=== PATIENT | female | born 1950 | race Caucasian/White ===

== ENCOUNTER → 2017-12-30 08:24 | Outpatient (CLI) | payer MEDICARE, OTHER, SELFPAY ==
[2017-12-30 09:43] LABS: Hemoglobin A1C% w Est Avg Glu 6.2 % (4.0-6.0)
[2017-12-30 10:13] LABS: Alanine Aminotransferase 60 IU/L (9-52); Albumin 4.2 g/dL (3.5-5.0); Albumin Globulin Ratio 1.4 (1.0-2.8); Alkaline Phosphatase 96 U/L (38-126); Aspartate Aminotransferase 43 IU/L (14-36); BUN Creatinine Ratio 22.9 (6-22); Bilirubin Total 0.6 mg/dL (0.2-1.3); Blood Urea Nitrogen 16 mg/dL (7-17); Calcium 9.5 mg/dL (8.4-10.2); Carbon Dioxide 29 mmol/L (22-32); Chloride 102 mmol/L (98-107); Cholesterol 172 mg/dL (140-199); Estimated Glomerular Filt Rate > 60.0 mL/min (>60); Globulin 3.1 g/dL (1.7-4.1); Glucose 125 mg/dL (80-110); HDL Cholesterol 58 mg/dL (40-60); HEMOLYSIS < 15 (0-50); LDL Cholesterol Calculated 89 mg/dL (<100); Potassium 4.9 mmol/L (3.4-5.1); Sodium 143 mmol/L (137-145); Total Protein 7.3 g/dL (6.3-8.2); Triglycerides 127 mg/dL (35-150)
== END ==
PROVIDERS: PCP Family Medicine; Visit Provider Family Medicine
DX: E78.5 Hyperlipidemia, unspecified (principal); E11.9 Type 2 diabetes mellitus without complications
CPT/HCPCS: 36415; 80053; 80061; 83036

== ENCOUNTER → 2018-07-17 11:19 | Outpatient (CLI) | payer MEDICARE, OTHER, SELFPAY ==
[2018-07-17 12:01] LABS: Add Manual Diff / Slide Review NO; Basophils Percent Auto 0.7 % (0-2); Eosinophils Percent Auto 1.6 % (2-4); Hematocrit 42.8 % (36-46); Hemoglobin 14.2 g/dL (12.0-16.0); Lymphocytes Percent Auto 40.4 % (25-40); Mean Corpuscular HGB Conc 33.2 % (30-36); Mean Corpuscular Hemoglobin 29.6 PG (26-34); Mean Corpuscular Volume 89.2 fL (80-100); Monocytes Percent Auto 9.5 % (3-14); Neutrophils Absolute Auto 4200 /uL (1500-7000); Neutrophils Percent Auto 47.8 % (50-75); Platelet Count 302 X10^3/uL (150-400); Red Cell Distribution Width 13.3 % (11.6-14.8); White Blood Cell Count 8.9 X10^3/uL (4.5-11.0)
[2018-07-17 12:19] LABS: Alanine Aminotransferase 45 IU/L (9-52); Albumin 4.4 g/dL (3.5-5.0); Albumin Globulin Ratio 1.3 (1.0-2.8); Alkaline Phosphatase 86 U/L (38-126); Aspartate Aminotransferase 30 IU/L (14-36); Bilirubin Total 0.5 mg/dL (0.2-1.3); Blood Urea Nitrogen 14 mg/dL (7-17); Calcium 9.4 mg/dL (8.4-10.2); Carbon Dioxide 27 mmol/L (22-32); Chloride 105 mmol/L (98-107); Cholesterol 157 mg/dL (140-199); Estimated Glomerular Filt Rate > 60.0 mL/min (>60); Globulin 3.3 g/dL (1.7-4.1); Glucose 108 mg/dL (80-110); HDL Cholesterol 45 mg/dL (40-60); HEMOLYSIS < 15 (0-50); Hemoglobin A1C% w Est Avg Glu 6.2 % (4.0-6.0); LDL Cholesterol Calculated 83 mg/dL (<100); Potassium 4.8 mmol/L (3.4-5.1); Sodium 145 mmol/L (137-145); Total Protein 7.7 g/dL (6.3-8.2); Triglycerides 143 mg/dL (35-150)
[2018-07-17 14:17] LABS: Thyroid Stimulating Hormone 3.08 uIU/mL (0.47-4.68)
[2018-07-17 19:39] LABS: Microalbumi Creatinin Ratio Ur 13.3 ug/mg CR (<30); Microalbumin Urine Random 1.4 mg/dL (0-1.6)
== END ==
PROVIDERS: PCP Family Medicine; Visit Provider Family Medicine
DX: E11.9 Type 2 diabetes mellitus without complications (principal); E78.5 Hyperlipidemia, unspecified; Z51.81 Encounter for therapeutic drug level monitoring
CPT/HCPCS: 36415; 80053; 80061; 82043; 82570; 83036; 84443; 85025

== ENCOUNTER → 2019-01-12 10:26 | Outpatient (CLI) | payer MEDICARE, OTHER, SELFPAY ==
[2019-01-12 11:03] LABS: Hemoglobin A1C% w Est Avg Glu 5.8 % (4.0-6.0)
[2019-01-12 11:09] LABS: Alanine Aminotransferase 45 IU/L (9-52); Albumin 4.5 g/dL (3.5-5.0); Albumin Globulin Ratio 1.4 (1.0-2.8); Alkaline Phosphatase 87 U/L (38-126); Aspartate Aminotransferase 31 IU/L (14-36); BUN Creatinine Ratio 22.9 (6-22); Bilirubin Total 0.5 mg/dL (0.2-1.3); Blood Urea Nitrogen 16 mg/dL (7-17); Calcium 9.8 mg/dL (8.4-10.2); Carbon Dioxide 30 mmol/L (22-32); Chloride 103 mmol/L (98-107); Cholesterol 155 mg/dL (140-199); Estimated Glomerular Filt Rate > 60.0 mL/min (>60); Globulin 3.3 g/dL (1.7-4.1); Glucose 112 mg/dL (80-110); HDL Cholesterol 47 mg/dL (40-60); HEMOLYSIS < 15 (0-50); LDL Cholesterol Calculated 79 mg/dL (<100); Sodium 141 mmol/L (137-145); Total Protein 7.8 g/dL (6.3-8.2); Triglycerides 146 mg/dL (35-150)
== END ==
PROVIDERS: PCP Family Medicine; Visit Provider Family Medicine
DX: E11.9 Type 2 diabetes mellitus without complications (principal); E78.5 Hyperlipidemia, unspecified; I10 Essential (primary) hypertension
CPT/HCPCS: 36415; 80053; 80061; 83036

== ENCOUNTER → 2019-04-13 12:40 | Outpatient (CLI) | payer MEDICARE, OTHER, SELFPAY ==
[2019-04-13 13:29] LABS: Hemoglobin A1C% w Est Avg Glu 6.2 % (4.0-6.0)
[2019-04-13 13:40] LABS: Alanine Aminotransferase 55 IU/L (9-52); Albumin 4.6 g/dL (3.5-5.0); Albumin Globulin Ratio 1.4 (1.0-2.8); Alkaline Phosphatase 94 U/L (38-126); Aspartate Aminotransferase 44 IU/L (14-36); BUN Creatinine Ratio 25.7 (6-22); Bilirubin Total 0.8 mg/dL (0.2-1.3); Blood Urea Nitrogen 18 mg/dL (7-17); Carbon Dioxide 30 mmol/L (22-32); Chloride 100 mmol/L (98-107); Estimated Glomerular Filt Rate > 60.0 mL/min (>60); Globulin 3.4 g/dL (1.7-4.1); Glucose 105 mg/dL (80-110); HEMOLYSIS < 15 (0-50); Potassium 4.6 mmol/L (3.4-5.1); Sodium 143 mmol/L (137-145)
== END ==
PROVIDERS: PCP Family Medicine; Visit Provider Family Medicine
DX: E11.9 Type 2 diabetes mellitus without complications (principal); E78.5 Hyperlipidemia, unspecified; I10 Essential (primary) hypertension
CPT/HCPCS: 36415; 80053; 83036; 84443

== ENCOUNTER → 2019-10-02 15:53 | Outpatient (CLI) | payer MEDICARE, OTHER, SELFPAY ==
--- NOTE | 2019-10-02 | DI.MG.S_ITS ---
BILATERAL DIGITAL SCREENING MAMMOGRAM 3D/2D WITH CAD: 10/02/2019 CLINICAL: Routine screening. Family history of breast cancer. Comparison is made to exams dated: 10/07/2017 mammogram, 12/19/2014 mammogram, and 11/29/2013 mammogram - Located Within [facility]. There are scattered fibroglandular elements in both breasts. Current study was also evaluated with a Computer Aided Detection (CAD) system. No significant masses, calcifications, or other findings are seen in either breast. There has been no significant interval change. IMPRESSION: NEGATIVE There is no mammographic evidence of malignancy. A 1 year screening mammogram is recommended. This exam was interpreted at Station ID: [id number]. NOTE: For mammograms, a report in lay terms will be sent to the patient. Approximately 15% of breast malignancies will not be visualized mammographically. In the management of a palpable breast mass, a negative mammogram must not discourage biopsy of a clinically suspicious lesion. Electronically Signed By: Omayra hoyt/jean:10/02/2019 17:34:02 letter sent: Normal Exam ACR BI-RADS Category 1: Negative [id number]
== END ==
PROVIDERS: PCP Internal Medicine; Referring Provider Internal Medicine; Visit Provider Internal Medicine
DX: Z12.31 Encounter for screening mammogram for malignant neoplasm of breast (principal); Z80.3 Family history of malignant neoplasm of breast
CPT/HCPCS: 77063; 77067

== ENCOUNTER → 2019-10-11 13:42 | Outpatient (CLI) | payer MEDICARE, OTHER, SELFPAY ==
[2019-10-11 14:36] LABS: Appearance Urine UA CLEAR; Bilirubin Urine UA NEGATIVE (NEGATIVE); Color Urine UA YELLOW; Glucose Urine UA NEGATIVE (Negative); Ketones Urine UA NEGATIVE (NEGATIVE); Leukocyte Esterase Urine UA NEGATIVE (NEGATIVE); Nitrite Urine UA POSITIVE (Negative); Occult Blood Urine UA TRACE-LYSED (Negative); Protein Urine UA NEGATIVE (Negative); Specific Gravity Urine UA 1.025 (1.000-1.035); Urobilinogen Urine UA 0.2 E.U./dL (0.2)
[2019-10-11 14:54] LABS: pH Urine UA 5.5 (4.5-8.0)
[2019-10-11 15:04] LABS: Add Manual Diff / Slide Review NO; Basophils Absolute Auto 100 /uL (0-100); Basophils Percent Auto 0.8 % (0-2); Eosinophils Absolute Auto 100 /uL (0-450); Eosinophils Percent Auto 1.5 % (2-4); Hematocrit 43.6 % (36-46); Hemoglobin 14.7 g/dL (12.0-16.0); Lymphocytes Absolute Auto 3600 /uL (1100-4500); Lymphocytes Percent Auto 42.6 % (25-40); Mean Corpuscular HGB Conc 33.8 % (30-36); Mean Corpuscular Hemoglobin 30.4 PG (26-34); Mean Corpuscular Volume 89.8 fL (80-100); Monocytes Absolute Auto 600 /uL (0-900); Monocytes Percent Auto 7.6 % (3-14); Neutrophils Absolute Auto 4000 /uL (1500-7000); Neutrophils Percent Auto 47.5 % (50-75); Platelet Count 313 X10^3/uL (150-400); Red Blood Cell Count 4.86 X10^6/uL (4.0-5.2); Red Cell Distribution Width 13.8 % (11.6-14.8); White Blood Cell Count 8.4 X10^3/uL (4.5-11.0)
[2019-10-11 15:15] LABS: Bacteria Urine Many (>30); Culture Indicated Urine Specimen Cultured; RBC Urine 0-1/HPF (0-5/HPF); Squamous Epithelial Cell Urine 0-1 /HPF (0-5/HPF); WBC Urine 5-10/HPF (0-5/HPF)
[2019-10-11 15:29] LABS: Hemoglobin A1C% w Est Avg Glu 6.5 % (4.0-6.0)
[2019-10-11 16:16] LABS: Alanine Aminotransferase 56 IU/L (<35); Albumin 4.6 g/dL (3.5-5.0); Albumin Globulin Ratio 1.3 (1.0-2.8); Alkaline Phosphatase 102 U/L (38-126); Aspartate Aminotransferase 48 IU/L (14-36); BUN Creatinine Ratio 22.4 (6-22); Bilirubin Total 0.6 mg/dL (0.2-1.3); Blood Urea Nitrogen 17 mg/dL (7-17); Calcium 10.1 mg/dL (8.4-10.2); Carbon Dioxide 31 mmol/L (22-32); Chloride 102 mmol/L (98-107); Cholesterol 185 mg/dL (140-199); Estimated Glomerular Filt Rate > 60.0 mL/min (>60); Globulin 3.5 g/dL (1.7-4.1); Glucose 155 mg/dL (80-110); HDL Cholesterol 43 mg/dL (40-60); HEMOLYSIS < 15 (0-50); LDL Cholesterol Calculated 106 mg/dL (<100); Potassium 4.5 mmol/L (3.4-5.1); Sodium 140 mmol/L (137-145); Total Protein 8.1 g/dL (6.3-8.2); Triglycerides 178 mg/dL (35-150)
[2019-10-11 17:23] LABS: Thyroid Stimulating Hormone 2.42 uIU/mL (0.47-4.68)
== END ==
PROVIDERS: PCP Internal Medicine; Referring Provider Family Medicine; Visit Provider Family Medicine
DX: Z13.29 Encounter for screening for other suspected endocrine disorder (principal); E11.9 Type 2 diabetes mellitus without complications; E78.5 Hyperlipidemia, unspecified; I10 Essential (primary) hypertension
CPT/HCPCS: 36415; 80053; 80061; 81003; 81015; 83036; 84443; 85025; 87077; 87086; 87186

== ENCOUNTER → 2020-04-11 11:54 | Outpatient (CLI) | payer MEDICARE, OTHER, SELFPAY ==
[2020-04-11 12:32] LABS: Hemoglobin A1C% w Est Avg Glu 7.1 % (4.0-6.0)
[2020-04-11 12:56] LABS: Alanine Aminotransferase 84 IU/L (<35); Albumin 4.3 g/dL (3.5-5.0); Albumin Globulin Ratio 1.3 (1.0-2.8); Alkaline Phosphatase 112 U/L (38-126); Aspartate Aminotransferase 65 IU/L (14-36); BUN Creatinine Ratio 21.1 (6-22); Bilirubin Total 0.6 mg/dL (0.2-1.3); Blood Urea Nitrogen 15 mg/dL (7-17); Calcium 9.5 mg/dL (8.4-10.2); Carbon Dioxide 31 mmol/L (22-32); Chloride 103 mmol/L (98-107); Cholesterol 166 mg/dL (140-199); Estimated Glomerular Filt Rate > 60.0 mL/min (>60); Globulin 3.3 g/dL (1.7-4.1); Glucose 130 mg/dL (80-110); HDL Cholesterol 48 mg/dL (40-60); HEMOLYSIS < 15 (0-50); LDL Cholesterol Calculated 87 mg/dL (<100); Potassium 4.8 mmol/L (3.4-5.1); Sodium 140 mmol/L (137-145); Total Protein 7.6 g/dL (6.3-8.2); Triglycerides 156 mg/dL (35-150)
== END ==
PROVIDERS: PCP Internal Medicine; Referring Provider Internal Medicine; Visit Provider Internal Medicine
DX: E11.9 Type 2 diabetes mellitus without complications (principal); E78.5 Hyperlipidemia, unspecified; I10 Essential (primary) hypertension
CPT/HCPCS: 36415; 80053; 80061; 83036

== ENCOUNTER 2020-05-13 09:00 | Outpatient (RCR) | payer MEDICARE, OTHER, SELFPAY ==
--- NOTE | 2020-02-04 15:10 | PT.OIE ---
Current Diagnoses Dorsalgia, unspecified (02/04/20) Past Medical History (Last Updated 10/15/19 @ 13:59 by Vinh Stallings MD) Chronic hepatitis C (Chronic) Depression (Chronic Unknown) Diabetes (Chronic Unknown) History of CVA (cerebrovascular accident) (Resolved ~2011) Hx of TIA (transient ischemic attack) and stroke (Resolved ~2011) Hyperlipemia (Chronic Unknown) Hypertension (Chronic Unknown) Osteopenia (Chronic 07/2016) Past Surgical History (Last Reviewed 01/23/18 @ 12:50 by Vanessa Rodriguez DO) History of elective History of elective Status post tubal ligation Visit Care Team Role Provider Type Vinh Stallings MD Attending Provider Physician Primary Care Provider Referring Provider Specialty: Internal Medicine Address: [address] [place] [address], [address], [facility] Email: [email or web address] Physical Therapy Initial Evaluation PT-OP-A Visit Information Start: 02/04/20 14:33 Freq: Status: Active Protocol: Document 02/04/20 14:33 (Rec: 02/04/20 15:09 [email or web address]) Out-Patient Physical Therapy Visit Information Visit Information Visit Type Initial Evaluation Visit Start Time 13:48 Visit Stop Time 14:30 Total Visit Minutes 42 Visit Number 08/19 Number of SLOT SERVICE SPECIALIST Visits 0 Evaluation Information Evaluation Date 02/04/20 Precautions Precautions Hep C Stroke 7-10 years ago SOB PT-OP-B Current Condition Start: 02/04/20 14:33 Freq: Status: Active Protocol: Document 02/04/20 14:33 (Rec: 02/04/20 15:09 [email or web address]) Current Condition History of Current Condition Onset Date Many years ago Current Complaints Chronic LBP and B proximal leg pain, LLE weakness, poor activity tolerance History of Current Condition Pt is a 69yo female here for primary c/o poor activity tolerance BLE pain. Pt is a chronic smoker since 23 and currently smoke 1 pack a day. Pt stated her leg pain mostly located at B thighs and worse at groin and hip flexors region, along with lower back pain at lumbar region. Pt cannot peg more than 1 block of walking and often needed sitting break which reliefs her symptoms. She reports she cannot sleep on his back since extending her back increases her symptoms. 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 Treatment Goals Patient/Caregiver Goals 1. To be able to tolerate walking > 1 mile 2. to strength B LEs Personal Factors Other Personal Factors That May Effect Hepatitis C Therapy/Recovery Stroke 7-10 years ago SOB PT-OP-C Subjective Start: 02/04/20 14:33 Freq: Status: Active Protocol: Document 02/04/20 14:33 HH (Rec: 02/04/20 15:09 [email or web address]) Patient Questionnaires Oswestry Low Back Index Oswestry Score 44 Oswestry Impairment 40 to 59% Impaired (Score 40- 59) OP-PT Pain Assessment Location LBP Pain Location Details lumbar region Intensity 5 Scale Used Numeric (0 - 10) Description Aching Pain Aggravating Factors Activity,Exercise,Standing, Walking,Bending Pain Alleviating Factors Inactivity,Sitting groin Pain Location Details bilateral Intensity 5 Scale Used Numeric (0 - 10) Description Aching Frequency Constant Pain Aggravating Factors Activity,Exercise,Standing, Walking Pain Alleviating Factors Inactivity,Sitting PT-OP-D Balance Start: 02/04/20 14:33 Freq: Status: Active Protocol: Document 02/04/20 14:33 HH (Rec: 02/04/20 15:09 [email or web address]) Balance Tests Single Limb Standing Single Limb- Right 7 Single Limb- Left 5 PT-OP-G Mobility & Gait Start: 02/04/20 14:33 Freq: Status: Active Protocol: Document 02/04/20 14:33 HH (Rec: 02/04/20 15:09 [email or web address]) OP Gait Assessment Factors Limiting Gait Function Factors Limiting Gait Function Limited Range of Motion,Pain Comments Gait Comments significant anterior trunk lean with anterior pelvic tilt , along with minimal heel strike and push off. PT-OP-H Neuro Start: 02/04/20 14:33 Freq: Status: Active Protocol: Document 02/04/20 14:33 HH (Rec: 02/04/20 15:09 [email or web address]) Deep Tendon Reflex & Clonus Assessment Deep Tendon Reflex Bilateral Bicep Deep Tendon Reflex 2+ Normal Bilateral Tricep Deep Tendon Reflex 3+ Normal But Brisk Achilles Deep Tendon Reflex 2+ Normal Bilateral Patellar Deep Tendon Reflex 4+ Brisk PT-OP-J Posture/Palpation/Skin Start: 02/04/20 14:33 Freq: Status: Active Protocol: Document 02/04/20 14:33 (Rec: 02/04/20 15:09 [email or web address]) Posture Evaluation Position Standing Evaluation View Lateral Head/C-Spine Posture Forward Head Pelvis Posture Anteriorly Tilted Ankle/Foot Posture (L) Plantarflexed,(R) Plantarflexed PT-OP-K Range of Motion Start: 02/04/20 14:33 Freq: Status: Active Protocol: Document 02/04/20 14:33 HH (Rec: 02/04/20 15:09 [email or web address]) Lumbar Spine Range of Motion Lumbar Spine Active Degrees Comments toe touch test: 6.5 inches from floor , use UE support on knees to recover from bend over position sidebending: R 21, L 18 extension= neutral PT-OP-L Special Tests Start: 02/04/20 14:33 Freq: Status: Active Protocol: Document 02/04/20 14:33 (Rec: 02/04/20 15:09 [email or web address]) Special Tests Lumbar Spine Special Tests Alfonzo Test Results +VE L worse than R Comments sig.groin pain reproduced, knee off table by 30 degrees. PT-OP-M Strength Start: 02/04/20 14:33 Freq: Status: Active Protocol: Document 02/04/20 14:33 HH (Rec: 02/04/20 15:09 [email or web address]) Hip Strength Hip Manual Muscle Testing Right Flexion (L2) 4 Good Extension (S1) 4 Good Abduction 4 Good Left Flexion (L2) 4 Good Extension (S1) 3+ Fair+ Abduction 4 Good Adduction 4 Good Knee Strength Knee Manual Muscle Testing Right Flexion (S2) 4+ Good+ Extension (L3) 4+ Good+ Left Flexion (S2) 4+ Good+ Extension (L3) 4+ Good+ Ankle/Foot Strength Ankle and Foot Manual Muscle Testing Right Dorsiflexion (L4) 4+ Good+ Plantarflexion (S1) 4+ Good+ Inversion 4+ Good+ Eversion (S1) 4+ Good+ Left Dorsiflexion (L4) 4 Good Plantarflexion (S1) 4+ Good+ Inversion 4+ Good+ Eversion (S1) 4 Good PT-OP-Q Treatments Start: 02/04/20 14:33 Freq: Status: Active Protocol: Document 02/04/20 14:33 (Rec: 02/04/20 15:10 [email or web address]) Self-Care/Home Management Treatment Education Patient Education Body Mechanics,Joint Protection,Pain Management, Posture Caregiver Education Spent time educating patient on relationship between gait mechanics with anterior pelvic tilt position and LBP; the importance of adequate hip extension; weight from abdominal distention to LBP PT-OP-T Assessment and Plan Start: 02/04/20 14:33 Freq: Status: Active Protocol: Document 02/04/20 14:33 HH (Rec: 02/04/20 15:09 [email or web address]) Physical Therapy Assessment Rehab Potential Rehabilitation Potential Good Evaluation Complexity Number of Personal Factors/Comorbidities 3 or More Number of Body Systems Impaired 4 or More Clinical Presentation at Evaluation Stable Impairments Impairments Activity Tolerance,Balance, Functional Activities, Functional Mobility,Gait,Pain, Posture,ROM,Soft Tissue Mobility,Strength Other Concerns Barriers to Rehabilitation Hepatitis C Stroke 7-10 years ago SOB Goals activity tolerance Impairment unable to walk more than 1 block without resting breaks Short Term Goal (STG) pt will be able to walk more than 2 blocks twice a week without breaks STG Duration 4 weeks Licensed Pesticide Applicator Goal (LTG) Pt will be able to walk for a mile twice a week with minimal discomfort LTG Duration 8 weeks pain Impairment pain at 5 or more at all times Short Term Goal (STG) Pt will have pain no more than 5 for any activities STG Duration 4 weeks Skilled Nursing Goal (LTG) PT will have pain no more than 3/10 for any walking activities. LTG Duration 8 weeks Oswestry LBP Impairment pt scores 44 Short Term Goal (STG) Pt will score 35 or less to improve her ability for functional acitvities STG Duration 4 weeks Skilled Nursing Goal (LTG) pt will score 25 or less to improve her ability for functional activites with minimal discomfort LTG Duration 8 weeks Assessment Summary Assessment This is a moderate complexity evaluation for this 69 yo female here for chronic B LE pain and back pain. Her pain tends to get worse with activity. Upon assessment, pt has a significant abdominal distention and weight approx 170-180lbs at 5'1. She presents with significant anterior pelvic tilt in standing and supine position with very limited heel strike and push off. Pt's Alfonzo test only reaches approx 30 degrees off from parallel with groin and thigh pain reproduced. This indicates her extremely poor flexibility of anterior hip and thigh musculature. Spent time educated patient on relationship between gait mechanics with anterior pelvic tilt position and LBP. Pt will benefit from skilled therapy to address her limited hip flexibility, mal-aligned pelvic position, B LE weakness and poor endurance but she most likely will need a longer rehab d/t her other predisposed conditions such as hepatitis C and current heavy smoker. Physical Therapy Plan Frequency and Duration Frequency of Treatment 2x/Week Duration of Treatment 8 weeks Plan of Care Start Date 02/04/20 Plan of Care End Date 04/04/20 Therapeutic Interventions Therapeutic Interventions Balance Training,Gait Training ,Home Exercise Program,Joint Mobilizations,Manual Therapy, Neuromuscular Re-education, Patient/Caregiver Education, Self-Care/Home Management,Soft Tissue Mobilization,Taping, Therapeutic Activities, Therapeutic Exercises Modalities Cold Pack/Ice Massage,Electric Stimulation,Hot Packs, Infrared Therapy Next Visit Focus/Plan Next Note Type Treatment Note Next Visit Plan education on anterior pelvic tilt rolling pin for anterior thigh muscles hip flexor stretch quad stretch
--- NOTE | 2020-02-04 15:10 | PT.OPPOC ---
Physical, Occupational & Speech Therapy At [facility] Current Diagnoses Dorsalgia, unspecified (02/04/20) Visit Care Team Role Provider Type Vinh Stallings MD Attending Provider Physician Primary Care Provider Referring Provider Specialty: Internal Medicine Address: [address] [place] [address], [address], [address] Email: [email or web address] Plan Of Care PT-OP-T Assessment and Plan Start: 02/04/20 14:33 Freq: Status: Active Protocol: Document 02/04/20 14:33 (Rec: 02/04/20 15:09 [email or web address]) Physical Therapy Assessment Rehab Potential Rehabilitation Potential Good Evaluation Complexity Number of Personal Factors/Comorbidities 3 or More Number of Body Systems Impaired 4 or More Clinical Presentation at Evaluation Stable Impairments Impairments Activity Tolerance,Balance, Functional Activities, Functional Mobility,Gait,Pain, Posture,ROM,Soft Tissue Mobility,Strength Other Concerns Barriers to Rehabilitation Hepatitis C Stroke 7-10 years ago SOB Goals activity tolerance Impairment unable to walk more than 1 block without resting breaks Short Term Goal (STG) pt will be able to walk more than 2 blocks twice a week without breaks STG Duration 4 weeks Mcc Goal (LTG) Pt will be able to walk for a mile twice a week with minimal discomfort LTG Duration 8 weeks pain Impairment pain at 5 or more at all times Short Term Goal (STG) Pt will have pain no more than 5 for any activities STG Duration 4 weeks Mcc Goal (LTG) PT will have pain no more than 3/10 for any walking activities. LTG Duration 8 weeks Oswestry LBP Impairment pt scores 44 Short Term Goal (STG) Pt will score 35 or less to improve her ability for functional acitvities STG Duration 4 weeks Skiagrapher Goal (LTG) pt will score 25 or less to improve her ability for functional activites with minimal discomfort LTG Duration 8 weeks Assessment Summary Assessment This is a moderate complexity evaluation for this 69 yo female here for chronic B LE pain and back pain. Her pain tends to get worse with activity. Upon assessment, pt has a significant abdominal distention and weight approx 170-180lbs at 5'1. She presents with significant anterior pelvic tilt in standing and supine position with very limited heel strike and push off. Pt's Alfonzo test only reaches approx 30 degrees off from parallel with groin and thigh pain reproduced. This indicates her extremely poor flexibility of anterior hip and thigh musculature. Spent time educated patient on relationship between gait mechanics with anterior pelvic tilt position and LBP. Pt will benefit from skilled therapy to address her limited hip flexibility, mal-aligned pelvic position, B LE weakness and poor endurance but she most likely will need a longer rehab d/t her other predisposed conditions such as hepatitis C and current heavy smoker. Physical Therapy Plan Frequency and Duration Frequency of Treatment 2x/Week Duration of Treatment 8 weeks Plan of Care Start Date 02/04/20 Plan of Care End Date 04/04/20 Therapeutic Interventions Therapeutic Interventions Balance Training,Gait Training ,Home Exercise Program,Joint Mobilizations,Manual Therapy, Neuromuscular Re-education, Patient/Caregiver Education, Self-Care/Home Management,Soft Tissue Mobilization,Taping, Therapeutic Activities, Therapeutic Exercises Modalities Cold Pack/Ice Massage,Electric Stimulation,Hot Packs, Infrared Therapy Next Visit Focus/Plan Next Note Type Treatment Note Next Visit Plan education on anterior pelvic tilt rolling pin for anterior thigh muscles hip flexor stretch quad stretch Plan of Care Dates Plan of Care Start Date 02/04/20 Plan of Care End Date 04/04/20 Electronically Signed by: Julian Irving PT 02/04/20 0070 Please Sign and Return: I have reviewed this Plan of Care and certify that the skilled therapy services above are required to meet the patient?s needs. Physician Signature Date Printed Name and Credentials Clinical Instructor Signature Printed Name and Credentials
--- NOTE | 2020-02-04 15:19 | PT.OPPOC ---
Physical, Occupational & Speech Therapy At [facility] Current Diagnoses Dorsalgia, unspecified (02/04/20) Visit Care Team Role Provider Type Vinh Stallings MD Attending Provider Physician Primary Care Provider Referring Provider Specialty: Internal Medicine Address: [address] [place] [address], [address], [address] Email: [email or web address] Plan Of Care PT-OP-T Assessment and Plan Start: 02/04/20 14:33 Freq: Status: Active Protocol: Document 02/04/20 14:33 (Rec: 02/04/20 15:09 [email or web address]) Physical Therapy Assessment Rehab Potential Rehabilitation Potential Good Evaluation Complexity Number of Personal Factors/Comorbidities 3 or More Number of Body Systems Impaired 4 or More Clinical Presentation at Evaluation Stable Impairments Impairments Activity Tolerance,Balance, Functional Activities, Functional Mobility,Gait,Pain, Posture,ROM,Soft Tissue Mobility,Strength Other Concerns Barriers to Rehabilitation Hepatitis C Stroke 7-10 years ago SOB Goals activity tolerance Impairment unable to walk more than 1 block without resting breaks Short Term Goal (STG) pt will be able to walk more than 2 blocks twice a week without breaks STG Duration 4 weeks Alf Goal (LTG) Pt will be able to walk for a mile twice a week with minimal discomfort LTG Duration 8 weeks pain Impairment pain at 5 or more at all times Short Term Goal (STG) Pt will have pain no more than 5 for any activities STG Duration 4 weeks Alf Goal (LTG) PT will have pain no more than 3/10 for any walking activities. LTG Duration 8 weeks Oswestry LBP Impairment pt scores 44 Short Term Goal (STG) Pt will score 35 or less to improve her ability for functional acitvities STG Duration 4 weeks Clinical Administrator Goal (LTG) pt will score 25 or less to improve her ability for functional activites with minimal discomfort LTG Duration 8 weeks Assessment Summary Assessment This is a moderate complexity evaluation for this 69 yo female here for chronic B LE pain and back pain. Her pain tends to get worse with activity. Upon assessment, pt has a significant abdominal distention and weight approx 170-180lbs at 5'1. She presents with significant anterior pelvic tilt in standing and supine position with very limited heel strike and push off. Pt's Alfonzo test only reaches approx 30 degrees off from parallel with groin and thigh pain reproduced. This indicates her extremely poor flexibility of anterior hip and thigh musculature. Spent time educated patient on relationship between gait mechanics with anterior pelvic tilt position and LBP. Pt will benefit from skilled therapy to address her limited hip flexibility, mal-aligned pelvic position, B LE weakness and poor endurance but she most likely will need a longer rehab d/t her other predisposed conditions such as hepatitis C and current heavy smoker. Physical Therapy Plan Frequency and Duration Frequency of Treatment 2x/Week Duration of Treatment 8 weeks Plan of Care Start Date 02/04/20 Plan of Care End Date 04/04/20 Therapeutic Interventions Therapeutic Interventions Balance Training,Gait Training ,Home Exercise Program,Joint Mobilizations,Manual Therapy, Neuromuscular Re-education, Patient/Caregiver Education, Self-Care/Home Management,Soft Tissue Mobilization,Taping, Therapeutic Activities, Therapeutic Exercises Modalities Cold Pack/Ice Massage,Electric Stimulation,Hot Packs, Infrared Therapy Next Visit Focus/Plan Next Note Type Treatment Note Next Visit Plan education on anterior pelvic tilt rolling pin for anterior thigh muscles hip flexor stretch quad stretch Plan of Care Dates Plan of Care Start Date 02/04/20 Plan of Care End Date 04/04/20 Electronically Signed by: Julian Irving PT 02/04/20 [id number] Please Sign and Return: I have reviewed this Plan of Care and certify that the skilled therapy services above are required to meet the patient?s needs. Physician Signature Date Printed Name and Credentials Clinical Instructor Signature Printed Name and Credentials
--- NOTE | 2020-02-05 14:33 | PT.OTN ---
Current Diagnoses Dorsalgia, unspecified (02/05/20) Physical Therapy Treatment Note PT-OP-A Visit Information Start: 02/04/20 14:33 Freq: Status: Active Protocol: Document 02/05/20 13:52 (Rec: 02/05/20 14:32 [id number]) Out-Patient Physical Therapy Visit Information Visit Information Visit Type Treatment Note Visit Start Time 13:48 Visit Stop Time 14:30 Total Visit Minutes 42 Visit Number 09/19 Number of MULTIPLE LAUNCH ROCKET SYSTEM CREWMEMBER Visits 0 PT-OP-B Current Condition Start: 02/04/20 14:33 Freq: Status: Active Protocol: Document 02/04/20 14:33 HH (Rec: 02/04/20 15:09 [email or web address]) Current Condition History of Current Condition Onset Date Many years ago Current Complaints Chronic LBP and B proximal leg pain, LLE weakness, poor activity tolerance History of Current Condition Pt is a 69yo female here for primary c/o poor activity tolerance BLE pain. Pt is a chronic smoker since 23 and currently smoke 1 pack a day. Pt stated her leg pain mostly located at B thighs and worse at groin and hip flexors region, along with lower back pain at lumbar region. Pt cannot peg more than 1 block of walking and often needed sitting break which reliefs her symptoms. She reports she cannot sleep on his back since extending her back increases her symptoms. 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 Treatment Goals Patient/Caregiver Goals 1. To be able to tolerate walking > 1 mile 2. to strength B LEs Personal Factors Other Personal Factors That May Effect Hepatitis C Therapy/Recovery Stroke 7-10 years ago SOB PT-OP-C Subjective Start: 02/04/20 14:33 Freq: Status: Active Protocol: Document 02/05/20 13:52 HH (Rec: 02/05/20 14:32 [id number]) OP-PT Subjective Patient Comments Patient Comments I didnt feel too bad from the assessment. Patient Reported Progress Same PT-OP-D Balance Start: 02/04/20 14:33 Freq: Status: Active Protocol: Document 02/04/20 14:33 HH (Rec: 02/04/20 15:09 [email or web address]) Balance Tests Single Limb Standing Single Limb- Right 7 Single Limb- Left 5 PT-OP-G Mobility & Gait Start: 02/04/20 14:33 Freq: Status: Active Protocol: Document 02/04/20 14:33 HH (Rec: 02/04/20 15:09 [email or web address]) OP Gait Assessment Factors Limiting Gait Function Factors Limiting Gait Function Limited Range of Motion,Pain Comments Gait Comments significant anterior trunk lean with anterior pelvic tilt , along with minimal heel strike and push off. PT-OP-H Neuro Start: 02/04/20 14:33 Freq: Status: Active Protocol: Document 02/04/20 14:33 HH (Rec: 02/04/20 15:09 [email or web address]) Deep Tendon Reflex & Clonus Assessment Deep Tendon Reflex Bilateral Bicep Deep Tendon Reflex 2+ Normal Bilateral Tricep Deep Tendon Reflex 3+ Normal But Brisk Achilles Deep Tendon Reflex 2+ Normal Bilateral Patellar Deep Tendon Reflex 4+ Brisk PT-OP-J Posture/Palpation/Skin Start: 02/04/20 14:33 Freq: Status: Active Protocol: Document 02/04/20 14:33 HH (Rec: 02/04/20 15:09 [email or web address]) Posture Evaluation Position Standing Evaluation View Lateral Head/C-Spine Posture Forward Head Pelvis Posture Anteriorly Tilted Ankle/Foot Posture (L) Plantarflexed,(R) Plantarflexed PT-OP-K Range of Motion Start: 02/04/20 14:33 Freq: Status: Active Protocol: Document 02/04/20 14:33 HH (Rec: 02/04/20 15:09 [email or web address]) Lumbar Spine Range of Motion Lumbar Spine Active Degrees Comments toe touch test: 6.5 inches from floor , use UE support on knees to recover from bend over position sidebending: R 21, L 18 extension= neutral PT-OP-L Special Tests Start: 02/04/20 14:33 Freq: Status: Active Protocol: Document 02/04/20 14:33 HH (Rec: 02/04/20 15:09 [email or web address]) Special Tests Lumbar Spine Special Tests Alfonzo Test Results +VE L worse than R Comments sig.groin pain reproduced, knee off table by 30 degrees. PT-OP-M Strength Start: 02/04/20 14:33 Freq: Status: Active Protocol: Document 02/04/20 14:33 HH (Rec: 02/04/20 15:09 [email or web address]) Hip Strength Hip Manual Muscle Testing Right Flexion (L2) 4 Good Extension (S1) 4 Good Abduction 4 Good Left Flexion (L2) 4 Good Extension (S1) 3+ Fair+ Abduction 4 Good Adduction 4 Good Knee Strength Knee Manual Muscle Testing Right Flexion (S2) 4+ Good+ Extension (L3) 4+ Good+ Left Flexion (S2) 4+ Good+ Extension (L3) 4+ Good+ Ankle/Foot Strength Ankle and Foot Manual Muscle Testing Right Dorsiflexion (L4) 4+ Good+ Plantarflexion (S1) 4+ Good+ Inversion 4+ Good+ Eversion (S1) 4+ Good+ Left Dorsiflexion (L4) 4 Good Plantarflexion (S1) 4+ Good+ Inversion 4+ Good+ Eversion (S1) 4 Good PT-OP-Q Treatments Start: 02/04/20 14:33 Freq: Status: Active Protocol: Document 02/05/20 13:52 (Rec: 02/05/20 14:32 [id number]) Therapeutic Exercises Supine Exercises pelvic tilt Supine Exercise Name PPT focused Side bilateral Reps/Minutes 8 x2 Comments for HEP alfonzo test Supine Exercise Name hip flexors Side bilateral Reps/Minutes 10 secs hold Comments for HEP, pt's thigh 30 degrees off table. Sitting Exercises quad release Sitting Exercise Name groin > mid quad> lateral quad Side bilateral Equipment Used rolling pin Reps/Minutes 8 mins Comments for HEP Manual Therapy Treatment Soft Tissue Mobilization release Body Location hip flexors Mobilization Type Myofascial Release,Sustained Pressure,Trigger Point Release Intensity/Depth Moderate Body Position Hooklying B thighs Body Location proximal hip adductors, hip flexors and quads Mobilization Type Rolling,Sustained Pressure, Trigger Point Release Intensity/Depth Moderate Body Position Hooklying Comments with rolling pin. Significant tenderness noted L > R PT-OP-T Assessment and Plan Start: 02/04/20 14:33 Freq: Status: Active Protocol: Document 02/05/20 13:52 (Rec: 02/05/20 14:32 [id number]) Physical Therapy Assessment Goals activity tolerance Impairment unable to walk more than 1 block without resting breaks Short Term Goal (STG) pt will be able to walk more than 2 blocks twice a week without breaks STG Duration 4 weeks Senior Information Security Consultant Goal (LTG) Pt will be able to walk for a mile twice a week with minimal discomfort LTG Duration 8 weeks pain Impairment pain at 5 or more at all times Short Term Goal (STG) Pt will have pain no more than 5 for any activities STG Duration 4 weeks Senior Information Security Consultant Goal (LTG) PT will have pain no more than 3/10 for any walking activities. LTG Duration 8 weeks Oswestry LBP Impairment pt scores 44 Short Term Goal (STG) Pt will score 35 or less to improve her ability for functional acitvities STG Duration 4 weeks Senior Information Security Consultant Goal (LTG) pt will score 25 or less to improve her ability for functional activites with minimal discomfort LTG Duration 8 weeks Assessment Summary Assessment Pt shows very poor hip mobility especially hip extension and abduction. Added HEP with alfonzo stretch, rolling pin and supine pelvic tilt. Physical Therapy Plan Next Visit Focus/Plan Next Note Type Treatment Note Next Visit Plan education on anterior pelvic tilt rolling pin for anterior thigh muscles hip flexor stretch quad stretch
--- NOTE | 2020-02-14 10:33 | PT.OTN ---
Current Diagnoses Dorsalgia, unspecified (02/14/20) Physical Therapy Treatment Note PT-OP-A Visit Information Start: 02/04/20 14:33 Freq: Status: Active Protocol: Document 02/14/20 09:52 HH (Rec: 02/14/20 10:33 [id number]) Out-Patient Physical Therapy Visit Information Visit Information Visit Type Treatment Note Visit Start Time 09:50 Visit Stop Time 10:40 Total Visit Minutes 50 Visit Number 10/17 Number of SLIPCOVER CUTTER Visits 0 PT-OP-B Current Condition Start: 02/04/20 14:33 Freq: Status: Active Protocol: Document 02/04/20 14:33 HH (Rec: 02/04/20 15:09 [email or web address]) Current Condition History of Current Condition Onset Date Many years ago Current Complaints Chronic LBP and B proximal leg pain, LLE weakness, poor activity tolerance History of Current Condition Pt is a 69yo female here for primary c/o poor activity tolerance BLE pain. Pt is a chronic smoker since 23 and currently smoke 1 pack a day. Pt stated her leg pain mostly located at B thighs and worse at groin and hip flexors region, along with lower back pain at lumbar region. Pt cannot peg more than 1 block of walking and often needed sitting break which reliefs her symptoms. She reports she cannot sleep on his back since extending her back increases her symptoms. 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 Treatment Goals Patient/Caregiver Goals 1. To be able to tolerate walking > 1 mile 2. to strength B LEs Personal Factors Other Personal Factors That May Effect Hepatitis C Therapy/Recovery Stroke 7-10 years ago SOB PT-OP-C Subjective Start: 02/04/20 14:33 Freq: Status: Active Protocol: Document 02/14/20 09:52 HH (Rec: 02/14/20 10:33 [id number]) OP-PT Subjective Patient Comments Patient Comments I feel the difference since last time and getting up from seated position started getting easier now. But i havent done exercises as much as i should Patient Reported Progress Improving PT-OP-D Balance Start: 02/04/20 14:33 Freq: Status: Active Protocol: Document 02/04/20 14:33 HH (Rec: 02/04/20 15:09 [email or web address]) Balance Tests Single Limb Standing Single Limb- Right 7 Single Limb- Left 5 PT-OP-G Mobility & Gait Start: 02/04/20 14:33 Freq: Status: Active Protocol: Document 02/04/20 14:33 HH (Rec: 02/04/20 15:09 [email or web address]) OP Gait Assessment Factors Limiting Gait Function Factors Limiting Gait Function Limited Range of Motion,Pain Comments Gait Comments significant anterior trunk lean with anterior pelvic tilt , along with minimal heel strike and push off. PT-OP-H Neuro Start: 02/04/20 14:33 Freq: Status: Active Protocol: Document 02/04/20 14:33 HH (Rec: 02/04/20 15:09 [email or web address]) Deep Tendon Reflex & Clonus Assessment Deep Tendon Reflex Bilateral Bicep Deep Tendon Reflex 2+ Normal Bilateral Tricep Deep Tendon Reflex 3+ Normal But Brisk Achilles Deep Tendon Reflex 2+ Normal Bilateral Patellar Deep Tendon Reflex 4+ Brisk PT-OP-J Posture/Palpation/Skin Start: 02/04/20 14:33 Freq: Status: Active Protocol: Document 02/04/20 14:33 HH (Rec: 02/04/20 15:09 [email or web address]) Posture Evaluation Position Standing Evaluation View Lateral Head/C-Spine Posture Forward Head Pelvis Posture Anteriorly Tilted Ankle/Foot Posture (L) Plantarflexed,(R) Plantarflexed PT-OP-K Range of Motion Start: 02/04/20 14:33 Freq: Status: Active Protocol: Document 02/04/20 14:33 HH (Rec: 02/04/20 15:09 [email or web address]) Lumbar Spine Range of Motion Lumbar Spine Active Degrees Comments toe touch test: 6.5 inches from floor , use UE support on knees to recover from bend over position sidebending: R 21, L 18 extension= neutral PT-OP-L Special Tests Start: 02/04/20 14:33 Freq: Status: Active Protocol: Document 02/04/20 14:33 HH (Rec: 02/04/20 15:09 [email or web address]) Special Tests Lumbar Spine Special Tests Alfonzo Test Results +VE L worse than R Comments sig.groin pain reproduced, knee off table by 30 degrees. PT-OP-M Strength Start: 02/04/20 14:33 Freq: Status: Active Protocol: Document 02/04/20 14:33 HH (Rec: 02/04/20 15:09 [email or web address]) Hip Strength Hip Manual Muscle Testing Right Flexion (L2) 4 Good Extension (S1) 4 Good Abduction 4 Good Left Flexion (L2) 4 Good Extension (S1) 3+ Fair+ Abduction 4 Good Adduction 4 Good Knee Strength Knee Manual Muscle Testing Right Flexion (S2) 4+ Good+ Extension (L3) 4+ Good+ Left Flexion (S2) 4+ Good+ Extension (L3) 4+ Good+ Ankle/Foot Strength Ankle and Foot Manual Muscle Testing Right Dorsiflexion (L4) 4+ Good+ Plantarflexion (S1) 4+ Good+ Inversion 4+ Good+ Eversion (S1) 4+ Good+ Left Dorsiflexion (L4) 4 Good Plantarflexion (S1) 4+ Good+ Inversion 4+ Good+ Eversion (S1) 4 Good PT-OP-Q Treatments Start: 02/04/20 14:33 Freq: Status: Active Protocol: Document 02/14/20 09:52 HH (Rec: 02/14/20 10:33 [id number]) Therapeutic Exercises Supine Exercises pelvic tilt Supine Exercise Name PPT focused Side bilateral Reps/Minutes 8 x2 Comments put small towel at lumbar to facilitate PPT alfonzo test Supine Exercise Name hip flexors Side bilateral Equipment Used PT assisted Reps/Minutes 10 secs hold Comments pt's R thigh 30 degrees off table. with deep breathing Manual Therapy Treatment Soft Tissue Mobilization release Body Location hip flexors Mobilization Type Myofascial Release,Sustained Pressure,Trigger Point Release Intensity/Depth Moderate Body Position Hooklying B thighs Body Location proximal hip adductors, hip flexors and quads Mobilization Type Rolling,Sustained Pressure, Trigger Point Release Intensity/Depth Moderate Body Position Hooklying Comments with rolling pin. Significant tenderness noted L > R PT-OP-R Modalities Start: 02/04/20 14:33 Freq: Status: Active Protocol: Document 02/14/20 09:50 HH (Rec: 02/14/20 10:33 [id number]) Hot Pack/Cold Pack Treatment Hot Pack Location lumbar Patient Position Hooklying Treatment Duration (minutes) 10 Patient Tolerance Good PT-OP-T Assessment and Plan Start: 02/04/20 14:33 Freq: Status: Active Protocol: Document 02/14/20 09:52 HH (Rec: 02/14/20 10:33 [id number]) Physical Therapy Assessment Goals activity tolerance Impairment unable to walk more than 1 block without resting breaks Short Term Goal (STG) pt will be able to walk more than 2 blocks twice a week without breaks STG Duration 4 weeks Group Home Goal (LTG) Pt will be able to walk for a mile twice a week with minimal discomfort LTG Duration 8 weeks pain Impairment pain at 5 or more at all times Short Term Goal (STG) Pt will have pain no more than 5 for any activities STG Duration 4 weeks Experiential Therapist Goal (LTG) PT will have pain no more than 3/10 for any walking activities. LTG Duration 8 weeks Oswestry LBP Impairment pt scores 44 Short Term Goal (STG) Pt will score 35 or less to improve her ability for functional acitvities STG Duration 4 weeks Experiential Therapist Goal (LTG) pt will score 25 or less to improve her ability for functional activites with minimal discomfort LTG Duration 8 weeks Assessment Summary Assessment Tx focused on hip flexor flexiblity and pelvic tilt. Pt showed improved pelvic tilt control after using towel under her lumbar region as the movement feedback. Physical Therapy Plan Next Visit Focus/Plan Next Note Type Treatment Note Next Visit Plan education on anterior pelvic tilt rolling pin for anterior thigh muscles hip flexor stretch quad stretch
--- NOTE | 2020-02-19 10:29 | PT.OTN ---
Current Diagnoses Dorsalgia, unspecified (02/19/20) Physical Therapy Treatment Note PT-OP-A Visit Information Start: 02/04/20 14:33 Freq: Status: Active Protocol: Document 02/19/20 09:42 (Rec: 02/19/20 10:29 [id number]) Out-Patient Physical Therapy Visit Information Visit Information Visit Type Treatment Note Visit Start Time 09:45 Visit Stop Time 10:36 Total Visit Minutes 51 Visit Number 11/17 Number of ALTERNATIVE MEDICINE PRACTITIONER Visits 0 PT-OP-B Current Condition Start: 02/04/20 14:33 Freq: Status: Active Protocol: Document 02/04/20 14:33 HH (Rec: 02/04/20 15:09 [email or web address]) Current Condition History of Current Condition Onset Date Many years ago Current Complaints Chronic LBP and B proximal leg pain, LLE weakness, poor activity tolerance History of Current Condition Pt is a 69yo female here for primary c/o poor activity tolerance BLE pain. Pt is a chronic smoker since 23 and currently smoke 1 pack a day. Pt stated her leg pain mostly located at B thighs and worse at groin and hip flexors region, along with lower back pain at lumbar region. Pt cannot peg more than 1 block of walking and often needed sitting break which reliefs her symptoms. She reports she cannot sleep on his back since extending her back increases her symptoms. 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 Treatment Goals Patient/Caregiver Goals 1. To be able to tolerate walking > 1 mile 2. to strength B LEs Personal Factors Other Personal Factors That May Effect Hepatitis C Therapy/Recovery Stroke 7-10 years ago SOB PT-OP-C Subjective Start: 02/04/20 14:33 Freq: Status: Active Protocol: Document 02/19/20 09:42 HH (Rec: 02/19/20 10:29 [id number]) OP-PT Subjective Patient Comments Patient Comments I feel sore from last time and chandler been doing my exercises. I think my bladder control is better too but not consistent Patient Reported Progress Improving PT-OP-D Balance Start: 02/04/20 14:33 Freq: Status: Active Protocol: Document 02/04/20 14:33 HH (Rec: 02/04/20 15:09 [email or web address]) Balance Tests Single Limb Standing Single Limb- Right 7 Single Limb- Left 5 PT-OP-G Mobility & Gait Start: 02/04/20 14:33 Freq: Status: Active Protocol: Document 02/04/20 14:33 HH (Rec: 02/04/20 15:09 [email or web address]) OP Gait Assessment Factors Limiting Gait Function Factors Limiting Gait Function Limited Range of Motion,Pain Comments Gait Comments significant anterior trunk lean with anterior pelvic tilt , along with minimal heel strike and push off. PT-OP-H Neuro Start: 02/04/20 14:33 Freq: Status: Active Protocol: Document 02/04/20 14:33 HH (Rec: 02/04/20 15:09 [email or web address]) Deep Tendon Reflex & Clonus Assessment Deep Tendon Reflex Bilateral Bicep Deep Tendon Reflex 2+ Normal Bilateral Tricep Deep Tendon Reflex 3+ Normal But Brisk Achilles Deep Tendon Reflex 2+ Normal Bilateral Patellar Deep Tendon Reflex 4+ Brisk PT-OP-J Posture/Palpation/Skin Start: 02/04/20 14:33 Freq: Status: Active Protocol: Document 02/04/20 14:33 HH (Rec: 02/04/20 15:09 [email or web address]) Posture Evaluation Position Standing Evaluation View Lateral Head/C-Spine Posture Forward Head Pelvis Posture Anteriorly Tilted Ankle/Foot Posture (L) Plantarflexed,(R) Plantarflexed PT-OP-K Range of Motion Start: 02/04/20 14:33 Freq: Status: Active Protocol: Document 02/04/20 14:33 (Rec: 02/04/20 15:09 [email or web address]) Lumbar Spine Range of Motion Lumbar Spine Active Degrees Comments toe touch test: 6.5 inches from floor , use UE support on knees to recover from bend over position sidebending: R 21, L 18 extension= neutral PT-OP-L Special Tests Start: 02/04/20 14:33 Freq: Status: Active Protocol: Document 02/04/20 14:33 HH (Rec: 02/04/20 15:09 [email or web address]) Special Tests Lumbar Spine Special Tests Alfonzo Test Results +VE L worse than R Comments sig.groin pain reproduced, knee off table by 30 degrees. PT-OP-M Strength Start: 02/04/20 14:33 Freq: Status: Active Protocol: Document 02/04/20 14:33 (Rec: 02/04/20 15:09 [email or web address]) Hip Strength Hip Manual Muscle Testing Right Flexion (L2) 4 Good Extension (S1) 4 Good Abduction 4 Good Left Flexion (L2) 4 Good Extension (S1) 3+ Fair+ Abduction 4 Good Adduction 4 Good Knee Strength Knee Manual Muscle Testing Right Flexion (S2) 4+ Good+ Extension (L3) 4+ Good+ Left Flexion (S2) 4+ Good+ Extension (L3) 4+ Good+ Ankle/Foot Strength Ankle and Foot Manual Muscle Testing Right Dorsiflexion (L4) 4+ Good+ Plantarflexion (S1) 4+ Good+ Inversion 4+ Good+ Eversion (S1) 4+ Good+ Left Dorsiflexion (L4) 4 Good Plantarflexion (S1) 4+ Good+ Inversion 4+ Good+ Eversion (S1) 4 Good PT-OP-Q Treatments Start: 02/04/20 14:33 Freq: Status: Active Protocol: Document 02/19/20 09:42 (Rec: 02/19/20 10:29 [id number]) Cardio Equipment Recumbent Bicycle Duration (Minutes) 6 Resistance 3 Seat Position 1 Therapeutic Exercises Supine Exercises hip adductors stretch Side bilateral Reps/Minutes 10 secs hold x 10 Comments with deep breathing to facilitate relaxation pelvic tilt Supine Exercise Name PPT focused Side bilateral Reps/Minutes 8 x2 Comments put small towel at lumbar to facilitate PPT alfonzo test Supine Exercise Name hip flexors Side bilateral Equipment Used PT assisted Reps/Minutes 10 secs hold Comments pt's R thigh 30 degrees off table. with deep breathing Manual Therapy Treatment Soft Tissue Mobilization release Body Location hip flexors Mobilization Type Myofascial Release,Sustained Pressure,Trigger Point Release Intensity/Depth Moderate Body Position Hooklying B thighs Body Location proximal hip adductors, hip flexors and quads Mobilization Type Rolling,Sustained Pressure, Trigger Point Release Intensity/Depth Moderate Body Position Hooklying Comments with rolling pin. Significant tenderness noted L > R. Improved pain threshold noted. PT-OP-R Modalities Start: 02/04/20 14:33 Freq: Status: Active Protocol: Document 02/19/20 09:42 (Rec: 02/19/20 10:29 [id number]) Hot Pack/Cold Pack Treatment Hot Pack Location lumbar Patient Position Hooklying Treatment Duration (minutes) 10 Patient Tolerance Good PT-OP-T Assessment and Plan Start: 02/04/20 14:33 Freq: Status: Active Protocol: Document 02/19/20 09:42 (Rec: 02/19/20 10:29 [id number]) Physical Therapy Assessment Goals activity tolerance Impairment unable to walk more than 1 block without resting breaks Short Term Goal (STG) pt will be able to walk more than 2 blocks twice a week without breaks STG Duration 4 weeks Wrap Checker Goal (LTG) Pt will be able to walk for a mile twice a week with minimal discomfort LTG Duration 8 weeks pain Impairment pain at 5 or more at all times Short Term Goal (STG) Pt will have pain no more than 5 for any activities STG Duration 4 weeks Group Home Goal (LTG) PT will have pain no more than 3/10 for any walking activities. LTG Duration 8 weeks Oswestry LBP Impairment pt scores 44 Short Term Goal (STG) Pt will score 35 or less to improve her ability for functional acitvities STG Duration 4 weeks Wrap Checker Goal (LTG) pt will score 25 or less to improve her ability for functional activites with minimal discomfort LTG Duration 8 weeks Assessment Summary Assessment Pt shows improved muscle pain sensitivity at B thighs today and she also reports improved bladder control. Tx focused on hip flexors and adductors stretch today. Cont POC Physical Therapy Plan Next Visit Focus/Plan Next Note Type Treatment Note Next Visit Plan education on anterior pelvic tilt rolling pin for anterior thigh muscles hip flexor stretch quad stretch hip adductor bike
--- NOTE | 2020-02-25 16:14 | PT.OTN ---
Current Diagnoses Dorsalgia, unspecified (02/25/20) Physical Therapy Treatment Note PT-OP-A Visit Information Start: 02/04/20 14:33 Freq: Status: Active Protocol: Document 02/25/20 15:20 (Rec: 02/25/20 16:14 [id number]) Out-Patient Physical Therapy Visit Information Visit Information Visit Type Treatment Note Visit Start Time 15:20 Visit Stop Time 16:10 Total Visit Minutes 50 Visit Number 12/17 Number of DIGGING MACHINE OPERATOR Visits 0 PT-OP-B Current Condition Start: 02/04/20 14:33 Freq: Status: Active Protocol: Document 02/04/20 14:33 HH (Rec: 02/04/20 15:09 [email or web address]) Current Condition History of Current Condition Onset Date Many years ago Current Complaints Chronic LBP and B proximal leg pain, LLE weakness, poor activity tolerance History of Current Condition Pt is a 69yo female here for primary c/o poor activity tolerance BLE pain. Pt is a chronic smoker since 23 and currently smoke 1 pack a day. Pt stated her leg pain mostly located at B thighs and worse at groin and hip flexors region, along with lower back pain at lumbar region. Pt cannot peg more than 1 block of walking and often needed sitting break which reliefs her symptoms. She reports she cannot sleep on his back since extending her back increases her symptoms. 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 Treatment Goals Patient/Caregiver Goals 1. To be able to tolerate walking > 1 mile 2. to strength B LEs Personal Factors Other Personal Factors That May Effect Hepatitis C Therapy/Recovery Stroke 7-10 years ago SOB PT-OP-C Subjective Start: 02/04/20 14:33 Freq: Status: Active Protocol: Document 02/25/20 15:20 HH (Rec: 02/25/20 16:14 [id number]) OP-PT Subjective Patient Comments Patient Comments Its been feeling pretty good and my L inside hip still hurts. I feel looser in general. Patient Reported Progress Improving PT-OP-D Balance Start: 02/04/20 14:33 Freq: Status: Active Protocol: Document 02/04/20 14:33 HH (Rec: 02/04/20 15:09 [email or web address]) Balance Tests Single Limb Standing Single Limb- Right 7 Single Limb- Left 5 PT-OP-G Mobility & Gait Start: 02/04/20 14:33 Freq: Status: Active Protocol: Document 02/04/20 14:33 HH (Rec: 02/04/20 15:09 [email or web address]) OP Gait Assessment Factors Limiting Gait Function Factors Limiting Gait Function Limited Range of Motion,Pain Comments Gait Comments significant anterior trunk lean with anterior pelvic tilt , along with minimal heel strike and push off. PT-OP-H Neuro Start: 02/04/20 14:33 Freq: Status: Active Protocol: Document 02/04/20 14:33 HH (Rec: 02/04/20 15:09 [email or web address]) Deep Tendon Reflex & Clonus Assessment Deep Tendon Reflex Bilateral Bicep Deep Tendon Reflex 2+ Normal Bilateral Tricep Deep Tendon Reflex 3+ Normal But Brisk Achilles Deep Tendon Reflex 2+ Normal Bilateral Patellar Deep Tendon Reflex 4+ Brisk PT-OP-J Posture/Palpation/Skin Start: 02/04/20 14:33 Freq: Status: Active Protocol: Document 02/04/20 14:33 HH (Rec: 02/04/20 15:09 [email or web address]) Posture Evaluation Position Standing Evaluation View Lateral Head/C-Spine Posture Forward Head Pelvis Posture Anteriorly Tilted Ankle/Foot Posture (L) Plantarflexed,(R) Plantarflexed PT-OP-K Range of Motion Start: 02/04/20 14:33 Freq: Status: Active Protocol: Document 02/04/20 14:33 HH (Rec: 02/04/20 15:09 [email or web address]) Lumbar Spine Range of Motion Lumbar Spine Active Degrees Comments toe touch test: 6.5 inches from floor , use UE support on knees to recover from bend over position sidebending: R 21, L 18 extension= neutral PT-OP-L Special Tests Start: 02/04/20 14:33 Freq: Status: Active Protocol: Document 02/04/20 14:33 HH (Rec: 02/04/20 15:09 [email or web address]) Special Tests Lumbar Spine Special Tests Alfonzo Test Results +VE L worse than R Comments sig.groin pain reproduced, knee off table by 30 degrees. PT-OP-M Strength Start: 02/04/20 14:33 Freq: Status: Active Protocol: Document 02/04/20 14:33 (Rec: 02/04/20 15:09 [email or web address]) Hip Strength Hip Manual Muscle Testing Right Flexion (L2) 4 Good Extension (S1) 4 Good Abduction 4 Good Left Flexion (L2) 4 Good Extension (S1) 3+ Fair+ Abduction 4 Good Adduction 4 Good Knee Strength Knee Manual Muscle Testing Right Flexion (S2) 4+ Good+ Extension (L3) 4+ Good+ Left Flexion (S2) 4+ Good+ Extension (L3) 4+ Good+ Ankle/Foot Strength Ankle and Foot Manual Muscle Testing Right Dorsiflexion (L4) 4+ Good+ Plantarflexion (S1) 4+ Good+ Inversion 4+ Good+ Eversion (S1) 4+ Good+ Left Dorsiflexion (L4) 4 Good Plantarflexion (S1) 4+ Good+ Inversion 4+ Good+ Eversion (S1) 4 Good PT-OP-Q Treatments Start: 02/04/20 14:33 Freq: Status: Active Protocol: Document 02/25/20 15:20 (Rec: 02/25/20 16:14 [id number]) Therapeutic Exercises Supine Exercises hip adductors stretch Side bilateral Reps/Minutes 10 secs hold x 10 Comments with deep breathing to facilitate relaxation pelvic tilt Supine Exercise Name PPT focused Side bilateral Reps/Minutes 8 x2 Comments put small towel at lumbar to facilitate PPT alfonzo test Supine Exercise Name hip flexors Side bilateral Equipment Used PT assisted Reps/Minutes 10 secs hold Comments pt's R thigh 30 degrees off table. with deep breathing Manual Therapy Treatment Soft Tissue Mobilization release Body Location hip flexors Mobilization Type Myofascial Release,Sustained Pressure,Trigger Point Release Intensity/Depth Moderate Body Position Hooklying B thighs Body Location proximal hip adductors, hip flexors and quads Mobilization Type Rolling,Sustained Pressure, Trigger Point Release Intensity/Depth Moderate Body Position Hooklying Comments with rolling pin. Significant tenderness noted L > R. Improved pain threshold noted. Manual Traction distraction Details hip distraction Body Position Supine Comments bilateral 10 sec hold x5 PT-OP-R Modalities Start: 02/04/20 14:33 Freq: Status: Active Protocol: Document 02/25/20 15:20 (Rec: 02/25/20 16:14 [id number]) Hot Pack/Cold Pack Treatment Hot Pack Location lumbar Patient Position Hooklying Treatment Duration (minutes) 10 Patient Tolerance Good PT-OP-T Assessment and Plan Start: 02/04/20 14:33 Freq: Status: Active Protocol: Document 02/25/20 15:20 (Rec: 02/25/20 16:14 [id number]) Physical Therapy Assessment Goals activity tolerance Impairment unable to walk more than 1 block without resting breaks Short Term Goal (STG) pt will be able to walk more than 2 blocks twice a week without breaks STG Duration 4 weeks Custodial Goal (LTG) Pt will be able to walk for a mile twice a week with minimal discomfort LTG Duration 8 weeks pain Impairment pain at 5 or more at all times Short Term Goal (STG) Pt will have pain no more than 5 for any activities STG Duration 4 weeks [employer] Supervisor Goal (LTG) PT will have pain no more than 3/10 for any walking activities. LTG Duration 8 weeks Oswestry LBP Impairment pt scores 44 Short Term Goal (STG) Pt will score 35 or less to improve her ability for functional acitvities STG Duration 4 weeks [employer] Super[employer] Goal (LTG) pt will score 25 or less to improve her ability for functional activites with minimal discomfort LTG Duration 8 weeks Assessment Summary Assessment Pt's B hips musculature show improved pain sensitivity with manual pressure but her mobility of B hips are cont to be very poor. Education on consistent stretching and weight loss to improve her significant anterior pelvic tilted position Physical Therapy Plan Next Visit Focus/Plan Next Note Type Treatment Note Next Visit Plan education on anterior pelvic tilt rolling pin for anterior thigh muscles hip flexor stretch quad stretch hip adductor bike
--- NOTE | 2020-03-04 13:44 | PT.OTN ---
Current Diagnoses Dorsalgia, unspecified (03/04/20) Physical Therapy Treatment Note PT-OP-A Visit Information Start: 02/04/20 14:33 Freq: Status: Active Protocol: Document 03/04/20 13:02 (Rec: 03/04/20 13:43 [id number]) Out-Patient Physical Therapy Visit Information Visit Information Visit Type Treatment Note Visit Start Time 13:01 Visit Stop Time 13:46 Total Visit Minutes 45 Visit Number 01/17 Number of SCREEN OPERATOR Visits 0 PT-OP-B Current Condition Start: 02/04/20 14:33 Freq: Status: Active Protocol: Document 02/04/20 14:33 HH (Rec: 02/04/20 15:09 [email or web address]) Current Condition History of Current Condition Onset Date Many years ago Current Complaints Chronic LBP and B proximal leg pain, LLE weakness, poor activity tolerance History of Current Condition Pt is a 69yo female here for primary c/o poor activity tolerance BLE pain. Pt is a chronic smoker since 23 and currently smoke 1 pack a day. Pt stated her leg pain mostly located at B thighs and worse at groin and hip flexors region, along with lower back pain at lumbar region. Pt cannot peg more than 1 block of walking and often needed sitting break which reliefs her symptoms. She reports she cannot sleep on his back since extending her back increases her symptoms. 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 Treatment Goals Patient/Caregiver Goals 1. To be able to tolerate walking > 1 mile 2. to strength B LEs Personal Factors Other Personal Factors That May Effect Hepatitis C Therapy/Recovery Stroke 7-10 years ago SOB PT-OP-C Subjective Start: 02/04/20 14:33 Freq: Status: Active Protocol: Document 03/04/20 13:02 HH (Rec: 03/04/20 13:43 [id number]) OP-PT Subjective Patient Comments Patient Comments I have no complaints. Guerda been doing more walking and stretching. I dont have much of sharp back pain lately. I just overall started moving more with more energy. Patient Reported Progress Improving PT-OP-D Balance Start: 02/04/20 14:33 Freq: Status: Active Protocol: Document 02/04/20 14:33 HH (Rec: 02/04/20 15:09 [email or web address]) Balance Tests Single Limb Standing Single Limb- Right 7 Single Limb- Left 5 PT-OP-G Mobility & Gait Start: 02/04/20 14:33 Freq: Status: Active Protocol: Document 02/04/20 14:33 HH (Rec: 02/04/20 15:09 [email or web address]) OP Gait Assessment Factors Limiting Gait Function Factors Limiting Gait Function Limited Range of Motion,Pain Comments Gait Comments significant anterior trunk lean with anterior pelvic tilt , along with minimal heel strike and push off. PT-OP-H Neuro Start: 02/04/20 14:33 Freq: Status: Active Protocol: Document 02/04/20 14:33 HH (Rec: 02/04/20 15:09 [email or web address]) Deep Tendon Reflex & Clonus Assessment Deep Tendon Reflex Bilateral Bicep Deep Tendon Reflex 2+ Normal Bilateral Tricep Deep Tendon Reflex 3+ Normal But Brisk Achilles Deep Tendon Reflex 2+ Normal Bilateral Patellar Deep Tendon Reflex 4+ Brisk PT-OP-J Posture/Palpation/Skin Start: 02/04/20 14:33 Freq: Status: Active Protocol: Document 02/04/20 14:33 HH (Rec: 02/04/20 15:09 [email or web address]) Posture Evaluation Position Standing Evaluation View Lateral Head/C-Spine Posture Forward Head Pelvis Posture Anteriorly Tilted Ankle/Foot Posture (L) Plantarflexed,(R) Plantarflexed PT-OP-K Range of Motion Start: 02/04/20 14:33 Freq: Status: Active Protocol: Document 02/04/20 14:33 HH (Rec: 02/04/20 15:09 [email or web address]) Lumbar Spine Range of Motion Lumbar Spine Active Degrees Comments toe touch test: 6.5 inches from floor , use UE support on knees to recover from bend over position sidebending: R 21, L 18 extension= neutral PT-OP-L Special Tests Start: 02/04/20 14:33 Freq: Status: Active Protocol: Document 02/04/20 14:33 HH (Rec: 02/04/20 15:09 [email or web address]) Special Tests Lumbar Spine Special Tests Alfonzo Test Results +VE L worse than R Comments sig.groin pain reproduced, knee off table by 30 degrees. PT-OP-M Strength Start: 02/04/20 14:33 Freq: Status: Active Protocol: Document 02/04/20 14:33 (Rec: 02/04/20 15:09 [email or web address]) Hip Strength Hip Manual Muscle Testing Right Flexion (L2) 4 Good Extension (S1) 4 Good Abduction 4 Good Left Flexion (L2) 4 Good Extension (S1) 3+ Fair+ Abduction 4 Good Adduction 4 Good Knee Strength Knee Manual Muscle Testing Right Flexion (S2) 4+ Good+ Extension (L3) 4+ Good+ Left Flexion (S2) 4+ Good+ Extension (L3) 4+ Good+ Ankle/Foot Strength Ankle and Foot Manual Muscle Testing Right Dorsiflexion (L4) 4+ Good+ Plantarflexion (S1) 4+ Good+ Inversion 4+ Good+ Eversion (S1) 4+ Good+ Left Dorsiflexion (L4) 4 Good Plantarflexion (S1) 4+ Good+ Inversion 4+ Good+ Eversion (S1) 4 Good PT-OP-Q Treatments Start: 02/04/20 14:33 Freq: Status: Active Protocol: Document 03/04/20 13:02 (Rec: 03/04/20 13:43 [id number]) Cardio Equipment Recumbent Bicycle Duration (Minutes) 6 Resistance 3 Seat Position 1 Other pt was able to place his LLE on pedal without assist 1st time Therapeutic Exercises Supine Exercises hip adductors stretch Supine Exercise Name with deep breathing to facilitate relaxation Side bilateral Reps/Minutes 10 secs hold x 10 Comments less muscle guarding noted pelvic tilt Supine Exercise Name PPT focused Side bilateral Reps/Minutes 12 x2 Comments no cues needed alfonzo test Supine Exercise Name hip flexors Side bilateral Equipment Used PT assisted Reps/Minutes 10 secs hold Comments L side is less resistive today at end range. Manual Therapy Treatment Soft Tissue Mobilization release Body Location hip flexors Mobilization Type Myofascial Release,Sustained Pressure,Trigger Point Release Intensity/Depth Moderate Body Position Hooklying B thighs Body Location proximal hip adductors, hip flexors and quads Mobilization Type Rolling,Sustained Pressure, Trigger Point Release Intensity/Depth Moderate Body Position Hooklying Comments Improved pain threshold noted this visit (L slightly worse than R) PT-OP-R Modalities Start: 02/04/20 14:33 Freq: Status: Active Protocol: Document 03/04/20 13:43 (Rec: 03/04/20 13:44 [id number]) Hot Pack/Cold Pack Treatment Hot Pack Location lumbar Patient Position Hooklying Treatment Duration (minutes) 10 Patient Tolerance Good PT-OP-T Assessment and Plan Start: 02/04/20 14:33 Freq: Status: Active Protocol: Document 03/04/20 13:02 (Rec: 03/04/20 13:43 [id number]) Physical Therapy Assessment Goals activity tolerance Impairment unable to walk more than 1 block without resting breaks Short Term Goal (STG) pt will be able to walk more than 2 blocks twice a week without breaks STG Duration 4 weeks Fpc Goal (LTG) Pt will be able to walk for a mile twice a week with minimal discomfort LTG Duration 8 weeks pain Impairment pain at 5 or more at all times Short Term Goal (STG) Pt will have pain no more than 5 for any activities STG Duration 4 weeks Fpc Goal (LTG) PT will have pain no more than 3/10 for any walking activities. LTG Duration 8 weeks Oswestry LBP Impairment pt scores 44 Short Term Goal (STG) Pt will score 35 or less to improve her ability for functional acitvities STG Duration 4 weeks Fpc Goal (LTG) pt will score 25 or less to improve her ability for functional activites with minimal discomfort LTG Duration 8 weeks Assessment Summary Assessment Pt shows improved pelvic control and reduced hip flexors tightness L>R. Spent time today to facilitate muscle relaxation with contract relax and deep breathing strategies. Pt was able to place her LLE on bike pedal without assistance for the first time. Physical Therapy Plan Next Visit Focus/Plan Next Note Type Treatment Note Next Visit Plan education on anterior pelvic tilt rolling pin for anterior thigh muscles hip flexor stretch quad stretch hip adductor bike
--- NOTE | 2020-03-06 13:48 | PT.OTN ---
Current Diagnoses Dorsalgia, unspecified (03/06/20) Physical Therapy Treatment Note PT-OP-A Visit Information Start: 02/04/20 14:33 Freq: Status: Active Protocol: Document 03/06/20 13:01 (Rec: 03/06/20 13:48 [id number]) Out-Patient Physical Therapy Visit Information Visit Information Visit Type Treatment Note Visit Start Time 13:03 Visit Stop Time 13:49 Total Visit Minutes 46 Visit Number 02/16 Number of COOK'S ASSISTANT Visits 0 PT-OP-B Current Condition Start: 02/04/20 14:33 Freq: Status: Active Protocol: Document 02/04/20 14:33 (Rec: 02/04/20 15:09 [email or web address]) Current Condition History of Current Condition Onset Date Many years ago Current Complaints Chronic LBP and B proximal leg pain, LLE weakness, poor activity tolerance History of Current Condition Pt is a 69yo female here for primary c/o poor activity tolerance BLE pain. Pt is a chronic smoker since 23 and currently smoke 1 pack a day. Pt stated her leg pain mostly located at B thighs and worse at groin and hip flexors region, along with lower back pain at lumbar region. Pt cannot peg more than 1 block of walking and often needed sitting break which reliefs her symptoms. She reports she cannot sleep on his back since extending her back increases her symptoms. 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 Treatment Goals Patient/Caregiver Goals 1. To be able to tolerate walking > 1 mile 2. to strength B LEs Personal Factors Other Personal Factors That May Effect Hepatitis C Therapy/Recovery Stroke 7-10 years ago SOB PT-OP-C Subjective Start: 02/04/20 14:33 Freq: Status: Active Protocol: Document 03/06/20 13:01 (Rec: 03/06/20 13:48 [id number]) OP-PT Subjective Patient Comments Patient Comments Im feeling good from last time. I was able to fruit or nut picker my left leg without using my arms to help for the first time since many years ago. Walking only gives me around 3 /10 pain on my legs Patient Reported Progress Improving PT-OP-D Balance Start: 02/04/20 14:33 Freq: Status: Active Protocol: Document 02/04/20 14:33 HH (Rec: 02/04/20 15:09 [email or web address]) Balance Tests Single Limb Standing Single Limb- Right 7 Single Limb- Left 5 PT-OP-G Mobility & Gait Start: 02/04/20 14:33 Freq: Status: Active Protocol: Document 02/04/20 14:33 HH (Rec: 02/04/20 15:09 [email or web address]) OP Gait Assessment Factors Limiting Gait Function Factors Limiting Gait Function Limited Range of Motion,Pain Comments Gait Comments significant anterior trunk lean with anterior pelvic tilt , along with minimal heel strike and push off. PT-OP-H Neuro Start: 02/04/20 14:33 Freq: Status: Active Protocol: Document 02/04/20 14:33 HH (Rec: 02/04/20 15:09 [email or web address]) Deep Tendon Reflex & Clonus Assessment Deep Tendon Reflex Bilateral Bicep Deep Tendon Reflex 2+ Normal Bilateral Tricep Deep Tendon Reflex 3+ Normal But Brisk Achilles Deep Tendon Reflex 2+ Normal Bilateral Patellar Deep Tendon Reflex 4+ Brisk PT-OP-J Posture/Palpation/Skin Start: 02/04/20 14:33 Freq: Status: Active Protocol: Document 02/04/20 14:33 HH (Rec: 02/04/20 15:09 [email or web address]) Posture Evaluation Position Standing Evaluation View Lateral Head/C-Spine Posture Forward Head Pelvis Posture Anteriorly Tilted Ankle/Foot Posture (L) Plantarflexed,(R) Plantarflexed PT-OP-K Range of Motion Start: 02/04/20 14:33 Freq: Status: Active Protocol: Document 02/04/20 14:33 (Rec: 02/04/20 15:09 [email or web address]) Lumbar Spine Range of Motion Lumbar Spine Active Degrees Comments toe touch test: 6.5 inches from floor , use UE support on knees to recover from bend over position sidebending: R 21, L 18 extension= neutral PT-OP-L Special Tests Start: 02/04/20 14:33 Freq: Status: Active Protocol: Document 02/04/20 14:33 HH (Rec: 02/04/20 15:09 [email or web address]) Special Tests Lumbar Spine Special Tests Alfonzo Test Results +VE L worse than R Comments sig.groin pain reproduced, knee off table by 30 degrees. PT-OP-M Strength Start: 02/04/20 14:33 Freq: Status: Active Protocol: Document 02/04/20 14:33 (Rec: 02/04/20 15:09 [email or web address]) Hip Strength Hip Manual Muscle Testing Right Flexion (L2) 4 Good Extension (S1) 4 Good Abduction 4 Good Left Flexion (L2) 4 Good Extension (S1) 3+ Fair+ Abduction 4 Good Adduction 4 Good Knee Strength Knee Manual Muscle Testing Right Flexion (S2) 4+ Good+ Extension (L3) 4+ Good+ Left Flexion (S2) 4+ Good+ Extension (L3) 4+ Good+ Ankle/Foot Strength Ankle and Foot Manual Muscle Testing Right Dorsiflexion (L4) 4+ Good+ Plantarflexion (S1) 4+ Good+ Inversion 4+ Good+ Eversion (S1) 4+ Good+ Left Dorsiflexion (L4) 4 Good Plantarflexion (S1) 4+ Good+ Inversion 4+ Good+ Eversion (S1) 4 Good PT-OP-Q Treatments Start: 02/04/20 14:33 Freq: Status: Active Protocol: Document 03/06/20 13:01 (Rec: 03/06/20 13:48 [id number]) Cardio Equipment Recumbent Stepper (Sci-Fit) Duration (Minutes) 4 Therapeutic Exercises Supine Exercises hamstring stretch Side bilateral Reps/Minutes 10 sec x 2 Comments with belt in supine bridging Side bilateral Reps/Minutes 3 x2 Comments pt felt cramps on both hamstrings pelvic tilt Supine Exercise Name PPT focused Side bilateral Reps/Minutes 12 x2 Comments no cues needed alfonzo test Supine Exercise Name hip flexors Side bilateral Equipment Used PT assisted Reps/Minutes 10 secs hold Comments L side is less resistive today at end range. Manual Therapy Treatment Soft Tissue Mobilization release Body Location hip flexors Mobilization Type Myofascial Release,Rolling, Sustained Pressure,Trigger Point Release Intensity/Depth Deep Body Position Hooklying Comments less discomfort noted B thighs Body Location proximal hip adductors, hip flexors and quads Mobilization Type Rolling,Sustained Pressure, Trigger Point Release Intensity/Depth Deep Body Position Hooklying Comments minimal discomfort noted. PT-OP-R Modalities Start: 02/04/20 14:33 Freq: Status: Active Protocol: Document 03/06/20 13:01 (Rec: 03/06/20 13:48 [id number]) Hot Pack/Cold Pack Treatment Hot Pack Location lumbar Patient Position Hooklying Treatment Duration (minutes) 10 Patient Tolerance Good PT-OP-T Assessment and Plan Start: 02/04/20 14:33 Freq: Status: Active Protocol: Document 03/06/20 13:01 (Rec: 03/06/20 13:48 [id number]) Physical Therapy Assessment Goals activity tolerance Impairment unable to walk more than 1 block without resting breaks Short Term Goal (STG) pt will be able to walk more than 2 blocks twice a week without breaks STG Duration 4 weeks [facility] Goal (LTG) Pt will be able to walk for a mile twice a week with minimal discomfort LTG Duration 8 weeks pain Impairment pain at 5 or more at all times Short Term Goal (STG) Pt will have pain no more than 5 for any activities STG Duration 4 weeks [facility] Goal (LTG) PT will have pain no more than 3/10 for any walking activities. LTG Duration 8 weeks Oswestry LBP Impairment pt scores 44 Short Term Goal (STG) Pt will score 35 or less to improve her ability for functional acitvities STG Duration 4 weeks [facility] Goal (LTG) pt will score 25 or less to improve her ability for functional activites with minimal discomfort LTG Duration 8 weeks Assessment Summary Assessment Pt cont to improve with improved pain tolerance for hip stretches and STM. Pt reports she is very anxious for exerting ex d/t previous stroke. Educating pt with RPE scale and recommended mod intensity ex such as stepper is healthy for her. Will add bridging and HS stretch to her HEP next visit. Physical Therapy Plan Next Visit Focus/Plan Next Note Type Treatment Note Next Visit Plan education on anterior pelvic tilt rolling pin for anterior thigh muscles hip flexor stretch quad stretch hip adductor bike
--- NOTE | 2020-03-11 13:44 | PT.OTN ---
Current Diagnoses Dorsalgia, unspecified (03/11/20) Physical Therapy Treatment Note PT-OP-A Visit Information Start: 02/04/20 14:33 Freq: Status: Active Protocol: Document 03/11/20 13:03 (Rec: 03/11/20 13:44 [id number]) Out-Patient Physical Therapy Visit Information Visit Information Visit Type Treatment Note Visit Start Time 13:03 Visit Stop Time 13:46 Total Visit Minutes 43 Visit Number 03/19 Number of PT ESCORT Visits 0 PT-OP-B Current Condition Start: 02/04/20 14:33 Freq: Status: Active Protocol: Document 02/04/20 14:33 HH (Rec: 02/04/20 15:09 [email or web address]) Current Condition History of Current Condition Onset Date Many years ago Current Complaints Chronic LBP and B proximal leg pain, LLE weakness, poor activity tolerance History of Current Condition Pt is a 69yo female here for primary c/o poor activity tolerance BLE pain. Pt is a chronic smoker since 23 and currently smoke 1 pack a day. Pt stated her leg pain mostly located at B thighs and worse at groin and hip flexors region, along with lower back pain at lumbar region. Pt cannot peg more than 1 block of walking and often needed sitting break which reliefs her symptoms. She reports she cannot sleep on his back since extending her back increases her symptoms. 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 Treatment Goals Patient/Caregiver Goals 1. To be able to tolerate walking > 1 mile 2. to strength B LEs Personal Factors Other Personal Factors That May Effect Hepatitis C Therapy/Recovery Stroke 7-10 years ago SOB PT-OP-C Subjective Start: 02/04/20 14:33 Freq: Status: Active Protocol: Document 03/11/20 13:03 HH (Rec: 03/11/20 13:44 [id number]) OP-PT Subjective Patient Comments Patient Comments I slept at lot during the weekend and felt pretty good. Getting in and out of the car is doing very well. Patient Reported Progress Improving PT-OP-D Balance Start: 02/04/20 14:33 Freq: Status: Active Protocol: Document 02/04/20 14:33 HH (Rec: 02/04/20 15:09 [email or web address]) Balance Tests Single Limb Standing Single Limb- Right 7 Single Limb- Left 5 PT-OP-G Mobility & Gait Start: 02/04/20 14:33 Freq: Status: Active Protocol: Document 02/04/20 14:33 HH (Rec: 02/04/20 15:09 [email or web address]) OP Gait Assessment Factors Limiting Gait Function Factors Limiting Gait Function Limited Range of Motion,Pain Comments Gait Comments significant anterior trunk lean with anterior pelvic tilt , along with minimal heel strike and push off. PT-OP-H Neuro Start: 02/04/20 14:33 Freq: Status: Active Protocol: Document 02/04/20 14:33 HH (Rec: 02/04/20 15:09 [email or web address]) Deep Tendon Reflex & Clonus Assessment Deep Tendon Reflex Bilateral Bicep Deep Tendon Reflex 2+ Normal Bilateral Tricep Deep Tendon Reflex 3+ Normal But Brisk Achilles Deep Tendon Reflex 2+ Normal Bilateral Patellar Deep Tendon Reflex 4+ Brisk PT-OP-J Posture/Palpation/Skin Start: 02/04/20 14:33 Freq: Status: Active Protocol: Document 02/04/20 14:33 HH (Rec: 02/04/20 15:09 [email or web address]) Posture Evaluation Position Standing Evaluation View Lateral Head/C-Spine Posture Forward Head Pelvis Posture Anteriorly Tilted Ankle/Foot Posture (L) Plantarflexed,(R) Plantarflexed PT-OP-K Range of Motion Start: 02/04/20 14:33 Freq: Status: Active Protocol: Document 02/04/20 14:33 (Rec: 02/04/20 15:09 [email or web address]) Lumbar Spine Range of Motion Lumbar Spine Active Degrees Comments toe touch test: 6.5 inches from floor , use UE support on knees to recover from bend over position sidebending: R 21, L 18 extension= neutral PT-OP-L Special Tests Start: 02/04/20 14:33 Freq: Status: Active Protocol: Document 02/04/20 14:33 HH (Rec: 02/04/20 15:09 [email or web address]) Special Tests Lumbar Spine Special Tests Alfonzo Test Results +VE L worse than R Comments sig.groin pain reproduced, knee off table by 30 degrees. PT-OP-M Strength Start: 02/04/20 14:33 Freq: Status: Active Protocol: Document 02/04/20 14:33 HH (Rec: 02/04/20 15:09 [email or web address]) Hip Strength Hip Manual Muscle Testing Right Flexion (L2) 4 Good Extension (S1) 4 Good Abduction 4 Good Left Flexion (L2) 4 Good Extension (S1) 3+ Fair+ Abduction 4 Good Adduction 4 Good Knee Strength Knee Manual Muscle Testing Right Flexion (S2) 4+ Good+ Extension (L3) 4+ Good+ Left Flexion (S2) 4+ Good+ Extension (L3) 4+ Good+ Ankle/Foot Strength Ankle and Foot Manual Muscle Testing Right Dorsiflexion (L4) 4+ Good+ Plantarflexion (S1) 4+ Good+ Inversion 4+ Good+ Eversion (S1) 4+ Good+ Left Dorsiflexion (L4) 4 Good Plantarflexion (S1) 4+ Good+ Inversion 4+ Good+ Eversion (S1) 4 Good PT-OP-Q Treatments Start: 02/04/20 14:33 Freq: Status: Active Protocol: Document 03/11/20 13:03 (Rec: 03/11/20 13:44 [id number]) Cardio Equipment Recumbent Stepper (Sci-Fit) Duration (Minutes) 3 Resistance 2 Recumbent Bicycle Duration (Minutes) 3 Resistance 5 Seat Position 1 Therapeutic Exercises Supine Exercises LTR Equipment Used red therapy ball Reps/Minutes 8 x2 abd curl Supine Exercise Name with red therapy ball Reps/Minutes 8 x2 Comments cues on lower abs pelvic clock Supine Exercise Name lumbar rotation Side bilateral Reps/Minutes 10 x2 Comments min cues needed bridging Side bilateral Reps/Minutes 3 x2 Comments no more cramping hip adductors stretch Supine Exercise Name with deep breathing to facilitate relaxation Side bilateral Reps/Minutes 10 secs hold x 10 Comments less muscle guarding noted pelvic tilt Supine Exercise Name PPT focused Side bilateral Reps/Minutes 12 x2 Comments no cues needed Manual Therapy Treatment Soft Tissue Mobilization release Body Location hip flexors Mobilization Type Myofascial Release,Rolling, Sustained Pressure,Trigger Point Release Intensity/Depth Deep Body Position Hooklying Comments less discomfort noted B thighs Body Location proximal hip adductors, hip flexors and quads Mobilization Type Rolling,Sustained Pressure, Trigger Point Release Intensity/Depth Deep Body Position Hooklying Comments minimal discomfort noted. PT-OP-R Modalities Start: 02/04/20 14:33 Freq: Status: Active Protocol: Document 03/11/20 13:03 (Rec: 03/11/20 13:44 [id number]) Hot Pack/Cold Pack Treatment Hot Pack Location lumbar Patient Position Hooklying Treatment Duration (minutes) 9 Patient Tolerance Good PT-OP-T Assessment and Plan Start: 02/04/20 14:33 Freq: Status: Active Protocol: Document 03/11/20 13:03 HH (Rec: 03/11/20 13:44 [id number]) Physical Therapy Assessment Goals activity tolerance Impairment unable to walk more than 1 block without resting breaks Short Term Goal (STG) pt will be able to walk more than 2 blocks twice a week without breaks STG Duration 4 weeks Fpc Goal (LTG) Pt will be able to walk for a mile twice a week with minimal discomfort LTG Duration 8 weeks pain Impairment pain at 5 or more at all times Short Term Goal (STG) Pt will have pain no more than 5 for any activities STG Duration 4 weeks Fpc Goal (LTG) PT will have pain no more than 3/10 for any walking activities. LTG Duration 8 weeks Oswestry LBP Impairment pt scores 44 Short Term Goal (STG) Pt will score 35 or less to improve her ability for functional acitvities STG Duration 4 weeks Fpc Goal (LTG) pt will score 25 or less to improve her ability for functional activites with minimal discomfort LTG Duration 8 weeks Assessment Summary Assessment Pt has improved lumbopelvic conrol and mobility now. pain sensitivity at adductors also decreased since IE. Cont to progress therex as peg. Physical Therapy Plan Next Visit Focus/Plan Next Note Type Treatment Note Next Visit Plan education on anterior pelvic tilt rolling pin for anterior thigh muscles hip flexor stretch quad stretch hip adductor bike pelvic clock, hip strengthening
--- NOTE | 2020-03-13 13:48 | PT.OTN ---
Current Diagnoses Dorsalgia, unspecified (03/13/20) Physical Therapy Treatment Note PT-OP-A Visit Information Start: 02/04/20 14:33 Freq: Status: Active Protocol: Document 03/13/20 13:01 (Rec: 03/13/20 13:48 [id number]) Out-Patient Physical Therapy Visit Information Visit Information Visit Type Treatment Note Visit Start Time 13:00 Visit Stop Time 13:50 Total Visit Minutes 50 Visit Number 04/19 Number of CRYPTOLOGIC TECHNICIAN OPERATOR/ANALYST Visits 0 PT-OP-B Current Condition Start: 02/04/20 14:33 Freq: Status: Active Protocol: Document 02/04/20 14:33 HH (Rec: 02/04/20 15:09 [email or web address]) Current Condition History of Current Condition Onset Date Many years ago Current Complaints Chronic LBP and B proximal leg pain, LLE weakness, poor activity tolerance History of Current Condition Pt is a 69yo female here for primary c/o poor activity tolerance BLE pain. Pt is a chronic smoker since 23 and currently smoke 1 pack a day. Pt stated her leg pain mostly located at B thighs and worse at groin and hip flexors region, along with lower back pain at lumbar region. Pt cannot peg more than 1 block of walking and often needed sitting break which reliefs her symptoms. She reports she cannot sleep on his back since extending her back increases her symptoms. 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 Treatment Goals Patient/Caregiver Goals 1. To be able to tolerate walking > 1 mile 2. to strength B LEs Personal Factors Other Personal Factors That May Effect Hepatitis C Therapy/Recovery Stroke 7-10 years ago SOB PT-OP-C Subjective Start: 02/04/20 14:33 Freq: Status: Active Protocol: Document 03/13/20 13:01 HH (Rec: 03/13/20 13:48 [id number]) OP-PT Subjective Patient Comments Patient Comments I walked around in town yesterday and my legs didnt get sore or painful but just SOB. My back still gets uncomfortable but not as much as before. Patient Reported Progress Improving PT-OP-D Balance Start: 02/04/20 14:33 Freq: Status: Active Protocol: Document 02/04/20 14:33 HH (Rec: 02/04/20 15:09 [email or web address]) Balance Tests Single Limb Standing Single Limb- Right 7 Single Limb- Left 5 PT-OP-G Mobility & Gait Start: 02/04/20 14:33 Freq: Status: Active Protocol: Document 02/04/20 14:33 HH (Rec: 02/04/20 15:09 [email or web address]) OP Gait Assessment Factors Limiting Gait Function Factors Limiting Gait Function Limited Range of Motion,Pain Comments Gait Comments significant anterior trunk lean with anterior pelvic tilt , along with minimal heel strike and push off. PT-OP-H Neuro Start: 02/04/20 14:33 Freq: Status: Active Protocol: Document 02/04/20 14:33 HH (Rec: 02/04/20 15:09 [email or web address]) Deep Tendon Reflex & Clonus Assessment Deep Tendon Reflex Bilateral Bicep Deep Tendon Reflex 2+ Normal Bilateral Tricep Deep Tendon Reflex 3+ Normal But Brisk Achilles Deep Tendon Reflex 2+ Normal Bilateral Patellar Deep Tendon Reflex 4+ Brisk PT-OP-J Posture/Palpation/Skin Start: 02/04/20 14:33 Freq: Status: Active Protocol: Document 02/04/20 14:33 HH (Rec: 02/04/20 15:09 [email or web address]) Posture Evaluation Position Standing Evaluation View Lateral Head/C-Spine Posture Forward Head Pelvis Posture Anteriorly Tilted Ankle/Foot Posture (L) Plantarflexed,(R) Plantarflexed PT-OP-K Range of Motion Start: 02/04/20 14:33 Freq: Status: Active Protocol: Document 02/04/20 14:33 HH (Rec: 02/04/20 15:09 [email or web address]) Lumbar Spine Range of Motion Lumbar Spine Active Degrees Comments toe touch test: 6.5 inches from floor , use UE support on knees to recover from bend over position sidebending: R 21, L 18 extension= neutral PT-OP-L Special Tests Start: 02/04/20 14:33 Freq: Status: Active Protocol: Document 02/04/20 14:33 HH (Rec: 02/04/20 15:09 [email or web address]) Special Tests Lumbar Spine Special Tests Alfonzo Test Results +VE L worse than R Comments sig.groin pain reproduced, knee off table by 30 degrees. PT-OP-M Strength Start: 02/04/20 14:33 Freq: Status: Active Protocol: Document 02/04/20 14:33 (Rec: 02/04/20 15:09 [email or web address]) Hip Strength Hip Manual Muscle Testing Right Flexion (L2) 4 Good Extension (S1) 4 Good Abduction 4 Good Left Flexion (L2) 4 Good Extension (S1) 3+ Fair+ Abduction 4 Good Adduction 4 Good Knee Strength Knee Manual Muscle Testing Right Flexion (S2) 4+ Good+ Extension (L3) 4+ Good+ Left Flexion (S2) 4+ Good+ Extension (L3) 4+ Good+ Ankle/Foot Strength Ankle and Foot Manual Muscle Testing Right Dorsiflexion (L4) 4+ Good+ Plantarflexion (S1) 4+ Good+ Inversion 4+ Good+ Eversion (S1) 4+ Good+ Left Dorsiflexion (L4) 4 Good Plantarflexion (S1) 4+ Good+ Inversion 4+ Good+ Eversion (S1) 4 Good PT-OP-Q Treatments Start: 02/04/20 14:33 Freq: Status: Active Protocol: Document 03/13/20 13:01 (Rec: 03/13/20 13:48 [id number]) Cardio Equipment Recumbent Bicycle Duration (Minutes) 5 Resistance 5 Seat Position 1 Therapeutic Exercises Supine Exercises LTR Equipment Used red therapy ball Reps/Minutes 8 x2 pelvic clock Supine Exercise Name lumbar rotation Side bilateral Reps/Minutes 10 x2 Comments min cues needed bridging Side bilateral Reps/Minutes 3 x2 Comments no more cramping pelvic tilt Supine Exercise Name PPT focused Side bilateral Reps/Minutes 12 x2 Comments no cues needed alfonzo test Supine Exercise Name hip flexors Side bilateral Equipment Used PT assisted Reps/Minutes 10 secs hold Comments L side is less resistive today at end range. Sitting Exercises seated forward reach Sitting Exercise Name with hip abducted and trunk flexion Side bilateral Equipment Used red therapy ball Reps/Minutes 8 x2 Manual Therapy Treatment Soft Tissue Mobilization lumbar parapinals Body Location lean over on table Mobilization Type Sustained Pressure,Trigger Point Release Intensity/Depth Moderate Body Position Sitting release Body Location hip flexors Mobilization Type Myofascial Release,Rolling, Sustained Pressure,Trigger Point Release Intensity/Depth Deep Body Position Hooklying Comments No discomfort on R side. less discomfort on L noted B thighs Body Location proximal hip adductors, hip flexors and quads Mobilization Type Rolling,Sustained Pressure, Trigger Point Release Intensity/Depth Deep Body Position Hooklying Comments minimal discomfort noted. PT-OP-R Modalities Start: 02/04/20 14:33 Freq: Status: Active Protocol: Document 03/13/20 13:01 (Rec: 03/13/20 13:48 [id number]) Hot Pack/Cold Pack Treatment Hot Pack Location lumbar Patient Position Hooklying Treatment Duration (minutes) 10 Patient Tolerance Good PT-OP-T Assessment and Plan Start: 02/04/20 14:33 Freq: Status: Active Protocol: Document 03/13/20 13:01 (Rec: 03/13/20 13:48 [id number]) Physical Therapy Assessment Goals activity tolerance Impairment unable to walk more than 1 block without resting breaks Short Term Goal (STG) pt will be able to walk more than 2 blocks twice a week without breaks STG Duration 4 weeks Longterm Goal (LTG) Pt will be able to walk for a mile twice a week with minimal discomfort LTG Duration 8 weeks pain Impairment pain at 5 or more at all times Short Term Goal (STG) Pt will have pain no more than 5 for any activities STG Duration 4 weeks Longterm Goal (LTG) PT will have pain no more than 3/10 for any walking activities. LTG Duration 8 weeks Oswestry LBP Impairment pt scores 44 Short Term Goal (STG) Pt will score 35 or less to improve her ability for functional acitvities STG Duration 4 weeks Longterm Goal (LTG) pt will score 25 or less to improve her ability for functional activites with minimal discomfort LTG Duration 8 weeks Assessment Summary Assessment Pt stated she walked without much discomfort on B LEs yesterday. added seated forward reach today. Physical Therapy Plan Next Visit Focus/Plan Next Note Type Treatment Note Next Visit Plan rolling pin for anterior thigh muscles hip flexor stretch quad stretch hip adductor bike pelvic clock, hip strengthening lumbar flexion and extension
--- NOTE | 2020-03-18 14:29 | PT.OTN ---
Current Diagnoses Dorsalgia, unspecified (03/18/20) Physical Therapy Treatment Note PT-OP-A Visit Information Start: 02/04/20 14:33 Freq: Status: Active Protocol: Document 03/18/20 13:52 (Rec: 03/18/20 14:29 [id number]) Out-Patient Physical Therapy Visit Information Visit Information Visit Type Treatment Note Visit Start Time 13:46 Visit Stop Time 14:35 Total Visit Minutes 49 Visit Number 05/19 Number of JOB TRAINING SUPERVISOR Visits 0 PT-OP-B Current Condition Start: 02/04/20 14:33 Freq: Status: Active Protocol: Document 02/04/20 14:33 HH (Rec: 02/04/20 15:09 [email or web address]) Current Condition History of Current Condition Onset Date Many years ago Current Complaints Chronic LBP and B proximal leg pain, LLE weakness, poor activity tolerance History of Current Condition Pt is a 69yo female here for primary c/o poor activity tolerance BLE pain. Pt is a chronic smoker since 23 and currently smoke 1 pack a day. Pt stated her leg pain mostly located at B thighs and worse at groin and hip flexors region, along with lower back pain at lumbar region. Pt cannot peg more than 1 block of walking and often needed sitting break which reliefs her symptoms. She reports she cannot sleep on his back since extending her back increases her symptoms. 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 Treatment Goals Patient/Caregiver Goals 1. To be able to tolerate walking > 1 mile 2. to strength B LEs Personal Factors Other Personal Factors That May Effect Hepatitis C Therapy/Recovery Stroke 7-10 years ago SOB PT-OP-C Subjective Start: 02/04/20 14:33 Freq: Status: Active Protocol: Document 03/18/20 13:52 (Rec: 03/18/20 14:29 [id number]) OP-PT Subjective Patient Comments Patient Comments Guerda been doing more housework without much discomfort but i have to pace myself since i got tired easily. I was able to shift my weight to R side for pericare while sitting on the toilet. Patient Reported Progress Improving PT-OP-D Balance Start: 02/04/20 14:33 Freq: Status: Active Protocol: Document 02/04/20 14:33 HH (Rec: 02/04/20 15:09 [email or web address]) Balance Tests Single Limb Standing Single Limb- Right 7 Single Limb- Left 5 PT-OP-G Mobility & Gait Start: 02/04/20 14:33 Freq: Status: Active Protocol: Document 02/04/20 14:33 HH (Rec: 02/04/20 15:09 [email or web address]) OP Gait Assessment Factors Limiting Gait Function Factors Limiting Gait Function Limited Range of Motion,Pain Comments Gait Comments significant anterior trunk lean with anterior pelvic tilt , along with minimal heel strike and push off. PT-OP-H Neuro Start: 02/04/20 14:33 Freq: Status: Active Protocol: Document 02/04/20 14:33 HH (Rec: 02/04/20 15:09 [email or web address]) Deep Tendon Reflex & Clonus Assessment Deep Tendon Reflex Bilateral Bicep Deep Tendon Reflex 2+ Normal Bilateral Tricep Deep Tendon Reflex 3+ Normal But Brisk Achilles Deep Tendon Reflex 2+ Normal Bilateral Patellar Deep Tendon Reflex 4+ Brisk PT-OP-J Posture/Palpation/Skin Start: 02/04/20 14:33 Freq: Status: Active Protocol: Document 02/04/20 14:33 HH (Rec: 02/04/20 15:09 [email or web address]) Posture Evaluation Position Standing Evaluation View Lateral Head/C-Spine Posture Forward Head Pelvis Posture Anteriorly Tilted Ankle/Foot Posture (L) Plantarflexed,(R) Plantarflexed PT-OP-K Range of Motion Start: 02/04/20 14:33 Freq: Status: Active Protocol: Document 02/04/20 14:33 HH (Rec: 02/04/20 15:09 [email or web address]) Lumbar Spine Range of Motion Lumbar Spine Active Degrees Comments toe touch test: 6.5 inches from floor , use UE support on knees to recover from bend over position sidebending: R 21, L 18 extension= neutral PT-OP-L Special Tests Start: 02/04/20 14:33 Freq: Status: Active Protocol: Document 02/04/20 14:33 HH (Rec: 02/04/20 15:09 [email or web address]) Special Tests Lumbar Spine Special Tests Alfonzo Test Results +VE L worse than R Comments sig.groin pain reproduced, knee off table by 30 degrees. PT-OP-M Strength Start: 02/04/20 14:33 Freq: Status: Active Protocol: Document 02/04/20 14:33 HH (Rec: 02/04/20 15:09 [email or web address]) Hip Strength Hip Manual Muscle Testing Right Flexion (L2) 4 Good Extension (S1) 4 Good Abduction 4 Good Left Flexion (L2) 4 Good Extension (S1) 3+ Fair+ Abduction 4 Good Adduction 4 Good Knee Strength Knee Manual Muscle Testing Right Flexion (S2) 4+ Good+ Extension (L3) 4+ Good+ Left Flexion (S2) 4+ Good+ Extension (L3) 4+ Good+ Ankle/Foot Strength Ankle and Foot Manual Muscle Testing Right Dorsiflexion (L4) 4+ Good+ Plantarflexion (S1) 4+ Good+ Inversion 4+ Good+ Eversion (S1) 4+ Good+ Left Dorsiflexion (L4) 4 Good Plantarflexion (S1) 4+ Good+ Inversion 4+ Good+ Eversion (S1) 4 Good PT-OP-Q Treatments Start: 02/04/20 14:33 Freq: Status: Active Protocol: Document 03/18/20 13:52 HH (Rec: 03/18/20 14:29 [id number]) Cardio Equipment Recumbent Stepper (Sci-Fit) Duration (Minutes) 8 Resistance 2.0 Other MET 2.2 Therapeutic Exercises Supine Exercises pelvic clock Supine Exercise Name lumbar rotation Side bilateral Reps/Minutes 10 x2 Comments min cues needed bridging Side bilateral Reps/Minutes 5 x2 Comments no cramping noted. pelvic tilt Supine Exercise Name PPT focused Side bilateral Reps/Minutes 12 x2 Comments no cues needed alfonzo test Supine Exercise Name hip flexors Side bilateral Equipment Used PT assisted Reps/Minutes 10 secs hold Comments L side is less resistive today at end range. Sitting Exercises seated forward reach Sitting Exercise Name with hip abducted and trunk flexion Side bilateral Equipment Used red therapy ball Reps/Minutes 8 x2 PT-OP-R Modalities Start: 02/04/20 14:33 Freq: Status: Active Protocol: Document 03/18/20 13:52 HH (Rec: 03/18/20 14:29 [id number]) Hot Pack/Cold Pack Treatment Hot Pack Location lumbar Patient Position Hooklying Treatment Duration (minutes) 10 Patient Tolerance Good PT-OP-T Assessment and Plan Start: 02/04/20 14:33 Freq: Status: Active Protocol: Document 03/18/20 13:52 (Rec: 03/18/20 14:29 [id number]) Physical Therapy Assessment Goals hip mobility Impairment pt is unable to martha/doff socks in seated position [employer] Combination Teacher Goal (LTG) Pt will increase her hip mobility in order for her to martha/doff in seated position easily. LTG Duration 6 weeks activity tolerance Impairment unable to walk more than 1 block without resting breaks Short Term Goal (STG) 03/18 goal met Pt was able to walk >2 blocks without breaks 3 times /week STG Duration 4 weeks [facility] Goal (LTG) Pt will be able to walk for a mile twice a week with minimal discomfort LTG Duration 8 weeks pain Impairment pain at 5 or more at all times Short Term Goal (STG) Pt will have pain no more than 5 for any activities STG Duration 4 weeks [facility] Goal (LTG) goal met 03/18 Pt is has pain no more than 3/ 10 for daily activities now. LTG Duration 8 weeks Oswestry LBP Impairment pt scores 44 Short Term Goal (STG) Pt will score 35 or less to improve her ability for functional acitvities STG Duration 4 weeks [employer] Combination Teacher Goal (LTG) pt will score 25 or less to improve her ability for functional activites with minimal discomfort LTG Duration 8 weeks Progress Towards Goals Progress Towards Goals Progressing Toward Goals,Slow Progress due to Activity Tolerance,Slow Progress due to Medical Issues Assessment Summary Assessment Pt shows improved activity tolerance, hip mobility and LE strength since IE. Pt will cont benefit from skilled therapy to improve her overall funcitonal mobility and strength. Physical Therapy Plan Next Visit Focus/Plan Next Note Type Treatment Note Next Visit Plan rolling pin for anterior thigh muscles hip flexor stretch quad stretch hip adductor bike pelvic clock, hip strengthening lumbar flexion and extension
--- NOTE | 2020-03-20 14:32 | PT.OTN ---
Current Diagnoses Dorsalgia, unspecified (03/20/20) Physical Therapy Treatment Note PT-OP-A Visit Information Start: 02/04/20 14:33 Freq: Status: Active Protocol: Document 03/20/20 13:47 HH (Rec: 03/20/20 14:27 [id number]) Out-Patient Physical Therapy Visit Information Visit Information Visit Type Treatment Note Visit Start Time 13:46 Visit Stop Time 14:37 Total Visit Minutes 51 Visit Number 06/19 Number of RESIDENTIAL LEASING MANAGER Visits 0 PT-OP-B Current Condition Start: 02/04/20 14:33 Freq: Status: Active Protocol: Document 02/04/20 14:33 HH (Rec: 02/04/20 15:09 [email or web address]) Current Condition History of Current Condition Onset Date Many years ago Current Complaints Chronic LBP and B proximal leg pain, LLE weakness, poor activity tolerance History of Current Condition Pt is a 69yo female here for primary c/o poor activity tolerance BLE pain. Pt is a chronic smoker since 23 and currently smoke 1 pack a day. Pt stated her leg pain mostly located at B thighs and worse at groin and hip flexors region, along with lower back pain at lumbar region. Pt cannot peg more than 1 block of walking and often needed sitting break which reliefs her symptoms. She reports she cannot sleep on his back since extending her back increases her symptoms. 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 Treatment Goals Patient/Caregiver Goals 1. To be able to tolerate walking > 1 mile 2. to strength B LEs Personal Factors Other Personal Factors That May Effect Hepatitis C Therapy/Recovery Stroke 7-10 years ago SOB PT-OP-C Subjective Start: 02/04/20 14:33 Freq: Status: Active Protocol: Document 03/20/20 13:47 HH (Rec: 03/20/20 14:27 [id number]) OP-PT Subjective Patient Comments Patient Comments I was able to martha my socks slowly today which is good. I walked 2 blocks for the past 2 days so its getting more and more. I also noticed my incontinence has getting better and more control now. Patient Reported Progress Improving PT-OP-D Balance Start: 02/04/20 14:33 Freq: Status: Active Protocol: Document 02/04/20 14:33 HH (Rec: 02/04/20 15:09 [email or web address]) Balance Tests Single Limb Standing Single Limb- Right 7 Single Limb- Left 5 PT-OP-G Mobility & Gait Start: 02/04/20 14:33 Freq: Status: Active Protocol: Document 02/04/20 14:33 HH (Rec: 02/04/20 15:09 [email or web address]) OP Gait Assessment Factors Limiting Gait Function Factors Limiting Gait Function Limited Range of Motion,Pain Comments Gait Comments significant anterior trunk lean with anterior pelvic tilt , along with minimal heel strike and push off. PT-OP-H Neuro Start: 02/04/20 14:33 Freq: Status: Active Protocol: Document 02/04/20 14:33 HH (Rec: 02/04/20 15:09 [email or web address]) Deep Tendon Reflex & Clonus Assessment Deep Tendon Reflex Bilateral Bicep Deep Tendon Reflex 2+ Normal Bilateral Tricep Deep Tendon Reflex 3+ Normal But Brisk Achilles Deep Tendon Reflex 2+ Normal Bilateral Patellar Deep Tendon Reflex 4+ Brisk PT-OP-J Posture/Palpation/Skin Start: 02/04/20 14:33 Freq: Status: Active Protocol: Document 02/04/20 14:33 HH (Rec: 02/04/20 15:09 [email or web address]) Posture Evaluation Position Standing Evaluation View Lateral Head/C-Spine Posture Forward Head Pelvis Posture Anteriorly Tilted Ankle/Foot Posture (L) Plantarflexed,(R) Plantarflexed PT-OP-K Range of Motion Start: 02/04/20 14:33 Freq: Status: Active Protocol: Document 02/04/20 14:33 HH (Rec: 02/04/20 15:09 [email or web address]) Lumbar Spine Range of Motion Lumbar Spine Active Degrees Comments toe touch test: 6.5 inches from floor , use UE support on knees to recover from bend over position sidebending: R 21, L 18 extension= neutral PT-OP-L Special Tests Start: 02/04/20 14:33 Freq: Status: Active Protocol: Document 02/04/20 14:33 HH (Rec: 02/04/20 15:09 [email or web address]) Special Tests Lumbar Spine Special Tests Alfonzo Test Results +VE L worse than R Comments sig.groin pain reproduced, knee off table by 30 degrees. PT-OP-M Strength Start: 02/04/20 14:33 Freq: Status: Active Protocol: Document 02/04/20 14:33 HH (Rec: 02/04/20 15:09 [email or web address]) Hip Strength Hip Manual Muscle Testing Right Flexion (L2) 4 Good Extension (S1) 4 Good Abduction 4 Good Left Flexion (L2) 4 Good Extension (S1) 3+ Fair+ Abduction 4 Good Adduction 4 Good Knee Strength Knee Manual Muscle Testing Right Flexion (S2) 4+ Good+ Extension (L3) 4+ Good+ Left Flexion (S2) 4+ Good+ Extension (L3) 4+ Good+ Ankle/Foot Strength Ankle and Foot Manual Muscle Testing Right Dorsiflexion (L4) 4+ Good+ Plantarflexion (S1) 4+ Good+ Inversion 4+ Good+ Eversion (S1) 4+ Good+ Left Dorsiflexion (L4) 4 Good Plantarflexion (S1) 4+ Good+ Inversion 4+ Good+ Eversion (S1) 4 Good PT-OP-Q Treatments Start: 02/04/20 14:33 Freq: Status: Active Protocol: Document 03/20/20 13:47 HH (Rec: 03/20/20 14:27 [id number]) Cardio Equipment Recumbent Bicycle Duration (Minutes) 8 Resistance 5 Seat Position 1 Therapeutic Exercises Supine Exercises pelvic tilt Supine Exercise Name PPT focused Side bilateral Reps/Minutes 15 Comments no cues needed alfonzo test Supine Exercise Name hip flexors Side bilateral Equipment Used PT assisted Reps/Minutes 10 secs hold Comments L side is less resistive today at end range. Sitting Exercises seated pelvic tilt Sitting Exercise Name APt and PPT Reps/Minutes 20 Comments tactile cues for first 5 reps Manual Therapy Treatment Soft Tissue Mobilization release Body Location hip flexors Mobilization Type Myofascial Release,Rolling, Sustained Pressure,Trigger Point Release Intensity/Depth Deep Body Position Hooklying Comments No discomfort on R side. Minimal discomfort on L noted B thighs Body Location proximal hip adductors, hip flexors and quads Mobilization Type Rolling,Sustained Pressure, Trigger Point Release Intensity/Depth Deep Body Position Hooklying Comments minimal discomfort noted. PT-OP-R Modalities Start: 02/04/20 14:33 Freq: Status: Active Protocol: Document 03/20/20 13:47 HH (Rec: 03/20/20 14:27 [id number]) Hot Pack/Cold Pack Treatment Hot Pack Location lumbar Patient Position Hooklying Treatment Duration (minutes) 11 Patient Tolerance Good PT-OP-T Assessment and Plan Start: 02/04/20 14:33 Freq: Status: Active Protocol: Document 03/20/20 13:47 HH (Rec: 03/20/20 14:27 HH [id number]) Physical Therapy Assessment Goals hip mobility Impairment pt is unable to martha/doff socks in seated position Adult Neurologist Goal (LTG) Pt will increase her hip mobility in order for her to martha/doff in seated position easily. LTG Duration 6 weeks activity tolerance Impairment unable to walk more than 1 block without resting breaks Short Term Goal (STG) 03/18 goal met Pt was able to walk >2 blocks without breaks 3 times /week STG Duration 4 weeks Assisted Goal (LTG) Pt will be able to walk for a mile twice a week with minimal discomfort LTG Duration 8 weeks pain Impairment pain at 5 or more at all times Short Term Goal (STG) Pt will have pain no more than 5 for any activities STG Duration 4 weeks Adult Neurologist Goal (LTG) goal met 03/18 Pt is has pain no more than 3/ 10 for daily activities now. LTG Duration 8 weeks Oswestry LBP Impairment pt scores 44 Short Term Goal (STG) Pt will score 35 or less to improve her ability for functional acitvities STG Duration 4 weeks Assisted Goal (LTG) pt will score 25 or less to improve her ability for functional activites with minimal discomfort LTG Duration 8 weeks Assessment Summary Assessment Pt stated improved incontinence, lumbopelvic control, activity tolerance with less pain for both hip since IE. Cont POC Physical Therapy Plan Next Visit Focus/Plan Next Note Type Treatment Note Next Visit Plan rolling pin for anterior thigh muscles hip flexor stretch quad stretch hip adductor bike pelvic clock, hip strengthening lumbar flexion and extension
--- NOTE | 2020-03-25 13:46 | PT.OPPOC ---
Physical, Occupational & Speech Therapy At [facility] Current Diagnoses Dorsalgia, unspecified (03/25/20) Visit Care Team Role Provider Type Vinh Stallings MD Attending Provider Physician Primary Care Provider Referring Provider Specialty: Internal Medicine Address: [address] [place] [address], [address], [place], [address] Email: [email or web address] Plan Of Care PT-OP-T Assessment and Plan Start: 02/04/20 14:33 Freq: Status: Active Protocol: Document 03/25/20 13:02 (Rec: 03/25/20 13:45 [id number]) Physical Therapy Assessment Goals hip mobility Impairment pt is unable to martha/doff socks in seated position Retail Associate Manager Bilingual Goal (LTG) Pt will increase her hip mobility in order for her to martha/doff in seated position easily. LTG Duration 6 weeks activity tolerance Impairment unable to walk more than 1 block without resting breaks Short Term Goal (STG) 03/18 goal met Pt was able to walk >2 blocks without breaks 3 times /week STG Duration 4 weeks Detention Goal (LTG) Pt will be able to walk for a mile twice a week with minimal discomfort LTG Duration 8 weeks pain Impairment pain at 5 or more at all times Short Term Goal (STG) Pt will have pain no more than 5 for any activities STG Duration 4 weeks Retail Associate Manager Bilingual Goal (LTG) goal met 03/18 Pt is has pain no more than 3/ 10 for daily activities now. LTG Duration 8 weeks Oswestry LBP Impairment pt scores 44 Short Term Goal (STG) Pt will score 35 or less to improve her ability for functional acitvities STG Duration 4 weeks Retail Associate Manager Bilingual Goal (LTG) pt will score 25 or less to improve her ability for functional activites with minimal discomfort LTG Duration 8 weeks Assessment Summary Assessment Pt is doing good but lack of motivatoin for daily walking. Pt overall has been progressing well with hip mobility, acitivity tolerance and pain control. Change POC to once a week for maintainence, LEstrenght and to improve hip mobility so she can martha/ doff socks Physical Therapy Plan Frequency and Duration Frequency of Treatment 1x/Week Duration of Treatment 4 weeks Plan of Care Start Date 03/25/20 Plan of Care End Date 04/25/20 Next Visit Focus/Plan Next Note Type Treatment Note Next Visit Plan cont hip ER for martha/doff socks hip extension stretch, hip brdige, seated reach, step up leg press Plan of Care Dates Plan of Care Start Date 03/25/20 Plan of Care End Date 04/25/20 Electronically Signed by: Julian Irving, PT 03/25/20 [id number] Please Sign and Return: I have reviewed this Plan of Care and certify that the skilled therapy services above are required to meet the patient?s needs. Physician Signature Date Printed Name and Credentials Clinical Instructor Signature Printed Name and Credentials
--- NOTE | 2020-03-25 13:46 | PT.OTN ---
Current Diagnoses Dorsalgia, unspecified (03/25/20) Physical Therapy Treatment Note PT-OP-A Visit Information Start: 02/04/20 14:33 Freq: Status: Active Protocol: Document 03/25/20 13:02 (Rec: 03/25/20 13:45 [id number]) Out-Patient Physical Therapy Visit Information Visit Information Visit Type Treatment Note Visit Start Time 13:00 Visit Stop Time 13:48 Total Visit Minutes 48 Visit Number 07/19 Number of MASTER SHEET CLERK Visits 0 PT-OP-B Current Condition Start: 02/04/20 14:33 Freq: Status: Active Protocol: Document 02/04/20 14:33 HH (Rec: 02/04/20 15:09 [email or web address]) Current Condition History of Current Condition Onset Date Many years ago Current Complaints Chronic LBP and B proximal leg pain, LLE weakness, poor activity tolerance History of Current Condition Pt is a 69yo female here for primary c/o poor activity tolerance BLE pain. Pt is a chronic smoker since 23 and currently smoke 1 pack a day. Pt stated her leg pain mostly located at B thighs and worse at groin and hip flexors region, along with lower back pain at lumbar region. Pt cannot peg more than 1 block of walking and often needed sitting break which reliefs her symptoms. She reports she cannot sleep on his back since extending her back increases her symptoms. 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 Treatment Goals Patient/Caregiver Goals 1. To be able to tolerate walking > 1 mile 2. to strength B LEs Personal Factors Other Personal Factors That May Effect Hepatitis C Therapy/Recovery Stroke 7-10 years ago SOB PT-OP-C Subjective Start: 02/04/20 14:33 Freq: Status: Active Protocol: Document 03/25/20 13:02 HH (Rec: 03/25/20 13:45 [id number]) OP-PT Subjective Patient Comments Patient Comments I did a bit better on walking but if its too late of the day then my legs got sore. Patient Reported Progress Improving PT-OP-D Balance Start: 02/04/20 14:33 Freq: Status: Active Protocol: Document 02/04/20 14:33 HH (Rec: 02/04/20 15:09 [email or web address]) Balance Tests Single Limb Standing Single Limb- Right 7 Single Limb- Left 5 PT-OP-G Mobility & Gait Start: 02/04/20 14:33 Freq: Status: Active Protocol: Document 02/04/20 14:33 HH (Rec: 02/04/20 15:09 [email or web address]) OP Gait Assessment Factors Limiting Gait Function Factors Limiting Gait Function Limited Range of Motion,Pain Comments Gait Comments significant anterior trunk lean with anterior pelvic tilt , along with minimal heel strike and push off. PT-OP-H Neuro Start: 02/04/20 14:33 Freq: Status: Active Protocol: Document 02/04/20 14:33 HH (Rec: 02/04/20 15:09 [email or web address]) Deep Tendon Reflex & Clonus Assessment Deep Tendon Reflex Bilateral Bicep Deep Tendon Reflex 2+ Normal Bilateral Tricep Deep Tendon Reflex 3+ Normal But Brisk Achilles Deep Tendon Reflex 2+ Normal Bilateral Patellar Deep Tendon Reflex 4+ Brisk PT-OP-J Posture/Palpation/Skin Start: 02/04/20 14:33 Freq: Status: Active Protocol: Document 02/04/20 14:33 HH (Rec: 02/04/20 15:09 [email or web address]) Posture Evaluation Position Standing Evaluation View Lateral Head/C-Spine Posture Forward Head Pelvis Posture Anteriorly Tilted Ankle/Foot Posture (L) Plantarflexed,(R) Plantarflexed PT-OP-K Range of Motion Start: 02/04/20 14:33 Freq: Status: Active Protocol: Document 02/04/20 14:33 HH (Rec: 02/04/20 15:09 [email or web address]) Lumbar Spine Range of Motion Lumbar Spine Active Degrees Comments toe touch test: 6.5 inches from floor , use UE support on knees to recover from bend over position sidebending: R 21, L 18 extension= neutral PT-OP-L Special Tests Start: 02/04/20 14:33 Freq: Status: Active Protocol: Document 02/04/20 14:33 HH (Rec: 02/04/20 15:09 [email or web address]) Special Tests Lumbar Spine Special Tests Alfonzo Test Results +VE L worse than R Comments sig.groin pain reproduced, knee off table by 30 degrees. PT-OP-M Strength Start: 02/04/20 14:33 Freq: Status: Active Protocol: Document 02/04/20 14:33 (Rec: 02/04/20 15:09 [email or web address]) Hip Strength Hip Manual Muscle Testing Right Flexion (L2) 4 Good Extension (S1) 4 Good Abduction 4 Good Left Flexion (L2) 4 Good Extension (S1) 3+ Fair+ Abduction 4 Good Adduction 4 Good Knee Strength Knee Manual Muscle Testing Right Flexion (S2) 4+ Good+ Extension (L3) 4+ Good+ Left Flexion (S2) 4+ Good+ Extension (L3) 4+ Good+ Ankle/Foot Strength Ankle and Foot Manual Muscle Testing Right Dorsiflexion (L4) 4+ Good+ Plantarflexion (S1) 4+ Good+ Inversion 4+ Good+ Eversion (S1) 4+ Good+ Left Dorsiflexion (L4) 4 Good Plantarflexion (S1) 4+ Good+ Inversion 4+ Good+ Eversion (S1) 4 Good PT-OP-Q Treatments Start: 02/04/20 14:33 Freq: Status: Active Protocol: Document 03/25/20 13:02 (Rec: 03/25/20 13:45 [id number]) Cardio Equipment Recumbent Bicycle Duration (Minutes) 6 Resistance 7 Seat Position 1 Therapeutic Exercises Supine Exercises pelvic tilt Supine Exercise Name PPT focused Side bilateral Reps/Minutes 15 Comments no cues needed alfonzo test Supine Exercise Name hip flexors Side bilateral Equipment Used PT assisted Reps/Minutes 10 secs hold Comments L side is less resistive today at end range. Sitting Exercises seated pelvic tilt Sitting Exercise Name APt and PPT Reps/Minutes 20 Comments tactile cues for first 5 reps seated forward reach Sitting Exercise Name with hip abducted and trunk flexion Side bilateral Equipment Used red therapy ball Reps/Minutes 10 x1 Standing Exercises PPT Standing Exercise Name flexed posture into extension with PPT Reps/Minutes 10 Comments need tactile cues for PPT step up Standing Exercise Name 6 step Side bilateral Equipment Used B handrail Reps/Minutes 10 x2 Comments slight pain for L hip flexion Manual Therapy Treatment Soft Tissue Mobilization B thighs Body Location proximal hip adductors, hip flexors and quads Mobilization Type Rolling,Sustained Pressure, Trigger Point Release Intensity/Depth Deep Body Position Hooklying Comments minimal discomfort noted. PT-OP-R Modalities Start: 02/04/20 14:33 Freq: Status: Active Protocol: Document 03/25/20 13:02 (Rec: 03/25/20 13:45 [id number]) Hot Pack/Cold Pack Treatment Hot Pack Location lumbar Patient Position Hooklying Treatment Duration (minutes) 10 Patient Tolerance Good PT-OP-T Assessment and Plan Start: 02/04/20 14:33 Freq: Status: Active Protocol: Document 03/25/20 13:02 (Rec: 03/25/20 13:45 [id number]) Physical Therapy Assessment Goals hip mobility Impairment pt is unable to martha/doff socks in seated position Fdc Goal (LTG) Pt will increase her hip mobility in order for her to martha/doff in seated position easily. LTG Duration 6 weeks activity tolerance Impairment unable to walk more than 1 block without resting breaks Short Term Goal (STG) 03/18 goal met Pt was able to walk >2 blocks without breaks 3 times /week STG Duration 4 weeks Fdc Goal (LTG) Pt will be able to walk for a mile twice a week with minimal discomfort LTG Duration 8 weeks pain Impairment pain at 5 or more at all times Short Term Goal (STG) Pt will have pain no more than 5 for any activities STG Duration 4 weeks File System Installer Goal (LTG) goal met 03/18 Pt is has pain no more than 3/ 10 for daily activities now. LTG Duration 8 weeks Oswestry LBP Impairment pt scores 44 Short Term Goal (STG) Pt will score 35 or less to improve her ability for functional acitvities STG Duration 4 weeks File System Installer Goal (LTG) pt will score 25 or less to improve her ability for functional activites with minimal discomfort LTG Duration 8 weeks Assessment Summary Assessment Pt is doing good but lack of motivatoin for daily walking. Pt overall has been progressing well with hip mobility, acitivity tolerance and pain control. Change POC to once a week for maintainence, LEstrenght and to improve hip mobility so she can martha/ doff socks Physical Therapy Plan Frequency and Duration Frequency of Treatment 1x/Week Duration of Treatment 4 weeks Plan of Care Start Date 03/25/20 Plan of Care End Date 04/25/20 Next Visit Focus/Plan Next Note Type Treatment Note Next Visit Plan cont hip ER for martha/doff socks hip extension stretch, hip brdige, seated reach, step up leg press
--- NOTE | 2020-03-27 13:42 | PT.OTN ---
Current Diagnoses Dorsalgia, unspecified (03/27/20) Physical Therapy Treatment Note PT-OP-A Visit Information Start: 02/04/20 14:33 Freq: Status: Active Protocol: Document 03/27/20 12:56 (Rec: 03/27/20 13:42 [id number]) Out-Patient Physical Therapy Visit Information Visit Information Visit Type Treatment Note Visit Start Time 13:03 Visit Stop Time 13:49 Total Visit Minutes 46 Visit Number Number of CRUSHER FOREMAN Visits 0 PT-OP-B Current Condition Start: 02/04/20 14:33 Freq: Status: Active Protocol: Document 02/04/20 14:33 HH (Rec: 02/04/20 15:09 [email or web address]) Current Condition History of Current Condition Onset Date Many years ago Current Complaints Chronic LBP and B proximal leg pain, LLE weakness, poor activity tolerance History of Current Condition Pt is a 69yo female here for primary c/o poor activity tolerance BLE pain. Pt is a chronic smoker since 23 and currently smoke 1 pack a day. Pt stated her leg pain mostly located at B thighs and worse at groin and hip flexors region, along with lower back pain at lumbar region. Pt cannot peg more than 1 block of walking and often needed sitting break which reliefs her symptoms. She reports she cannot sleep on his back since extending her back increases her symptoms. 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 Treatment Goals Patient/Caregiver Goals 1. To be able to tolerate walking > 1 mile 2. to strength B LEs Personal Factors Other Personal Factors That May Effect Hepatitis C Therapy/Recovery Stroke 7-10 years ago SOB PT-OP-C Subjective Start: 02/04/20 14:33 Freq: Status: Active Protocol: Document 03/27/20 12:56 HH (Rec: 03/27/20 13:42 [id number]) OP-PT Subjective Patient Comments Patient Comments I have no complaints so far and Im pretty close to be able to martha/doff my socsk PT-OP-D Balance Start: 02/04/20 14:33 Freq: Status: Active Protocol: Document 02/04/20 14:33 HH (Rec: 02/04/20 15:09 [email or web address]) Balance Tests Single Limb Standing Single Limb- Right 7 Single Limb- Left 5 PT-OP-G Mobility & Gait Start: 02/04/20 14:33 Freq: Status: Active Protocol: Document 02/04/20 14:33 HH (Rec: 02/04/20 15:09 [email or web address]) OP Gait Assessment Factors Limiting Gait Function Factors Limiting Gait Function Limited Range of Motion,Pain Comments Gait Comments significant anterior trunk lean with anterior pelvic tilt , along with minimal heel strike and push off. PT-OP-H Neuro Start: 02/04/20 14:33 Freq: Status: Active Protocol: Document 02/04/20 14:33 HH (Rec: 02/04/20 15:09 [email or web address]) Deep Tendon Reflex & Clonus Assessment Deep Tendon Reflex Bilateral Bicep Deep Tendon Reflex 2+ Normal Bilateral Tricep Deep Tendon Reflex 3+ Normal But Brisk Achilles Deep Tendon Reflex 2+ Normal Bilateral Patellar Deep Tendon Reflex 4+ Brisk PT-OP-J Posture/Palpation/Skin Start: 02/04/20 14:33 Freq: Status: Active Protocol: Document 02/04/20 14:33 HH (Rec: 02/04/20 15:09 [email or web address]) Posture Evaluation Position Standing Evaluation View Lateral Head/C-Spine Posture Forward Head Pelvis Posture Anteriorly Tilted Ankle/Foot Posture (L) Plantarflexed,(R) Plantarflexed PT-OP-K Range of Motion Start: 02/04/20 14:33 Freq: Status: Active Protocol: Document 02/04/20 14:33 HH (Rec: 02/04/20 15:09 [email or web address]) Lumbar Spine Range of Motion Lumbar Spine Active Degrees Comments toe touch test: 6.5 inches from floor , use UE support on knees to recover from bend over position sidebending: R 21, L 18 extension= neutral PT-OP-L Special Tests Start: 02/04/20 14:33 Freq: Status: Active Protocol: Document 02/04/20 14:33 HH (Rec: 02/04/20 15:09 [email or web address]) Special Tests Lumbar Spine Special Tests Alfonzo Test Results +VE L worse than R Comments sig.groin pain reproduced, knee off table by 30 degrees. PT-OP-M Strength Start: 02/04/20 14:33 Freq: Status: Active Protocol: Document 02/04/20 14:33 HH (Rec: 02/04/20 15:09 [email or web address]) Hip Strength Hip Manual Muscle Testing Right Flexion (L2) 4 Good Extension (S1) 4 Good Abduction 4 Good Left Flexion (L2) 4 Good Extension (S1) 3+ Fair+ Abduction 4 Good Adduction 4 Good Knee Strength Knee Manual Muscle Testing Right Flexion (S2) 4+ Good+ Extension (L3) 4+ Good+ Left Flexion (S2) 4+ Good+ Extension (L3) 4+ Good+ Ankle/Foot Strength Ankle and Foot Manual Muscle Testing Right Dorsiflexion (L4) 4+ Good+ Plantarflexion (S1) 4+ Good+ Inversion 4+ Good+ Eversion (S1) 4+ Good+ Left Dorsiflexion (L4) 4 Good Plantarflexion (S1) 4+ Good+ Inversion 4+ Good+ Eversion (S1) 4 Good PT-OP-Q Treatments Start: 02/04/20 14:33 Freq: Status: Active Protocol: Document 03/27/20 12:56 (Rec: 03/27/20 13:42 [id number]) Cardio Equipment Recumbent Stepper (Sci-Fit) Duration (Minutes) 5 Resistance 2.0 Seat Position 7 Other 0.5 miles Therapeutic Exercises Supine Exercises figure 4 Supine Exercise Name PT assisted for first 4 mins followed by pt on her own Side bilateral Reps/Minutes 6 mins Comments pt needed to pull her shorts to place LE to opp knee alfonzo test Supine Exercise Name hip flexors Side bilateral Equipment Used PT assisted Reps/Minutes 10 secs hold Comments L side is less resistive today at end range. Sitting Exercises seated forward reach Sitting Exercise Name with hip abducted and trunk flexion Side bilateral Equipment Used de leon therapy ball Reps/Minutes 10 x1 Standing Exercises hip flexor stertch Standing Exercise Name semi lunge position Side bilateral Reps/Minutes 6 mins Comments needed tactile and verbal cues for foot placement and AP weight shift Manual Therapy Treatment Soft Tissue Mobilization release Body Location glutes and piriformis Mobilization Type Myofascial Release,Rolling, Sustained Pressure,Trigger Point Release Intensity/Depth Deep Body Position Hooklying Comments No discomfort on R side. Minimal discomfort on L noted B thighs Body Location proximal hip adductors, hip flexors and quads Mobilization Type Rolling,Sustained Pressure, Trigger Point Release Intensity/Depth Deep Body Position Hooklying Comments minimal discomfort noted. PT-OP-R Modalities Start: 02/04/20 14:33 Freq: Status: Active Protocol: Document 03/27/20 12:56 HH (Rec: 03/27/20 13:42 [id number]) Hot Pack/Cold Pack Treatment Hot Pack Location lumbar Patient Position Hooklying Treatment Duration (minutes) 10 Patient Tolerance Good PT-OP-T Assessment and Plan Start: 02/04/20 14:33 Freq: Status: Active Protocol: Document 03/27/20 12:56 HH (Rec: 03/27/20 13:42 [id number]) Physical Therapy Assessment Goals hip mobility Impairment pt is unable to martha/doff socks in seated position Chop Saw Operator Goal (LTG) Pt will increase her hip mobility in order for her to martha/doff in seated position easily. LTG Duration 6 weeks activity tolerance Impairment unable to walk more than 1 block without resting breaks Short Term Goal (STG) 03/18 goal met Pt was able to walk >2 blocks without breaks 3 times /week STG Duration 4 weeks Chop Saw Operator Goal (LTG) Pt will be able to walk for a mile twice a week with minimal discomfort LTG Duration 8 weeks pain Impairment pain at 5 or more at all times Short Term Goal (STG) Pt will have pain no more than 5 for any activities STG Duration 4 weeks [facility] Goal (LTG) goal met 03/18 Pt is has pain no more than 3/ 10 for daily activities now. LTG Duration 8 weeks Oswestry LBP Impairment pt scores 44 Short Term Goal (STG) Pt will score 35 or less to improve her ability for functional acitvities STG Duration 4 weeks Chop Saw Operator Goal (LTG) pt will score 25 or less to improve her ability for functional activites with minimal discomfort LTG Duration 8 weeks Assessment Summary Assessment Performed glute and piriformis release with rolling pin today and pt was able to have better ROM in figure 4 position. Will cont focus on hip extension and ER to improve her hip mobility. Physical Therapy Plan Next Visit Focus/Plan Next Note Type Treatment Note Next Visit Plan cont hip ER for martha/doff socks hip extension stretch, hip brdige, seated reach, step up leg press
--- NOTE | 2020-04-01 13:46 | PT.OTN ---
Current Diagnoses Dorsalgia, unspecified (04/01/20) Physical Therapy Treatment Note PT-OP-A Visit Information Start: 02/04/20 14:33 Freq: Status: Active Protocol: Document 04/01/20 13:02 (Rec: 04/01/20 13:46 [id number]) Out-Patient Physical Therapy Visit Information Visit Information Visit Type Treatment Note Visit Start Time 13:01 Visit Stop Time 13:49 Total Visit Minutes 48 Visit Number Number of METALLURGICAL TESTER Visits 0 PT-OP-B Current Condition Start: 02/04/20 14:33 Freq: Status: Active Protocol: Document 02/04/20 14:33 HH (Rec: 02/04/20 15:09 [email or web address]) Current Condition History of Current Condition Onset Date Many years ago Current Complaints Chronic LBP and B proximal leg pain, LLE weakness, poor activity tolerance History of Current Condition Pt is a 69yo female here for primary c/o poor activity tolerance BLE pain. Pt is a chronic smoker since 23 and currently smoke 1 pack a day. Pt stated her leg pain mostly located at B thighs and worse at groin and hip flexors region, along with lower back pain at lumbar region. Pt cannot peg more than 1 block of walking and often needed sitting break which reliefs her symptoms. She reports she cannot sleep on his back since extending her back increases her symptoms. 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 Treatment Goals Patient/Caregiver Goals 1. To be able to tolerate walking > 1 mile 2. to strength B LEs Personal Factors Other Personal Factors That May Effect Hepatitis C Therapy/Recovery Stroke 7-10 years ago SOB PT-OP-C Subjective Start: 02/04/20 14:33 Freq: Status: Active Protocol: Document 04/01/20 13:02 (Rec: 04/01/20 13:46 [id number]) OP-PT Subjective Patient Comments Patient Comments I did a lot this weekend and i have no complaints. I walked with my family for a quite a bit and it feels good. I walked a total of 8 blocks. Patient Reported Progress Improving PT-OP-D Balance Start: 02/04/20 14:33 Freq: Status: Active Protocol: Document 07/06/20 14:33 HH (Rec: 02/04/20 15:09 [email or web address]) Balance Tests Single Limb Standing Single Limb- Right 7 Single Limb- Left 5 PT-OP-G Mobility & Gait Start: 02/04/20 14:33 Freq: Status: Active Protocol: Document 02/04/20 14:33 HH (Rec: 02/04/20 15:09 [email or web address]) OP Gait Assessment Factors Limiting Gait Function Factors Limiting Gait Function Limited Range of Motion,Pain Comments Gait Comments significant anterior trunk lean with anterior pelvic tilt , along with minimal heel strike and push off. PT-OP-H Neuro Start: 02/04/20 14:33 Freq: Status: Active Protocol: Document 02/04/20 14:33 HH (Rec: 02/04/20 15:09 [email or web address]) Deep Tendon Reflex & Clonus Assessment Deep Tendon Reflex Bilateral Bicep Deep Tendon Reflex 2+ Normal Bilateral Tricep Deep Tendon Reflex 3+ Normal But Brisk Achilles Deep Tendon Reflex 2+ Normal Bilateral Patellar Deep Tendon Reflex 4+ Brisk PT-OP-J Posture/Palpation/Skin Start: 02/04/20 14:33 Freq: Status: Active Protocol: Document 02/04/20 14:33 HH (Rec: 02/04/20 15:09 [email or web address]) Posture Evaluation Position Standing Evaluation View Lateral Head/C-Spine Posture Forward Head Pelvis Posture Anteriorly Tilted Ankle/Foot Posture (L) Plantarflexed,(R) Plantarflexed PT-OP-K Range of Motion Start: 02/04/20 14:33 Freq: Status: Active Protocol: Document 02/04/20 14:33 HH (Rec: 02/04/20 15:09 [email or web address]) Lumbar Spine Range of Motion Lumbar Spine Active Degrees Comments toe touch test: 6.5 inches from floor , use UE support on knees to recover from bend over position sidebending: R 21, L 18 extension= neutral PT-OP-L Special Tests Start: 02/04/20 14:33 Freq: Status: Active Protocol: Document 02/04/20 14:33 HH (Rec: 02/04/20 15:09 [email or web address]) Special Tests Lumbar Spine Special Tests Alfonzo Test Results +VE L worse than R Comments sig.groin pain reproduced, knee off table by 30 degrees. PT-OP-M Strength Start: 02/04/20 14:33 Freq: Status: Active Protocol: Document 02/04/20 14:33 (Rec: 02/04/20 15:09 [email or web address]) Hip Strength Hip Manual Muscle Testing Right Flexion (L2) 4 Good Extension (S1) 4 Good Abduction 4 Good Left Flexion (L2) 4 Good Extension (S1) 3+ Fair+ Abduction 4 Good Adduction 4 Good Knee Strength Knee Manual Muscle Testing Right Flexion (S2) 4+ Good+ Extension (L3) 4+ Good+ Left Flexion (S2) 4+ Good+ Extension (L3) 4+ Good+ Ankle/Foot Strength Ankle and Foot Manual Muscle Testing Right Dorsiflexion (L4) 4+ Good+ Plantarflexion (S1) 4+ Good+ Inversion 4+ Good+ Eversion (S1) 4+ Good+ Left Dorsiflexion (L4) 4 Good Plantarflexion (S1) 4+ Good+ Inversion 4+ Good+ Eversion (S1) 4 Good PT-OP-Q Treatments Start: 02/04/20 14:33 Freq: Status: Active Protocol: Document 04/01/20 13:02 (Rec: 04/01/20 13:46 [id number]) Cardio Equipment Recumbent Stepper (Sci-Fit) Duration (Minutes) 5 Resistance 3.0 Seat Position 7 Other 0.55 miles Recumbent Bicycle Duration (Minutes) 6 Resistance 7 Seat Position 1 Gym Equipment Shuttle Recovery B squat Resistance #50 then #75 Shuttle Recovery Platform Stable Reps/Time 12 x 3 Therapeutic Exercises Supine Exercises figure 4 Supine Exercise Name PT assisted for first 4 mins followed by pt on her own Side bilateral Reps/Minutes 6 mins Comments pt needed to pull her shorts to place LE to opp knee Sitting Exercises seated forward reach Sitting Exercise Name with hip abducted and trunk flexion Side bilateral Equipment Used de leon therapy ball Reps/Minutes 10 x1 Standing Exercises step up Standing Exercise Name 6 step Side bilateral Equipment Used B handrail Reps/Minutes 10 x2 Comments slight pain for L hip flexion Manual Therapy Treatment Soft Tissue Mobilization buttocks Body Location piriformis and gluteal muscle group Mobilization Type Rolling,Sustained Pressure, Trigger Point Release Intensity/Depth Moderate Body Position Sidelying PT-OP-R Modalities Start: 02/04/20 14:33 Freq: Status: Active Protocol: Document 04/01/20 13:02 (Rec: 04/01/20 13:46 [id number]) Hot Pack/Cold Pack Treatment Hot Pack Location lumbar Patient Position Hooklying Treatment Duration (minutes) 10 Patient Tolerance Good PT-OP-T Assessment and Plan Start: 02/04/20 14:33 Freq: Status: Active Protocol: Document 04/01/20 13:02 (Rec: 04/01/20 13:46 [id number]) Physical Therapy Assessment Goals hip mobility Impairment pt is unable to martha/doff socks in seated position Group Home Goal (LTG) Pt will increase her hip mobility in order for her to martha/doff in seated position easily. LTG Duration 6 weeks activity tolerance Impairment unable to walk more than 1 block without resting breaks Short Term Goal (STG) 03/18 goal met Pt was able to walk >2 blocks without breaks 3 times /week STG Duration 4 weeks Oyster Buyer Goal (LTG) Pt will be able to walk for a mile twice a week with minimal discomfort LTG Duration 8 weeks pain Impairment pain at 5 or more at all times Short Term Goal (STG) Pt will have pain no more than 5 for any activities STG Duration 4 weeks Oyster Buyer Goal (LTG) goal met 03/18 Pt is has pain no more than 3/ 10 for daily activities now. LTG Duration 8 weeks Oswestry LBP Impairment pt scores 44 Short Term Goal (STG) Pt will score 35 or less to improve her ability for functional acitvities STG Duration 4 weeks Group Home Goal (LTG) pt will score 25 or less to improve her ability for functional activites with minimal discomfort LTG Duration 8 weeks Assessment Summary Assessment Pt peg session very well today . She was able to martha doff shoes independently today. Added leg press today and she peg well. Physical Therapy Plan Next Visit Focus/Plan Next Note Type Treatment Note Next Visit Plan cont hip ER for martha/doff socks hip extension stretch, hip brdige, seated reach, step up leg press
--- NOTE | 2020-04-03 13:46 | PT.OTN ---
Current Diagnoses Dorsalgia, unspecified (04/03/20) Physical Therapy Treatment Note PT-OP-A Visit Information Start: 02/04/20 14:33 Freq: Status: Active Protocol: Document 04/03/20 13:00 (Rec: 04/03/20 13:46 [id number]) Out-Patient Physical Therapy Visit Information Visit Information Visit Type Treatment Note Visit Start Time 13:02 Visit Stop Time 13:49 Total Visit Minutes 47 Visit Number Number of PRIZER HAND Visits 0 PT-OP-B Current Condition Start: 02/04/20 14:33 Freq: Status: Active Protocol: Document 02/04/20 14:33 HH (Rec: 02/04/20 15:09 [email or web address]) Current Condition History of Current Condition Onset Date Many years ago Current Complaints Chronic LBP and B proximal leg pain, LLE weakness, poor activity tolerance History of Current Condition Pt is a 69yo female here for primary c/o poor activity tolerance BLE pain. Pt is a chronic smoker since 23 and currently smoke 1 pack a day. Pt stated her leg pain mostly located at B thighs and worse at groin and hip flexors region, along with lower back pain at lumbar region. Pt cannot peg more than 1 block of walking and often needed sitting break which reliefs her symptoms. She reports she cannot sleep on his back since extending her back increases her symptoms. 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 Treatment Goals Patient/Caregiver Goals 1. To be able to tolerate walking > 1 mile 2. to strength B LEs Personal Factors Other Personal Factors That May Effect Hepatitis C Therapy/Recovery Stroke 7-10 years ago SOB PT-OP-C Subjective Start: 02/04/20 14:33 Freq: Status: Active Protocol: Document 04/03/20 13:00 HH (Rec: 04/03/20 13:46 [id number]) OP-PT Subjective Patient Comments Patient Comments I was finally able to put my socks on by bring my leg to my opposite knee. Patient Reported Progress Improving PT-OP-D Balance Start: 02/04/20 14:33 Freq: Status: Active Protocol: Document 02/04/20 14:33 HH (Rec: 02/04/20 15:09 [email or web address]) Balance Tests Single Limb Standing Single Limb- Right 7 Single Limb- Left 5 PT-OP-G Mobility & Gait Start: 02/04/20 14:33 Freq: Status: Active Protocol: Document 02/04/20 14:33 HH (Rec: 02/04/20 15:09 [email or web address]) OP Gait Assessment Factors Limiting Gait Function Factors Limiting Gait Function Limited Range of Motion,Pain Comments Gait Comments significant anterior trunk lean with anterior pelvic tilt , along with minimal heel strike and push off. PT-OP-H Neuro Start: 02/04/20 14:33 Freq: Status: Active Protocol: Document 02/04/20 14:33 HH (Rec: 02/04/20 15:09 [email or web address]) Deep Tendon Reflex & Clonus Assessment Deep Tendon Reflex Bilateral Bicep Deep Tendon Reflex 2+ Normal Bilateral Tricep Deep Tendon Reflex 3+ Normal But Brisk Achilles Deep Tendon Reflex 2+ Normal Bilateral Patellar Deep Tendon Reflex 4+ Brisk PT-OP-J Posture/Palpation/Skin Start: 02/04/20 14:33 Freq: Status: Active Protocol: Document 02/04/20 14:33 HH (Rec: 02/04/20 15:09 [email or web address]) Posture Evaluation Position Standing Evaluation View Lateral Head/C-Spine Posture Forward Head Pelvis Posture Anteriorly Tilted Ankle/Foot Posture (L) Plantarflexed,(R) Plantarflexed PT-OP-K Range of Motion Start: 02/04/20 14:33 Freq: Status: Active Protocol: Document 02/04/20 14:33 HH (Rec: 02/04/20 15:09 [email or web address]) Lumbar Spine Range of Motion Lumbar Spine Active Degrees Comments toe touch test: 6.5 inches from floor , use UE support on knees to recover from bend over position sidebending: R 21, L 18 extension= neutral PT-OP-L Special Tests Start: 02/04/20 14:33 Freq: Status: Active Protocol: Document 02/04/20 14:33 HH (Rec: 02/04/20 15:09 [email or web address]) Special Tests Lumbar Spine Special Tests Alfonzo Test Results +VE L worse than R Comments sig.groin pain reproduced, knee off table by 30 degrees. PT-OP-M Strength Start: 02/04/20 14:33 Freq: Status: Active Protocol: Document 02/04/20 14:33 HH (Rec: 02/04/20 15:09 [email or web address]) Hip Strength Hip Manual Muscle Testing Right Flexion (L2) 4 Good Extension (S1) 4 Good Abduction 4 Good Left Flexion (L2) 4 Good Extension (S1) 3+ Fair+ Abduction 4 Good Adduction 4 Good Knee Strength Knee Manual Muscle Testing Right Flexion (S2) 4+ Good+ Extension (L3) 4+ Good+ Left Flexion (S2) 4+ Good+ Extension (L3) 4+ Good+ Ankle/Foot Strength Ankle and Foot Manual Muscle Testing Right Dorsiflexion (L4) 4+ Good+ Plantarflexion (S1) 4+ Good+ Inversion 4+ Good+ Eversion (S1) 4+ Good+ Left Dorsiflexion (L4) 4 Good Plantarflexion (S1) 4+ Good+ Inversion 4+ Good+ Eversion (S1) 4 Good PT-OP-Q Treatments Start: 02/04/20 14:33 Freq: Status: Active Protocol: Document 04/03/20 13:00 (Rec: 04/03/20 13:46 [id number]) Cardio Equipment Recumbent Stepper (Sci-Fit) Duration (Minutes) 5 Resistance 3.0 Seat Position 7 Other 0.55 miles Recumbent Bicycle Duration (Minutes) 6 Resistance 8 Seat Position 1 Gym Equipment Shuttle Recovery B squat Resistance #50 then #75 Shuttle Recovery Platform Stable Reps/Time 12 x 4 Therapeutic Exercises Supine Exercises piriformis stretch Supine Exercise Name knee to opposite shoulder Side bilateral Reps/Minutes 10 sec x 5 figure 4 Supine Exercise Name PT assisted for first 4 mins followed by pt on her own Side bilateral Reps/Minutes 6 mins Comments pt needed to pull her shorts to place LE to opp knee Sitting Exercises seated figure 4 Sitting Exercise Name self stretch Side bilateral Reps/Minutes 10 sec hold x 3 Comments L better than R Standing Exercises step up Standing Exercise Name 6 step Side bilateral Equipment Used B handrail Reps/Minutes 10 x2 Comments slight pain for L hip flexion Manual Therapy Treatment Soft Tissue Mobilization buttocks Body Location piriformis and gluteal muscle group Mobilization Type Rolling,Sustained Pressure, Trigger Point Release Intensity/Depth Moderate Body Position Sidelying Self-Care/Home Management Treatment Education Other Education pt stated she used to drink up to 10 cups of coffee but currently at 2 per day. Educated pt on increase water intake. PT-OP-R Modalities Start: 02/04/20 14:33 Freq: Status: Active Protocol: Document 04/03/20 13:00 HH (Rec: 04/03/20 13:46 [id number]) Hot Pack/Cold Pack Treatment Hot Pack Location lumbar Patient Position Hooklying Treatment Duration (minutes) 8 Patient Tolerance Good PT-OP-T Assessment and Plan Start: 02/04/20 14:33 Freq: Status: Active Protocol: Document 04/03/20 13:00 HH (Rec: 04/03/20 13:46 [id number]) Physical Therapy Assessment Goals hip mobility Impairment pt is unable to martha/doff socks in seated position Proposal Coordinator Goal (LTG) Pt will increase her hip mobility in order for her to martha/doff in seated position easily. LTG Duration 6 weeks activity tolerance Impairment unable to walk more than 1 block without resting breaks Short Term Goal (STG) 03/18 goal met Pt was able to walk >2 blocks without breaks 3 times /week STG Duration 4 weeks Intermediate Goal (LTG) Pt will be able to walk for a mile twice a week with minimal discomfort LTG Duration 8 weeks pain Impairment pain at 5 or more at all times Short Term Goal (STG) Pt will have pain no more than 5 for any activities STG Duration 4 weeks Proposal Coordinator Goal (LTG) goal met 03/18 Pt is has pain no more than 3/ 10 for daily activities now. LTG Duration 8 weeks Assessment Summary Assessment Pt was able to martha doff socks in seated figure 4 position independently at home today. She peg session well and will cont focus overall strengthening and hip mobility training. Spent time educating pt to increase water intake. Physical Therapy Plan Next Visit Focus/Plan Next Note Type Treatment Note Next Visit Plan cont hip ER for martha/doff socks hip extension stretch, hip brdige, seated reach, step up leg press
--- NOTE | 2020-04-22 09:47 | PT.OPPOC ---
Physical, Occupational & Speech Therapy At [facility] Current Diagnoses Dorsalgia, unspecified (04/22/20) Visit Care Team Role Provider Type Vinh Stallings MD Attending Provider Physician Primary Care Provider Referring Provider Specialty: Internal Medicine Address: [address] [place] [address], [facility] [address], [place], [address] Email: [email or web address] Plan Of Care PT-OP-T Assessment and Plan Start: 02/04/20 14:33 Freq: Status: Active Protocol: Document 04/22/20 09:03 (Rec: 04/22/20 09:47 [id number]) Physical Therapy Assessment Goals stair climbing Impairment pt uses step to pattern w/o railings now Marketing Admin Goal (LTG) pt will be able to climb her steps at home with step over pattern without railings safely LTG Duration 6 weeks hip mobility Impairment pt is unable to martha/doff socks in seated position Marketing Admin Goal (LTG) goal met 04/22 Pt is able to martha/doff shoes/ socks independently. LTG Duration 6 weeks activity tolerance Impairment unable to walk more than 1 block without resting breaks Short Term Goal (STG) 03/18 goal met Pt was able to walk >2 blocks without breaks 3 times /week STG Duration 4 weeks Marketing Admin Goal (LTG) Pt will be able to walk for a mile twice a week with minimal discomfort LTG Duration 8 weeks pain Impairment pain at 5 or more at all times Short Term Goal (STG) Pt will have pain no more than 5 for any activities STG Duration 4 weeks [facility] Goal (LTG) goal met 04/22 Pt is has pain no more than 2/ 10 for daily activities now. LTG Duration 8 weeks Oswestry LBP Impairment pt scores 44 Short Term Goal (STG) Pt will score 35 or less to improve her ability for functional acitvities STG Duration 4 weeks Marketing Admin Goal (LTG) 04/22 goal met Pt scores 18 on Oswestry LBP questionnaire today. LTG Duration 8 weeks Progress Towards Goals Progress Towards Goals Progressing Toward Goals,Slow Progress due to Activity Tolerance,Slow Progress - Other Assessment Summary Assessment pt has been progressiving well but slowly d/t her fear/ anxiety of increasing activity level. Pt overall has improved hip mobility and activity tolerance. She can martha/doff her socks and shoes independently and less effort for OOB activity and car transfers. Will cont POC for another 6 weeks (once /week) to strengthen her B LEs and mobility with new walking program to promote her activitiy tolerance. Physical Therapy Plan Frequency and Duration Frequency of Treatment 1x/Week Duration of Treatment 6 weeks Plan of Care Start Date 04/22/20 Plan of Care End Date 06/06/20 Next Visit Focus/Plan Next Note Type Treatment Note Next Visit Plan cont hip ER for martha/doff socks hip extension stretch, hip brdige, seated reach, step up leg press Plan of Care Dates Plan of Care Start Date 04/22/20 Plan of Care End Date 06/06/20 Electronically Signed by: Julian Irving PT 04/22/20 0935 Please Sign and Return: I have reviewed this Plan of Care and certify that the skilled therapy services above are required to meet the patient?s needs. Physician Signature Date Printed Name and Credentials Clinical Instructor Signature Printed Name and Credentials
--- NOTE | 2020-04-22 09:47 | PT.OTN ---
Current Diagnoses Dorsalgia, unspecified (04/22/20) Physical Therapy Treatment Note PT-OP-A Visit Information Start: 02/04/20 14:33 Freq: Status: Active Protocol: Document 04/22/20 09:03 (Rec: 04/22/20 09:47 [id number]) Out-Patient Physical Therapy Visit Information Visit Information Visit Type Progress Note Visit Start Time 09:04 Visit Stop Time 09:50 Total Visit Minutes 46 Visit Number Number of TRAFFIC CONTROL FLAGGER Visits 0 PT-OP-B Current Condition Start: 02/04/20 14:33 Freq: Status: Active Protocol: Document 02/04/20 14:33 HH (Rec: 02/04/20 15:09 [email or web address]) Current Condition History of Current Condition Onset Date Many years ago Current Complaints Chronic LBP and B proximal leg pain, LLE weakness, poor activity tolerance History of Current Condition Pt is a 69yo female here for primary c/o poor activity tolerance BLE pain. Pt is a chronic smoker since 23 and currently smoke 1 pack a day. Pt stated her leg pain mostly located at B thighs and worse at groin and hip flexors region, along with lower back pain at lumbar region. Pt cannot peg more than 1 block of walking and often needed sitting break which reliefs her symptoms. She reports she cannot sleep on his back since extending her back increases her symptoms. 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 Treatment Goals Patient/Caregiver Goals 1. To be able to tolerate walking > 1 mile 2. to strength B LEs Personal Factors Other Personal Factors That May Effect Hepatitis C Therapy/Recovery Stroke 7-10 years ago SOB PT-OP-C Subjective Start: 02/04/20 14:33 Freq: Status: Active Protocol: Document 04/22/20 09:03 HH (Rec: 04/22/20 09:47 [id number]) OP-PT Subjective Patient Comments Patient Comments I have been walking everyday. I still have some stretching discomfort after a walk. Guerda been able to put on my shocks and shoes easier. Patient Reported Progress Improving PT-OP-D Balance Start: 02/04/20 14:33 Freq: Status: Active Protocol: Document 02/04/20 14:33 HH (Rec: 02/04/20 15:09 [email or web address]) Balance Tests Single Limb Standing Single Limb- Right 7 Single Limb- Left 5 PT-OP-G Mobility & Gait Start: 02/04/20 14:33 Freq: Status: Active Protocol: Document 02/04/20 14:33 HH (Rec: 02/04/20 15:09 [email or web address]) OP Gait Assessment Factors Limiting Gait Function Factors Limiting Gait Function Limited Range of Motion,Pain Comments Gait Comments significant anterior trunk lean with anterior pelvic tilt , along with minimal heel strike and push off. PT-OP-H Neuro Start: 02/04/20 14:33 Freq: Status: Active Protocol: Document 02/04/20 14:33 HH (Rec: 02/04/20 15:09 [email or web address]) Deep Tendon Reflex & Clonus Assessment Deep Tendon Reflex Bilateral Bicep Deep Tendon Reflex 2+ Normal Bilateral Tricep Deep Tendon Reflex 3+ Normal But Brisk Achilles Deep Tendon Reflex 2+ Normal Bilateral Patellar Deep Tendon Reflex 4+ Brisk PT-OP-J Posture/Palpation/Skin Start: 02/04/20 14:33 Freq: Status: Active Protocol: Document 02/04/20 14:33 HH (Rec: 02/04/20 15:09 [email or web address]) Posture Evaluation Position Standing Evaluation View Lateral Head/C-Spine Posture Forward Head Pelvis Posture Anteriorly Tilted Ankle/Foot Posture (L) Plantarflexed,(R) Plantarflexed PT-OP-K Range of Motion Start: 02/04/20 14:33 Freq: Status: Active Protocol: Document 02/04/20 14:33 HH (Rec: 02/04/20 15:09 [email or web address]) Lumbar Spine Range of Motion Lumbar Spine Active Degrees Comments toe touch test: 6.5 inches from floor , use UE support on knees to recover from bend over position sidebending: R 21, L 18 extension= neutral PT-OP-L Special Tests Start: 02/04/20 14:33 Freq: Status: Active Protocol: Document 02/04/20 14:33 HH (Rec: 02/04/20 15:09 [email or web address]) Special Tests Lumbar Spine Special Tests Alfonzo Test Results +VE L worse than R Comments sig.groin pain reproduced, knee off table by 30 degrees. PT-OP-M Strength Start: 02/04/20 14:33 Freq: Status: Active Protocol: Document 02/04/20 14:33 (Rec: 02/04/20 15:09 [email or web address]) Hip Strength Hip Manual Muscle Testing Right Flexion (L2) 4 Good Extension (S1) 4 Good Abduction 4 Good Left Flexion (L2) 4 Good Extension (S1) 3+ Fair+ Abduction 4 Good Adduction 4 Good Knee Strength Knee Manual Muscle Testing Right Flexion (S2) 4+ Good+ Extension (L3) 4+ Good+ Left Flexion (S2) 4+ Good+ Extension (L3) 4+ Good+ Ankle/Foot Strength Ankle and Foot Manual Muscle Testing Right Dorsiflexion (L4) 4+ Good+ Plantarflexion (S1) 4+ Good+ Inversion 4+ Good+ Eversion (S1) 4+ Good+ Left Dorsiflexion (L4) 4 Good Plantarflexion (S1) 4+ Good+ Inversion 4+ Good+ Eversion (S1) 4 Good PT-OP-Q Treatments Start: 02/04/20 14:33 Freq: Status: Active Protocol: Document 04/22/20 09:03 (Rec: 04/22/20 09:47 [id number]) Cardio Equipment Recumbent Stepper (Sci-Fit) Duration (Minutes) 7 Resistance 3.0 Seat Position 7 Other 0.62miles Recumbent Bicycle Duration (Minutes) 6 Resistance 8 Seat Position 1 Gym Equipment Shuttle Recovery B squat Resistance #50 , #75, #100 Shuttle Recovery Platform Stable Reps/Time 12 x 3 Therapeutic Exercises Supine Exercises piriformis stretch Supine Exercise Name knee to opposite shoulder Side bilateral Reps/Minutes 10 sec x 5 figure 4 Supine Exercise Name PT assisted for first 4 mins followed by pt on her own Side bilateral Reps/Minutes 6 mins Comments pt needed to pull her shorts to place LE to opp knee Sitting Exercises seated figure 4 Sitting Exercise Name self stretch Side bilateral Reps/Minutes 10 sec hold x 3 Comments L better than R Standing Exercises step up Standing Exercise Name 6 step Side bilateral Equipment Used w/o rail Reps/Minutes 10 x2 Comments no pain noted. PT-OP-R Modalities Start: 02/04/20 14:33 Freq: Status: Active Protocol: Document 04/22/20 09:03 (Rec: 04/22/20 09:47 [id number]) Hot Pack/Cold Pack Treatment Hot Pack Location lumbar Patient Position Hooklying Treatment Duration (minutes) 8 Patient Tolerance Good PT-OP-T Assessment and Plan Start: 02/04/20 14:33 Freq: Status: Active Protocol: Document 04/22/20 09:03 (Rec: 04/22/20 09:47 [id number]) Physical Therapy Assessment Goals stair climbing Impairment pt uses step to pattern w/o railings now Detention Goal (LTG) pt will be able to climb her steps at home with step over pattern without railings safely LTG Duration 6 weeks hip mobility Impairment pt is unable to martha/doff socks in seated position Detention Goal (LTG) goal met 04/22 Pt is able to martha/doff shoes/ socks independently. LTG Duration 6 weeks activity tolerance Impairment unable to walk more than 1 block without resting breaks Short Term Goal (STG) 03/18 goal met Pt was able to walk >2 blocks without breaks 3 times /week STG Duration 4 weeks Sand Hauler Goal (LTG) Pt will be able to walk for a mile twice a week with minimal discomfort LTG Duration 8 weeks pain Impairment pain at 5 or more at all times Short Term Goal (STG) Pt will have pain no more than 5 for any activities STG Duration 4 weeks Detention Goal (LTG) goal met 04/22 Pt is has pain no more than 2/ 10 for daily activities now. LTG Duration 8 weeks Oswestry LBP Impairment pt scores 44 Short Term Goal (STG) Pt will score 35 or less to improve her ability for functional acitvities STG Duration 4 weeks Sand Hauler Goal (LTG) 04/22 goal met Pt scores 18 on Oswestry LBP questionnaire today. LTG Duration 8 weeks Progress Towards Goals Progress Towards Goals Progressing Toward Goals,Slow Progress due to Activity Tolerance,Slow Progress - Other Assessment Summary Assessment pt has been progressiving well but slowly d/t her fear/ anxiety of increasing activity level. Pt overall has improved hip mobility and activity tolerance. She can martha/doff her socks and shoes independently and less effort for OOB activity and car transfers. Will cont POC for another 6 weeks (once /week) to strengthen her B LEs and mobility with new walking program to promote her activitiy tolerance. Physical Therapy Plan Frequency and Duration Frequency of Treatment 1x/Week Duration of Treatment 6 weeks Plan of Care Start Date 04/22/20 Plan of Care End Date 06/06/20 Next Visit Focus/Plan Next Note Type Treatment Note Next Visit Plan cont hip ER for martha/doff socks hip extension stretch, hip brdige, seated reach, step up leg press
--- NOTE | 2020-04-29 09:50 | PT.OTN ---
Current Diagnoses Dorsalgia, unspecified (04/29/20) Physical Therapy Treatment Note PT-OP-A Visit Information Start: 02/04/20 14:33 Freq: Status: Active Protocol: Document 04/29/20 08:58 HH (Rec: 04/29/20 09:50 [id number]) Out-Patient Physical Therapy Visit Information Visit Information Visit Type Treatment Note Visit Start Time 09:03 Visit Stop Time 09:49 Total Visit Minutes 46 Visit Number Number of SKI PATROL Visits 0 PT-OP-B Current Condition Start: 02/04/20 14:33 Freq: Status: Active Protocol: Document 02/04/20 14:33 HH (Rec: 02/04/20 15:09 [email or web address]) Current Condition History of Current Condition Onset Date Many years ago Current Complaints Chronic LBP and B proximal leg pain, LLE weakness, poor activity tolerance History of Current Condition Pt is a 69yo female here for primary c/o poor activity tolerance BLE pain. Pt is a chronic smoker since 23 and currently smoke 1 pack a day. Pt stated her leg pain mostly located at B thighs and worse at groin and hip flexors region, along with lower back pain at lumbar region. Pt cannot peg more than 1 block of walking and often needed sitting break which reliefs her symptoms. She reports she cannot sleep on his back since extending her back increases her symptoms. 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 Treatment Goals Patient/Caregiver Goals 1. To be able to tolerate walking > 1 mile 2. to strength B LEs Personal Factors Other Personal Factors That May Effect Hepatitis C Therapy/Recovery Stroke 7-10 years ago SOB PT-OP-C Subjective Start: 02/04/20 14:33 Freq: Status: Active Protocol: Document 04/29/20 08:58 HH (Rec: 04/29/20 09:50 [id number]) OP-PT Subjective Patient Comments Patient Comments Im doing okay. I do have trouble walking cause i get SOB easily and legs ache. Patient Reported Progress Improving PT-OP-D Balance Start: 02/04/20 14:33 Freq: Status: Active Protocol: Document 02/04/20 14:33 HH (Rec: 02/04/20 15:09 [email or web address]) Balance Tests Single Limb Standing Single Limb- Right 7 Single Limb- Left 5 PT-OP-G Mobility & Gait Start: 02/04/20 14:33 Freq: Status: Active Protocol: Document 02/04/20 14:33 HH (Rec: 02/04/20 15:09 [email or web address]) OP Gait Assessment Factors Limiting Gait Function Factors Limiting Gait Function Limited Range of Motion,Pain Comments Gait Comments significant anterior trunk lean with anterior pelvic tilt , along with minimal heel strike and push off. PT-OP-H Neuro Start: 02/04/20 14:33 Freq: Status: Active Protocol: Document 02/04/20 14:33 HH (Rec: 02/04/20 15:09 [email or web address]) Deep Tendon Reflex & Clonus Assessment Deep Tendon Reflex Bilateral Bicep Deep Tendon Reflex 2+ Normal Bilateral Tricep Deep Tendon Reflex 3+ Normal But Brisk Achilles Deep Tendon Reflex 2+ Normal Bilateral Patellar Deep Tendon Reflex 4+ Brisk PT-OP-J Posture/Palpation/Skin Start: 02/04/20 14:33 Freq: Status: Active Protocol: Document 02/04/20 14:33 HH (Rec: 02/04/20 15:09 [email or web address]) Posture Evaluation Position Standing Evaluation View Lateral Head/C-Spine Posture Forward Head Pelvis Posture Anteriorly Tilted Ankle/Foot Posture (L) Plantarflexed,(R) Plantarflexed PT-OP-K Range of Motion Start: 02/04/20 14:33 Freq: Status: Active Protocol: Document 02/04/20 14:33 HH (Rec: 02/04/20 15:09 [email or web address]) Lumbar Spine Range of Motion Lumbar Spine Active Degrees Comments toe touch test: 6.5 inches from floor , use UE support on knees to recover from bend over position sidebending: R 21, L 18 extension= neutral PT-OP-L Special Tests Start: 02/04/20 14:33 Freq: Status: Active Protocol: Document 02/04/20 14:33 HH (Rec: 02/04/20 15:09 [email or web address]) Special Tests Lumbar Spine Special Tests Alfonzo Test Results +VE L worse than R Comments sig.groin pain reproduced, knee off table by 30 degrees. PT-OP-M Strength Start: 02/04/20 14:33 Freq: Status: Active Protocol: Document 02/04/20 14:33 (Rec: 02/04/20 15:09 [email or web address]) Hip Strength Hip Manual Muscle Testing Right Flexion (L2) 4 Good Extension (S1) 4 Good Abduction 4 Good Left Flexion (L2) 4 Good Extension (S1) 3+ Fair+ Abduction 4 Good Adduction 4 Good Knee Strength Knee Manual Muscle Testing Right Flexion (S2) 4+ Good+ Extension (L3) 4+ Good+ Left Flexion (S2) 4+ Good+ Extension (L3) 4+ Good+ Ankle/Foot Strength Ankle and Foot Manual Muscle Testing Right Dorsiflexion (L4) 4+ Good+ Plantarflexion (S1) 4+ Good+ Inversion 4+ Good+ Eversion (S1) 4+ Good+ Left Dorsiflexion (L4) 4 Good Plantarflexion (S1) 4+ Good+ Inversion 4+ Good+ Eversion (S1) 4 Good PT-OP-Q Treatments Start: 02/04/20 14:33 Freq: Status: Active Protocol: Document 04/29/20 08:58 (Rec: 04/29/20 09:50 [id number]) Cardio Equipment Recumbent Bicycle Duration (Minutes) 6 Resistance 8 Seat Position 1 Treadmill Duration (Minutes) 4 Speed 1.0 Incline 0 Other pt was somewhat SOB at the end Therapeutic Exercises Supine Exercises figure 4 Side bilateral Reps/Minutes 6 mins bridging Side bilateral Reps/Minutes 8 x 2 Comments for HEP alfonzo test Supine Exercise Name PT assited Side bilateral Reps/Minutes 15 sec hold x5 Standing Exercises calf raises Side bilateral Equipment Used with grab bar Reps/Minutes 8 x 2 Comments for HEP squat Standing Exercise Name with grab bar Side bilateral Equipment Used UE on grab bar Comments for HEP, no pain noted step up Standing Exercise Name 6 step Side bilateral Equipment Used w/o rail Reps/Minutes 10 x2 Comments no pain noted. PT-OP-R Modalities Start: 02/04/20 14:33 Freq: Status: Active Protocol: Document 04/29/20 08:58 (Rec: 04/29/20 09:50 [id number]) Hot Pack/Cold Pack Treatment Hot Pack Location lumbar Patient Position Hooklying Treatment Duration (minutes) 8 Patient Tolerance Good PT-OP-T Assessment and Plan Start: 02/04/20 14:33 Freq: Status: Active Protocol: Document 04/29/20 08:58 (Rec: 04/29/20 09:50 [id number]) Physical Therapy Assessment Goals stair climbing Impairment pt uses step to pattern w/o railings now Care Home Goal (LTG) pt will be able to climb her steps at home with step over pattern without railings safely LTG Duration 6 weeks hip mobility Impairment pt is unable to martha/doff socks in seated position Green Building Design Specialist Goal (LTG) goal met 04/22 Pt is able to matrha/doff shoes/ socks independently. LTG Duration 6 weeks activity tolerance Impairment unable to walk more than 1 block without resting breaks Short Term Goal (STG) 03/18 goal met Pt was able to walk >2 blocks without breaks 3 times /week STG Duration 4 weeks Green Building Design Specialist Goal (LTG) Pt will be able to walk for a mile twice a week with minimal discomfort LTG Duration 8 weeks pain Impairment pain at 5 or more at all times Short Term Goal (STG) Pt will have pain no more than 5 for any activities STG Duration 4 weeks Green Building Design Specialist Goal (LTG) goal met 04/22 Pt is has pain no more than 2/ 10 for daily activities now. LTG Duration 8 weeks Oswestry LBP Impairment pt scores 44 Short Term Goal (STG) Pt will score 35 or less to improve her ability for functional acitvities STG Duration 4 weeks Green Building Design Specialist Goal (LTG) 04/22 goal met Pt scores 18 on Oswestry LBP questionnaire today. LTG Duration 8 weeks Assessment Summary Assessment Pt peg session well with focus on stretching and strengthening ex. Added squatting, step and calf raises to her daily HEP. Physical Therapy Plan Frequency and Duration Frequency of Treatment 1x/Week Duration of Treatment 6 weeks Plan of Care Start Date 04/22/20 Plan of Care End Date 06/06/20 Next Visit Focus/Plan Next Note Type Treatment Note Next Visit Plan cont hip ER for martha/doff socks hip extension stretch, hip brdige, seated reach, step up leg press
--- NOTE | 2020-05-06 09:50 | PT.OTN ---
Current Diagnoses Dorsalgia, unspecified (05/06/20) Physical Therapy Treatment Note PT-OP-A Visit Information Start: 02/04/20 14:33 Freq: Status: Active Protocol: Document 05/06/20 09:02 (Rec: 05/06/20 09:50 [id number]) Out-Patient Physical Therapy Visit Information Visit Information Visit Type Treatment Note Visit Start Time 09:01 Visit Stop Time 09:49 Total Visit Minutes 48 Visit Number 18/19 Number of METEOROLOGICAL OBSERVER Visits 0 PT-OP-B Current Condition Start: 02/04/20 14:33 Freq: Status: Active Protocol: Document 02/04/20 14:33 HH (Rec: 02/04/20 15:09 [email or web address]) Current Condition History of Current Condition Onset Date Many years ago Current Complaints Chronic LBP and B proximal leg pain, LLE weakness, poor activity tolerance History of Current Condition Pt is a 69yo female here for primary c/o poor activity tolerance BLE pain. Pt is a chronic smoker since 23 and currently smoke 1 pack a day. Pt stated her leg pain mostly located at B thighs and worse at groin and hip flexors region, along with lower back pain at lumbar region. Pt cannot peg more than 1 block of walking and often needed sitting break which reliefs her symptoms. She reports she cannot sleep on his back since extending her back increases her symptoms. 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 Treatment Goals Patient/Caregiver Goals 1. To be able to tolerate walking > 1 mile 2. to strength B LEs Personal Factors Other Personal Factors That May Effect Hepatitis C Therapy/Recovery Stroke 7-10 years ago SOB PT-OP-C Subjective Start: 02/04/20 14:33 Freq: Status: Active Protocol: Document 05/06/20 09:02 (Rec: 05/06/20 09:50 [id number]) OP-PT Subjective Patient Comments Patient Comments I had a few bad days because of my low energy level. Patient Reported Progress Same PT-OP-D Balance Start: 02/04/20 14:33 Freq: Status: Active Protocol: Document 02/04/20 14:33 HH (Rec: 02/04/20 15:09 [email or web address]) Balance Tests Single Limb Standing Single Limb- Right 7 Single Limb- Left 5 PT-OP-G Mobility & Gait Start: 02/04/20 14:33 Freq: Status: Active Protocol: Document 02/04/20 14:33 HH (Rec: 02/04/20 15:09 [email or web address]) OP Gait Assessment Factors Limiting Gait Function Factors Limiting Gait Function Limited Range of Motion,Pain Comments Gait Comments significant anterior trunk lean with anterior pelvic tilt , along with minimal heel strike and push off. PT-OP-H Neuro Start: 02/04/20 14:33 Freq: Status: Active Protocol: Document 02/04/20 14:33 HH (Rec: 02/04/20 15:09 [email or web address]) Deep Tendon Reflex & Clonus Assessment Deep Tendon Reflex Bilateral Bicep Deep Tendon Reflex 2+ Normal Bilateral Tricep Deep Tendon Reflex 3+ Normal But Brisk Achilles Deep Tendon Reflex 2+ Normal Bilateral Patellar Deep Tendon Reflex 4+ Brisk PT-OP-J Posture/Palpation/Skin Start: 02/04/20 14:33 Freq: Status: Active Protocol: Document 02/04/20 14:33 HH (Rec: 02/04/20 15:09 [email or web address]) Posture Evaluation Position Standing Evaluation View Lateral Head/C-Spine Posture Forward Head Pelvis Posture Anteriorly Tilted Ankle/Foot Posture (L) Plantarflexed,(R) Plantarflexed PT-OP-K Range of Motion Start: 02/04/20 14:33 Freq: Status: Active Protocol: Document 02/04/20 14:33 HH (Rec: 02/04/20 15:09 [email or web address]) Lumbar Spine Range of Motion Lumbar Spine Active Degrees Comments toe touch test: 6.5 inches from floor , use UE support on knees to recover from bend over position sidebending: R 21, L 18 extension= neutral PT-OP-L Special Tests Start: 02/04/20 14:33 Freq: Status: Active Protocol: Document 02/04/20 14:33 HH (Rec: 02/04/20 15:09 [email or web address]) Special Tests Lumbar Spine Special Tests Alfonzo Test Results +VE L worse than R Comments sig.groin pain reproduced, knee off table by 30 degrees. PT-OP-M Strength Start: 02/04/20 14:33 Freq: Status: Active Protocol: Document 02/04/20 14:33 HH (Rec: 02/04/20 15:09 [email or web address]) Hip Strength Hip Manual Muscle Testing Right Flexion (L2) 4 Good Extension (S1) 4 Good Abduction 4 Good Left Flexion (L2) 4 Good Extension (S1) 3+ Fair+ Abduction 4 Good Adduction 4 Good Knee Strength Knee Manual Muscle Testing Right Flexion (S2) 4+ Good+ Extension (L3) 4+ Good+ Left Flexion (S2) 4+ Good+ Extension (L3) 4+ Good+ Ankle/Foot Strength Ankle and Foot Manual Muscle Testing Right Dorsiflexion (L4) 4+ Good+ Plantarflexion (S1) 4+ Good+ Inversion 4+ Good+ Eversion (S1) 4+ Good+ Left Dorsiflexion (L4) 4 Good Plantarflexion (S1) 4+ Good+ Inversion 4+ Good+ Eversion (S1) 4 Good PT-OP-Q Treatments Start: 02/04/20 14:33 Freq: Status: Active Protocol: Document 05/06/20 09:02 (Rec: 05/06/20 09:50 [id number]) Cardio Equipment Recumbent Stepper (Sci-Fit) Duration (Minutes) 7 Resistance 3.0 Seat Position 7 Other 0.62miles Treadmill Duration (Minutes) 4 Speed 1.0 Incline 0 Other less SOB noted Therapeutic Exercises Supine Exercises figure 4 Side bilateral Reps/Minutes 6 mins alfonzo test Supine Exercise Name PT assited Side bilateral Reps/Minutes 15 sec hold x5 Sitting Exercises seated figure 4 Sitting Exercise Name self stretch Side bilateral Reps/Minutes 10 sec hold x 3 Comments L better than R Standing Exercises calf raises Side bilateral Equipment Used with grab bar Reps/Minutes 8 x 2 Comments for HEP squat Standing Exercise Name with grab bar Side bilateral Equipment Used UE on grab bar Comments for HEP, no pain noted step up Standing Exercise Name 8 step Side bilateral Equipment Used w/o rail Reps/Minutes 10 x2 Comments no pain noted. PT-OP-R Modalities Start: 02/04/20 14:33 Freq: Status: Active Protocol: Document 05/06/20 09:02 (Rec: 05/06/20 09:50 [email or web address]) Hot Pack/Cold Pack Treatment Hot Pack Location lumbar Patient Position Hooklying Treatment Duration (minutes) 8 Patient Tolerance Good PT-OP-T Assessment and Plan Start: 02/04/20 14:33 Freq: Status: Active Protocol: Document 05/06/20 09:02 (Rec: 05/06/20 09:50 [id number]) Physical Therapy Assessment Goals stair climbing Impairment pt uses step to pattern w/o railings now Mcfp Goal (LTG) pt will be able to climb her steps at home with step over pattern without railings safely LTG Duration 6 weeks hip mobility Impairment pt is unable to martha/doff socks in seated position Artificial Marble Worker Goal (LTG) goal met 04/22 Pt is able to martha/doff shoes/ socks independently. LTG Duration 6 weeks activity tolerance Impairment unable to walk more than 1 block without resting breaks Short Term Goal (STG) 03/18 goal met Pt was able to walk >2 blocks without breaks 3 times /week STG Duration 4 weeks Artificial Marble Worker Goal (LTG) Pt will be able to walk for a mile twice a week with minimal discomfort LTG Duration 8 weeks pain Impairment pain at 5 or more at all times Short Term Goal (STG) Pt will have pain no more than 5 for any activities STG Duration 4 weeks Mcfp Goal (LTG) goal met 04/22 Pt is has pain no more than 2/ 10 for daily activities now. LTG Duration 8 weeks Oswestry LBP Impairment pt scores 44 Short Term Goal (STG) Pt will score 35 or less to improve her ability for functional acitvities STG Duration 4 weeks Mcfp Goal (LTG) 04/22 goal met Pt scores 18 on Oswestry LBP questionnaire today. LTG Duration 8 weeks Assessment Summary Assessment Pt said she was not compliant for HEP this weekend d/t low energy level and fatigue after last session. Educated pt to use rolling pin to help in muscle soreness after her HEP. Pt will most likely d.c from therapy next visit. Physical Therapy Plan Next Visit Focus/Plan Next Note Type Treatment Note Next Visit Plan cont hip ER for martha/doff socks hip extension stretch, hip brdige, seated reach, step up leg press
--- NOTE | 2020-05-13 09:41 | PT.OTN ---
Current Diagnoses Dorsalgia, unspecified (05/13/20) Physical Therapy Treatment Note PT-OP-A Visit Information Start: 02/04/20 14:33 Freq: Status: Active Protocol: Document 05/13/20 09:00 (Rec: 05/13/20 09:41 [id number]) Out-Patient Physical Therapy Visit Information Visit Information Visit Type Discharge Summary Visit Start Time 09:04 Visit Stop Time 09:50 Total Visit Minutes 46 Visit Number Number of PRODUCE MANAGER Visits 0 PT-OP-B Current Condition Start: 02/04/20 14:33 Freq: Status: Active Protocol: Document 02/04/20 14:33 HH (Rec: 02/04/20 15:09 [email or web address]) Current Condition History of Current Condition Onset Date Many years ago Current Complaints Chronic LBP and B proximal leg pain, LLE weakness, poor activity tolerance History of Current Condition Pt is a 69yo female here for primary c/o poor activity tolerance BLE pain. Pt is a chronic smoker since 23 and currently smoke 1 pack a day. Pt stated her leg pain mostly located at B thighs and worse at groin and hip flexors region, along with lower back pain at lumbar region. Pt cannot peg more than 1 block of walking and often needed sitting break which reliefs her symptoms. She reports she cannot sleep on his back since extending her back increases her symptoms. 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 Treatment Goals Patient/Caregiver Goals 1. To be able to tolerate walking > 1 mile 2. to strength B LEs Personal Factors Other Personal Factors That May Effect Hepatitis C Therapy/Recovery Stroke 7-10 years ago SOB PT-OP-C Subjective Start: 02/04/20 14:33 Freq: Status: Active Protocol: Document 05/13/20 09:00 (Rec: 05/13/20 09:41 [id number]) OP-PT Subjective Patient Comments Patient Comments I did pretty good after last time. Didnt get too sore Patient Reported Progress Improving PT-OP-D Balance Start: 02/04/20 14:33 Freq: Status: Active Protocol: Document 02/04/20 14:33 HH (Rec: 02/04/20 15:09 [email or web address]) Balance Tests Single Limb Standing Single Limb- Right 7 Single Limb- Left 5 PT-OP-G Mobility & Gait Start: 02/04/20 14:33 Freq: Status: Active Protocol: Document 02/04/20 14:33 HH (Rec: 02/04/20 15:09 [email or web address]) OP Gait Assessment Factors Limiting Gait Function Factors Limiting Gait Function Limited Range of Motion,Pain Comments Gait Comments significant anterior trunk lean with anterior pelvic tilt , along with minimal heel strike and push off. PT-OP-H Neuro Start: 02/04/20 14:33 Freq: Status: Active Protocol: Document 02/04/20 14:33 HH (Rec: 02/04/20 15:09 [email or web address]) Deep Tendon Reflex & Clonus Assessment Deep Tendon Reflex Bilateral Bicep Deep Tendon Reflex 2+ Normal Bilateral Tricep Deep Tendon Reflex 3+ Normal But Brisk Achilles Deep Tendon Reflex 2+ Normal Bilateral Patellar Deep Tendon Reflex 4+ Brisk PT-OP-J Posture/Palpation/Skin Start: 02/04/20 14:33 Freq: Status: Active Protocol: Document 02/04/20 14:33 HH (Rec: 02/04/20 15:09 [email or web address]) Posture Evaluation Position Standing Evaluation View Lateral Head/C-Spine Posture Forward Head Pelvis Posture Anteriorly Tilted Ankle/Foot Posture (L) Plantarflexed,(R) Plantarflexed PT-OP-K Range of Motion Start: 02/04/20 14:33 Freq: Status: Active Protocol: Document 02/04/20 14:33 HH (Rec: 02/04/20 15:09 [email or web address]) Lumbar Spine Range of Motion Lumbar Spine Active Degrees Comments toe touch test: 6.5 inches from floor , use UE support on knees to recover from bend over position sidebending: R 21, L 18 extension= neutral PT-OP-L Special Tests Start: 02/04/20 14:33 Freq: Status: Active Protocol: Document 02/04/20 14:33 HH (Rec: 02/04/20 15:09 [email or web address]) Special Tests Lumbar Spine Special Tests Alfonzo Test Results +VE L worse than R Comments sig.groin pain reproduced, knee off table by 30 degrees. PT-OP-M Strength Start: 02/04/20 14:33 Freq: Status: Active Protocol: Document 02/04/20 14:33 HH (Rec: 07/06/20 15:09 [email or web address]) Hip Strength Hip Manual Muscle Testing Right Flexion (L2) 4 Good Extension (S1) 4 Good Abduction 4 Good Left Flexion (L2) 4 Good Extension (S1) 3+ Fair+ Abduction 4 Good Adduction 4 Good Knee Strength Knee Manual Muscle Testing Right Flexion (S2) 4+ Good+ Extension (L3) 4+ Good+ Left Flexion (S2) 4+ Good+ Extension (L3) 4+ Good+ Ankle/Foot Strength Ankle and Foot Manual Muscle Testing Right Dorsiflexion (L4) 4+ Good+ Plantarflexion (S1) 4+ Good+ Inversion 4+ Good+ Eversion (S1) 4+ Good+ Left Dorsiflexion (L4) 4 Good Plantarflexion (S1) 4+ Good+ Inversion 4+ Good+ Eversion (S1) 4 Good PT-OP-Q Treatments Start: 02/04/20 14:33 Freq: Status: Active Protocol: Document 05/13/20 09:00 (Rec: 05/13/20 09:41 [id number]) Cardio Equipment Treadmill Duration (Minutes) 5 Speed 1.0 Incline 0 Other min SOB noted Therapeutic Exercises Supine Exercises figure 4 Side bilateral Reps/Minutes 4 mins Sitting Exercises seated figure 4 Sitting Exercise Name self stretch Side bilateral Reps/Minutes 10 sec hold x 3 Comments L better than R Standing Exercises calf raises Side bilateral Equipment Used with grab bar Reps/Minutes 8 x 2 Comments for HEP squat Standing Exercise Name with grab bar Side bilateral Equipment Used UE on grab bar Comments for HEP, no pain noted step up Standing Exercise Name 8 step Side bilateral Equipment Used w/o rail Reps/Minutes 10 x2 Comments no pain noted. PT-OP-R Modalities Start: 02/04/20 14:33 Freq: Status: Active Protocol: Document 05/13/20 09:00 (Rec: 05/13/20 09:41 [id number]) Hot Pack/Cold Pack Treatment Hot Pack Location lumbar Patient Position Hooklying Treatment Duration (minutes) 8 Patient Tolerance Good PT-OP-T Assessment and Plan Start: 02/04/20 14:33 Freq: Status: Active Protocol: Document 05/13/20 09:00 (Rec: 05/13/20 09:41 [id number]) Physical Therapy Assessment Goals stair climbing Impairment pt uses step to pattern w/o railings now Radiology Interventional Physician Goal (LTG) 05/13/20 goal met Pt has been completing stairs with step over pattern with/ without railings at home. pt will be able to climb her steps at home with step over pattern without railings safely LTG Duration 6 weeks hip mobility Impairment pt is unable to martha/doff socks in seated position Radiology Interventional Physician Goal (LTG) goal met 04/22 Pt is able to martha/doff shoes/ socks independently. LTG Duration 6 weeks activity tolerance Impairment unable to walk more than 1 block without resting breaks Short Term Goal (STG) 03/18 goal met Pt was able to walk >2 blocks without breaks 3 times /week STG Duration 4 weeks Radiology Interventional Physician Goal (LTG) 05/13 did not meet pt has not been walking consistently d/t lack of motivation. Pt will be able to walk for a mile twice a week with minimal discomfort LTG Duration 8 weeks pain Impairment pain at 5 or more at all times Short Term Goal (STG) Pt will have pain no more than 5 for any activities STG Duration 4 weeks Senior Care Goal (LTG) goal met 04/22 Pt is has pain no more than 2/ 10 for daily activities now. LTG Duration 8 weeks Oswestry LBP Impairment pt scores 44 Short Term Goal (STG) Pt will score 35 or less to improve her ability for functional acitvities STG Duration 4 weeks Radiology Interventional Physician Goal (LTG) 04/22 goal met Pt scores 18 on Oswestry LBP questionnaire today. LTG Duration 8 weeks Progress Towards Goals Progress Towards Goals Goals Met Assessment Summary Assessment Pt has been progressing well since IE even though its a slow progress primarily d/t lack of motivation. Pt have met 4/5 goals except increasing her overall activity level. Physical Therapy Plan Discharge Physical Therapy Discharge Reasons Goals Met
== END 2020-05-13 11:57 ==
LOC: PHYS 09:00
PROVIDERS: PCP Internal Medicine; Referring Provider Internal Medicine; Visit Provider Internal Medicine
DX: M54.9 Dorsalgia, unspecified (principal)
CPT/HCPCS: 97110; 97140; 97162; 97535

== ENCOUNTER → 2020-06-04 15:20 | Outpatient (CLI) | payer MEDICARE, OTHER, SELFPAY ==
[2020-06-05 05:21] LABS: Hepatitis B Surf AB Quant <3.1 mIU/mL (Immunity>9.9); Hepatitis B Surf Ab Qualitativ Non Reactive (.)
[2020-06-05 17:17] LABS: Hepatitis B Surface Antigen NEGATIVE s/c (NEGATIVE)
== END ==
PROVIDERS: PCP Internal Medicine; Referring Provider Nurse Practitioner Family; Visit Provider Nurse Practitioner Family
DX: B19.20 Unspecified viral hepatitis C without hepatic coma (principal)
CPT/HCPCS: 36415; 86706; 87340; 87522

== ENCOUNTER → 2020-06-18 14:06 | Outpatient (CLI) | payer MEDICARE, OTHER, SELFPAY ==
[2020-06-18 16:20] LABS: Add Manual Diff / Slide Review NO; Basophils Absolute Auto 100 /uL (0-100); Basophils Percent Auto 0.8 % (0-2); Eosinophils Absolute Auto 100 /uL (0-450); Eosinophils Percent Auto 1.2 % (2-4); Hemoglobin 13.9 g/dL (12.0-16.0); Lymphocytes Absolute Auto 3700 /uL (1100-4500); Lymphocytes Percent Auto 42.1 % (25-40); Mean Corpuscular HGB Conc 33.1 % (30-36); Mean Corpuscular Hemoglobin 29.1 PG (26-34); Mean Corpuscular Volume 87.8 fL (80-100); Monocytes Absolute Auto 800 /uL (0-900); Monocytes Percent Auto 8.7 % (3-14); Neutrophils Absolute Auto 4100 /uL (1500-7000); Neutrophils Percent Auto 47.2 % (50-75); Platelet Count 329 X10^3/uL (150-400); Red Blood Cell Count 4.78 X10^6/uL (4.0-5.2); Red Cell Distribution Width 13.5 % (11.6-14.8); White Blood Cell Count 8.8 X10^3/uL (4.5-11.0)
[2020-06-18 16:48] LABS: Prothrombin Time 11.6 SECONDS (10.1-12.7)
[2020-06-18 16:58] LABS: Alanine Aminotransferase 107 IU/L (<35); Albumin 4.5 g/dL (3.5-5.0); Albumin Globulin Ratio 1.3 (1.0-2.8); Alkaline Phosphatase 120 U/L (38-126); Aspartate Aminotransferase 83 IU/L (14-36); BUN Creatinine Ratio 23.2 (6-22); Bilirubin Total 0.4 mg/dL (0.2-1.3); Blood Urea Nitrogen 16 mg/dL (7-17); Calcium 10.3 mg/dL (8.4-10.2); Carbon Dioxide 32 mmol/L (22-32); Chloride 101 mmol/L (98-107); Estimated Glomerular Filt Rate > 60.0 mL/min (>60); Globulin 3.6 g/dL (1.7-4.1); Glucose 133 mg/dL (80-110); HEMOLYSIS < 15 (0-50); Potassium 4.5 mmol/L (3.4-5.1); Sodium 140 mmol/L (137-145); Total Protein 8.1 g/dL (6.3-8.2)
== END ==
PROVIDERS: PCP Internal Medicine; Referring Provider Nurse Practitioner Family; Visit Provider Nurse Practitioner Family
DX: B19.20 Unspecified viral hepatitis C without hepatic coma (principal)
CPT/HCPCS: 36415; 80053; 85025; 85610

== ENCOUNTER → 2020-08-14 14:02 | Outpatient (CLI) | payer MEDICARE, OTHER, SELFPAY ==
[2020-08-14 16:20] LABS: Alanine Aminotransferase 74 IU/L (<35); Albumin 4.3 g/dL (3.5-5.0); Albumin Globulin Ratio 1.2 (1.0-2.8); Alkaline Phosphatase 132 U/L (38-126); Aspartate Aminotransferase 47 IU/L (14-36); BUN Creatinine Ratio 28.6 (6-22); Bilirubin Direct 0.1 mg/dL (0.0-0.4); Bilirubin Total 0.3 mg/dL (0.2-1.3); Blood Urea Nitrogen 16 mg/dL (7-17); Calcium 9.8 mg/dL (8.4-10.2); Carbon Dioxide 31 mmol/L (22-32); Chloride 104 mmol/L (98-107); Estimated Glomerular Filt Rate > 60.0 mL/min (>60); Globulin 3.5 g/dL (1.7-4.1); Glucose 138 mg/dL (80-110); HEMOLYSIS < 15 (0-50); Sodium 139 mmol/L (137-145); Total Protein 7.8 g/dL (6.3-8.2)
[2020-08-14 16:51] LABS: Ferritin 53 ng/mL (11-264)
[2020-08-15 05:13] LABS: Ceruloplasmin 24.3 mg/dL (19.0-39.0)
[2020-08-17 17:08] LABS: ANA Screen, IFA Positive (.)
[2020-08-18 13:05] LABS: Anti Mitochondrial ABY IGG <20.0 Units (0.0-20.0); Smooth Muscle Antibody 5 Units (0-19)
== END ==
PROVIDERS: PCP Internal Medicine; Referring Provider Nurse Practitioner Family; Visit Provider Nurse Practitioner Family
DX: R94.5 Abnormal results of liver function studies (principal)
CPT/HCPCS: 36415; 80053; 82248; 82390; 82728; 83516; 86038; 86376

== ENCOUNTER → 2020-09-08 18:35 | Outpatient (CLI) | payer MEDICARE, OTHER, SELFPAY | PROVIDERS: PCP Internal Medicine; Visit Provider Physician Assistant | DX: N34.3 Urethral syndrome, unspecified (principal) | CPT/HCPCS: 87086 ==

== ENCOUNTER → 2020-10-06 15:34 | Outpatient (CLI) | payer MEDICARE, OTHER, SELFPAY ==
--- NOTE | 2020-10-06 15:36 | DI.MG.S_ITS ---
BILATERAL DIGITAL SCREENING MAMMOGRAM 3D/2D WITH CAD: 10/06/2020 CLINICAL: Routine screening. Family history of breast cancer. Comparison is made to exams dated: 10/02/2019 mammogram, 10/07/2017 mammogram, and 12/19/2014 mammogram - [facility]. There are scattered fibroglandular elements in both breasts. Current study was also evaluated with a Computer Aided Detection (CAD) system. No significant masses, calcifications, or other findings are seen in either breast. There has been no significant interval change. IMPRESSION: NEGATIVE There is no mammographic evidence of malignancy. A 1 year screening mammogram is recommended. This exam was interpreted at Station ID: [id number]. NOTE: For mammograms, a report in lay terms will be sent to the patient. Approximately 15% of breast malignancies will not be visualized mammographically. In the management of a palpable breast mass, a negative mammogram must not discourage biopsy of a clinically suspicious lesion. Electronically Signed By: Josue vásquez/jean:10/06/2020 15:57:52 letter sent: Normal Exam ACR BI-RADS Category 1: Negative [id number]
== END ==
PROVIDERS: PCP Internal Medicine; Referring Provider Internal Medicine; Visit Provider Internal Medicine
DX: Z12.31 Encounter for screening mammogram for malignant neoplasm of breast (principal); Z80.3 Family history of malignant neoplasm of breast
CPT/HCPCS: 77063; 77067

== ENCOUNTER → 2020-10-13 09:18 | Outpatient (CLI) | payer MEDICARE, OTHER, SELFPAY ==
[2020-10-13] MEDS: COVID-19 VACC, Ad26(JANSSEN)/PF 0.5 ML IM (09:27)
== END ==
PROVIDERS: PCP Internal Medicine; Visit Provider Internal Medicine
DX: Z23 Encounter for immunization (principal); N30.01 Acute cystitis with hematuria; E11.9 Type 2 diabetes mellitus without complications; E78.2 Mixed hyperlipidemia; I10 Essential (primary) hypertension
CPT/HCPCS: 0031A; 36415; 80053; 80061; 81001; 83036; 91303

== ENCOUNTER → 2020-10-13 14:09 | Outpatient (CLI) | payer MEDICARE, OTHER, SELFPAY ==
[2020-10-13 14:17] LABS: Bacteria Urine None Seen
[2020-10-13 14:57] LABS: Hemoglobin A1C% w Est Avg Glu 8.1 % (4.0-6.0)
[2020-10-13 15:05] LABS: Appearance Urine UA CLEAR; Bilirubin Urine UA NEGATIVE (NEGATIVE); Color Urine UA YELLOW; Glucose Urine UA TRACE g/dL (Negative); Ketones Urine UA NEGATIVE (NEGATIVE); Leukocyte Esterase Urine UA NEGATIVE (NEGATIVE); Nitrite Urine UA NEGATIVE (Negative); Occult Blood Urine UA TRACE-INTACT (Negative); Protein Urine UA NEGATIVE (Negative); Specific Gravity Urine UA 1.025 (1.000-1.035); Urobilinogen Urine UA 0.2 E.U./dL (0.2)
[2020-10-13 15:16] LABS: Alanine Aminotransferase 90 IU/L (<35); Albumin 4.2 g/dL (3.5-5.0); Albumin Globulin Ratio 1.4 (1.0-2.8); Alkaline Phosphatase 123 U/L (38-126); Aspartate Aminotransferase 55 IU/L (14-36); BUN Creatinine Ratio 24.6 (6-22); Bilirubin Total 0.4 mg/dL (0.2-1.3); Blood Urea Nitrogen 17 mg/dL (7-17); Calcium 10.2 mg/dL (8.4-10.2); Carbon Dioxide 32 mmol/L (22-32); Chloride 102 mmol/L (98-107); Cholesterol 164 mg/dL (140-199); Estimated Glomerular Filt Rate > 60.0 mL/min (>60); Glucose 182 mg/dL (80-110); HDL Cholesterol 48 mg/dL (40-60); HEMOLYSIS < 15 (0-50); LDL Cholesterol Calculated 74 mg/dL (<100); Potassium 4.5 mmol/L (3.4-5.1); Sodium 138 mmol/L (137-145); Total Protein 7.2 g/dL (6.3-8.2); Triglycerides 209 mg/dL (35-150)
[2020-10-13 15:39] LABS: Amorphous Sediment Urine 1+; RBC Urine 0-1/HPF (0-5/HPF); Squamous Epithelial Cell Urine 5-10 /HPF (0-5/HPF); WBC Urine 0-1/HPF (0-5/HPF)
[2020-10-13 15:40] LABS: Culture Indicated Urine Cult Not Indicated; Mucus Urine 1+ (Negative)
== END ==
PROVIDERS: PCP Internal Medicine; Referring Provider Internal Medicine; Visit Provider Internal Medicine
DX: N30.01 Acute cystitis with hematuria (principal); E11.9 Type 2 diabetes mellitus without complications; E78.2 Mixed hyperlipidemia; I10 Essential (primary) hypertension
CPT/HCPCS: 36415; 80053; 80061; 81001; 83036

== ENCOUNTER → 2020-12-08 07:26 | Outpatient (CLI) | payer MEDICARE, OTHER, SELFPAY ==
[2020-12-08 08:25] LABS: Hemoglobin A1C% w Est Avg Glu 7.2 % (4.0-6.0)
== END ==
PROVIDERS: PCP Internal Medicine; Referring Provider Internal Medicine; Visit Provider Internal Medicine
DX: E11.9 Type 2 diabetes mellitus without complications (principal)
CPT/HCPCS: 36415; 83036

== ENCOUNTER 2020-12-23 14:30 | Outpatient (RCR) | payer MEDICARE, OTHER, SELFPAY ==
--- NOTE | 2020-10-21 16:49 | PT.OIE ---
Current Diagnoses Myalgia, unspecified site (10/21/20) Past Medical History (Last Updated 09/08/20 @ 18:46 by Liseth Thornton PA-C) Chronic hepatitis C Depression (Unknown) Diabetes (Unknown) Diabetes mellitus type 2, uncomplicated History of CVA (cerebrovascular accident) (~2011) Hx of TIA (transient ischemic attack) and stroke (~2011) Hyperlipemia (Unknown) Hypertension (Unknown) Osteopenia (07/2016) UTI (urinary tract infection) Past Surgical History (Last Reviewed 01/23/18 @ 12:50 by Vanessa Rodriguez DO) History of elective History of elective Status post tubal ligation Visit Care Team Role Provider Type Vinh Stallings MD Attending Provider Physician Primary Care Provider Referring Provider Specialty: Internal Medicine Address: [address] [place] [address], [address], [facility] Email: [email or web address] Physical Therapy Initial Evaluation PT-OP-A Visit Information Start: 10/21/20 14:36 Freq: Status: Active Protocol: Document 10/21/20 14:39 HH (Rec: 10/21/20 15:12 [email or web address]) Out-Patient Physical Therapy Visit Information Visit Information Visit Type Initial Evaluation Visit Start Time 13:46 Visit Stop Time 14:30 Total Visit Minutes 44 Visit Number 08/19 Number of CUSTOMER ACCOUNT COORDINATOR Visits 0 Evaluation Information Evaluation Date 10/21/20 Precautions Precautions Hep C depression SOB PT-OP-B Current Condition Start: 10/21/20 14:36 Freq: Status: Active Protocol: Document 10/21/20 14:39 HH (Rec: 10/21/20 15:12 [email or web address]) Current Condition History of Current Condition Onset Date Many years ago Current Complaints Chronic LBP and L anterior hip pain, LLE weakness, poor activity tolerance History of Current Condition Pt is a 69yo female here for chronic LBP, B leg pain , L anterior hip pain and poor activity tolerance. Pt stated her leg pain get worse with increase in activity level ( primarily walking) and her stiffness is the worst in the AM. She can only walk approx. one block without a sitting break. She also has difficulty lying flat since that causes hyperextension of her lowback and she cannot extend her L hip and knee in supine d/t significant L hip tightness. She also stated changing position, Hip stretching and low back stretching tend to relieve her symptoms. Pt was here for PT last year with same issues but her B hip pain has improved but not her activity tolerance. Pt stated she has been lazy keeping up with activity level. Prior Treatments and Tests A1C level at 8.1 recently and her PCP recommended her to take metformin 2x/day Treatment Goals Patient/Caregiver Goals 1. to be able to walk 1 mile few times a week 2. to be able to walk witohut leg pain Current Functional Impairments (Reported) Functional Limitations- Other urinary incontinence Personal Factors Other Personal Factors That May Effect Type 2 Diabetes Therapy/Recovery current smoke who smokes 1pack per day pt recently gained 5 lbs Chronic Hepatitis C PT-OP-C Subjective Start: 10/21/20 14:36 Freq: Status: Active Protocol: Document 10/21/20 14:39 HH (Rec: 10/21/20 15:12 [email or web address]) Patient Questionnaires Oswestry Low Back Index Oswestry Score 28 Oswestry Impairment 20 to 39% Impaired (Score 20- 39) PT-OP-E Functional Tests Start: 10/21/20 14:36 Freq: Status: Active Protocol: Document 10/21/20 14:39 HH (Rec: 10/21/20 16:49 [email or web address]) Functional Tests 6 Minute Walk Test Distance 850 Device Used none Comments break at 2min. HR at 120 /min after and took 2mins to recover to baseline PT-OP-F Manual Assessment Start: 10/21/20 14:36 Freq: Status: Active Protocol: Document 10/21/20 14:39 HH (Rec: 10/21/20 15:12 [email or web address]) Manual Assessments Soft Tissue Assessment Soft Tissue Mobility Assessment significant hypertonicity at L hip flexors and B proximal hip adductors Joint Mobility Assessment Joint Mobility Assessment hard end feel at B hip extension, external/ interal rotation (L worse than R) PT-OP-G Mobility & Gait Start: 10/21/20 14:36 Freq: Status: Active Protocol: Document 10/21/20 14:39 HH (Rec: 10/21/20 15:12 [email or web address]) OP Mobility Evaluation Bed Mobility Supine to and from Sit log roll and push up from SL OP Gait Assessment Gait Deviations General Gait Pattern Decreased Stride Length, Decreased Feet Clearance,Wide Based Gait Factors Limiting Gait Function Factors Limiting Gait Function Decreased Activity Tolerance, Decreased Strength,Limited Range of Motion,Pain,Poor Balance Comments Gait Comments lack of L hip extension noted. Pt uses L trunk rotation and L hip hike during swing phase of LLE; WBOS L is more externally rotated. PT-OP-J Posture/Palpation/Skin Start: 10/21/20 14:36 Freq: Status: Active Protocol: Document 10/21/20 14:39 HH (Rec: 10/21/20 15:12 [email or web address]) Posture Evaluation Position Standing Pelvis Posture Anteriorly Tilted Hip Posture (L) Flexed,(R) Flexed,(L) Externally Rotated,(R) Externally Rotated Knee Posture (L) Excess Flexion,(R) Excess Flexion Comments Posture Comments significant anterior pelvic tilt in standing position noted L worse than R PT-OP-K Range of Motion Start: 10/21/20 14:36 Freq: Status: Active Protocol: Document 10/21/20 14:39 HH (Rec: 10/21/20 15:12 [email or web address]) Lumbar Spine Range of Motion Lumbar Spine Active Degrees Comments pt lies in supine but lumbar unable to touch the table and LLE unable to straighten d/t L hip pain toe touch test = 7 inches from floor extension = neutral lateral flexion r= 20 L= 19 Hip Goniometric Range of Motion Hip Left Passive Hip ROM WFL No Testing Position Supine Internal Rotation 0 External Rotation 35 Comments IR and ER at hip 90 degrees flexion figure 4 position (ER) 10 inches from the table Right Passive Hip ROM WFL No Testing Position Supine Internal Rotation 0 External Rotation 45 Comments IR and ER at hip 90 degrees flexion figure 4 position (ER) 8 inches from the table Hip ROM Limitations Hip ROM Limitations Pain PT-OP-L Special Tests Start: 10/21/20 14:36 Freq: Status: Active Protocol: Document 10/21/20 14:39 HH (Rec: 10/21/20 15:12 [email or web address]) Special Tests Lumbar Spine Special Tests Alfonzo Test Results +VE L>R Comments sig groin pain reproduced on L , knee off table by 3x degrees Hip Special Tests FADDIR Test Results +ve L Scour Test Test Results +VE L Comments pain with axial pressure JIMENA Test Results +vE L Comments pain hip jointline PT-OP-M Strength Start: 10/21/20 14:36 Freq: Status: Active Protocol: Document 10/21/20 14:39 (Rec: 10/21/20 15:12 [email or web address]) Hip Strength Hip Manual Muscle Testing Right Flexion (L2) 4 Good Extension (S1) 4 Good Abduction 4 Good Adduction 4 Good Left Flexion (L2) 4- Good- Extension (S1) 3+ Fair+ Abduction 4- Good- Adduction 4- Good- PT-OP-T Assessment and Plan Start: 10/21/20 14:36 Freq: Status: Active Protocol: Document 10/21/20 14:39 (Rec: 10/21/20 15:12 [email or web address]) Physical Therapy Assessment Rehab Potential Rehabilitation Potential Good Evaluation Complexity Number of Personal Factors/Comorbidities 3 or More Number of Body Systems Impaired 4 or More Clinical Presentation at Evaluation Stable Impairments Impairments Activity Tolerance,Balance, Functional Activities, Functional Mobility,Gait,Pain, Posture,ROM,Soft Tissue Mobility,Strength,Transfers Other Concerns Barriers to Rehabilitation DM II, HTN, hep c Goals HEP Impairment pt does not have a HEP Short Term Goal (STG) pt will be compliant to HEP at least 4 times /week STG Duration 6 weeks 6MWT Impairment pt walked 850ft Short Term Goal (STG) pt will be able to complete 6MWT >900 ft without rest and HR <120. STG Duration 6 weeks Tube Man Goal (LTG) pt will be able to complete 6MWT >1000 ft without rest, HR <120. LTG Duration 12 weeks activity tolerance Impairment unable to walk more than 1 block without breaks Short Term Goal (STG) pt will be able to walk more > 2 blacks twice a week without breaks STG Duration 6 weeks Alf Goal (LTG) pt will be able to walk for a mile (2500 steps) twice a week with minimal discomfort LTG Duration 12 weeks pain Impairment pain during walking Short Term Goal (STG) pt will improve her LE strength and endurance who will not have pain >4 during 6 MWT STG Duration 6 weeks Tube Man Goal (LTG) pt will improve her LE strength and endurance who will not have pain >2 during a mile walk 2x/week LTG Duration 12 weeks Assessment Summary Assessment Pt is a 69yo overweight female here for chronic B LE pain and back pain which get worse with activity. Pt is obviously overweight and has a significant abdominal distention who presents a significant anterior pelvic tilt. This postural pattern places both pt hips into hip flexion and lumbar extension which affect her gait mechanics and overall mobility . Besides, pt also shows signs of severe OA at both hips and lumbar region d/t her symptoms. Pt will benefit from skilled therapy to improve her overall hip and lumbar spine mobility and overall activity tolerance. However, this is going to be a long rehab d/t her other predisposed conditions such as DM II, current smoker and hepatitis C. Physical Therapy Plan Frequency and Duration Frequency of Treatment 2x/Week Duration of Treatment 12 weeks Plan of Care Start Date 10/21/20 Plan of Care End Date 01/19/21 Therapeutic Interventions Therapeutic Interventions Aquatic Therapy,Balance Training,Gait Training,Home Exercise Program,Joint Mobilizations,Manual Therapy, Neuromuscular Re-education, Patient/Caregiver Education, Self-Care/Home Management,Soft Tissue Mobilization,Taping, Therapeutic Activities, Therapeutic Exercises Modalities Cold Pack/Ice Massage,Electric Stimulation,Hot Packs, Infrared Therapy,Traction- Mechanical,Ultrasound Next Visit Focus/Plan Next Note Type Treatment Note Next Visit Plan Buerger's test CRISSY pressure test for arterial insufficiency? hip stretch alfonzo test position lumbar flexion bike
--- NOTE | 2020-10-21 16:50 | PT.OPPOC ---
Physical, Occupational & Speech Therapy At [facility] Current Diagnoses Myalgia, unspecified site (10/21/20) Visit Care Team Role Provider Type Vinh Stallings MD Attending Provider Physician Primary Care Provider Referring Provider Specialty: Internal Medicine Address: [address] [place] [address], [address], [address] Email: [email or web address] Plan Of Care PT-OP-T Assessment and Plan Start: 10/21/20 14:36 Freq: Status: Active Protocol: Document 10/21/20 14:39 HH (Rec: 10/21/20 15:12 HH [email or web address]) Physical Therapy Assessment Rehab Potential Rehabilitation Potential Good Evaluation Complexity Number of Personal Factors/Comorbidities 3 or More Number of Body Systems Impaired 4 or More Clinical Presentation at Evaluation Stable Impairments Impairments Activity Tolerance,Balance, Functional Activities, Functional Mobility,Gait,Pain, Posture,ROM,Soft Tissue Mobility,Strength,Transfers Other Concerns Barriers to Rehabilitation DM II, HTN, hep c Goals HEP Impairment pt does not have a HEP Short Term Goal (STG) pt will be compliant to HEP at least 4 times /week STG Duration 6 weeks 6MWT Impairment pt walked 850ft Short Term Goal (STG) pt will be able to complete 6MWT >900 ft without rest and HR <120. STG Duration 6 weeks Grain Merchandising Manager Goal (LTG) pt will be able to complete 6MWT >1000 ft without rest, HR <120. LTG Duration 12 weeks activity tolerance Impairment unable to walk more than 1 block without breaks Short Term Goal (STG) pt will be able to walk more > 2 blacks twice a week without breaks STG Duration 6 weeks Grain Merchandising Manager Goal (LTG) pt will be able to walk for a mile (2500 steps) twice a week with minimal discomfort LTG Duration 12 weeks pain Impairment pain during walking Short Term Goal (STG) pt will improve her LE strength and endurance who will not have pain >4 during 6 MWT STG Duration 6 weeks Grain Merchandising Manager Goal (LTG) pt will improve her LE strength and endurance who will not have pain >2 during a mile walk 2x/week LTG Duration 12 weeks Assessment Summary Assessment Pt is a 69yo overweight female here for chronic B LE pain and back pain which get worse with activity. Pt is obviously overweight and has a significant abdominal distention who presents a significant anterior pelvic tilt. This postural pattern places both pt hips into hip flexion and lumbar extension which affect her gait mechanics and overall mobility . Besides, pt also shows signs of severe OA at both hips and lumbar region d/t her symptoms. Pt will benefit from skilled therapy to improve her overall hip and lumbar spine mobility and overall activity tolerance. However, this is going to be a long rehab d/t her other predisposed conditions such as DM II, current smoker and hepatitis C. Physical Therapy Plan Frequency and Duration Frequency of Treatment 2x/Week Duration of Treatment 12 weeks Plan of Care Start Date 10/21/20 Plan of Care End Date 01/19/21 Therapeutic Interventions Therapeutic Interventions Aquatic Therapy,Balance Training,Gait Training,Home Exercise Program,Joint Mobilizations,Manual Therapy, Neuromuscular Re-education, Patient/Caregiver Education, Self-Care/Home Management,Soft Tissue Mobilization,Taping, Therapeutic Activities, Therapeutic Exercises Modalities Cold Pack/Ice Massage,Electric Stimulation,Hot Packs, Infrared Therapy,Traction- Mechanical,Ultrasound Next Visit Focus/Plan Next Note Type Treatment Note Next Visit Plan Buerger's test CRISSY pressure test for arterial insufficiency? hip stretch venus test position lumbar flexion bike Plan of Care Dates Plan of Care Start Date 10/21/20 Plan of Care End Date 01/19/21 Electronically Signed by: Julian Irving, PT 10/21/20 [id number] Please Sign and Return: I have reviewed this Plan of Care and certify that the skilled therapy services above are required to meet the patient?s needs. Physician Signature Date Printed Name and Credentials Clinical Instructor Signature Printed Name and Credentials
--- NOTE | 2020-10-23 14:34 | PT.OTN ---
Current Diagnoses Myalgia, unspecified site (10/23/20) Physical Therapy Treatment Note PT-OP-A Visit Information Start: 10/21/20 14:36 Freq: Status: Active Protocol: Document 10/23/20 13:29 HH (Rec: 10/23/20 14:33 [id number]) Out-Patient Physical Therapy Visit Information Visit Information Visit Type Treatment Note Visit Start Time 13:45 Visit Stop Time 14:35 Total Visit Minutes 50 Visit Number 09/19 Number of NEWS LIBRARIAN Visits 0 PT-OP-B Current Condition Start: 10/21/20 14:36 Freq: Status: Active Protocol: Document 10/21/20 14:39 HH (Rec: 10/21/20 15:12 HH [email or web address]) Current Condition History of Current Condition Onset Date Many years ago Current Complaints Chronic LBP and L anterior hip pain, LLE weakness, poor activity tolerance History of Current Condition Pt is a 69yo female here for chronic LBP, B leg pain , L anterior hip pain and poor activity tolerance. Pt stated her leg pain get worse with increase in activity level ( primarily walking) and her stiffness is the worst in the AM. She can only walk approx. one block without a sitting break. She also has difficulty lying flat since that causes hyperextension of her lowback and she cannot extend her L hip and knee in supine d/t significant L hip tightness. She also stated changing position, Hip stretching and low back stretching tend to relieve her symptoms. Pt was here for PT last year with same issues but her B hip pain has improved but not her activity tolerance. Pt stated she has been lazy keeping up with activity level. Prior Treatments and Tests A1C level at 8.1 recently and her PCP recommended her to take metformin 2x/day Treatment Goals Patient/Caregiver Goals 1. to be able to walk 1 mile few times a week 2. to be able to walk witohut leg pain Current Functional Impairments (Reported) Functional Limitations- Other urinary incontinence Personal Factors Other Personal Factors That May Effect Type 2 Diabetes Therapy/Recovery current smoke who smokes 1pack per day pt recently gained 5 lbs Chronic Hepatitis C PT-OP-C Subjective Start: 10/21/20 14:36 Freq: Status: Active Protocol: Document 10/23/20 13:29 HH (Rec: 10/23/20 14:33 [id number]) OP-PT Subjective Patient Comments Patient Comments Im doing okay so far. PT-OP-E Functional Tests Start: 10/21/20 14:36 Freq: Status: Active Protocol: Document 10/21/20 14:39 (Rec: 10/21/20 16:49 [email or web address]) Functional Tests 6 Minute Walk Test Distance 850 Device Used none Comments break at 2min. HR at 120 /min after and took 2mins to recover to baseline PT-OP-F Manual Assessment Start: 10/21/20 14:36 Freq: Status: Active Protocol: Document 10/21/20 14:39 (Rec: 10/21/20 15:12 [email or web address]) Manual Assessments Soft Tissue Assessment Soft Tissue Mobility Assessment significant hypertonicity at L hip flexors and B proximal hip adductors Joint Mobility Assessment Joint Mobility Assessment hard end feel at B hip extension, external/ interal rotation (L worse than R) PT-OP-G Mobility & Gait Start: 10/21/20 14:36 Freq: Status: Active Protocol: Document 10/21/20 14:39 (Rec: 10/21/20 15:12 [email or web address]) OP Mobility Evaluation Bed Mobility Supine to and from Sit log roll and push up from SL OP Gait Assessment Gait Deviations General Gait Pattern Decreased Stride Length, Decreased Feet Clearance,Wide Based Gait Factors Limiting Gait Function Factors Limiting Gait Function Decreased Activity Tolerance, Decreased Strength,Limited Range of Motion,Pain,Poor Balance Comments Gait Comments lack of L hip extension noted. Pt uses L trunk rotation and L hip hike during swing phase of LLE; WBOS L is more externally rotated. PT-OP-J Posture/Palpation/Skin Start: 10/21/20 14:36 Freq: Status: Active Protocol: Document 10/21/20 14:39 (Rec: 10/21/20 15:12 [email or web address]) Posture Evaluation Position Standing Pelvis Posture Anteriorly Tilted Hip Posture (L) Flexed,(R) Flexed,(L) Externally Rotated,(R) Externally Rotated Knee Posture (L) Excess Flexion,(R) Excess Flexion Comments Posture Comments significant anterior pelvic tilt in standing position noted L worse than R PT-OP-K Range of Motion Start: 10/21/20 14:36 Freq: Status: Active Protocol: Document 10/21/20 14:39 (Rec: 10/21/20 15:12 [email or web address]) Lumbar Spine Range of Motion Lumbar Spine Active Degrees Comments pt lies in supine but lumbar unable to touch the table and LLE unable to straighten d/t L hip pain toe touch test = 7 inches from floor extension = neutral lateral flexion r= 20 L= 19 Hip Goniometric Range of Motion Hip Left Passive Hip ROM WFL No Testing Position Supine Internal Rotation 0 External Rotation 35 Comments IR and ER at hip 90 degrees flexion figure 4 position (ER) 10 inches from the table Right Passive Hip ROM WFL No Testing Position Supine Internal Rotation 0 External Rotation 45 Comments IR and ER at hip 90 degrees flexion figure 4 position (ER) 8 inches from the table Hip ROM Limitations Hip ROM Limitations Pain PT-OP-L Special Tests Start: 10/21/20 14:36 Freq: Status: Active Protocol: Document 10/21/20 14:39 (Rec: 10/21/20 15:12 [email or web address]) Special Tests Lumbar Spine Special Tests Alfonzo Test Results +VE L>R Comments sig groin pain reproduced on L , knee off table by 3x degrees Hip Special Tests FADDIR Test Results +ve L Scour Test Test Results +VE L Comments pain with axial pressure JIMENA Test Results +vE L Comments pain hip jointline PT-OP-M Strength Start: 10/21/20 14:36 Freq: Status: Active Protocol: Document 10/21/20 14:39 (Rec: 10/21/20 15:12 [email or web address]) Hip Strength Hip Manual Muscle Testing Right Flexion (L2) 4 Good Extension (S1) 4 Good Abduction 4 Good Adduction 4 Good Left Flexion (L2) 4- Good- Extension (S1) 3+ Fair+ Abduction 4- Good- Adduction 4- Good- PT-OP-Q Treatments Start: 10/21/20 14:36 Freq: Status: Active Protocol: Document 10/23/20 13:29 (Rec: 10/23/20 14:33 [id number]) Cardio Equipment Recumbent Stepper (Sci-Fit) Duration (Minutes) 5 Resistance 4 Therapeutic Exercises Supine Exercises supine clamshell Reps/Minutes 10x2 alfonzo test Reps/Minutes 15 sec x 5 Comments for HEP Sitting Exercises seated flexion Side bilateral Reps/Minutes 10 x2 seated forward reach Side bilateral Reps/Minutes 10 x2 Standing Exercises calf raises Side bilateral Reps/Minutes 8x2 Comments for hep squat Standing Exercise Name with bar Side bilateral Reps/Minutes 8x2 Comments for HEP Gait Training Gait Activity gait Device Used no AD Level of Assistance SBA Surface ground level Distance/Duration 200 x 2 Comments HR from 100 up to 130. Took 2mins 30 seconds to complete Manual Therapy Treatment Soft Tissue Mobilization B thighs Mobilization Type Sustained Pressure,Trigger Point Release Intensity/Depth Moderate Body Position Hooklying PT-OP-R Modalities Start: 10/21/20 14:36 Freq: Status: Active Protocol: Document 10/23/20 13:29 HH (Rec: 10/23/20 14:33 [id number]) Hot Pack/Cold Pack Treatment Hot Pack Location lumbar Patient Position Hooklying Treatment Duration (minutes) 10 Patient Tolerance Good PT-OP-T Assessment and Plan Start: 10/21/20 14:36 Freq: Status: Active Protocol: Document 10/23/20 13:29 HH (Rec: 10/23/20 14:33 [id number]) Physical Therapy Assessment Goals HEP Impairment pt does not have a HEP Short Term Goal (STG) pt will be compliant to HEP at least 4 times /week STG Duration 6 weeks 6MWT Impairment pt walked 850ft Short Term Goal (STG) pt will be able to complete 6MWT >900 ft without rest and HR <120. STG Duration 6 weeks Content Curator Goal (LTG) pt will be able to complete 6MWT >1000 ft without rest, HR <120. LTG Duration 12 weeks activity tolerance Impairment unable to walk more than 1 block without breaks Short Term Goal (STG) pt will be able to walk more > 2 blacks twice a week without breaks STG Duration 6 weeks Content Curator Goal (LTG) pt will be able to walk for a mile (2500 steps) twice a week with minimal discomfort LTG Duration 12 weeks pain Impairment pain during walking Short Term Goal (STG) pt will improve her LE strength and endurance who will not have pain >4 during 6 MWT STG Duration 6 weeks Content Curator Goal (LTG) pt will improve her LE strength and endurance who will not have pain >2 during a mile walk 2x/week LTG Duration 12 weeks Assessment Summary Assessment Tx focused on hip stretches, LE strengthening and walking to improve her endurance. Pt tends to get SOB easily and HR went up to 130s after 200 ft x 2 Physical Therapy Plan Frequency and Duration Frequency of Treatment 2x/Week Duration of Treatment 12 weeks Plan of Care Start Date 10/21/20 Plan of Care End Date 01/19/21 Next Visit Focus/Plan Next Note Type Treatment Note Next Visit Plan Buerger's test CRISSY pressure test for arterial insufficiency? hip stretch alfonzo test position lumbar flexion bike
--- NOTE | 2020-10-27 14:33 | PT.OTN ---
Current Diagnoses Myalgia, unspecified site (10/27/20) Physical Therapy Treatment Note PT-OP-A Visit Information Start: 10/21/20 14:36 Freq: Status: Active Protocol: Document 10/27/20 13:46 HH (Rec: 10/27/20 14:33 [id number]) Out-Patient Physical Therapy Visit Information Visit Information Visit Type Treatment Note Visit Start Time 13:46 Visit Stop Time 14:36 Total Visit Minutes 50 Visit Number 10/17 Number of BUSINESS ANALYSIS CONSULTANT Visits 0 PT-OP-B Current Condition Start: 10/21/20 14:36 Freq: Status: Active Protocol: Document 10/21/20 14:39 HH (Rec: 10/21/20 15:12 HH [email or web address]) Current Condition History of Current Condition Onset Date Many years ago Current Complaints Chronic LBP and L anterior hip pain, LLE weakness, poor activity tolerance History of Current Condition Pt is a 69yo female here for chronic LBP, B leg pain , L anterior hip pain and poor activity tolerance. Pt stated her leg pain get worse with increase in activity level ( primarily walking) and her stiffness is the worst in the AM. She can only walk approx. one block without a sitting break. She also has difficulty lying flat since that causes hyperextension of her lowback and she cannot extend her L hip and knee in supine d/t significant L hip tightness. She also stated changing position, Hip stretching and low back stretching tend to relieve her symptoms. Pt was here for PT last year with same issues but her B hip pain has improved but not her activity tolerance. Pt stated she has been lazy keeping up with activity level. Prior Treatments and Tests A1C level at 8.1 recently and her PCP recommended her to take metformin 2x/day Treatment Goals Patient/Caregiver Goals 1. to be able to walk 1 mile few times a week 2. to be able to walk witohut leg pain Current Functional Impairments (Reported) Functional Limitations- Other urinary incontinence Personal Factors Other Personal Factors That May Effect Type 2 Diabetes Therapy/Recovery current smoke who smokes 1pack per day pt recently gained 5 lbs Chronic Hepatitis C PT-OP-C Subjective Start: 10/21/20 14:36 Freq: Status: Active Protocol: Document 10/27/20 13:46 HH (Rec: 10/27/20 14:33 [id number]) OP-PT Subjective Patient Comments Patient Comments I walked a little bit since last session. I went to [facility] and I did okay. PT-OP-E Functional Tests Start: 10/21/20 14:36 Freq: Status: Active Protocol: Document 10/21/20 14:39 HH (Rec: 10/21/20 16:49 [email or web address]) Functional Tests 6 Minute Walk Test Distance 850 Device Used none Comments break at 2min. HR at 120 /min after and took 2mins to recover to baseline PT-OP-F Manual Assessment Start: 10/21/20 14:36 Freq: Status: Active Protocol: Document 10/21/20 14:39 HH (Rec: 10/21/20 15:12 [email or web address]) Manual Assessments Soft Tissue Assessment Soft Tissue Mobility Assessment significant hypertonicity at L hip flexors and B proximal hip adductors Joint Mobility Assessment Joint Mobility Assessment hard end feel at B hip extension, external/ interal rotation (L worse than R) PT-OP-G Mobility & Gait Start: 10/21/20 14:36 Freq: Status: Active Protocol: Document 10/21/20 14:39 HH (Rec: 10/21/20 15:12 [email or web address]) OP Mobility Evaluation Bed Mobility Supine to and from Sit log roll and push up from SL OP Gait Assessment Gait Deviations General Gait Pattern Decreased Stride Length, Decreased Feet Clearance,Wide Based Gait Factors Limiting Gait Function Factors Limiting Gait Function Decreased Activity Tolerance, Decreased Strength,Limited Range of Motion,Pain,Poor Balance Comments Gait Comments lack of L hip extension noted. Pt uses L trunk rotation and L hip hike during swing phase of LLE; WBOS L is more externally rotated. PT-OP-J Posture/Palpation/Skin Start: 10/21/20 14:36 Freq: Status: Active Protocol: Document 10/21/20 14:39 HH (Rec: 10/21/20 15:12 [email or web address]) Posture Evaluation Position Standing Pelvis Posture Anteriorly Tilted Hip Posture (L) Flexed,(R) Flexed,(L) Externally Rotated,(R) Externally Rotated Knee Posture (L) Excess Flexion,(R) Excess Flexion Comments Posture Comments significant anterior pelvic tilt in standing position noted L worse than R PT-OP-K Range of Motion Start: 10/21/20 14:36 Freq: Status: Active Protocol: Document 10/21/20 14:39 HH (Rec: 03/23/21 15:12 [email or web address]) Lumbar Spine Range of Motion Lumbar Spine Active Degrees Comments pt lies in supine but lumbar unable to touch the table and LLE unable to straighten d/t L hip pain toe touch test = 7 inches from floor extension = neutral lateral flexion r= 20 L= 19 Hip Goniometric Range of Motion Hip Left Passive Hip ROM WFL No Testing Position Supine Internal Rotation 0 External Rotation 35 Comments IR and ER at hip 90 degrees flexion figure 4 position (ER) 10 inches from the table Right Passive Hip ROM WFL No Testing Position Supine Internal Rotation 0 External Rotation 45 Comments IR and ER at hip 90 degrees flexion figure 4 position (ER) 8 inches from the table Hip ROM Limitations Hip ROM Limitations Pain PT-OP-L Special Tests Start: 10/21/20 14:36 Freq: Status: Active Protocol: Document 10/21/20 14:39 HH (Rec: 10/21/20 15:12 [email or web address]) Special Tests Lumbar Spine Special Tests Alfonzo Test Results +VE L>R Comments sig groin pain reproduced on L , knee off table by 3x degrees Hip Special Tests FADDIR Test Results +ve L Scour Test Test Results +VE L Comments pain with axial pressure JIMENA Test Results +vE L Comments pain hip jointline PT-OP-M Strength Start: 10/21/20 14:36 Freq: Status: Active Protocol: Document 10/21/20 14:39 HH (Rec: 10/21/20 15:12 [email or web address]) Hip Strength Hip Manual Muscle Testing Right Flexion (L2) 4 Good Extension (S1) 4 Good Abduction 4 Good Adduction 4 Good Left Flexion (L2) 4- Good- Extension (S1) 3+ Fair+ Abduction 4- Good- Adduction 4- Good- PT-OP-Q Treatments Start: 10/21/20 14:36 Freq: Status: Active Protocol: Document 10/27/20 13:46 HH (Rec: 10/27/20 14:33 [id number]) Cardio Equipment Recumbent Stepper (Sci-Fit) Duration (Minutes) 7 Resistance 2.5 Therapeutic Exercises Supine Exercises supine clamshell Reps/Minutes 10x2 piriformis stretch Reps/Minutes 10 sec x 4 bridging Side bilateral Reps/Minutes 8 x 2 alfonzo test Side bilateral Reps/Minutes 15 sec x 5 Sitting Exercises seated flexion Side bilateral Reps/Minutes 10 x2 Standing Exercises calf raises Side bilateral Reps/Minutes 8x2 squat Standing Exercise Name with bar Side bilateral Reps/Minutes 8x2 Comments chair touch Gait Training Gait Activity gait Device Used no AD Level of Assistance SBA Surface ground level Distance/Duration 200 x 2 Comments HR from 90 up to 116. Took 2mins 30 seconds to complete and 2 mins for recover to baseline. PT-OP-R Modalities Start: 10/21/20 14:36 Freq: Status: Active Protocol: Document 10/27/20 13:46 HH (Rec: 10/27/20 14:33 HH [id number]) Hot Pack/Cold Pack Treatment Hot Pack Location lumbar Patient Position Hooklying Treatment Duration (minutes) 10 Patient Tolerance Good PT-OP-T Assessment and Plan Start: 10/21/20 14:36 Freq: Status: Active Protocol: Document 10/27/20 13:46 HH (Rec: 10/27/20 14:33 HH [id number]) Physical Therapy Assessment Goals HEP Impairment pt does not have a HEP Short Term Goal (STG) pt will be compliant to HEP at least 4 times /week STG Duration 6 weeks 6MWT Impairment pt walked 850ft Short Term Goal (STG) pt will be able to complete 6MWT >900 ft without rest and HR <120. STG Duration 6 weeks Dial Printer Goal (LTG) pt will be able to complete 6MWT >1000 ft without rest, HR <120. LTG Duration 12 weeks activity tolerance Impairment unable to walk more than 1 block without breaks Short Term Goal (STG) pt will be able to walk more > 2 blacks twice a week without breaks STG Duration 6 weeks Dial Printer Goal (LTG) pt will be able to walk for a mile (2500 steps) twice a week with minimal discomfort LTG Duration 12 weeks pain Impairment pain during walking Short Term Goal (STG) pt will improve her LE strength and endurance who will not have pain >4 during 6 MWT STG Duration 6 weeks Dial Printer Goal (LTG) pt will improve her LE strength and endurance who will not have pain >2 during a mile walk 2x/week LTG Duration 12 weeks Assessment Summary Assessment Pt peg session well today. Her HR after 2 laps of walking has decreased today up to 116. Physical Therapy Plan Frequency and Duration Frequency of Treatment 2x/Week Duration of Treatment 12 weeks Plan of Care Start Date 10/21/20 Plan of Care End Date 01/19/21 Next Visit Focus/Plan Next Note Type Treatment Note Next Visit Plan Buerger's test CRISSY pressure test for arterial insufficiency? hip stretch alfonzo test position lumbar flexion bike
--- NOTE | 2020-10-31 16:10 | PT.OTN ---
Current Diagnoses Myalgia, unspecified site (10/31/20) Physical Therapy Treatment Note PT-OP-A Visit Information Start: 10/21/20 14:36 Freq: Status: Active Protocol: Document 10/31/20 15:25 HH (Rec: 10/31/20 16:09 [id number]) Out-Patient Physical Therapy Visit Information Visit Information Visit Type Treatment Note Visit Start Time 15:20 Visit Stop Time 16:11 Total Visit Minutes 51 Visit Number 11/17 Number of V GROOVE CUTTER Visits 0 PT-OP-B Current Condition Start: 10/21/20 14:36 Freq: Status: Active Protocol: Document 10/21/20 14:39 HH (Rec: 10/21/20 15:12 HH [email or web address]) Current Condition History of Current Condition Onset Date Many years ago Current Complaints Chronic LBP and L anterior hip pain, LLE weakness, poor activity tolerance History of Current Condition Pt is a 69yo female here for chronic LBP, B leg pain , L anterior hip pain and poor activity tolerance. Pt stated her leg pain get worse with increase in activity level ( primarily walking) and her stiffness is the worst in the AM. She can only walk approx. one block without a sitting break. She also has difficulty lying flat since that causes hyperextension of her lowback and she cannot extend her L hip and knee in supine d/t significant L hip tightness. She also stated changing position, Hip stretching and low back stretching tend to relieve her symptoms. Pt was here for PT last year with same issues but her B hip pain has improved but not her activity tolerance. Pt stated she has been lazy keeping up with activity level. Prior Treatments and Tests A1C level at 8.1 recently and her PCP recommended her to take metformin 2x/day Treatment Goals Patient/Caregiver Goals 1. to be able to walk 1 mile few times a week 2. to be able to walk witohut leg pain Current Functional Impairments (Reported) Functional Limitations- Other urinary incontinence Personal Factors Other Personal Factors That May Effect Type 2 Diabetes Therapy/Recovery current smoke who smokes 1pack per day pt recently gained 5 lbs Chronic Hepatitis C PT-OP-C Subjective Start: 10/21/20 14:36 Freq: Status: Active Protocol: Document 10/31/20 15:25 HH (Rec: 10/31/20 16:09 [id number]) OP-PT Subjective Patient Comments Patient Comments Im doing pretty good so far but im a little stiff today. Patient Reported Progress Improving PT-OP-E Functional Tests Start: 10/21/20 14:36 Freq: Status: Active Protocol: Document 10/21/20 14:39 HH (Rec: 10/21/20 16:49 [email or web address]) Functional Tests 6 Minute Walk Test Distance 850 Device Used none Comments break at 2min. HR at 120 /min after and took 2mins to recover to baseline PT-OP-F Manual Assessment Start: 10/21/20 14:36 Freq: Status: Active Protocol: Document 10/21/20 14:39 HH (Rec: 10/21/20 15:12 [email or web address]) Manual Assessments Soft Tissue Assessment Soft Tissue Mobility Assessment significant hypertonicity at L hip flexors and B proximal hip adductors Joint Mobility Assessment Joint Mobility Assessment hard end feel at B hip extension, external/ interal rotation (L worse than R) PT-OP-G Mobility & Gait Start: 10/21/20 14:36 Freq: Status: Active Protocol: Document 10/21/20 14:39 HH (Rec: 10/21/20 15:12 [email or web address]) OP Mobility Evaluation Bed Mobility Supine to and from Sit log roll and push up from SL OP Gait Assessment Gait Deviations General Gait Pattern Decreased Stride Length, Decreased Feet Clearance,Wide Based Gait Factors Limiting Gait Function Factors Limiting Gait Function Decreased Activity Tolerance, Decreased Strength,Limited Range of Motion,Pain,Poor Balance Comments Gait Comments lack of L hip extension noted. Pt uses L trunk rotation and L hip hike during swing phase of LLE; WBOS L is more externally rotated. PT-OP-J Posture/Palpation/Skin Start: 10/21/20 14:36 Freq: Status: Active Protocol: Document 10/21/20 14:39 HH (Rec: 10/21/20 15:12 [email or web address]) Posture Evaluation Position Standing Pelvis Posture Anteriorly Tilted Hip Posture (L) Flexed,(R) Flexed,(L) Externally Rotated,(R) Externally Rotated Knee Posture (L) Excess Flexion,(R) Excess Flexion Comments Posture Comments significant anterior pelvic tilt in standing position noted L worse than R PT-OP-K Range of Motion Start: 10/21/20 14:36 Freq: Status: Active Protocol: Document 10/21/20 14:39 HH (Rec: 10/21/20 15:12 [email or web address]) Lumbar Spine Range of Motion Lumbar Spine Active Degrees Comments pt lies in supine but lumbar unable to touch the table and LLE unable to straighten d/t L hip pain toe touch test = 7 inches from floor extension = neutral lateral flexion r= 20 L= 19 Hip Goniometric Range of Motion Hip Left Passive Hip ROM WFL No Testing Position Supine Internal Rotation 0 External Rotation 35 Comments IR and ER at hip 90 degrees flexion figure 4 position (ER) 10 inches from the table Right Passive Hip ROM WFL No Testing Position Supine Internal Rotation 0 External Rotation 45 Comments IR and ER at hip 90 degrees flexion figure 4 position (ER) 8 inches from the table Hip ROM Limitations Hip ROM Limitations Pain PT-OP-L Special Tests Start: 10/21/20 14:36 Freq: Status: Active Protocol: Document 10/21/20 14:39 HH (Rec: 10/21/20 15:12 [email or web address]) Special Tests Lumbar Spine Special Tests Alfonzo Test Results +VE L>R Comments sig groin pain reproduced on L , knee off table by 3x degrees Hip Special Tests FADDIR Test Results +ve L Scour Test Test Results +VE L Comments pain with axial pressure JIMENA Test Results +vE L Comments pain hip jointline PT-OP-M Strength Start: 10/21/20 14:36 Freq: Status: Active Protocol: Document 10/21/20 14:39 HH (Rec: 10/21/20 15:12 [email or web address]) Hip Strength Hip Manual Muscle Testing Right Flexion (L2) 4 Good Extension (S1) 4 Good Abduction 4 Good Adduction 4 Good Left Flexion (L2) 4- Good- Extension (S1) 3+ Fair+ Abduction 4- Good- Adduction 4- Good- PT-OP-Q Treatments Start: 10/21/20 14:36 Freq: Status: Active Protocol: Document 10/31/20 15:25 HH (Rec: 10/31/20 16:09 [id number]) Cardio Equipment Recumbent Stepper (Sci-Fit) Duration (Minutes) 7 Resistance 2.5 Gym Equipment Shuttle Recovery B squat Resistance 50# Shuttle Recovery Platform Stable Reps/Time 12x2 Therapeutic Exercises Supine Exercises supine clamshell Reps/Minutes 10x2 piriformis stretch Reps/Minutes 10 sec x 4 bridging Side bilateral Reps/Minutes 8 x 2 alfonzo test Side bilateral Reps/Minutes 15 sec x 5 Sitting Exercises seated flexion Side bilateral Reps/Minutes 10 x2 Gait Training Gait Activity gait Device Used no AD Level of Assistance SBA Surface ground level Distance/Duration 200 x 3 Comments HR from 90 up to 121. Took 3mins to complete and 1 mins 40 seconds for HR to recover to baseline. PT-OP-R Modalities Start: 10/21/20 14:36 Freq: Status: Active Protocol: Document 10/31/20 15:25 HH (Rec: 10/31/20 16:09 HH [id number]) Hot Pack/Cold Pack Treatment Hot Pack Location lumbar Patient Position Hooklying Treatment Duration (minutes) 10 Patient Tolerance Good PT-OP-T Assessment and Plan Start: 10/21/20 14:36 Freq: Status: Active Protocol: Document 10/31/20 15:25 HH (Rec: 10/31/20 16:09 [id number]) Physical Therapy Assessment Goals HEP Impairment pt does not have a HEP Short Term Goal (STG) pt will be compliant to HEP at least 4 times /week STG Duration 6 weeks 6MWT Impairment pt walked 850ft Short Term Goal (STG) pt will be able to complete 6MWT >900 ft without rest and HR <120. STG Duration 6 weeks Milk Powder Grinder Goal (LTG) pt will be able to complete 6MWT >1000 ft without rest, HR <120. LTG Duration 12 weeks activity tolerance Impairment unable to walk more than 1 block without breaks Short Term Goal (STG) pt will be able to walk more > 2 blacks twice a week without breaks STG Duration 6 weeks Milk Powder Grinder Goal (LTG) pt will be able to walk for a mile (2500 steps) twice a week with minimal discomfort LTG Duration 12 weeks pain Impairment pain during walking Short Term Goal (STG) pt will improve her LE strength and endurance who will not have pain >4 during 6 MWT STG Duration 6 weeks Jail Goal (LTG) pt will improve her LE strength and endurance who will not have pain >2 during a mile walk 2x/week LTG Duration 12 weeks Assessment Summary Assessment Pt shows improved walking endurance and recovery today and she is satisfied with her progress. Physical Therapy Plan Frequency and Duration Frequency of Treatment 2x/Week Duration of Treatment 12 weeks Plan of Care Start Date 10/21/20 Plan of Care End Date 01/19/21 Next Visit Focus/Plan Next Note Type Treatment Note Next Visit Plan hip stretch alfonzo test position lumbar flexion bike
--- NOTE | 2020-11-03 14:36 | PT.OTN ---
Current Diagnoses Myalgia, unspecified site (11/03/20) Physical Therapy Treatment Note PT-OP-A Visit Information Start: 10/21/20 14:36 Freq: Status: Active Protocol: Document 11/03/20 13:48 HH (Rec: 11/03/20 14:36 [id number]) Out-Patient Physical Therapy Visit Information Visit Information Visit Type Treatment Note Visit Start Time 13:45 Visit Stop Time 14:35 Total Visit Minutes 50 Visit Number 12/17 Number of GARBAGE PERSON Visits 0 PT-OP-B Current Condition Start: 10/21/20 14:36 Freq: Status: Active Protocol: Document 10/21/20 14:39 HH (Rec: 10/21/20 15:12 HH [email or web address]) Current Condition History of Current Condition Onset Date Many years ago Current Complaints Chronic LBP and L anterior hip pain, LLE weakness, poor activity tolerance History of Current Condition Pt is a 69yo female here for chronic LBP, B leg pain , L anterior hip pain and poor activity tolerance. Pt stated her leg pain get worse with increase in activity level ( primarily walking) and her stiffness is the worst in the AM. She can only walk approx. one block without a sitting break. She also has difficulty lying flat since that causes hyperextension of her lowback and she cannot extend her L hip and knee in supine d/t significant L hip tightness. She also stated changing position, Hip stretching and low back stretching tend to relieve her symptoms. Pt was here for PT last year with same issues but her B hip pain has improved but not her activity tolerance. Pt stated she has been lazy keeping up with activity level. Prior Treatments and Tests A1C level at 8.1 recently and her PCP recommended her to take metformin 2x/day Treatment Goals Patient/Caregiver Goals 1. to be able to walk 1 mile few times a week 2. to be able to walk witohut leg pain Current Functional Impairments (Reported) Functional Limitations- Other urinary incontinence Personal Factors Other Personal Factors That May Effect Type 2 Diabetes Therapy/Recovery current smoke who smokes 1pack per day pt recently gained 5 lbs Chronic Hepatitis C PT-OP-C Subjective Start: 10/21/20 14:36 Freq: Status: Active Protocol: Document 11/03/20 13:48 HH (Rec: 11/03/20 14:36 [id number]) OP-PT Subjective Patient Comments Patient Comments I have less leg pain from walking now. Patient Reported Progress Improving PT-OP-E Functional Tests Start: 10/21/20 14:36 Freq: Status: Active Protocol: Document 10/21/20 14:39 (Rec: 10/21/20 16:49 [email or web address]) Functional Tests 6 Minute Walk Test Distance 850 Device Used none Comments break at 2min. HR at 120 /min after and took 2mins to recover to baseline PT-OP-F Manual Assessment Start: 10/21/20 14:36 Freq: Status: Active Protocol: Document 10/21/20 14:39 HH (Rec: 10/21/20 15:12 [email or web address]) Manual Assessments Soft Tissue Assessment Soft Tissue Mobility Assessment significant hypertonicity at L hip flexors and B proximal hip adductors Joint Mobility Assessment Joint Mobility Assessment hard end feel at B hip extension, external/ interal rotation (L worse than R) PT-OP-G Mobility & Gait Start: 10/21/20 14:36 Freq: Status: Active Protocol: Document 10/21/20 14:39 (Rec: 10/21/20 15:12 [email or web address]) OP Mobility Evaluation Bed Mobility Supine to and from Sit log roll and push up from SL OP Gait Assessment Gait Deviations General Gait Pattern Decreased Stride Length, Decreased Feet Clearance,Wide Based Gait Factors Limiting Gait Function Factors Limiting Gait Function Decreased Activity Tolerance, Decreased Strength,Limited Range of Motion,Pain,Poor Balance Comments Gait Comments lack of L hip extension noted. Pt uses L trunk rotation and L hip hike during swing phase of LLE; WBOS L is more externally rotated. PT-OP-J Posture/Palpation/Skin Start: 10/21/20 14:36 Freq: Status: Active Protocol: Document 10/21/20 14:39 (Rec: 10/21/20 15:12 [email or web address]) Posture Evaluation Position Standing Pelvis Posture Anteriorly Tilted Hip Posture (L) Flexed,(R) Flexed,(L) Externally Rotated,(R) Externally Rotated Knee Posture (L) Excess Flexion,(R) Excess Flexion Comments Posture Comments significant anterior pelvic tilt in standing position noted L worse than R PT-OP-K Range of Motion Start: 10/21/20 14:36 Freq: Status: Active Protocol: Document 10/21/20 14:39 (Rec: 10/21/20 15:12 [email or web address]) Lumbar Spine Range of Motion Lumbar Spine Active Degrees Comments pt lies in supine but lumbar unable to touch the table and LLE unable to straighten d/t L hip pain toe touch test = 7 inches from floor extension = neutral lateral flexion r= 20 L= 19 Hip Goniometric Range of Motion Hip Left Passive Hip ROM WFL No Testing Position Supine Internal Rotation 0 External Rotation 35 Comments IR and ER at hip 90 degrees flexion figure 4 position (ER) 10 inches from the table Right Passive Hip ROM WFL No Testing Position Supine Internal Rotation 0 External Rotation 45 Comments IR and ER at hip 90 degrees flexion figure 4 position (ER) 8 inches from the table Hip ROM Limitations Hip ROM Limitations Pain PT-OP-L Special Tests Start: 10/21/20 14:36 Freq: Status: Active Protocol: Document 10/21/20 14:39 HH (Rec: 10/21/20 15:12 [email or web address]) Special Tests Lumbar Spine Special Tests Alfonzo Test Results +VE L>R Comments sig groin pain reproduced on L , knee off table by 3x degrees Hip Special Tests FADDIR Test Results +ve L Scour Test Test Results +VE L Comments pain with axial pressure JIMENA Test Results +vE L Comments pain hip jointline PT-OP-M Strength Start: 10/21/20 14:36 Freq: Status: Active Protocol: Document 10/21/20 14:39 HH (Rec: 10/21/20 15:12 [email or web address]) Hip Strength Hip Manual Muscle Testing Right Flexion (L2) 4 Good Extension (S1) 4 Good Abduction 4 Good Adduction 4 Good Left Flexion (L2) 4- Good- Extension (S1) 3+ Fair+ Abduction 4- Good- Adduction 4- Good- PT-OP-Q Treatments Start: 10/21/20 14:36 Freq: Status: Active Protocol: Document 11/03/20 13:48 HH (Rec: 11/03/20 14:36 [id number]) Cardio Equipment Recumbent Stepper (Sci-Fit) Duration (Minutes) 7 Resistance 2.5 Gym Equipment Shuttle Recovery SL squat Resistance 37# Shuttle Recovery Platform Stable Reps/Time 12x2 B squat Resistance 50# Shuttle Recovery Platform Stable Reps/Time 12x2 Therapeutic Exercises Supine Exercises supine clamshell Reps/Minutes 10x2 piriformis stretch Reps/Minutes 10 sec x 4 bridging Side bilateral Reps/Minutes 8 x 2 alfonzo test Side bilateral Reps/Minutes 15 sec x 5 Gait Training Gait Activity gait Device Used no AD Level of Assistance SBA Surface ground level Distance/Duration 200 x 2, 2 set Comments 1 set= 1min 54 sec to complete , HR from 90 up to 125. 2 mins 35 seconds for HR to recover to baseline. 2nd set, 95 to 126, 1min 50sec to complete, and 2 mins 35 sec to recover to baseline. PT-OP-R Modalities Start: 10/21/20 14:36 Freq: Status: Active Protocol: Document 11/03/20 13:48 HH (Rec: 11/03/20 14:36 HH [id number]) Hot Pack/Cold Pack Treatment Hot Pack Location lumbar Patient Position Hooklying Treatment Duration (minutes) 10 Patient Tolerance Good PT-OP-T Assessment and Plan Start: 10/21/20 14:36 Freq: Status: Active Protocol: Document 11/03/20 13:48 HH (Rec: 11/03/20 14:36 HH [id number]) Physical Therapy Assessment Goals HEP Impairment pt does not have a HEP Short Term Goal (STG) pt will be compliant to HEP at least 4 times /week STG Duration 6 weeks 6MWT Impairment pt walked 850ft Short Term Goal (STG) pt will be able to complete 6MWT >900 ft without rest and HR <120. STG Duration 6 weeks [facility] Goal (LTG) pt will be able to complete 6MWT >1000 ft without rest, HR <120. LTG Duration 12 weeks activity tolerance Impairment unable to walk more than 1 block without breaks Short Term Goal (STG) pt will be able to walk more > 2 blacks twice a week without breaks STG Duration 6 weeks Mail Rider Goal (LTG) pt will be able to walk for a mile (2500 steps) twice a week with minimal discomfort LTG Duration 12 weeks pain Impairment pain during walking Short Term Goal (STG) pt will improve her LE strength and endurance who will not have pain >4 during 6 MWT STG Duration 6 weeks Mail Rider Goal (LTG) pt will improve her LE strength and endurance who will not have pain >2 during a mile walk 2x/week LTG Duration 12 weeks Assessment Summary Assessment Pt reports less leg pain while walking since IE. pt cont to peg session well. She was able to complete 2 laps of walking within 2 mins today. Physical Therapy Plan Frequency and Duration Frequency of Treatment 2x/Week Duration of Treatment 12 weeks Plan of Care Start Date 10/21/20 Plan of Care End Date 01/19/21 Next Visit Focus/Plan Next Note Type Treatment Note Next Visit Plan hip stretch alfonzo test position lumbar flexion bike
--- NOTE | 2020-11-06 12:26 | PT.OTN ---
Current Diagnoses Myalgia, unspecified site (11/06/20) Physical Therapy Treatment Note PT-OP-A Visit Information Start: 10/21/20 14:36 Freq: Status: Active Protocol: Document 11/06/20 11:23 HH (Rec: 11/06/20 12:26 [id number]) Out-Patient Physical Therapy Visit Information Visit Information Visit Type Treatment Note Visit Start Time 11:19 Visit Stop Time 12:09 Total Visit Minutes 50 Visit Number 01/17 Number of ALLOPATHIC DOCTOR Visits 0 PT-OP-B Current Condition Start: 10/21/20 14:36 Freq: Status: Active Protocol: Document 10/21/20 14:39 HH (Rec: 10/21/20 15:12 [email or web address]) Current Condition History of Current Condition Onset Date Many years ago Current Complaints Chronic LBP and L anterior hip pain, LLE weakness, poor activity tolerance History of Current Condition Pt is a 69yo female here for chronic LBP, B leg pain , L anterior hip pain and poor activity tolerance. Pt stated her leg pain get worse with increase in activity level ( primarily walking) and her stiffness is the worst in the AM. She can only walk approx. one block without a sitting break. She also has difficulty lying flat since that causes hyperextension of her lowback and she cannot extend her L hip and knee in supine d/t significant L hip tightness. She also stated changing position, Hip stretching and low back stretching tend to relieve her symptoms. Pt was here for PT last year with same issues but her B hip pain has improved but not her activity tolerance. Pt stated she has been lazy keeping up with activity level. Prior Treatments and Tests A1C level at 8.1 recently and her PCP recommended her to take metformin 2x/day Treatment Goals Patient/Caregiver Goals 1. to be able to walk 1 mile few times a week 2. to be able to walk witohut leg pain Current Functional Impairments (Reported) Functional Limitations- Other urinary incontinence Personal Factors Other Personal Factors That May Effect Type 2 Diabetes Therapy/Recovery current smoke who smokes 1pack per day pt recently gained 5 lbs Chronic Hepatitis C PT-OP-C Subjective Start: 10/21/20 14:36 Freq: Status: Active Protocol: Document 11/06/20 11:23 HH (Rec: 11/06/20 12:26 [id number]) OP-PT Subjective Patient Comments Patient Comments I feel pretty good and i went [place] but not much leg pain Patient Reported Progress Improving PT-OP-E Functional Tests Start: 10/21/20 14:36 Freq: Status: Active Protocol: Document 10/21/20 14:39 HH (Rec: 10/21/20 16:49 HH [email or web address]) Functional Tests 6 Minute Walk Test Distance 850 Device Used none Comments break at 2min. HR at 120 /min after and took 2mins to recover to baseline PT-OP-F Manual Assessment Start: 10/21/20 14:36 Freq: Status: Active Protocol: Document 10/21/20 14:39 HH (Rec: 10/21/20 15:12 [email or web address]) Manual Assessments Soft Tissue Assessment Soft Tissue Mobility Assessment significant hypertonicity at L hip flexors and B proximal hip adductors Joint Mobility Assessment Joint Mobility Assessment hard end feel at B hip extension, external/ interal rotation (L worse than R) PT-OP-G Mobility & Gait Start: 10/21/20 14:36 Freq: Status: Active Protocol: Document 10/21/20 14:39 HH (Rec: 10/21/20 15:12 [email or web address]) OP Mobility Evaluation Bed Mobility Supine to and from Sit log roll and push up from SL OP Gait Assessment Gait Deviations General Gait Pattern Decreased Stride Length, Decreased Feet Clearance,Wide Based Gait Factors Limiting Gait Function Factors Limiting Gait Function Decreased Activity Tolerance, Decreased Strength,Limited Range of Motion,Pain,Poor Balance Comments Gait Comments lack of L hip extension noted. Pt uses L trunk rotation and L hip hike during swing phase of LLE; WBOS L is more externally rotated. PT-OP-J Posture/Palpation/Skin Start: 10/21/20 14:36 Freq: Status: Active Protocol: Document 10/21/20 14:39 (Rec: 10/21/20 15:12 [email or web address]) Posture Evaluation Position Standing Pelvis Posture Anteriorly Tilted Hip Posture (L) Flexed,(R) Flexed,(L) Externally Rotated,(R) Externally Rotated Knee Posture (L) Excess Flexion,(R) Excess Flexion Comments Posture Comments significant anterior pelvic tilt in standing position noted L worse than R PT-OP-K Range of Motion Start: 10/21/20 14:36 Freq: Status: Active Protocol: Document 10/21/20 14:39 HH (Rec: 10/21/20 15:12 [email or web address]) Lumbar Spine Range of Motion Lumbar Spine Active Degrees Comments pt lies in supine but lumbar unable to touch the table and LLE unable to straighten d/t L hip pain toe touch test = 7 inches from floor extension = neutral lateral flexion r= 20 L= 19 Hip Goniometric Range of Motion Hip Left Passive Hip ROM WFL No Testing Position Supine Internal Rotation 0 External Rotation 35 Comments IR and ER at hip 90 degrees flexion figure 4 position (ER) 10 inches from the table Right Passive Hip ROM WFL No Testing Position Supine Internal Rotation 0 External Rotation 45 Comments IR and ER at hip 90 degrees flexion figure 4 position (ER) 8 inches from the table Hip ROM Limitations Hip ROM Limitations Pain PT-OP-L Special Tests Start: 10/21/20 14:36 Freq: Status: Active Protocol: Document 10/21/20 14:39 HH (Rec: 10/21/20 15:12 [email or web address]) Special Tests Lumbar Spine Special Tests Alfonzo Test Results +VE L>R Comments sig groin pain reproduced on L , knee off table by 3x degrees Hip Special Tests FADDIR Test Results +ve L Scour Test Test Results +VE L Comments pain with axial pressure JIMENA Test Results +vE L Comments pain hip jointline PT-OP-M Strength Start: 10/21/20 14:36 Freq: Status: Active Protocol: Document 10/21/20 14:39 HH (Rec: 10/21/20 15:12 [email or web address]) Hip Strength Hip Manual Muscle Testing Right Flexion (L2) 4 Good Extension (S1) 4 Good Abduction 4 Good Adduction 4 Good Left Flexion (L2) 4- Good- Extension (S1) 3+ Fair+ Abduction 4- Good- Adduction 4- Good- PT-OP-Q Treatments Start: 10/21/20 14:36 Freq: Status: Active Protocol: Document 11/06/20 11:23 HH (Rec: 11/06/20 12:26 [id number]) Cardio Equipment Recumbent Stepper (Sci-Fit) Duration (Minutes) 7 Resistance 2.5 Seat Position 8 Gym Equipment Shuttle Recovery SL squat Resistance 37# Shuttle Recovery Platform Stable Reps/Time 12x2 B squat Resistance 50# & 62 Shuttle Recovery Platform Stable Reps/Time 12x2 Therapeutic Exercises Supine Exercises supine clamshell Reps/Minutes 10x2 piriformis stretch Reps/Minutes 10 sec x 4 bridging Side bilateral Reps/Minutes 8 x 2 alfonzo test Side bilateral Reps/Minutes 15 sec x 5 Sitting Exercises seated forward reach Sitting Exercise Name floor touch Reps/Minutes 9x2 Standing Exercises calf raises Side bilateral Reps/Minutes 8 x2 Gait Training Gait Activity gait Device Used no AD Level of Assistance SBA Surface ground level Distance/Duration 200 x 2, 2 set Comments 1 set= 1min 49 sec to complete , HR from 94 up to 119. 1 mins 10 seconds for HR to recover to baseline. 2nd set, 95 to 124, 1min 52sec to complete, and 2 mins 35 sec to recover to baseline. PT-OP-R Modalities Start: 10/21/20 14:36 Freq: Status: Active Protocol: Document 11/06/20 11:23 HH (Rec: 11/06/20 12:26 HH [id number]) Hot Pack/Cold Pack Treatment Hot Pack Location lumbar Patient Position Hooklying Treatment Duration (minutes) 10 Patient Tolerance Good PT-OP-T Assessment and Plan Start: 10/21/20 14:36 Freq: Status: Active Protocol: Document 11/06/20 11:23 HH (Rec: 11/06/20 12:26 [id number]) Physical Therapy Assessment Goals HEP Impairment pt does not have a HEP Short Term Goal (STG) pt will be compliant to HEP at least 4 times /week STG Duration 6 weeks 6MWT Impairment pt walked 850ft Short Term Goal (STG) pt will be able to complete 6MWT >900 ft without rest and HR <120. STG Duration 6 weeks Shelter Goal (LTG) pt will be able to complete 6MWT >1000 ft without rest, HR <120. LTG Duration 12 weeks activity tolerance Impairment unable to walk more than 1 block without breaks Short Term Goal (STG) pt will be able to walk more > 2 blacks twice a week without breaks STG Duration 6 weeks Shelter Goal (LTG) pt will be able to walk for a mile (2500 steps) twice a week with minimal discomfort LTG Duration 12 weeks pain Impairment pain during walking Short Term Goal (STG) pt will improve her LE strength and endurance who will not have pain >4 during 6 MWT STG Duration 6 weeks Shelter Goal (LTG) pt will improve her LE strength and endurance who will not have pain >2 during a mile walk 2x/week LTG Duration 12 weeks Assessment Summary Assessment Pt stated she has been having more endurance and less leg pain after walking. Her HR recovery time also decreased as well. Physical Therapy Plan Frequency and Duration Frequency of Treatment 2x/Week Duration of Treatment 12 weeks Plan of Care Start Date 10/21/20 Plan of Care End Date 01/19/21 Next Visit Focus/Plan Next Note Type Treatment Note Next Visit Plan hip stretch alfonzo test position lumbar flexion bike
--- NOTE | 2020-11-10 16:12 | PT.OTN ---
Current Diagnoses Myalgia, unspecified site (11/10/20) Physical Therapy Treatment Note PT-OP-A Visit Information Start: 10/21/20 14:36 Freq: Status: Active Protocol: Document 11/10/20 15:21 HH (Rec: 11/10/20 16:10 [id number]) Out-Patient Physical Therapy Visit Information Visit Information Visit Type Treatment Note Visit Start Time 15:17 Visit Stop Time 16:05 Total Visit Minutes 48 Visit Number 02/16 Number of MEDICAL INSURANCE CODER Visits 0 PT-OP-B Current Condition Start: 10/21/20 14:36 Freq: Status: Active Protocol: Document 10/21/20 14:39 HH (Rec: 10/21/20 15:12 [email or web address]) Current Condition History of Current Condition Onset Date Many years ago Current Complaints Chronic LBP and L anterior hip pain, LLE weakness, poor activity tolerance History of Current Condition Pt is a 69yo female here for chronic LBP, B leg pain , L anterior hip pain and poor activity tolerance. Pt stated her leg pain get worse with increase in activity level ( primarily walking) and her stiffness is the worst in the AM. She can only walk approx. one block without a sitting break. She also has difficulty lying flat since that causes hyperextension of her lowback and she cannot extend her L hip and knee in supine d/t significant L hip tightness. She also stated changing position, Hip stretching and low back stretching tend to relieve her symptoms. Pt was here for PT last year with same issues but her B hip pain has improved but not her activity tolerance. Pt stated she has been lazy keeping up with activity level. Prior Treatments and Tests A1C level at 8.1 recently and her PCP recommended her to take metformin 2x/day Treatment Goals Patient/Caregiver Goals 1. to be able to walk 1 mile few times a week 2. to be able to walk witohut leg pain Current Functional Impairments (Reported) Functional Limitations- Other urinary incontinence Personal Factors Other Personal Factors That May Effect Type 2 Diabetes Therapy/Recovery current smoke who smokes 1pack per day pt recently gained 5 lbs Chronic Hepatitis C PT-OP-C Subjective Start: 10/21/20 14:36 Freq: Status: Active Protocol: Document 11/10/20 15:21 HH (Rec: 11/10/20 16:10 [id number]) OP-PT Subjective Patient Comments Patient Comments i got tired for 2 days after last visit. But overall my leg pain and back pain have been getting better even thought i went for a walk. Patient Reported Progress Improving PT-OP-E Functional Tests Start: 10/21/20 14:36 Freq: Status: Active Protocol: Document 10/21/20 14:39 HH (Rec: 10/21/20 16:49 HH [email or web address]) Functional Tests 6 Minute Walk Test Distance 850 Device Used none Comments break at 2min. HR at 120 /min after and took 2mins to recover to baseline PT-OP-F Manual Assessment Start: 10/21/20 14:36 Freq: Status: Active Protocol: Document 10/21/20 14:39 HH (Rec: 10/21/20 15:12 [email or web address]) Manual Assessments Soft Tissue Assessment Soft Tissue Mobility Assessment significant hypertonicity at L hip flexors and B proximal hip adductors Joint Mobility Assessment Joint Mobility Assessment hard end feel at B hip extension, external/ interal rotation (L worse than R) PT-OP-G Mobility & Gait Start: 10/21/20 14:36 Freq: Status: Active Protocol: Document 10/21/20 14:39 HH (Rec: 10/21/20 15:12 [email or web address]) OP Mobility Evaluation Bed Mobility Supine to and from Sit log roll and push up from SL OP Gait Assessment Gait Deviations General Gait Pattern Decreased Stride Length, Decreased Feet Clearance,Wide Based Gait Factors Limiting Gait Function Factors Limiting Gait Function Decreased Activity Tolerance, Decreased Strength,Limited Range of Motion,Pain,Poor Balance Comments Gait Comments lack of L hip extension noted. Pt uses L trunk rotation and L hip hike during swing phase of LLE; WBOS L is more externally rotated. PT-OP-J Posture/Palpation/Skin Start: 10/21/20 14:36 Freq: Status: Active Protocol: Document 10/21/20 14:39 HH (Rec: 10/21/20 15:12 [email or web address]) Posture Evaluation Position Standing Pelvis Posture Anteriorly Tilted Hip Posture (L) Flexed,(R) Flexed,(L) Externally Rotated,(R) Externally Rotated Knee Posture (L) Excess Flexion,(R) Excess Flexion Comments Posture Comments significant anterior pelvic tilt in standing position noted L worse than R PT-OP-K Range of Motion Start: 10/21/20 14:36 Freq: Status: Active Protocol: Document 10/21/20 14:39 HH (Rec: 10/21/20 15:12 [email or web address]) Lumbar Spine Range of Motion Lumbar Spine Active Degrees Comments pt lies in supine but lumbar unable to touch the table and LLE unable to straighten d/t L hip pain toe touch test = 7 inches from floor extension = neutral lateral flexion r= 20 L= 19 Hip Goniometric Range of Motion Hip Left Passive Hip ROM WFL No Testing Position Supine Internal Rotation 0 External Rotation 35 Comments IR and ER at hip 90 degrees flexion figure 4 position (ER) 10 inches from the table Right Passive Hip ROM WFL No Testing Position Supine Internal Rotation 0 External Rotation 45 Comments IR and ER at hip 90 degrees flexion figure 4 position (ER) 8 inches from the table Hip ROM Limitations Hip ROM Limitations Pain PT-OP-L Special Tests Start: 10/21/20 14:36 Freq: Status: Active Protocol: Document 10/21/20 14:39 HH (Rec: 10/21/20 15:12 [email or web address]) Special Tests Lumbar Spine Special Tests Alfonzo Test Results +VE L>R Comments sig groin pain reproduced on L , knee off table by 3x degrees Hip Special Tests FADDIR Test Results +ve L Scour Test Test Results +VE L Comments pain with axial pressure JIMENA Test Results +vE L Comments pain hip jointline PT-OP-M Strength Start: 10/21/20 14:36 Freq: Status: Active Protocol: Document 10/21/20 14:39 HH (Rec: 10/21/20 15:12 [email or web address]) Hip Strength Hip Manual Muscle Testing Right Flexion (L2) 4 Good Extension (S1) 4 Good Abduction 4 Good Adduction 4 Good Left Flexion (L2) 4- Good- Extension (S1) 3+ Fair+ Abduction 4- Good- Adduction 4- Good- PT-OP-Q Treatments Start: 10/21/20 14:36 Freq: Status: Active Protocol: Document 11/10/20 15:21 HH (Rec: 11/10/20 16:10 [id number]) Cardio Equipment Recumbent Stepper (Sci-Fit) Duration (Minutes) 7 Resistance 2.5 Seat Position 8 Gym Equipment Shuttle Recovery SL squat Resistance 37# Shuttle Recovery Platform Stable Reps/Time 12x2 Therapeutic Exercises Supine Exercises piriformis stretch Reps/Minutes 10 sec x 4 bridging Side bilateral Reps/Minutes 8 x 2 Standing Exercises calf raises Side bilateral Reps/Minutes 8 x2 Gait Training Gait Activity gait Device Used no AD Level of Assistance SBA Surface ground level Distance/Duration 200 x 2, 2 set Comments 1 set= 1min 43 sec to complete , HR from 94 up to 125.2 mins 48 seconds for HR to recover to baseline. 2nd set, 95 to 119, 1min 47sec to complete, and 2 mins 50 sec to recover to baseline. PT-OP-R Modalities Start: 10/21/20 14:36 Freq: Status: Active Protocol: Document 11/10/20 15:21 HH (Rec: 11/10/20 16:10 [id number]) Hot Pack/Cold Pack Treatment Hot Pack Location lumbar Patient Position Hooklying Treatment Duration (minutes) 10 Patient Tolerance Good PT-OP-T Assessment and Plan Start: 10/21/20 14:36 Freq: Status: Active Protocol: Document 11/10/20 15:21 HH (Rec: 11/10/20 16:10 [id number]) Physical Therapy Assessment Goals HEP Impairment pt does not have a HEP Short Term Goal (STG) pt will be compliant to HEP at least 4 times /week STG Duration 6 weeks 6MWT Impairment pt walked 850ft Short Term Goal (STG) pt will be able to complete 6MWT >900 ft without rest and HR <120. STG Duration 6 weeks Electrotherapist Goal (LTG) pt will be able to complete 6MWT >1000 ft without rest, HR <120. LTG Duration 12 weeks activity tolerance Impairment unable to walk more than 1 block without breaks Short Term Goal (STG) pt will be able to walk more > 2 blacks twice a week without breaks STG Duration 6 weeks Electrotherapist Goal (LTG) pt will be able to walk for a mile (2500 steps) twice a week with minimal discomfort LTG Duration 12 weeks pain Impairment pain during walking Short Term Goal (STG) pt will improve her LE strength and endurance who will not have pain >4 during 6 MWT STG Duration 6 weeks Usp Goal (LTG) pt will improve her LE strength and endurance who will not have pain >2 during a mile walk 2x/week LTG Duration 12 weeks Assessment Summary Assessment Pt shows good progress with improved endurance. Pt was able to walk 2 laps of 200 ft faster as well. Physical Therapy Plan Frequency and Duration Frequency of Treatment 2x/Week Duration of Treatment 12 weeks Plan of Care Start Date 10/21/20 Plan of Care End Date 01/19/21 Next Visit Focus/Plan Next Note Type Treatment Note Next Visit Plan hip stretch alfonzo test position lumbar flexion bike
--- NOTE | 2020-11-14 15:18 | PT.OTN ---
Current Diagnoses Myalgia, unspecified site (11/14/20) Physical Therapy Treatment Note PT-OP-A Visit Information Start: 10/21/20 14:36 Freq: Status: Active Protocol: Document 11/14/20 14:37 SP (Rec: 11/14/20 16:19 SP [id number]) Out-Patient Physical Therapy Visit Information Visit Information Visit Type Treatment Note Visit Start Time 14:37 Visit Stop Time 15:18 Total Visit Minutes 45 Visit Number 03/19 Number of RESEARCH/PROGRAM DIRECTOR Visits 1 Evaluation Information Evaluation Date 10/21/20 Precautions Precautions Hep C depression SOB PT-OP-B Current Condition Start: 10/21/20 14:36 Freq: Status: Active Protocol: Document 10/21/20 14:39 HH (Rec: 10/21/20 15:12 HH [email or web address]) Current Condition History of Current Condition Onset Date Many years ago Current Complaints Chronic LBP and L anterior hip pain, LLE weakness, poor activity tolerance History of Current Condition Pt is a 69yo female here for chronic LBP, B leg pain , L anterior hip pain and poor activity tolerance. Pt stated her leg pain get worse with increase in activity level ( primarily walking) and her stiffness is the worst in the AM. She can only walk approx. one block without a sitting break. She also has difficulty lying flat since that causes hyperextension of her lowback and she cannot extend her L hip and knee in supine d/t significant L hip tightness. She also stated changing position, Hip stretching and low back stretching tend to relieve her symptoms. Pt was here for PT last year with same issues but her B hip pain has improved but not her activity tolerance. Pt stated she has been lazy keeping up with activity level. Prior Treatments and Tests A1C level at 8.1 recently and her PCP recommended her to take metformin 2x/day Treatment Goals Patient/Caregiver Goals 1. to be able to walk 1 mile few times a week 2. to be able to walk witohut leg pain Current Functional Impairments (Reported) Functional Limitations- Other urinary incontinence Personal Factors Other Personal Factors That May Effect Type 2 Diabetes Therapy/Recovery current smoke who smokes 1pack per day pt recently gained 5 lbs Chronic Hepatitis C PT-OP-C Subjective Start: 10/21/20 14:36 Freq: Status: Active Protocol: Document 11/14/20 14:37 SP (Rec: 11/14/20 16:19 SP [id number]) OP-PT Subjective Patient Comments Patient Comments Pt stated compliant with HEP during house chores. Able was able to walk forward 2 blocks before returns. Pt stated noticing improvements, it's getting better. Able to put socks and shoes on by herself not crossing legs over each other. Patient Reported Progress Improving PT-OP-E Functional Tests Start: 10/21/20 14:36 Freq: Status: Active Protocol: Document 10/21/20 14:39 (Rec: 10/21/20 16:49 [email or web address]) Functional Tests 6 Minute Walk Test Distance 850 Device Used none Comments break at 2min. HR at 120 /min after and took 2mins to recover to baseline PT-OP-F Manual Assessment Start: 10/21/20 14:36 Freq: Status: Active Protocol: Document 10/21/20 14:39 (Rec: 10/21/20 15:12 [email or web address]) Manual Assessments Soft Tissue Assessment Soft Tissue Mobility Assessment significant hypertonicity at L hip flexors and B proximal hip adductors Joint Mobility Assessment Joint Mobility Assessment hard end feel at B hip extension, external/ interal rotation (L worse than R) PT-OP-G Mobility & Gait Start: 10/21/20 14:36 Freq: Status: Active Protocol: Document 10/21/20 14:39 (Rec: 10/21/20 15:12 [email or web address]) OP Mobility Evaluation Bed Mobility Supine to and from Sit log roll and push up from SL OP Gait Assessment Gait Deviations General Gait Pattern Decreased Stride Length, Decreased Feet Clearance,Wide Based Gait Factors Limiting Gait Function Factors Limiting Gait Function Decreased Activity Tolerance, Decreased Strength,Limited Range of Motion,Pain,Poor Balance Comments Gait Comments lack of L hip extension noted. Pt uses L trunk rotation and L hip hike during swing phase of LLE; WBOS L is more externally rotated. PT-OP-J Posture/Palpation/Skin Start: 10/21/20 14:36 Freq: Status: Active Protocol: Document 10/21/20 14:39 (Rec: 10/21/20 15:12 [email or web address]) Posture Evaluation Position Standing Pelvis Posture Anteriorly Tilted Hip Posture (L) Flexed,(R) Flexed,(L) Externally Rotated,(R) Externally Rotated Knee Posture (L) Excess Flexion,(R) Excess Flexion Comments Posture Comments significant anterior pelvic tilt in standing position noted L worse than R PT-OP-K Range of Motion Start: 10/21/20 14:36 Freq: Status: Active Protocol: Document 10/21/20 14:39 HH (Rec: 10/21/20 15:12 HH [email or web address]) Lumbar Spine Range of Motion Lumbar Spine Active Degrees Comments pt lies in supine but lumbar unable to touch the table and LLE unable to straighten d/t L hip pain toe touch test = 7 inches from floor extension = neutral lateral flexion r= 20 L= 19 Hip Goniometric Range of Motion Hip Left Passive Hip ROM WFL No Testing Position Supine Internal Rotation 0 External Rotation 35 Comments IR and ER at hip 90 degrees flexion figure 4 position (ER) 10 inches from the table Right Passive Hip ROM WFL No Testing Position Supine Internal Rotation 0 External Rotation 45 Comments IR and ER at hip 90 degrees flexion figure 4 position (ER) 8 inches from the table Hip ROM Limitations Hip ROM Limitations Pain PT-OP-L Special Tests Start: 10/21/20 14:36 Freq: Status: Active Protocol: Document 10/21/20 14:39 HH (Rec: 10/21/20 15:12 [email or web address]) Special Tests Lumbar Spine Special Tests Alfonzo Test Results +VE L>R Comments sig groin pain reproduced on L , knee off table by 3x degrees Hip Special Tests FADDIR Test Results +ve L Scour Test Test Results +VE L Comments pain with axial pressure JIMENA Test Results +vE L Comments pain hip jointline PT-OP-M Strength Start: 10/21/20 14:36 Freq: Status: Active Protocol: Document 10/21/20 14:39 (Rec: 10/21/20 15:12 [email or web address]) Hip Strength Hip Manual Muscle Testing Right Flexion (L2) 4 Good Extension (S1) 4 Good Abduction 4 Good Adduction 4 Good Left Flexion (L2) 4- Good- Extension (S1) 3+ Fair+ Abduction 4- Good- Adduction 4- Good- PT-OP-Q Treatments Start: 10/21/20 14:36 Freq: Status: Active Protocol: Document 11/14/20 14:37 SP (Rec: 11/14/20 16:19 SP [id number]) Cardio Equipment Recumbent Stepper (Sci-Fit) Duration (Minutes) 7 Resistance 2.5 Seat Position 8 Other 96% SaO2, 99 HR Gym Equipment Shuttle Recovery SL squat Resistance 37#> 50# Shuttle Recovery Platform Stable Reps/Time 2x12 each wt B squat Resistance 62# Shuttle Recovery Platform Stable Reps/Time 12x2 Therapeutic Exercises Sitting Exercises seated figure 4 Sitting Exercise Name self stretch Side bilateral Reps/Minutes 10 sec hold x 3 Comments L better than R Standing Exercises calf raises Side bilateral Reps/Minutes 8 x2 squat Standing Exercise Name sit <> stands (arms across chest) Reps/Minutes 9 reps in 30 sec Comments 96% SaO2, 98bpm Gait Training Gait Activity gait Device Used no AD Level of Assistance SBA Surface ground level Distance/Duration 200 x 2, 2 set Comments 1 set= 1min 56 sec to complete , HR from 94 up to 124bpm/ mins 1 min 22 sec seconds for HR to recover to baseline. 200ft /116sec=1.72 ft/sec. 2nd set, 91 to 120, 1min 55 sec to complete, and 1 mins 52 sec to recover to baseline. 1 .75 ft/sec PT-OP-R Modalities Start: 10/21/20 14:36 Freq: Status: Active Protocol: Document 11/10/20 15:21 HH (Rec: 11/10/20 16:10 HH [id number]) Hot Pack/Cold Pack Treatment Hot Pack Location lumbar Patient Position Hooklying Treatment Duration (minutes) 10 Patient Tolerance Good PT-OP-T Assessment and Plan Start: 10/21/20 14:36 Freq: Status: Active Protocol: Document 11/14/20 14:37 SP (Rec: 11/14/20 16:19 SP [id number]) Physical Therapy Assessment Goals HEP Impairment pt does not have a HEP Short Term Goal (STG) pt will be compliant to HEP at least 4 times /week STG Duration 6 weeks 6MWT Impairment pt walked 850ft Short Term Goal (STG) pt will be able to complete 6MWT >900 ft without rest and HR <120. STG Duration 6 weeks Group Fitness Manager Goal (LTG) pt will be able to complete 6MWT >1000 ft without rest, HR <120. LTG Duration 12 weeks activity tolerance Impairment unable to walk more than 1 block without breaks Short Term Goal (STG) pt will be able to walk more > 2 blacks twice a week without breaks STG Duration 6 weeks Halfway Goal (LTG) pt will be able to walk for a mile (2500 steps) twice a week with minimal discomfort LTG Duration 12 weeks pain Impairment pain during walking Short Term Goal (STG) pt will improve her LE strength and endurance who will not have pain >4 during 6 MWT STG Duration 6 weeks Halfway Goal (LTG) pt will improve her LE strength and endurance who will not have pain >2 during a mile walk 2x/week LTG Duration 12 weeks Assessment Summary Assessment Pt shows good progress with improved endurance, 0.02 ft/ sec during gait today 2 sets of 200 ft laps in gym. HR and breath recovery improved. Physical Therapy Plan Frequency and Duration Frequency of Treatment 2x/Week Duration of Treatment 12 weeks Plan of Care Start Date 10/21/20 Plan of Care End Date 01/19/21 Therapeutic Interventions Therapeutic Interventions Aquatic Therapy,Balance Training,Gait Training,Home Exercise Program,Joint Mobilizations,Manual Therapy, Neuromuscular Re-education, Patient/Caregiver Education, Self-Care/Home Management,Soft Tissue Mobilization,Taping, Therapeutic Activities, Therapeutic Exercises Modalities Cold Pack/Ice Massage,Electric Stimulation,Hot Packs, Infrared Therapy,Traction- Mechanical,Ultrasound Next Visit Focus/Plan Next Note Type Treatment Note Next Visit Plan Assess response to aerobic bike, sit<>stands, calf mobility and endurance gait last tx. Continue per PT POC:hip stretch alfonzo test position lumbar flexion bike, endurance gait and HR recovery
--- NOTE | 2020-11-17 13:03 | PT.OTN ---
Current Diagnoses Myalgia, unspecified site (11/17/20) Physical Therapy Treatment Note PT-OP-A Visit Information Start: 10/21/20 14:36 Freq: Status: Active Protocol: Document 11/17/20 12:16 SP (Rec: 11/17/20 14:24 SP [id number]) Out-Patient Physical Therapy Visit Information Visit Information Visit Type Treatment Note Visit Start Time 12:16 Visit Stop Time 13:03 Total Visit Minutes 47 Visit Number 04/19 Number of DEVELOPMENT ENG Visits 2 Evaluation Information Evaluation Date 10/21/20 Precautions Precautions Hep C depression SOB PT-OP-B Current Condition Start: 10/21/20 14:36 Freq: Status: Active Protocol: Document 10/21/20 14:39 HH (Rec: 10/21/20 15:12 HH [email or web address]) Current Condition History of Current Condition Onset Date Many years ago Current Complaints Chronic LBP and L anterior hip pain, LLE weakness, poor activity tolerance History of Current Condition Pt is a 69yo female here for chronic LBP, B leg pain , L anterior hip pain and poor activity tolerance. Pt stated her leg pain get worse with increase in activity level ( primarily walking) and her stiffness is the worst in the AM. She can only walk approx. one block without a sitting break. She also has difficulty lying flat since that causes hyperextension of her lowback and she cannot extend her L hip and knee in supine d/t significant L hip tightness. She also stated changing position, Hip stretching and low back stretching tend to relieve her symptoms. Pt was here for PT last year with same issues but her B hip pain has improved but not her activity tolerance. Pt stated she has been lazy keeping up with activity level. Prior Treatments and Tests A1C level at 8.1 recently and her PCP recommended her to take metformin 2x/day Treatment Goals Patient/Caregiver Goals 1. to be able to walk 1 mile few times a week 2. to be able to walk witohut leg pain Current Functional Impairments (Reported) Functional Limitations- Other urinary incontinence Personal Factors Other Personal Factors That May Effect Type 2 Diabetes Therapy/Recovery current smoke who smokes 1pack per day pt recently gained 5 lbs Chronic Hepatitis C PT-OP-C Subjective Start: 10/21/20 14:36 Freq: Status: Active Protocol: Document 11/17/20 12:16 SP (Rec: 11/17/20 14:24 SP [id number]) OP-PT Subjective Patient Comments Patient Comments Pt stated the heat takes alot out of her, lethargic and hard to get started on these hot day, over the weekend and today. PT-OP-E Functional Tests Start: 10/21/20 14:36 Freq: Status: Active Protocol: Document 10/21/20 14:39 HH (Rec: 10/21/20 16:49 HH [email or web address]) Functional Tests 6 Minute Walk Test Distance 850 Device Used none Comments break at 2min. HR at 120 /min after and took 2mins to recover to baseline PT-OP-F Manual Assessment Start: 10/21/20 14:36 Freq: Status: Active Protocol: Document 10/21/20 14:39 HH (Rec: 10/21/20 15:12 HH [email or web address]) Manual Assessments Soft Tissue Assessment Soft Tissue Mobility Assessment significant hypertonicity at L hip flexors and B proximal hip adductors Joint Mobility Assessment Joint Mobility Assessment hard end feel at B hip extension, external/ interal rotation (L worse than R) PT-OP-G Mobility & Gait Start: 10/21/20 14:36 Freq: Status: Active Protocol: Document 10/21/20 14:39 HH (Rec: 10/21/20 15:12 HH [email or web address]) OP Mobility Evaluation Bed Mobility Supine to and from Sit log roll and push up from SL OP Gait Assessment Gait Deviations General Gait Pattern Decreased Stride Length, Decreased Feet Clearance,Wide Based Gait Factors Limiting Gait Function Factors Limiting Gait Function Decreased Activity Tolerance, Decreased Strength,Limited Range of Motion,Pain,Poor Balance Comments Gait Comments lack of L hip extension noted. Pt uses L trunk rotation and L hip hike during swing phase of LLE; WBOS L is more externally rotated. PT-OP-J Posture/Palpation/Skin Start: 10/21/20 14:36 Freq: Status: Active Protocol: Document 10/21/20 14:39 HH (Rec: 10/21/20 15:12 [email or web address]) Posture Evaluation Position Standing Pelvis Posture Anteriorly Tilted Hip Posture (L) Flexed,(R) Flexed,(L) Externally Rotated,(R) Externally Rotated Knee Posture (L) Excess Flexion,(R) Excess Flexion Comments Posture Comments significant anterior pelvic tilt in standing position noted L worse than R PT-OP-K Range of Motion Start: 10/21/20 14:36 Freq: Status: Active Protocol: Document 10/21/20 14:39 HH (Rec: 10/21/20 15:12 HH [email or web address]) Lumbar Spine Range of Motion Lumbar Spine Active Degrees Comments pt lies in supine but lumbar unable to touch the table and LLE unable to straighten d/t L hip pain toe touch test = 7 inches from floor extension = neutral lateral flexion r= 20 L= 19 Hip Goniometric Range of Motion Hip Left Passive Hip ROM WFL No Testing Position Supine Internal Rotation 0 External Rotation 35 Comments IR and ER at hip 90 degrees flexion figure 4 position (ER) 10 inches from the table Right Passive Hip ROM WFL No Testing Position Supine Internal Rotation 0 External Rotation 45 Comments IR and ER at hip 90 degrees flexion figure 4 position (ER) 8 inches from the table Hip ROM Limitations Hip ROM Limitations Pain PT-OP-L Special Tests Start: 10/21/20 14:36 Freq: Status: Active Protocol: Document 10/21/20 14:39 HH (Rec: 10/21/20 15:12 HH [email or web address]) Special Tests Lumbar Spine Special Tests Alfonzo Test Results +VE L>R Comments sig groin pain reproduced on L , knee off table by 3x degrees Hip Special Tests FADDIR Test Results +ve L Scour Test Test Results +VE L Comments pain with axial pressure JIMENA Test Results +vE L Comments pain hip jointline PT-OP-M Strength Start: 10/21/20 14:36 Freq: Status: Active Protocol: Document 10/21/20 14:39 HH (Rec: 10/21/20 15:12 [email or web address]) Hip Strength Hip Manual Muscle Testing Right Flexion (L2) 4 Good Extension (S1) 4 Good Abduction 4 Good Adduction 4 Good Left Flexion (L2) 4- Good- Extension (S1) 3+ Fair+ Abduction 4- Good- Adduction 4- Good- PT-OP-Q Treatments Start: 10/21/20 14:36 Freq: Status: Active Protocol: Document 11/17/20 12:16 SP (Rec: 11/17/20 14:24 SP [id number]) Cardio Equipment Recumbent Stepper (Sci-Fit) Duration (Minutes) 7 Resistance 2.5 Seat Position 8 Other 95% SaO2, 89 HR, 46 RPM, MET 2 .8, .70 miles Gym Equipment Shuttle Recovery SL squat Resistance 50# Shuttle Recovery Platform Stable Reps/Time 2x12 each wt B squat Resistance 62# Shuttle Recovery Platform Stable Reps/Time 12x2 Therapeutic Exercises Supine Exercises alfonzo test Supine Exercise Name stretch Side bilateral Reps/Minutes 30 x2 Sitting Exercises seated flexion Side bilateral Reps/Minutes 10 x2 seated figure 4 Sitting Exercise Name self stretch Side bilateral Reps/Minutes 10 sec hold x 3 Comments L better than R Standing Exercises calf raises Standing Exercise Name hep review Side bilateral Equipment Used rail support (back step at home) Reps/Minutes 12x2 squat Standing Exercise Name sit <> stands (arms across chest) Equipment Used 17 bench (18 chair last tx) Reps/Minutes 9 reps in 30 sec Comments 97% SaO2, 94bpm Gait Training Gait Activity gait Device Used no AD Level of Assistance SBA Surface ground level Distance/Duration 200 x 2, 1 set today Comments 1 set= 1min 58 sec to complete , HR from 93 up to 112bpm/ mins 1 min 26 sec seconds for HR to recover to baseline. 200ft /116sec=1.65 ft/sec. 2nd set, did not complete 2nd set today Manual Therapy Treatment Soft Tissue Mobilization B quad, TFL Body Location supine Mobilization Type Cross-Friction,Instrument Assisted Intensity/Depth Moderate Body Position Supine Comments stick rolling, Discussed performance at home (next tx add racquetball roll at home). PT-OP-R Modalities Start: 10/21/20 14:36 Freq: Status: Active Protocol: Document 11/10/20 15:21 HH (Rec: 11/10/20 16:10 HH [id number]) Hot Pack/Cold Pack Treatment Hot Pack Location lumbar Patient Position Hooklying Treatment Duration (minutes) 10 Patient Tolerance Good PT-OP-T Assessment and Plan Start: 10/21/20 14:36 Freq: Status: Active Protocol: Document 11/17/20 12:16 SP (Rec: 11/17/20 14:24 SP [id number]) Physical Therapy Assessment Goals HEP Impairment pt does not have a HEP Short Term Goal (STG) pt will be compliant to HEP at least 4 times /week STG Duration 6 weeks 6MWT Impairment pt walked 850ft Short Term Goal (STG) pt will be able to complete 6MWT >900 ft without rest and HR <120. STG Duration 6 weeks Ccna Goal (LTG) pt will be able to complete 6MWT >1000 ft without rest, HR <120. LTG Duration 12 weeks activity tolerance Impairment unable to walk more than 1 block without breaks Short Term Goal (STG) pt will be able to walk more > 2 blacks twice a week without breaks STG Duration 6 weeks Ccna Goal (LTG) pt will be able to walk for a mile (2500 steps) twice a week with minimal discomfort LTG Duration 12 weeks pain Impairment pain during walking Short Term Goal (STG) pt will improve her LE strength and endurance who will not have pain >4 during 6 MWT STG Duration 6 weeks Ccna Goal (LTG) pt will improve her LE strength and endurance who will not have pain >2 during a mile walk 2x/week LTG Duration 12 weeks Assessment Summary Assessment Pt increased lethargic today with increase in heat affects her activty and endurance. Pt HR not as elevated, cued for effort during gait, ther ex with not as much SOB noted. Incorporated manual and instructed self STMs today, show racquetball over TFL next tx. Physical Therapy Plan Frequency and Duration Frequency of Treatment 2x/Week Duration of Treatment 12 weeks Plan of Care Start Date 10/21/20 Plan of Care End Date 01/19/21 Therapeutic Interventions Therapeutic Interventions Aquatic Therapy,Balance Training,Gait Training,Home Exercise Program,Joint Mobilizations,Manual Therapy, Neuromuscular Re-education, Patient/Caregiver Education, Self-Care/Home Management,Soft Tissue Mobilization,Taping, Therapeutic Activities, Therapeutic Exercises Modalities Cold Pack/Ice Massage,Electric Stimulation,Hot Packs, Infrared Therapy,Traction- Mechanical,Ultrasound Next Visit Focus/Plan Next Note Type Treatment Note Next Visit Plan Assess response to aerobic bike, sit<>stands, calf mobility and endurance gait, manual last tx. Continue per PT POC:hip stretch alfonzo test position lumbar flexion bike, endurance gait and HR recovery
--- NOTE | 2020-11-20 15:20 | PT.OTN ---
Current Diagnoses Myalgia, unspecified site (11/20/20) Physical Therapy Treatment Note PT-OP-A Visit Information Start: 10/21/20 14:36 Freq: Status: Active Protocol: Document 11/20/20 14:33 SP (Rec: 11/20/20 15:31 SP [id number]) Out-Patient Physical Therapy Visit Information Visit Information Visit Type Treatment Note Visit Start Time 14:33 Visit Stop Time 15:20 Total Visit Minutes 47 Visit Number 05/19 Number of HORSE GROOMER Visits 3 Evaluation Information Evaluation Date 10/21/20 Precautions Precautions Hep C depression SOB PT-OP-B Current Condition Start: 10/21/20 14:36 Freq: Status: Active Protocol: Document 10/21/20 14:39 HH (Rec: 10/21/20 15:12 HH [email or web address]) Current Condition History of Current Condition Onset Date Many years ago Current Complaints Chronic LBP and L anterior hip pain, LLE weakness, poor activity tolerance History of Current Condition Pt is a 69yo female here for chronic LBP, B leg pain , L anterior hip pain and poor activity tolerance. Pt stated her leg pain get worse with increase in activity level ( primarily walking) and her stiffness is the worst in the AM. She can only walk approx. one block without a sitting break. She also has difficulty lying flat since that causes hyperextension of her lowback and she cannot extend her L hip and knee in supine d/t significant L hip tightness. She also stated changing position, Hip stretching and low back stretching tend to relieve her symptoms. Pt was here for PT last year with same issues but her B hip pain has improved but not her activity tolerance. Pt stated she has been lazy keeping up with activity level. Prior Treatments and Tests A1C level at 8.1 recently and her PCP recommended her to take metformin 2x/day Treatment Goals Patient/Caregiver Goals 1. to be able to walk 1 mile few times a week 2. to be able to walk witohut leg pain Current Functional Impairments (Reported) Functional Limitations- Other urinary incontinence Personal Factors Other Personal Factors That May Effect Type 2 Diabetes Therapy/Recovery current smoke who smokes 1pack per day pt recently gained 5 lbs Chronic Hepatitis C PT-OP-C Subjective Start: 10/21/20 14:36 Freq: Status: Active Protocol: Document 11/20/20 14:33 SP (Rec: 11/20/20 15:31 SP [id number]) OP-PT Subjective Patient Comments Patient Comments Pt stated little soreness after last tx in different places in a good way. PT-OP-E Functional Tests Start: 10/21/20 14:36 Freq: Status: Active Protocol: Document 10/21/20 14:39 HH (Rec: 10/21/20 16:49 HH [email or web address]) Functional Tests 6 Minute Walk Test Distance 850 Device Used none Comments break at 2min. HR at 120 /min after and took 2mins to recover to baseline PT-OP-F Manual Assessment Start: 10/21/20 14:36 Freq: Status: Active Protocol: Document 10/21/20 14:39 HH (Rec: 10/21/20 15:12 [email or web address]) Manual Assessments Soft Tissue Assessment Soft Tissue Mobility Assessment significant hypertonicity at L hip flexors and B proximal hip adductors Joint Mobility Assessment Joint Mobility Assessment hard end feel at B hip extension, external/ interal rotation (L worse than R) PT-OP-G Mobility & Gait Start: 10/21/20 14:36 Freq: Status: Active Protocol: Document 10/21/20 14:39 HH (Rec: 10/21/20 15:12 [email or web address]) OP Mobility Evaluation Bed Mobility Supine to and from Sit log roll and push up from SL OP Gait Assessment Gait Deviations General Gait Pattern Decreased Stride Length, Decreased Feet Clearance,Wide Based Gait Factors Limiting Gait Function Factors Limiting Gait Function Decreased Activity Tolerance, Decreased Strength,Limited Range of Motion,Pain,Poor Balance Comments Gait Comments lack of L hip extension noted. Pt uses L trunk rotation and L hip hike during swing phase of LLE; WBOS L is more externally rotated. PT-OP-J Posture/Palpation/Skin Start: 10/21/20 14:36 Freq: Status: Active Protocol: Document 10/21/20 14:39 (Rec: 10/21/20 15:12 [email or web address]) Posture Evaluation Position Standing Pelvis Posture Anteriorly Tilted Hip Posture (L) Flexed,(R) Flexed,(L) Externally Rotated,(R) Externally Rotated Knee Posture (L) Excess Flexion,(R) Excess Flexion Comments Posture Comments significant anterior pelvic tilt in standing position noted L worse than R PT-OP-K Range of Motion Start: 10/21/20 14:36 Freq: Status: Active Protocol: Document 10/21/20 14:39 HH (Rec: 10/21/20 15:12 HH [email or web address]) Lumbar Spine Range of Motion Lumbar Spine Active Degrees Comments pt lies in supine but lumbar unable to touch the table and LLE unable to straighten d/t L hip pain toe touch test = 7 inches from floor extension = neutral lateral flexion r= 20 L= 19 Hip Goniometric Range of Motion Hip Left Passive Hip ROM WFL No Testing Position Supine Internal Rotation 0 External Rotation 35 Comments IR and ER at hip 90 degrees flexion figure 4 position (ER) 10 inches from the table Right Passive Hip ROM WFL No Testing Position Supine Internal Rotation 0 External Rotation 45 Comments IR and ER at hip 90 degrees flexion figure 4 position (ER) 8 inches from the table Hip ROM Limitations Hip ROM Limitations Pain PT-OP-L Special Tests Start: 10/21/20 14:36 Freq: Status: Active Protocol: Document 10/21/20 14:39 HH (Rec: 10/21/20 15:12 HH [email or web address]) Special Tests Lumbar Spine Special Tests Alfonzo Test Results +VE L>R Comments sig groin pain reproduced on L , knee off table by 3x degrees Hip Special Tests FADDIR Test Results +ve L Scour Test Test Results +VE L Comments pain with axial pressure JIMENA Test Results +vE L Comments pain hip jointline PT-OP-M Strength Start: 10/21/20 14:36 Freq: Status: Active Protocol: Document 10/21/20 14:39 HH (Rec: 10/21/20 15:12 HH [email or web address]) Hip Strength Hip Manual Muscle Testing Right Flexion (L2) 4 Good Extension (S1) 4 Good Abduction 4 Good Adduction 4 Good Left Flexion (L2) 4- Good- Extension (S1) 3+ Fair+ Abduction 4- Good- Adduction 4- Good- PT-OP-Q Treatments Start: 10/21/20 14:36 Freq: Status: Active Protocol: Document 11/20/20 14:33 SP (Rec: 11/20/20 15:31 SP [id number]) Cardio Equipment Recumbent Stepper (Sci-Fit) Duration (Minutes) 8 Resistance 2.5 Seat Position 8 Other 96% SaO2, 94 HR, 40 RPM, MET 2 .6, .90miles Gym Equipment Shuttle Recovery SL squat Resistance 50# Shuttle Recovery Platform Stable Reps/Time 2x12 each wt Therapeutic Exercises Supine Exercises alfonzo test Supine Exercise Name stretch Side bilateral Reps/Minutes 30 x2 Prone Exercises knee flexion Prone Exercise Name assist hip flexor mobility Resistance B Reps/Minutes x6 reps Comments cued still pelvis- improved quad lengthening Sitting Exercises HS stretch Side bilateral Reps/Minutes 30 sec seated flexion Sitting Exercise Name reach toward ankles Side bilateral Reps/Minutes x10 seated figure 4 Sitting Exercise Name w/ER Side bilateral Reps/Minutes 30 each Comments L better than R Standing Exercises calf raises Standing Exercise Name stretch off step Side bilateral Equipment Used rail support (back step at home) Reps/Minutes 12x2 Comments improved DF w/ reps squat Standing Exercise Name sit <> stands (arms across chest) Equipment Used 18 chair Reps/Minutes 9 reps in 30 sec Comments 98% SaO2, 104bpm Gait Training Gait Activity gait Device Used no AD Level of Assistance SBA Surface ground level Distance/Duration 200 x 2, x2 sets Comments 1 set= 1min 56 sec to complete , HR from 93 up to 124bpm/ mins 2 min 27sec for HR to recover to baseline. 200ft / 116 sec= 1.72 ft/sec. 2nd set: HR 123bpm, recovery 1 min 55 sec to recover baseline. 1.98 ft/sec Manual Therapy Treatment Soft Tissue Mobilization B quad, TFL Body Location supine Mobilization Type Cross-Friction,Instrument Assisted Intensity/Depth Moderate Body Position Supine Comments manual PT-OP-R Modalities Start: 10/21/20 14:36 Freq: Status: Active Protocol: Document 11/10/20 15:21 HH (Rec: 11/10/20 16:10 HH [id number]) Hot Pack/Cold Pack Treatment Hot Pack Location lumbar Patient Position Hooklying Treatment Duration (minutes) 10 Patient Tolerance Good PT-OP-T Assessment and Plan Start: 10/21/20 14:36 Freq: Status: Active Protocol: Document 11/20/20 14:33 SP (Rec: 11/20/20 15:31 SP [id number]) Physical Therapy Assessment Goals HEP Impairment pt does not have a HEP Short Term Goal (STG) pt will be compliant to HEP at least 4 times /week 11/20/20: progressing, compliant w/ 2xwk. STG Duration 6 weeks 6MWT Impairment pt walked 850ft Short Term Goal (STG) pt will be able to complete 6MWT >900 ft without rest and HR <120. 11/20/20: Pt progressing gait 200ft in 1 min 51 sec. STG Duration 6 weeks Wood Die Maker Goal (LTG) pt will be able to complete 6MWT >1000 ft without rest, HR <120. LTG Duration 12 weeks activity tolerance Impairment unable to walk more than 1 block without breaks Short Term Goal (STG) pt will be able to walk more > 2 blacks twice a week without breaks 11/20/20: progressing, able to do 2 blocks 2x/wk but 1 break during the 2 blocks. STG Duration 6 weeks Senior Care Goal (LTG) pt will be able to walk for a mile (2500 steps) twice a week with minimal discomfort LTG Duration 12 weeks pain Impairment pain during walking Short Term Goal (STG) pt will improve her LE strength and endurance who will not have pain >4 during 6 MWT 11/20/20: progressing still feel pain better 01/08 but not like it was making me cry. STG Duration 6 weeks Wood Die Maker Goal (LTG) pt will improve her LE strength and endurance who will not have pain >2 during a mile walk 2x/week LTG Duration 12 weeks Progress Towards Goals Progress Towards Goals Progressing Toward Goals Progress Comments Pt is progressing toward goals , able to walk 2 blocks with only 1 stop rest. Assessment Summary Assessment Pt states feels like 2nd walk recovered faster in PT than first, recovered almost by 1 min faster. Pt has very tight hip flexors, get some lengthening post manual and Alfonzo stretch off side table. Initiated prone knee flexion with improved hip extension/ stable pelvis as reps progressed w/ cuing for stationary pelvis. Physical Therapy Plan Frequency and Duration Frequency of Treatment 2x/Week Duration of Treatment 12 weeks Plan of Care Start Date 10/21/20 Plan of Care End Date 01/19/21 Therapeutic Interventions Therapeutic Interventions Aquatic Therapy,Balance Training,Gait Training,Home Exercise Program,Joint Mobilizations,Manual Therapy, Neuromuscular Re-education, Patient/Caregiver Education, Self-Care/Home Management,Soft Tissue Mobilization,Taping, Therapeutic Activities, Therapeutic Exercises Modalities Cold Pack/Ice Massage,Electric Stimulation,Hot Packs, Infrared Therapy,Traction- Mechanical,Ultrasound Next Visit Focus/Plan Next Note Type Treatment Note Next Visit Plan Assess response to aerobic bike doing well 40 RPM , sit<>stands 9 in 30 sec HR 104 bpm, calf mobility and endurance gait, manual last tx . Continue per PT POC:hip stretch alfonzo test position lumbar flexion bike, endurance gait and HR recovery
--- NOTE | 2020-11-25 13:44 | PT.OTN ---
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 Pt stated her leg pain get worse with increase in activity level ( primarily walking) and her stiffness is the worst in the AM. She can only walk approx. one block without a sitting break. She also has difficulty lying flat since that causes hyperextension of her lowback and she cannot extend her L hip and knee in supine d/t significant L hip tightness. She also stated changing position, Hip stretching and low back stretching tend to relieve her symptoms. Pt was here for PT last year with same issues but her B hip pain has improved but not her activity tolerance. Pt stated she has been lazy keeping up with activity level. Prior Treatments and Tests A1C level at 8.1 recently and her PCP recommended her to take metformin 2x/day Treatment Goals Patient/Caregiver Goals 1. to be able to walk 1 mile few times a week 2. to be able to walk witohut leg pain Current Functional Impairments (Reported) Functional Limitations- Other urinary incontinence Personal Factors Other Personal Factors That May Effect Type 2 Diabetes Therapy/Recovery current smoke who smokes 1pack per day pt recently gained 5 lbs Chronic Hepatitis C PT-OP-C Subjective Start: 10/21/20 14:36 Freq: Status: Active Protocol: Document 11/25/20 12:59 HH (Rec: 11/25/20 13:44 [id number]) OP-PT Subjective Patient Comments Patient Comments Guerda been walking a little bit more. My leg pain has gotten less overall. Patient Reported Progress Improving PT-OP-E Functional Tests Start: 10/21/20 14:36 Freq: Status: Active Protocol: Document 11/25/20 12:59 HH (Rec: 11/25/20 13:44 HH [id number]) Functional Tests 6 Minute Walk Test Distance 935 Device Used no AD Comments 20 sec break at 2mins. HR at 128 at the end. took 4 mins to recover to base PT-OP-F Manual Assessment Start: 10/21/20 14:36 Freq: Status: Active Protocol: Document 10/21/20 14:39 HH (Rec: 10/21/20 15:12 HH [email or web address]) Manual Assessments Soft Tissue Assessment Soft Tissue Mobility Assessment significant hypertonicity at L hip flexors and B proximal hip adductors Joint Mobility Assessment Joint Mobility Assessment hard end feel at B hip extension, external/ interal rotation (L worse than R) PT-OP-G Mobility & Gait Start: 10/21/20 14:36 Freq: Status: Active Protocol: Document 10/21/20 14:39 HH (Rec: 10/21/20 15:12 HH [email or web address]) OP Mobility Evaluation Bed Mobility Supine to and from Sit log roll and push up from SL OP Gait Assessment Gait Deviations General Gait Pattern Decreased Stride Length, Decreased Feet Clearance,Wide Based Gait Factors Limiting Gait Function Factors Limiting Gait Function Decreased Activity Tolerance, Decreased Strength,Limited Range of Motion,Pain,Poor Balance Comments Gait Comments lack of L hip extension noted. Pt uses L trunk rotation and L hip hike during swing phase of LLE; WBOS L is more externally rotated. PT-OP-J Posture/Palpation/Skin Start: 10/21/20 14:36 Freq: Status: Active Protocol: Document 10/21/20 14:39 HH (Rec: 10/21/20 15:12 HH [email or web address]) Posture Evaluation Position Standing Pelvis Posture Anteriorly Tilted Hip Posture (L) Flexed,(R) Flexed,(L) Externally Rotated,(R) Externally Rotated Knee Posture (L) Excess Flexion,(R) Excess Flexion Comments Posture Comments significant anterior pelvic tilt in standing position noted L worse than R PT-OP-K Range of Motion Start: 10/21/20 14:36 Freq: Status: Active Protocol: Document 10/21/20 14:39 HH (Rec: 10/21/20 15:12 [email or web address]) Lumbar Spine Range of Motion Lumbar Spine Active Degrees Comments pt lies in supine but lumbar unable to touch the table and LLE unable to straighten d/t L hip pain toe touch test = 7 inches from floor extension = neutral lateral flexion r= 20 L= 19 Hip Goniometric Range of Motion Hip Left Passive Hip ROM WFL No Testing Position Supine Internal Rotation 0 External Rotation 35 Comments IR and ER at hip 90 degrees flexion figure 4 position (ER) 10 inches from the table Right Passive Hip ROM WFL No Testing Position Supine Internal Rotation 0 External Rotation 45 Comments IR and ER at hip 90 degrees flexion figure 4 position (ER) 8 inches from the table Hip ROM Limitations Hip ROM Limitations Pain PT-OP-L Special Tests Start: 10/21/20 14:36 Freq: Status: Active Protocol: Document 10/21/20 14:39 HH (Rec: 10/21/20 15:12 [email or web address]) Special Tests Lumbar Spine Special Tests Alfonzo Test Results +VE L>R Comments sig groin pain reproduced on L , knee off table by 3x degrees Hip Special Tests FADDIR Test Results +ve L Scour Test Test Results +VE L Comments pain with axial pressure JIMENA Test Results +vE L Comments pain hip jointline PT-OP-M Strength Start: 10/21/20 14:36 Freq: Status: Active Protocol: Document 10/21/20 14:39 HH (Rec: 10/21/20 15:12 [email or web address]) Hip Strength Hip Manual Muscle Testing Right Flexion (L2) 4 Good Extension (S1) 4 Good Abduction 4 Good Adduction 4 Good Left Flexion (L2) 4- Good- Extension (S1) 3+ Fair+ Abduction 4- Good- Adduction 4- Good- PT-OP-Q Treatments Start: 10/21/20 14:36 Freq: Status: Active Protocol: Document 11/25/20 12:59 HH (Rec: 11/25/20 13:44 HH [id number]) Cardio Equipment Recumbent Stepper (Sci-Fit) Duration (Minutes) 8 Resistance 3.0 Seat Position 8 Gym Equipment Shuttle Recovery SL squat Resistance 50# Shuttle Recovery Platform Stable Reps/Time 2x12 each wt B squat Resistance 62# Shuttle Recovery Platform Stable Reps/Time 12x2 Therapeutic Exercises Supine Exercises alfozno test Supine Exercise Name stretch Side bilateral Reps/Minutes 30 x2 Sitting Exercises seated flexion Sitting Exercise Name reach toward ankles Side bilateral Reps/Minutes x10 Gait Training Gait Activity gait Device Used no AD Level of Assistance SBA Surface ground level Distance/Duration 6 MWT Comments break at 2 min for 20 seconds. completed 935 ft. HR at 128 at the end of 6 MWT. PT-OP-R Modalities Start: 10/21/20 14:36 Freq: Status: Active Protocol: Document 11/25/20 12:59 HH (Rec: 11/25/20 13:44 HH [id number]) Hot Pack/Cold Pack Treatment Hot Pack Location lumbar Patient Position Hooklying Treatment Duration (minutes) 10 Patient Tolerance Good PT-OP-T Assessment and Plan Start: 10/21/20 14:36 Freq: Status: Active Protocol: Document 11/25/20 12:59 HH (Rec: 11/25/20 13:44 HH [id number]) Physical Therapy Assessment Goals HEP Impairment pt does not have a HEP Short Term Goal (STG) pt will be compliant to HEP at least 4 times /week 11/20/20: progressing, compliant w/ 2xwk. STG Duration 6 weeks 6MWT Impairment pt walked 850ft Short Term Goal (STG) 11/25.goal met. pt is able to complete 6MWT 935 ft with 1 20 seconds break and HR <120. 11/20/20: Pt progressing gait 200ft in 1 min 51 sec. STG Duration 6 weeks Alf Goal (LTG) pt will be able to complete 6MWT >1000 ft without rest, HR <120. LTG Duration 12 weeks activity tolerance Impairment unable to walk more than 1 block without breaks Short Term Goal (STG) pt will be able to walk more > 2 blacks twice a week without breaks 11/20/20: progressing, able to do 2 blocks 2x/wk but 1 break during the 2 blocks. STG Duration 6 weeks Alf Goal (LTG) pt will be able to walk for a mile (2500 steps) twice a week with minimal discomfort LTG Duration 12 weeks pain Impairment pain during walking Short Term Goal (STG) 11/25 goal met . pt has 3/10 pain at both LEs during 6 MWT. 11/20/20: progressing still feel pain better 6/10 but not like it was making me cry. STG Duration 6 weeks Alf Goal (LTG) pt will improve her LE strength and endurance who will not have pain >2 during a mile walk 2x/week LTG Duration 12 weeks Progress Towards Goals Progress Towards Goals Progressing Toward Goals Assessment Summary Assessment Pt shows improved walking endurance (6MWT= 935 ft today with pain 3/10). Pt will cont benefit from skilled therapy to improve her overall activity tolerance and leg strength. Physical Therapy Plan Frequency and Duration Frequency of Treatment 2x/Week Duration of Treatment 12 weeks Plan of Care Start Date 10/21/20 Plan of Care End Date 01/19/21 Therapeutic Interventions Therapeutic Interventions Aquatic Therapy,Balance Training,Gait Training,Home Exercise Program,Joint Mobilizations,Manual Therapy, Neuromuscular Re-education, Patient/Caregiver Education, Self-Care/Home Management,Soft Tissue Mobilization,Taping, Therapeutic Activities, Therapeutic Exercises Modalities Cold Pack/Ice Massage,Electric Stimulation,Hot Packs, Infrared Therapy,Traction- Mechanical,Ultrasound Next Visit Focus/Plan Next Note Type Treatment Note Next Visit Plan Assess response to aerobic bike doing well 40 RPM , sit<>stands 9 in 30 sec HR 104 bpm, calf mobility and endurance gait, manual last tx . Continue per PT POC:hip stretch alfonzo test position lumbar flexion bike, endurance gait and HR recovery
--- NOTE | 2020-11-28 12:03 | PT.OTN ---
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 Pt stated her leg pain get worse with increase in activity level ( primarily walking) and her stiffness is the worst in the AM. She can only walk approx. one block without a sitting break. She also has difficulty lying flat since that causes hyperextension of her lowback and she cannot extend her L hip and knee in supine d/t significant L hip tightness. She also stated changing position, Hip stretching and low back stretching tend to relieve her symptoms. Pt was here for PT last year with same issues but her B hip pain has improved but not her activity tolerance. Pt stated she has been lazy keeping up with activity level. Prior Treatments and Tests A1C level at 8.1 recently and her PCP recommended her to take metformin 2x/day Treatment Goals Patient/Caregiver Goals 1. to be able to walk 1 mile few times a week 2. to be able to walk witohut leg pain Current Functional Impairments (Reported) Functional Limitations- Other urinary incontinence Personal Factors Other Personal Factors That May Effect Type 2 Diabetes Therapy/Recovery current smoke who smokes 1pack per day pt recently gained 5 lbs Chronic Hepatitis C PT-OP-C Subjective Start: 10/21/20 14:36 Freq: Status: Active Protocol: Document 11/28/20 11:22 HH (Rec: 11/28/20 12:03 [id number]) OP-PT Subjective Patient Comments Patient Comments i did get tired after the 6MWT but not much pain on my legs which is good. Patient Reported Progress Improving PT-OP-E Functional Tests Start: 10/21/20 14:36 Freq: Status: Active Protocol: Document 11/25/20 12:59 HH (Rec: 11/25/20 13:44 HH [id number]) Functional Tests 6 Minute Walk Test Distance 935 Device Used no AD Comments 20 sec break at 2mins. HR at 128 at the end. took 4 mins to recover to base PT-OP-F Manual Assessment Start: 10/21/20 14:36 Freq: Status: Active Protocol: Document 10/21/20 14:39 HH (Rec: 10/21/20 15:12 HH [email or web address]) Manual Assessments Soft Tissue Assessment Soft Tissue Mobility Assessment significant hypertonicity at L hip flexors and B proximal hip adductors Joint Mobility Assessment Joint Mobility Assessment hard end feel at B hip extension, external/ interal rotation (L worse than R) PT-OP-G Mobility & Gait Start: 10/21/20 14:36 Freq: Status: Active Protocol: Document 10/21/20 14:39 HH (Rec: 10/21/20 15:12 HH [email or web address]) OP Mobility Evaluation Bed Mobility Supine to and from Sit log roll and push up from SL OP Gait Assessment Gait Deviations General Gait Pattern Decreased Stride Length, Decreased Feet Clearance,Wide Based Gait Factors Limiting Gait Function Factors Limiting Gait Function Decreased Activity Tolerance, Decreased Strength,Limited Range of Motion,Pain,Poor Balance Comments Gait Comments lack of L hip extension noted. Pt uses L trunk rotation and L hip hike during swing phase of LLE; WBOS L is more externally rotated. PT-OP-J Posture/Palpation/Skin Start: 10/21/20 14:36 Freq: Status: Active Protocol: Document 10/21/20 14:39 HH (Rec: 10/21/20 15:12 HH [email or web address]) Posture Evaluation Position Standing Pelvis Posture Anteriorly Tilted Hip Posture (L) Flexed,(R) Flexed,(L) Externally Rotated,(R) Externally Rotated Knee Posture (L) Excess Flexion,(R) Excess Flexion Comments Posture Comments significant anterior pelvic tilt in standing position noted L worse than R PT-OP-K Range of Motion Start: 10/21/20 14:36 Freq: Status: Active Protocol: Document 10/21/20 14:39 HH (Rec: 10/21/20 15:12 [email or web address]) Lumbar Spine Range of Motion Lumbar Spine Active Degrees Comments pt lies in supine but lumbar unable to touch the table and LLE unable to straighten d/t L hip pain toe touch test = 7 inches from floor extension = neutral lateral flexion r= 20 L= 19 Hip Goniometric Range of Motion Hip Left Passive Hip ROM WFL No Testing Position Supine Internal Rotation 0 External Rotation 35 Comments IR and ER at hip 90 degrees flexion figure 4 position (ER) 10 inches from the table Right Passive Hip ROM WFL No Testing Position Supine Internal Rotation 0 External Rotation 45 Comments IR and ER at hip 90 degrees flexion figure 4 position (ER) 8 inches from the table Hip ROM Limitations Hip ROM Limitations Pain PT-OP-L Special Tests Start: 10/21/20 14:36 Freq: Status: Active Protocol: Document 10/21/20 14:39 HH (Rec: 10/21/20 15:12 [email or web address]) Special Tests Lumbar Spine Special Tests Alfonzo Test Results +VE L>R Comments sig groin pain reproduced on L , knee off table by 3x degrees Hip Special Tests FADDIR Test Results +ve L Scour Test Test Results +VE L Comments pain with axial pressure JIMENA Test Results +vE L Comments pain hip jointline PT-OP-M Strength Start: 10/21/20 14:36 Freq: Status: Active Protocol: Document 10/21/20 14:39 HH (Rec: 10/21/20 15:12 [email or web address]) Hip Strength Hip Manual Muscle Testing Right Flexion (L2) 4 Good Extension (S1) 4 Good Abduction 4 Good Adduction 4 Good Left Flexion (L2) 4- Good- Extension (S1) 3+ Fair+ Abduction 4- Good- Adduction 4- Good- PT-OP-Q Treatments Start: 10/21/20 14:36 Freq: Status: Active Protocol: Document 11/28/20 11:22 HH (Rec: 11/28/20 12:03 [id number]) Cardio Equipment Recumbent Stepper (Sci-Fit) Duration (Minutes) 8 Resistance 3.0 Seat Position 8 Gym Equipment Shuttle Recovery SL squat Resistance 50# Shuttle Recovery Platform Stable Reps/Time 2x12 each wt B squat Resistance 62# Shuttle Recovery Platform Stable Reps/Time 12x2 Therapeutic Exercises Sitting Exercises seated flexion Sitting Exercise Name reach toward ankles Side bilateral Reps/Minutes x10 Gait Training Gait Activity gait Device Used no AD Level of Assistance SBA Surface ground level Distance/Duration 200 x 2, x2 sets Comments 1 set= 1min 53sec to complete, HR from 84 up to 119bpm/ mins 1 min 30sec for HR to recover to baseline. 200ft / 116 sec= 1.72 ft/sec. 2nd set: 1min 45 sec for 2 laps. HR 90 to HR 117bpm, recovery 1 min 30 sec to recover baseline. PT-OP-R Modalities Start: 10/21/20 14:36 Freq: Status: Active Protocol: Document 11/28/20 11:22 (Rec: 11/28/20 12:03 [id number]) Hot Pack/Cold Pack Treatment Hot Pack Location lumbar Patient Position Hooklying Treatment Duration (minutes) 10 Patient Tolerance Good PT-OP-T Assessment and Plan Start: 10/21/20 14:36 Freq: Status: Active Protocol: Document 11/28/20 11:22 (Rec: 11/28/20 12:03 [id number]) Physical Therapy Assessment Goals HEP Impairment pt does not have a HEP Short Term Goal (STG) pt will be compliant to HEP at least 4 times /week 11/20/20: progressing, compliant w/ 2xwk. STG Duration 6 weeks 6MWT Impairment pt walked 850ft Short Term Goal (STG) 11/25.goal met. pt is able to complete 6MWT 935 ft with 1 20 seconds break and HR <120. 11/20/20: Pt progressing gait 200ft in 1 min 51 sec. STG Duration 6 weeks Cherry Dipper Goal (LTG) pt will be able to complete 6MWT >1000 ft without rest, HR <120. LTG Duration 12 weeks activity tolerance Impairment unable to walk more than 1 block without breaks Short Term Goal (STG) pt will be able to walk more > 2 blacks twice a week without breaks 11/20/20: progressing, able to do 2 blocks 2x/wk but 1 break during the 2 blocks. STG Duration 6 weeks Cherry Dipper Goal (LTG) pt will be able to walk for a mile (2500 steps) twice a week with minimal discomfort LTG Duration 12 weeks pain Impairment pain during walking Short Term Goal (STG) 11/25 goal met . pt has 3/10 pain at both LEs during 6 MWT. 11/20/20: progressing still feel pain better 6/10 but not like it was making me cry. STG Duration 6 weeks Cherry Dipper Goal (LTG) pt will improve her LE strength and endurance who will not have pain >2 during a mile walk 2x/week LTG Duration 12 weeks Assessment Summary Assessment pt continues to show improvements for cardio endurance with faster recovery time and walking distance. Physical Therapy Plan Frequency and Duration Frequency of Treatment 2x/Week Duration of Treatment 12 weeks Plan of Care Start Date 10/21/20 Plan of Care End Date 01/19/21 Therapeutic Interventions Therapeutic Interventions Aquatic Therapy,Balance Training,Gait Training,Home Exercise Program,Joint Mobilizations,Manual Therapy, Neuromuscular Re-education, Patient/Caregiver Education, Self-Care/Home Management,Soft Tissue Mobilization,Taping, Therapeutic Activities, Therapeutic Exercises Modalities Cold Pack/Ice Massage,Electric Stimulation,Hot Packs, Infrared Therapy,Traction- Mechanical,Ultrasound Next Visit Focus/Plan Next Note Type Treatment Note Next Visit Plan Assess response to aerobic bike doing well 40 RPM , sit<>stands 9 in 30 sec HR 104 bpm, calf mobility and endurance gait, manual last tx . Continue per PT POC:hip stretch alfonzo test position lumbar flexion bike, endurance gait and HR recovery
--- NOTE | 2020-12-02 15:13 | PT.OTN ---
Current Diagnoses Myalgia, unspecified site (12/02/20) Physical Therapy Treatment Note PT-OP-A Visit Information Start: 10/21/20 14:36 Freq: Status: Active Protocol: Document 12/02/20 14:24 HH (Rec: 12/02/20 15:12 [id number]) Out-Patient Physical Therapy Visit Information Visit Information Visit Type Treatment Note Visit Start Time 14:30 Visit Stop Time 15:19 Total Visit Minutes 49 Visit Number Number of DIRECTOR OF QUALITY Visits 0 PT-OP-B Current Condition Start: 10/21/20 14:36 Freq: Status: Active Protocol: Document 10/21/20 14:39 HH (Rec: 10/21/20 15:12 [email or web address]) Current Condition History of Current Condition Onset Date Many years ago Current Complaints Chronic LBP and L anterior hip pain, LLE weakness, poor activity tolerance History of Current Condition Pt is a 69yo female here for chronic LBP, B leg pain , L anterior hip pain and poor activity tolerance. Pt stated her leg pain get worse with increase in activity level ( primarily walking) and her stiffness is the worst in the AM. She can only walk approx. one block without a sitting break. She also has difficulty lying flat since that causes hyperextension of her lowback and she cannot extend her L hip and knee in supine d/t significant L hip tightness. She also stated changing position, Hip stretching and low back stretching tend to relieve her symptoms. Pt was here for PT last year with same issues but her B hip pain has improved but not her activity tolerance. Pt stated she has been lazy keeping up with activity level. Prior Treatments and Tests A1C level at 8.1 recently and her PCP recommended her to take metformin 2x/day Treatment Goals Patient/Caregiver Goals 1. to be able to walk 1 mile few times a week 2. to be able to walk witohut leg pain Current Functional Impairments (Reported) Functional Limitations- Other urinary incontinence Personal Factors Other Personal Factors That May Effect Type 2 Diabetes Therapy/Recovery current smoke who smokes 1pack per day pt recently gained 5 lbs Chronic Hepatitis C PT-OP-C Subjective Start: 10/21/20 14:36 Freq: Status: Active Protocol: Document 12/02/20 14:24 HH (Rec: 12/02/20 15:12 [id number]) OP-PT Subjective Patient Comments Patient Comments my back was stiff after last time but my legs are doing fine. Patient Reported Progress Same PT-OP-E Functional Tests Start: 10/21/20 14:36 Freq: Status: Active Protocol: Document 11/25/20 12:59 HH (Rec: 11/25/20 13:44 HH [id number]) Functional Tests 6 Minute Walk Test Distance 935 Device Used no AD Comments 20 sec break at 2mins. HR at 128 at the end. took 4 mins to recover to base PT-OP-F Manual Assessment Start: 10/21/20 14:36 Freq: Status: Active Protocol: Document 10/21/20 14:39 HH (Rec: 10/21/20 15:12 HH [email or web address]) Manual Assessments Soft Tissue Assessment Soft Tissue Mobility Assessment significant hypertonicity at L hip flexors and B proximal hip adductors Joint Mobility Assessment Joint Mobility Assessment hard end feel at B hip extension, external/ interal rotation (L worse than R) PT-OP-G Mobility & Gait Start: 10/21/20 14:36 Freq: Status: Active Protocol: Document 10/21/20 14:39 HH (Rec: 10/21/20 15:12 HH [email or web address]) OP Mobility Evaluation Bed Mobility Supine to and from Sit log roll and push up from SL OP Gait Assessment Gait Deviations General Gait Pattern Decreased Stride Length, Decreased Feet Clearance,Wide Based Gait Factors Limiting Gait Function Factors Limiting Gait Function Decreased Activity Tolerance, Decreased Strength,Limited Range of Motion,Pain,Poor Balance Comments Gait Comments lack of L hip extension noted. Pt uses L trunk rotation and L hip hike during swing phase of LLE; WBOS L is more externally rotated. PT-OP-J Posture/Palpation/Skin Start: 10/21/20 14:36 Freq: Status: Active Protocol: Document 10/21/20 14:39 HH (Rec: 10/21/20 15:12 HH [email or web address]) Posture Evaluation Position Standing Pelvis Posture Anteriorly Tilted Hip Posture (L) Flexed,(R) Flexed,(L) Externally Rotated,(R) Externally Rotated Knee Posture (L) Excess Flexion,(R) Excess Flexion Comments Posture Comments significant anterior pelvic tilt in standing position noted L worse than R PT-OP-K Range of Motion Start: 10/21/20 14:36 Freq: Status: Active Protocol: Document 10/21/20 14:39 HH (Rec: 10/21/20 15:12 [email or web address]) Lumbar Spine Range of Motion Lumbar Spine Active Degrees Comments pt lies in supine but lumbar unable to touch the table and LLE unable to straighten d/t L hip pain toe touch test = 7 inches from floor extension = neutral lateral flexion r= 20 L= 19 Hip Goniometric Range of Motion Hip Left Passive Hip ROM WFL No Testing Position Supine Internal Rotation 0 External Rotation 35 Comments IR and ER at hip 90 degrees flexion figure 4 position (ER) 10 inches from the table Right Passive Hip ROM WFL No Testing Position Supine Internal Rotation 0 External Rotation 45 Comments IR and ER at hip 90 degrees flexion figure 4 position (ER) 8 inches from the table Hip ROM Limitations Hip ROM Limitations Pain PT-OP-L Special Tests Start: 10/21/20 14:36 Freq: Status: Active Protocol: Document 10/21/20 14:39 HH (Rec: 10/21/20 15:12 [email or web address]) Special Tests Lumbar Spine Special Tests Alfonzo Test Results +VE L>R Comments sig groin pain reproduced on L , knee off table by 3x degrees Hip Special Tests FADDIR Test Results +ve L Scour Test Test Results +VE L Comments pain with axial pressure JIMENA Test Results +vE L Comments pain hip jointline PT-OP-M Strength Start: 10/21/20 14:36 Freq: Status: Active Protocol: Document 10/21/20 14:39 HH (Rec: 10/21/20 15:12 [email or web address]) Hip Strength Hip Manual Muscle Testing Right Flexion (L2) 4 Good Extension (S1) 4 Good Abduction 4 Good Adduction 4 Good Left Flexion (L2) 4- Good- Extension (S1) 3+ Fair+ Abduction 4- Good- Adduction 4- Good- PT-OP-Q Treatments Start: 10/21/20 14:36 Freq: Status: Active Protocol: Document 12/02/20 14:24 HH (Rec: 12/02/20 15:12 [id number]) Cardio Equipment Recumbent Stepper (Sci-Fit) Duration (Minutes) 8 Resistance 3.0 Seat Position 8 Gym Equipment Shuttle Recovery SL squat Resistance 50# Shuttle Recovery Platform Stable Reps/Time 2x12 each wt B squat Resistance #75 Shuttle Recovery Platform Stable Reps/Time 12x2 Therapeutic Exercises Sitting Exercises seated forward reach Sitting Exercise Name floor touch Reps/Minutes 9x2 Standing Exercises trunk AROM Standing Exercise Name ankle touch then back to neutral position Reps/Minutes 5 x2 Comments pain with extension. calf raises Standing Exercise Name stretch off step Side bilateral Equipment Used rail support (back step at home) Reps/Minutes 12x2 Comments improved DF w/ reps Gait Training Gait Activity gait Device Used no AD Level of Assistance SBA Surface ground level Distance/Duration 200 x2, 3 sets Comments 1 set= 1min 59sec to complete, HR from 91 up to 127bpm/ mins 2 mins for HR to recover to baseline. 2nd set: 1min 53 sec for 2 laps. HR 96 to HR 126bpm, recovery 1 min 30 sec to recover baseline. 3rd set: 1min 53 sec for 2 laps. HR 96 to HR 127bpm, recovery 1 min 30 sec to recover baseline. PT-OP-R Modalities Start: 10/21/20 14:36 Freq: Status: Active Protocol: Document 12/02/20 14:24 HH (Rec: 12/02/20 15:12 [id number]) Hot Pack/Cold Pack Treatment Hot Pack Location lumbar Patient Position Hooklying Treatment Duration (minutes) 10 Patient Tolerance Good PT-OP-T Assessment and Plan Start: 10/21/20 14:36 Freq: Status: Active Protocol: Document 12/02/20 14:24 HH (Rec: 12/02/20 15:12 [id number]) Physical Therapy Assessment Goals HEP Impairment pt does not have a HEP Short Term Goal (STG) pt will be compliant to HEP at least 4 times /week 11/20/20: progressing, compliant w/ 2xwk. STG Duration 6 weeks 6MWT Impairment pt walked 850ft Short Term Goal (STG) 11/25.goal met. pt is able to complete 6MWT 935 ft with 1 20 seconds break and HR <120. 11/20/20: Pt progressing gait 200ft in 1 min 51 sec. STG Duration 6 weeks Fpc Goal (LTG) pt will be able to complete 6MWT >1000 ft without rest, HR <120. LTG Duration 12 weeks activity tolerance Impairment unable to walk more than 1 block without breaks Short Term Goal (STG) pt will be able to walk more > 2 blacks twice a week without breaks 11/20/20: progressing, able to do 2 blocks 2x/wk but 1 break during the 2 blocks. STG Duration 6 weeks Fpc Goal (LTG) pt will be able to walk for a mile (2500 steps) twice a week with minimal discomfort LTG Duration 12 weeks pain Impairment pain during walking Short Term Goal (STG) 11/25 goal met . pt has 3/10 pain at both LEs during 6 MWT. 11/20/20: progressing still feel pain better 6/10 but not like it was making me cry. STG Duration 6 weeks Bowling Alley Refinisher Goal (LTG) pt will improve her LE strength and endurance who will not have pain >2 during a mile walk 2x/week LTG Duration 12 weeks Assessment Summary Assessment pt reports she has less leg pain in general especially during walking. Added 1more set of 2 laps of gait training today and pt peg well. Physical Therapy Plan Frequency and Duration Frequency of Treatment 2x/Week Duration of Treatment 12 weeks Plan of Care Start Date 10/21/20 Plan of Care End Date 01/19/21 Therapeutic Interventions Therapeutic Interventions Aquatic Therapy,Balance Training,Gait Training,Home Exercise Program,Joint Mobilizations,Manual Therapy, Neuromuscular Re-education, Patient/Caregiver Education, Self-Care/Home Management,Soft Tissue Mobilization,Taping, Therapeutic Activities, Therapeutic Exercises Modalities Cold Pack/Ice Massage,Electric Stimulation,Hot Packs, Infrared Therapy,Traction- Mechanical,Ultrasound Next Visit Focus/Plan Next Note Type Treatment Note Next Visit Plan Assess response to aerobic bike doing well 40 RPM , sit<>stands 9 in 30 sec HR 104 bpm, calf mobility and endurance gait, manual last tx . Continue per PT POC:hip stretch alfonzo test position lumbar flexion bike, endurance gait and HR recovery
--- NOTE | 2020-12-09 15:14 | PT.OTN ---
Current Diagnoses Myalgia, unspecified site (12/09/20) Physical Therapy Treatment Note PT-OP-A Visit Information Start: 10/21/20 14:36 Freq: Status: Active Protocol: Document 12/09/20 14:25 HH (Rec: 12/09/20 15:14 [id number]) Out-Patient Physical Therapy Visit Information Visit Information Visit Type Treatment Note Visit Start Time 14:29 Visit Stop Time 15:19 Total Visit Minutes 50 Visit Number Number of AUTO SERVICE MECHANIC Visits 0 PT-OP-B Current Condition Start: 10/21/20 14:36 Freq: Status: Active Protocol: Document 10/21/20 14:39 HH (Rec: 10/21/20 15:12 [email or web address]) Current Condition History of Current Condition Onset Date Many years ago Current Complaints Chronic LBP and L anterior hip pain, LLE weakness, poor activity tolerance History of Current Condition Pt is a 69yo female here for chronic LBP, B leg pain , L anterior hip pain and poor activity tolerance. Pt stated her leg pain get worse with increase in activity level ( primarily walking) and her stiffness is the worst in the AM. She can only walk approx. one block without a sitting break. She also has difficulty lying flat since that causes hyperextension of her lowback and she cannot extend her L hip and knee in supine d/t significant L hip tightness. She also stated changing position, Hip stretching and low back stretching tend to relieve her symptoms. Pt was here for PT last year with same issues but her B hip pain has improved but not her activity tolerance. Pt stated she has been lazy keeping up with activity level. Prior Treatments and Tests A1C level at 8.1 recently and her PCP recommended her to take metformin 2x/day Treatment Goals Patient/Caregiver Goals 1. to be able to walk 1 mile few times a week 2. to be able to walk witohut leg pain Current Functional Impairments (Reported) Functional Limitations- Other urinary incontinence Personal Factors Other Personal Factors That May Effect Type 2 Diabetes Therapy/Recovery current smoke who smokes 1pack per day pt recently gained 5 lbs Chronic Hepatitis C PT-OP-C Subjective Start: 10/21/20 14:36 Freq: Status: Active Protocol: Document 12/09/20 14:25 HH (Rec: 12/09/20 15:14 [id number]) OP-PT Subjective Patient Comments Patient Comments I walk more than i used to. Patient Reported Progress Improving PT-OP-E Functional Tests Start: 10/21/20 14:36 Freq: Status: Active Protocol: Document 11/25/20 12:59 HH (Rec: 11/25/20 13:44 HH [id number]) Functional Tests 6 Minute Walk Test Distance 935 Device Used no AD Comments 20 sec break at 2mins. HR at 128 at the end. took 4 mins to recover to base PT-OP-F Manual Assessment Start: 10/21/20 14:36 Freq: Status: Active Protocol: Document 10/21/20 14:39 HH (Rec: 10/21/20 15:12 [email or web address]) Manual Assessments Soft Tissue Assessment Soft Tissue Mobility Assessment significant hypertonicity at L hip flexors and B proximal hip adductors Joint Mobility Assessment Joint Mobility Assessment hard end feel at B hip extension, external/ interal rotation (L worse than R) PT-OP-G Mobility & Gait Start: 10/21/20 14:36 Freq: Status: Active Protocol: Document 10/21/20 14:39 HH (Rec: 10/21/20 15:12 [email or web address]) OP Mobility Evaluation Bed Mobility Supine to and from Sit log roll and push up from SL OP Gait Assessment Gait Deviations General Gait Pattern Decreased Stride Length, Decreased Feet Clearance,Wide Based Gait Factors Limiting Gait Function Factors Limiting Gait Function Decreased Activity Tolerance, Decreased Strength,Limited Range of Motion,Pain,Poor Balance Comments Gait Comments lack of L hip extension noted. Pt uses L trunk rotation and L hip hike during swing phase of LLE; WBOS L is more externally rotated. PT-OP-J Posture/Palpation/Skin Start: 10/21/20 14:36 Freq: Status: Active Protocol: Document 10/21/20 14:39 HH (Rec: 10/21/20 15:12 [email or web address]) Posture Evaluation Position Standing Pelvis Posture Anteriorly Tilted Hip Posture (L) Flexed,(R) Flexed,(L) Externally Rotated,(R) Externally Rotated Knee Posture (L) Excess Flexion,(R) Excess Flexion Comments Posture Comments significant anterior pelvic tilt in standing position noted L worse than R PT-OP-K Range of Motion Start: 10/21/20 14:36 Freq: Status: Active Protocol: Document 10/21/20 14:39 HH (Rec: 10/21/20 15:12 [email or web address]) Lumbar Spine Range of Motion Lumbar Spine Active Degrees Comments pt lies in supine but lumbar unable to touch the table and LLE unable to straighten d/t L hip pain toe touch test = 7 inches from floor extension = neutral lateral flexion r= 20 L= 19 Hip Goniometric Range of Motion Hip Left Passive Hip ROM WFL No Testing Position Supine Internal Rotation 0 External Rotation 35 Comments IR and ER at hip 90 degrees flexion figure 4 position (ER) 10 inches from the table Right Passive Hip ROM WFL No Testing Position Supine Internal Rotation 0 External Rotation 45 Comments IR and ER at hip 90 degrees flexion figure 4 position (ER) 8 inches from the table Hip ROM Limitations Hip ROM Limitations Pain PT-OP-L Special Tests Start: 10/21/20 14:36 Freq: Status: Active Protocol: Document 10/21/20 14:39 (Rec: 10/21/20 15:12 [email or web address]) Special Tests Lumbar Spine Special Tests Alfonzo Test Results +VE L>R Comments sig groin pain reproduced on L , knee off table by 3x degrees Hip Special Tests FADDIR Test Results +ve L Scour Test Test Results +VE L Comments pain with axial pressure JIMENA Test Results +vE L Comments pain hip jointline PT-OP-M Strength Start: 10/21/20 14:36 Freq: Status: Active Protocol: Document 10/21/20 14:39 (Rec: 10/21/20 15:12 [email or web address]) Hip Strength Hip Manual Muscle Testing Right Flexion (L2) 4 Good Extension (S1) 4 Good Abduction 4 Good Adduction 4 Good Left Flexion (L2) 4- Good- Extension (S1) 3+ Fair+ Abduction 4- Good- Adduction 4- Good- PT-OP-Q Treatments Start: 10/21/20 14:36 Freq: Status: Active Protocol: Document 12/09/20 14:25 (Rec: 12/09/20 15:14 [id number]) Cardio Equipment Recumbent Stepper (Sci-Fit) Duration (Minutes) 8 Resistance 3.0 Seat Position 8 Gym Equipment Shuttle Recovery SL squat Resistance 50# Shuttle Recovery Platform Stable Reps/Time 2x12 each wt Gait Training Gait Activity gait Device Used no AD Level of Assistance SBA Surface ground level Distance/Duration 200 x2, 3 sets Comments 1 set= 1min 59sec to complete, HR from 95 up to 130bpm/ mins . 2 mins for HR to recover to baseline. 2nd set: 1min 51 sec for 2 laps. HR 96 to HR 126bpm, recovery 1 min 30 sec to recover baseline. Manual Therapy Treatment Soft Tissue Mobilization lumbar parapinals Body Location lean over on table Mobilization Type Myofascial Release,Sustained Pressure,Trigger Point Release Intensity/Depth Moderate Body Position Sitting PT-OP-R Modalities Start: 10/21/20 14:36 Freq: Status: Active Protocol: Document 12/09/20 14:25 HH (Rec: 12/09/20 15:14 [id number]) Hot Pack/Cold Pack Treatment Hot Pack Location lumbar Patient Position Hooklying Treatment Duration (minutes) 10 Patient Tolerance Good PT-OP-T Assessment and Plan Start: 10/21/20 14:36 Freq: Status: Active Protocol: Document 12/09/20 14:25 HH (Rec: 12/09/20 15:14 [id number]) Physical Therapy Assessment Goals HEP Impairment pt does not have a HEP Short Term Goal (STG) pt will be compliant to HEP at least 4 times /week 11/20/20: progressing, compliant w/ 2xwk. STG Duration 6 weeks 6MWT Impairment pt walked 850ft Short Term Goal (STG) 11/25.goal met. pt is able to complete 6MWT 935 ft with 1 20 seconds break and HR <120. 11/20/20: Pt progressing gait 200ft in 1 min 51 sec. STG Duration 6 weeks Moss Gatherer Goal (LTG) pt will be able to complete 6MWT >1000 ft without rest, HR <120. LTG Duration 12 weeks activity tolerance Impairment unable to walk more than 1 block without breaks Short Term Goal (STG) pt will be able to walk more > 2 blacks twice a week without breaks 11/20/20: progressing, able to do 2 blocks 2x/wk but 1 break during the 2 blocks. STG Duration 6 weeks Moss Gatherer Goal (LTG) pt will be able to walk for a mile (2500 steps) twice a week with minimal discomfort LTG Duration 12 weeks pain Impairment pain during walking Short Term Goal (STG) 11/25 goal met . pt has 3/10 pain at both LEs during 6 MWT. 11/20/20: progressing still feel pain better 6/10 but not like it was making me cry. STG Duration 6 weeks Retirement Goal (LTG) pt will improve her LE strength and endurance who will not have pain >2 during a mile walk 2x/week LTG Duration 12 weeks Assessment Summary Assessment Spent time Educating pt to look into fitness / pool program at [facility] for maintainence program. Physical Therapy Plan Frequency and Duration Frequency of Treatment 2x/Week Duration of Treatment 12 weeks Plan of Care Start Date 10/21/20 Plan of Care End Date 01/19/21 Therapeutic Interventions Therapeutic Interventions Aquatic Therapy,Balance Training,Gait Training,Home Exercise Program,Joint Mobilizations,Manual Therapy, Neuromuscular Re-education, Patient/Caregiver Education, Self-Care/Home Management,Soft Tissue Mobilization,Taping, Therapeutic Activities, Therapeutic Exercises Modalities Cold Pack/Ice Massage,Electric Stimulation,Hot Packs, Infrared Therapy,Traction- Mechanical,Ultrasound Next Visit Focus/Plan Next Note Type Treatment Note Next Visit Plan Assess response to aerobic bike doing well 40 RPM , sit<>stands 9 in 30 sec HR 104 bpm, calf mobility and endurance gait, manual last tx . Continue per PT POC:hip stretch alfonzo test position lumbar flexion bike, endurance gait and HR recovery
--- NOTE | 2020-12-16 15:14 | PT.OTN ---
Current Diagnoses Myalgia, unspecified site (12/16/20) Physical Therapy Treatment Note PT-OP-A Visit Information Start: 10/21/20 14:36 Freq: Status: Active Protocol: Document 12/16/20 14:34 HH (Rec: 12/16/20 15:14 [id number]) Out-Patient Physical Therapy Visit Information Visit Information Visit Type Treatment Note Visit Start Time 14:32 Visit Stop Time 15:27 Total Visit Minutes 55 Visit Number 15/ Number of COMPUTER HELP DESK SPECIALIST Visits 0 PT-OP-B Current Condition Start: 10/21/20 14:36 Freq: Status: Active Protocol: Document 10/21/20 14:39 HH (Rec: 10/21/20 15:12 [email or web address]) Current Condition History of Current Condition Onset Date Many years ago Current Complaints Chronic LBP and L anterior hip pain, LLE weakness, poor activity tolerance History of Current Condition Pt is a 69yo female here for chronic LBP, B leg pain , L anterior hip pain and poor activity tolerance. Pt stated her leg pain get worse with increase in activity level ( primarily walking) and her stiffness is the worst in the AM. She can only walk approx. one block without a sitting break. She also has difficulty lying flat since that causes hyperextension of her lowback and she cannot extend her L hip and knee in supine d/t significant L hip tightness. She also stated changing position, Hip stretching and low back stretching tend to relieve her symptoms. Pt was here for PT last year with same issues but her B hip pain has improved but not her activity tolerance. Pt stated she has been lazy keeping up with activity level. Prior Treatments and Tests A1C level at 8.1 recently and her PCP recommended her to take metformin 2x/day Treatment Goals Patient/Caregiver Goals 1. to be able to walk 1 mile few times a week 2. to be able to walk witohut leg pain Current Functional Impairments (Reported) Functional Limitations- Other urinary incontinence Personal Factors Other Personal Factors That May Effect Type 2 Diabetes Therapy/Recovery current smoke who smokes 1pack per day pt recently gained 5 lbs Chronic Hepatitis C PT-OP-C Subjective Start: 10/21/20 14:36 Freq: Status: Active Protocol: Document 12/16/20 14:34 HH (Rec: 12/16/20 15:14 [id number]) OP-PT Subjective Patient Comments Patient Comments Its all about the same. I tried to walk a little more and my legs dont hurt as much generally speaking Patient Reported Progress Improving PT-OP-E Functional Tests Start: 10/21/20 14:36 Freq: Status: Active Protocol: Document 11/25/20 12:59 HH (Rec: 11/25/20 13:44 HH [id number]) Functional Tests 6 Minute Walk Test Distance 935 Device Used no AD Comments 20 sec break at 2mins. HR at 128 at the end. took 4 mins to recover to base PT-OP-F Manual Assessment Start: 10/21/20 14:36 Freq: Status: Active Protocol: Document 10/21/20 14:39 HH (Rec: 10/21/20 15:12 HH [email or web address]) Manual Assessments Soft Tissue Assessment Soft Tissue Mobility Assessment significant hypertonicity at L hip flexors and B proximal hip adductors Joint Mobility Assessment Joint Mobility Assessment hard end feel at B hip extension, external/ interal rotation (L worse than R) PT-OP-G Mobility & Gait Start: 10/21/20 14:36 Freq: Status: Active Protocol: Document 10/21/20 14:39 HH (Rec: 10/21/20 15:12 HH [email or web address]) OP Mobility Evaluation Bed Mobility Supine to and from Sit log roll and push up from SL OP Gait Assessment Gait Deviations General Gait Pattern Decreased Stride Length, Decreased Feet Clearance,Wide Based Gait Factors Limiting Gait Function Factors Limiting Gait Function Decreased Activity Tolerance, Decreased Strength,Limited Range of Motion,Pain,Poor Balance Comments Gait Comments lack of L hip extension noted. Pt uses L trunk rotation and L hip hike during swing phase of LLE; WBOS L is more externally rotated. PT-OP-J Posture/Palpation/Skin Start: 10/21/20 14:36 Freq: Status: Active Protocol: Document 10/21/20 14:39 HH (Rec: 10/21/20 15:12 HH [email or web address]) Posture Evaluation Position Standing Pelvis Posture Anteriorly Tilted Hip Posture (L) Flexed,(R) Flexed,(L) Externally Rotated,(R) Externally Rotated Knee Posture (L) Excess Flexion,(R) Excess Flexion Comments Posture Comments significant anterior pelvic tilt in standing position noted L worse than R PT-OP-K Range of Motion Start: 10/21/20 14:36 Freq: Status: Active Protocol: Document 10/21/20 14:39 HH (Rec: 10/21/20 15:12 [email or web address]) Lumbar Spine Range of Motion Lumbar Spine Active Degrees Comments pt lies in supine but lumbar unable to touch the table and LLE unable to straighten d/t L hip pain toe touch test = 7 inches from floor extension = neutral lateral flexion r= 20 L= 19 Hip Goniometric Range of Motion Hip Left Passive Hip ROM WFL No Testing Position Supine Internal Rotation 0 External Rotation 35 Comments IR and ER at hip 90 degrees flexion figure 4 position (ER) 10 inches from the table Right Passive Hip ROM WFL No Testing Position Supine Internal Rotation 0 External Rotation 45 Comments IR and ER at hip 90 degrees flexion figure 4 position (ER) 8 inches from the table Hip ROM Limitations Hip ROM Limitations Pain PT-OP-L Special Tests Start: 10/21/20 14:36 Freq: Status: Active Protocol: Document 10/21/20 14:39 HH (Rec: 10/21/20 15:12 [email or web address]) Special Tests Lumbar Spine Special Tests Alfonzo Test Results +VE L>R Comments sig groin pain reproduced on L , knee off table by 3x degrees Hip Special Tests FADDIR Test Results +ve L Scour Test Test Results +VE L Comments pain with axial pressure JIMENA Test Results +vE L Comments pain hip jointline PT-OP-M Strength Start: 10/21/20 14:36 Freq: Status: Active Protocol: Document 10/21/20 14:39 HH (Rec: 10/21/20 15:12 [email or web address]) Hip Strength Hip Manual Muscle Testing Right Flexion (L2) 4 Good Extension (S1) 4 Good Abduction 4 Good Adduction 4 Good Left Flexion (L2) 4- Good- Extension (S1) 3+ Fair+ Abduction 4- Good- Adduction 4- Good- PT-OP-Q Treatments Start: 10/21/20 14:36 Freq: Status: Active Protocol: Document 12/16/20 14:34 HH (Rec: 12/16/20 15:14 [id number]) Cardio Equipment Recumbent Stepper (Sci-Fit) Duration (Minutes) 8 Resistance 3.0 Seat Position 8 Gym Equipment Shuttle Recovery B squat Resistance #75 Shuttle Recovery Platform Stable Reps/Time 15x2 Therapeutic Exercises Sitting Exercises seated flexion Sitting Exercise Name reach toward ankles Side bilateral Reps/Minutes x10 Standing Exercises trunk AROM Standing Exercise Name ankle touch pull against handrail Reps/Minutes 8x2 Gait Training Gait Activity gait Device Used no AD Level of Assistance SBA Surface ground level Distance/Duration 200 x2, 2 sets Comments 1 set= 1min 52sec to complete, HR from 95 up to 124bpm/ mins . 2 mins for HR to recover to baseline. 2nd set: 1min 53 sec for 2 laps. HR 96 to HR 123bpm, recovery 1 min 30 sec to recover baseline. Manual Therapy Treatment Soft Tissue Mobilization lumbar parapinals Body Location lean over on table Mobilization Type Myofascial Release,Sustained Pressure,Trigger Point Release Intensity/Depth Moderate Body Position Sitting PT-OP-R Modalities Start: 10/21/20 14:36 Freq: Status: Active Protocol: Document 12/16/20 14:34 HH (Rec: 12/16/20 15:14 [id number]) Hot Pack/Cold Pack Treatment Hot Pack Location lumbar Patient Position Hooklying Treatment Duration (minutes) 10 Patient Tolerance Good PT-OP-T Assessment and Plan Start: 10/21/20 14:36 Freq: Status: Active Protocol: Document 12/16/20 14:34 (Rec: 12/16/20 15:14 [id number]) Physical Therapy Assessment Goals HEP Impairment pt does not have a HEP Short Term Goal (STG) pt will be compliant to HEP at least 4 times /week 11/20/20: progressing, compliant w/ 2xwk. STG Duration 6 weeks 6MWT Impairment pt walked 850ft Short Term Goal (STG) 11/25.goal met. pt is able to complete 6MWT 935 ft with 1 20 seconds break and HR <120. 11/20/20: Pt progressing gait 200ft in 1 min 51 sec. STG Duration 6 weeks Art Supervisor Goal (LTG) pt will be able to complete 6MWT >1000 ft without rest, HR <120. LTG Duration 12 weeks activity tolerance Impairment unable to walk more than 1 block without breaks Short Term Goal (STG) pt will be able to walk more > 2 blacks twice a week without breaks 11/20/20: progressing, able to do 2 blocks 2x/wk but 1 break during the 2 blocks. STG Duration 6 weeks [facility] Goal (LTG) pt will be able to walk for a mile (2500 steps) twice a week with minimal discomfort LTG Duration 12 weeks pain Impairment pain during walking Short Term Goal (STG) 11/25 goal met . pt has 3/10 pain at both LEs during 6 MWT. 11/20/20: progressing still feel pain better 6/10 but not like it was making me cry. STG Duration 6 weeks Art Supervisor Goal (LTG) pt will improve her LE strength and endurance who will not have pain >2 during a mile walk 2x/week LTG Duration 12 weeks Assessment Summary Assessment spent time again to edcuate pt to consider participating fitness program at [facility]. Pt's progress has been plateaued and pt will be DC next time and pt agreed. Physical Therapy Plan Frequency and Duration Frequency of Treatment 2x/Week Duration of Treatment 12 weeks Plan of Care Start Date 10/21/20 Plan of Care End Date 01/19/21 Therapeutic Interventions Therapeutic Interventions Aquatic Therapy,Balance Training,Gait Training,Home Exercise Program,Joint Mobilizations,Manual Therapy, Neuromuscular Re-education, Patient/Caregiver Education, Self-Care/Home Management,Soft Tissue Mobilization,Taping, Therapeutic Activities, Therapeutic Exercises Modalities Cold Pack/Ice Massage,Electric Stimulation,Hot Packs, Infrared Therapy,Traction- Mechanical,Ultrasound Next Visit Focus/Plan Next Note Type Treatment Note Next Visit Plan Assess response to aerobic bike doing well 40 RPM , sit<>stands 9 in 30 sec HR 104 bpm, calf mobility and endurance gait, manual last tx . Continue per PT POC:hip stretch alfonzo test position lumbar flexion bike, endurance gait and HR recovery
--- NOTE | 2020-12-23 15:12 | PT.OTN ---
Current Diagnoses Myalgia, unspecified site (12/23/20) Physical Therapy Treatment Note PT-OP-A Visit Information Start: 10/21/20 14:36 Freq: Status: Active Protocol: Document 12/23/20 14:58 HH (Rec: 12/23/20 15:12 [id number]) Out-Patient Physical Therapy Visit Information Visit Information Visit Type Discharge Summary Visit Start Time 14:30 Visit Stop Time 15:25 Total Visit Minutes 55 Visit Number 16 Number of CAREER AND GUIDANCE COUNSELOR Visits 0 PT-OP-B Current Condition Start: 10/21/20 14:36 Freq: Status: Active Protocol: Document 10/21/20 14:39 HH (Rec: 10/21/20 15:12 [email or web address]) Current Condition History of Current Condition Onset Date Many years ago Current Complaints Chronic LBP and L anterior hip pain, LLE weakness, poor activity tolerance History of Current Condition Pt is a 69yo female here for chronic LBP, B leg pain , L anterior hip pain and poor activity tolerance. Pt stated her leg pain get worse with increase in activity level ( primarily walking) and her stiffness is the worst in the AM. She can only walk approx. one block without a sitting break. She also has difficulty lying flat since that causes hyperextension of her lowback and she cannot extend her L hip and knee in supine d/t significant L hip tightness. She also stated changing position, Hip stretching and low back stretching tend to relieve her symptoms. Pt was here for PT last year with same issues but her B hip pain has improved but not her activity tolerance. Pt stated she has been lazy keeping up with activity level. Prior Treatments and Tests A1C level at 8.1 recently and her PCP recommended her to take metformin 2x/day Treatment Goals Patient/Caregiver Goals 1. to be able to walk 1 mile few times a week 2. to be able to walk witohut leg pain Current Functional Impairments (Reported) Functional Limitations- Other urinary incontinence Personal Factors Other Personal Factors That May Effect Type 2 Diabetes Therapy/Recovery current smoke who smokes 1pack per day pt recently gained 5 lbs Chronic Hepatitis C PT-OP-C Subjective Start: 10/21/20 14:36 Freq: Status: Active Protocol: Document 12/23/20 14:58 HH (Rec: 12/23/20 15:12 [id number]) OP-PT Subjective Patient Comments Patient Comments My legs are getting better and not as painful. I know how i can help myself at this point. Patient Reported Progress Improving PT-OP-E Functional Tests Start: 10/21/20 14:36 Freq: Status: Active Protocol: Document 11/25/20 12:59 HH (Rec: 11/25/20 13:44 HH [id number]) Functional Tests 6 Minute Walk Test Distance 935 Device Used no AD Comments 20 sec break at 2mins. HR at 128 at the end. took 4 mins to recover to base PT-OP-F Manual Assessment Start: 10/21/20 14:36 Freq: Status: Active Protocol: Document 10/21/20 14:39 HH (Rec: 10/21/20 15:12 HH [email or web address]) Manual Assessments Soft Tissue Assessment Soft Tissue Mobility Assessment significant hypertonicity at L hip flexors and B proximal hip adductors Joint Mobility Assessment Joint Mobility Assessment hard end feel at B hip extension, external/ interal rotation (L worse than R) PT-OP-G Mobility & Gait Start: 10/21/20 14:36 Freq: Status: Active Protocol: Document 10/21/20 14:39 HH (Rec: 10/21/20 15:12 HH [email or web address]) OP Mobility Evaluation Bed Mobility Supine to and from Sit log roll and push up from SL OP Gait Assessment Gait Deviations General Gait Pattern Decreased Stride Length, Decreased Feet Clearance,Wide Based Gait Factors Limiting Gait Function Factors Limiting Gait Function Decreased Activity Tolerance, Decreased Strength,Limited Range of Motion,Pain,Poor Balance Comments Gait Comments lack of L hip extension noted. Pt uses L trunk rotation and L hip hike during swing phase of LLE; WBOS L is more externally rotated. PT-OP-J Posture/Palpation/Skin Start: 10/21/20 14:36 Freq: Status: Active Protocol: Document 10/21/20 14:39 HH (Rec: 10/21/20 15:12 HH [email or web address]) Posture Evaluation Position Standing Pelvis Posture Anteriorly Tilted Hip Posture (L) Flexed,(R) Flexed,(L) Externally Rotated,(R) Externally Rotated Knee Posture (L) Excess Flexion,(R) Excess Flexion Comments Posture Comments significant anterior pelvic tilt in standing position noted L worse than R PT-OP-K Range of Motion Start: 10/21/20 14:36 Freq: Status: Active Protocol: Document 10/21/20 14:39 HH (Rec: 10/21/20 15:12 [email or web address]) Lumbar Spine Range of Motion Lumbar Spine Active Degrees Comments pt lies in supine but lumbar unable to touch the table and LLE unable to straighten d/t L hip pain toe touch test = 7 inches from floor extension = neutral lateral flexion r= 20 L= 19 Hip Goniometric Range of Motion Hip Left Passive Hip ROM WFL No Testing Position Supine Internal Rotation 0 External Rotation 35 Comments IR and ER at hip 90 degrees flexion figure 4 position (ER) 10 inches from the table Right Passive Hip ROM WFL No Testing Position Supine Internal Rotation 0 External Rotation 45 Comments IR and ER at hip 90 degrees flexion figure 4 position (ER) 8 inches from the table Hip ROM Limitations Hip ROM Limitations Pain PT-OP-L Special Tests Start: 10/21/20 14:36 Freq: Status: Active Protocol: Document 10/21/20 14:39 HH (Rec: 10/21/20 15:12 [email or web address]) Special Tests Lumbar Spine Special Tests Alfonzo Test Results +VE L>R Comments sig groin pain reproduced on L , knee off table by 3x degrees Hip Special Tests FADDIR Test Results +ve L Scour Test Test Results +VE L Comments pain with axial pressure JIMENA Test Results +vE L Comments pain hip jointline PT-OP-M Strength Start: 10/21/20 14:36 Freq: Status: Active Protocol: Document 10/21/20 14:39 HH (Rec: 10/21/20 15:12 [email or web address]) Hip Strength Hip Manual Muscle Testing Right Flexion (L2) 4 Good Extension (S1) 4 Good Abduction 4 Good Adduction 4 Good Left Flexion (L2) 4- Good- Extension (S1) 3+ Fair+ Abduction 4- Good- Adduction 4- Good- PT-OP-Q Treatments Start: 10/21/20 14:36 Freq: Status: Active Protocol: Document 12/23/20 14:58 HH (Rec: 12/23/20 15:12 [id number]) Cardio Equipment Recumbent Stepper (Sci-Fit) Duration (Minutes) 8 Resistance 3.0 Seat Position 8 Gym Equipment Shuttle Recovery B squat Resistance #75 Shuttle Recovery Platform Stable Reps/Time 15x2 Gait Training Gait Activity gait Device Used no AD Level of Assistance SBA Surface ground level Distance/Duration 200 x2, 2 sets Comments 1 set= 1min 52sec to complete, HR from 95 up to 124bpm/ mins . 2 mins for HR to recover to baseline. 2nd set: 1min 53 sec for 2 laps. HR 96 to HR 123bpm, recovery 1 min 30 sec to recover baseline. Manual Therapy Treatment Soft Tissue Mobilization lumbar parapinals Body Location lean over on table Mobilization Type Myofascial Release,Sustained Pressure,Trigger Point Release Intensity/Depth Moderate Body Position Sitting PT-OP-R Modalities Start: 10/21/20 14:36 Freq: Status: Active Protocol: Document 12/23/20 15:12 HH (Rec: 12/23/20 15:12 HH [id number]) Hot Pack/Cold Pack Treatment Hot Pack Location lumbar Patient Position Hooklying Treatment Duration (minutes) 10 Patient Tolerance Good PT-OP-T Assessment and Plan Start: 10/21/20 14:36 Freq: Status: Active Protocol: Document 12/23/20 14:58 HH (Rec: 12/23/20 15:12 HH [id number]) Physical Therapy Assessment Goals HEP Impairment pt does not have a HEP Short Term Goal (STG) pt will be compliant to HEP at least 4 times /week 11/20/20: progressing, compliant w/ 2xwk. STG Duration 6 weeks 6MWT Impairment pt walked 850ft Short Term Goal (STG) 11/25.goal met. pt is able to complete 6MWT 935 ft with 1 20 seconds break and HR <120. 11/20/20: Pt progressing gait 200ft in 1 min 51 sec. STG Duration 6 weeks [facility]dc Goal (LTG) pt will be able to complete 6MWT >1000 ft without rest, HR <120. LTG Duration 12 weeks activity tolerance Impairment unable to walk more than 1 block without breaks Short Term Goal (STG) pt will be able to walk more > 2 blacks twice a week without breaks 11/20/20: progressing, able to do 2 blocks 2x/wk but 1 break during the 2 blocks. STG Duration 6 weeks [facility] Goal (LTG) pt will be able to walk for a mile (2500 steps) twice a week with minimal discomfort LTG Duration 12 weeks pain Impairment pain during walking Short Term Goal (STG) 11/25 goal met . pt has 3/10 pain at both LEs during 6 MWT. 11/20/20: progressing still feel pain better 6/10 but not like it was making me cry. STG Duration 6 weeks [facility] Goal (LTG) 12/23 goal met pt has no more pain >2/10 during her walks LTG Duration 12 weeks Assessment Summary Assessment Pt hsa been progressing well with less leg pain during her walks. Pt currently has a whole set of HEP to manage her pain and mobility. recommended pt to participate fitness class/ pool class at [facility] for maintainence program. Pt agreed to be DC from PT. Physical Therapy Plan Frequency and Duration Frequency of Treatment 2x/Week Duration of Treatment 12 weeks Plan of Care Start Date 10/21/20 Plan of Care End Date 01/19/21
== END 2021-03-26 15:00 | disposition home or self-care (01) ==
LOC: PHYS 14:30
PROVIDERS: PCP Internal Medicine; Referring Provider Internal Medicine; Visit Provider Internal Medicine
DX: M79.10 Myalgia, unspecified site (principal)
CPT/HCPCS: 97110; 97116; 97140; 97162

== ENCOUNTER 2021-02-13 18:07 | Inpatient (IN) | payer MEDICARE, OTHER, SELFPAY ==
[2021-02-13] VITALS (14 sets, daily range): BP systolic 136–191; BP diastolic 60–76; PULSE 97–116; RESP 18–43; TEMP 37.1–39.1; O2SAT 93–95; BMI 31.1; BMI 31.0
--- NOTE | 2021-02-13 18:23 | DI.RAD.S_ITS ---
PROCEDURE: XR CHEST 1V INDICATIONS: suspected sepsis TECHNIQUE: One view of the chest was acquired. COMPARISON: Located Within [facility], , CHEST 2 VIEW, 06/03/2008, 14:36. FINDINGS: Surgical changes and devices: None. Lungs and pleura: Lungs are clear. No pleural effusions or pneumothorax. Mediastinum: Mediastinal contours appear normal. Heart size is normal. Bones and chest wall: No suspicious bony lesions. Overlying soft tissues appear unremarkable. IMPRESSION: No acute cardiopulmonary pathology. Dictated by: William Varner M.D. on 02/13/2021 at 18:44 Approved by: William Varner M.D. on 02/13/2021 at 18:44
[2021-02-13] MEDS: SODIUM CHLORIDE 0.9% 1,000 ML 1000 ML IV ×2 (18:47→21:42)
[2021-02-13 19:06] LABS: COVID19 -Nasal RAPID Negative (Negative)
[2021-02-13 19:06] LABS: Add Manual Diff / Slide Review NO; Basophils Absolute Auto 100 /uL (0-100); Basophils Percent Auto 0.4 % (0-2); Eosinophils Absolute Auto 0 /uL (0-450); Hematocrit 39.7 % (36-46); Hemoglobin 13.1 g/dL (12.0-16.0); Lymphocytes Absolute Auto 2200 /uL (1100-4500); Lymphocytes Percent Auto 14.8 % (25-40); Mean Corpuscular Hemoglobin 28.9 PG (26-34); Mean Corpuscular Volume 87.5 fL (80-100); Monocytes Absolute Auto 1800 /uL (0-900); Monocytes Percent Auto 12.1 % (3-14); Neutrophils Absolute Auto 10800 /uL (1500-7000); Neutrophils Percent Auto 72.7 % (50-75); Platelet Count 275 X10^3/uL (150-400); Red Blood Cell Count 4.54 X10^6/uL (4.0-5.2); Red Cell Distribution Width 13.4 % (11.6-14.8); White Blood Cell Count 14.9 X10^3/uL (4.5-11.0)
[2021-02-13 19:22] LABS: Alanine Aminotransferase 31 IU/L (<35); Albumin 4.1 g/dL (3.5-5.0); Albumin Globulin Ratio 1.1 (1.0-2.8); Alkaline Phosphatase 91 U/L (38-126); Aspartate Aminotransferase 25 IU/L (14-36); BUN Creatinine Ratio 18.1 (6-22); Bilirubin Total 0.7 mg/dL (0.2-1.3); Blood Urea Nitrogen 13 mg/dL (7-17); Calcium 9.2 mg/dL (8.4-10.2); Carbon Dioxide 25 mmol/L (22-32); Chloride 100 mmol/L (98-107); Estimated Glomerular Filt Rate > 60.0 mL/min (>60); Globulin 3.6 g/dL (1.7-4.1); Glucose 123 mg/dL (80-110); HEMOLYSIS < 15 (0-50); Lipase 11 U/L (23-300); Potassium 3.9 mmol/L (3.4-5.1); Sodium 134 mmol/L (137-145); Total Protein 7.7 g/dL (6.3-8.2)
[2021-02-13 19:39] LABS: Procalcitonin 0.17 ng/mL (<0.5)
[2021-02-13 20:23] LABS: Appearance Urine UA CLOUDY; Bilirubin Urine UA NEGATIVE (NEGATIVE); Color Urine UA YELLOW; Glucose Urine UA NEGATIVE (Negative); Ketones Urine UA NEGATIVE (NEGATIVE); Leukocyte Esterase Urine UA 2+ (NEGATIVE); Nitrite Urine UA POSITIVE (Negative); Occult Blood Urine UA 2+ (Negative); Protein Urine UA 1+ (Negative); Specific Gravity Urine UA <=1.005 (1.000-1.035); Urobilinogen Urine UA 0.2 E.U./dL (0.2)
[2021-02-13 20:27] LABS: pH Urine UA 5.5 (4.5-8.0)
[2021-02-13 20:28] LABS: Bacteria Urine Moderate (10-30); Culture Indicated Urine Specimen Cultured; RBC Urine 0-1/HPF (0-5/HPF); WBC Urine >100/HPF (0-5/HPF)
--- NOTE | 2021-02-13 21:09 | DI.RAD.S_ITS ---
PROCEDURE: XR ABDOMEN 1V INDICATIONS: distention TECHNIQUE: One view of the abdomen acquired. COMPARISON: None. FINDINGS: Surgical changes and devices: None. Bowel: Bowel gas pattern is nonobstructive. No gross peritoneal free air. Moderate fecal stasis throughout the colon is seen. Soft tissues: No suspicious abdominal calcifications. Visualized solid organ contours appear normal in size. Bones: No suspicious bony lesions. IMPRESSION: Constipation and mild fecal impaction. No gross free air. Dictated by: William Varner M.D. on 02/13/2021 at 21:35 Approved by: William Varner M.D. on 02/13/2021 at 21:35
--- NOTE | 2021-02-13 21:20 | ED_ITS ---
HPI - General Adult General Chief complaint: Diabetic Problem Stated complaint: 3 DAY TYPE 2 DIABETIC DEHYDRATION Time Seen by Provider: 02/13/21 18:41 Source: patient Mode of arrival: Wheelchair Limitations: no limitations History of Present Illness HPI narrative: 70-year-old woman with 3-4 days of increasing aches and pains of various varieties of which she is unable to be completely specific. She believes that she does have diabetes and high blood pressure. She notes that she has had some abdominal pain, some mild dysuria, perhaps some body aches, she is unclear on whether she has had a fever, she denies is palpitations or cough and states that her last bowel movement was 2-3 days ago which is relatively normal for her. She has some mild right flank/side pain. She describes no skin findings and no acute neurologic change. Related Data Home Medications Medication Instructions Recorded Confirmed ASPIRIN (#ASPIR-CHERELLE) 325 mg PO HS #0 09/21/11 02/13/21 metformin 500 mg tablet,extended 500 mg PO BID 02/13/21 02/13/21 release 24 hr (Glucophage XR) paroxetine HCl 40 mg tablet (Paxil) 20 mg PO QPM 02/13/21 02/13/21 Previous Rx's Medication Instructions Recorded valsartan 80 mg tablet (Diovan) 40 mg PO DAILY #90 tab 11/30/19 atorvastatin 20 mg tablet (Lipitor) 20 mg PO HS #90 tab 06/05/20 Allergies Allergy/AdvReac Type Severity Reaction Status Date / Time No Known Drug Allergies Allergy Verified 02/13/21 18:19 Review of Systems Review of Systems Narrative: Remainder of complete review of systems is otherwise unremarkable except for that included in the HPI. Patient History Medical History Chronic hepatitis C Depression (Unknown) Diabetes (Unknown) Diabetes mellitus type 2, uncomplicated History of CVA (cerebrovascular accident) (~2011) Hx of TIA (transient ischemic attack) and stroke (~2011) Hyperlipemia (Unknown) Hypertension (Unknown) Osteopenia (07/2016) Surgical History History of elective History of elective Status post tubal ligation Family History Mother Breast cancer Social History household members: spouse Smoking Status: Current every day smoker Tobacco: How many years used: 44 quit status: considering quitting alcohol intake: never Smoking Status: Current every day smoker Substance Use Type: does not use Exam Narrative Exam Narrative: General: Healthy appearing, in no acute distress. Able to give a rambling history. Well-nourished well-developed HEENT: Moist mucous membranes, normal sclera with reactive pupils, Neck: No JVD, supple Respiratory: Lungs are clear to auscultation, no wheezing no rales no rhonchi. Full and symmetrical air movement Cardiac: Mild tachycardia but otherwise Regular rate and rhythm no murmurs no bruits Abdomen: Distended, mildly tender diffusely without rebound or guarding. Hypoactive to absent bowel tones. Question of right CVA tenderness Skin: Warm and dry, no rashes Neurologic: Grossly neurologically intact with no obvious asymmetries or abnormalities Extremities: No trauma, well perfused Psych: Cooperative, slightly confused and overall poor insight Initial Vital Signs Initial Vital Signs: Vital Signs Temperature 100.4 F H 02/13/21 18:19 Pulse Rate 106 H 02/13/21 18:19 Respiratory Rate 21 02/13/21 18:19 Blood Pressure 149/66 H 02/13/21 18:19 Pulse Oximetry 95 02/13/21 18:19 Course Orders Ordered: ED Orders 02/13/21 21:25 CT abdomen pelvis w con Stat 02/13/21 22:31 US pelvic complete Routine 02/13/21 22:45 Complete Blood Count NO DIFF DAILY Comprehensive Metabolic Panel DAILY Acetaminophen (Acetaminophen 325 Mg Tablet) 650 mg PO Q6HR PRN PRN Reason: Fever/Mild Pain (1-3) Hydromorphone HCl (Hydromorphone 0.5 Mg Inj) 0.5 mg IV Q2H PRN PRN Reason: Pain, Severe (7-10) Last Admin: 02/14/21 04:44 Dose: 0.5 mg Documented by: Admin: 02/14/21 02:48 Dose: 0.5 mg Documented by: LAURA Sodium Chloride (Normal Saline 0.9%) 1,000 mls @ 125 mls/hr IV CONT KALI Last Admin: 02/13/21 23:43 Dose: 125 mls/hr Documented by: LAURA Ondansetron HCl (Ondansetron 4 Mg/2 Ml Inj) 4 mg IV Q4HR PRN PRN Reason: Nausea And Vomiting Discontinued Medications Sodium Chloride (Normal Saline 0.9%) 1,000 mls @ 1,000 mls/hr IV BOLUS ONE Stop: 02/13/21 19:22 Last Infusion: 02/13/21 19:54 Dose: 0 mls/hr Documented by: Admin: 02/13/21 18:47 Dose: 1,000 mls/hr Documented by: CHRIS Ceftriaxone Sodium 2,000 mg/ (Sodium Chloride) 100 mls @ 200 mls/hr IV NOW ONE Stop: 02/13/21 21:10 Last Infusion: 02/13/21 22:20 Dose: 0 mls/hr Documented by: Admin: 02/13/21 21:42 Dose: 200 mls/hr Documented by: TERENCE Sodium Chloride (Normal Saline 0.9%) 1,000 mls @ 1,000 mls/hr IV BOLUS ONE Stop: 02/13/21 22:08 Last Admin: 02/13/21 21:42 Dose: 1,000 mls/hr Documented by: TERENCE Ketorolac Tromethamine (Ketorolac 30 Mg/Ml Vial) 15 mg IV NOW ONE Stop: 02/13/21 22:16 Last Admin: 02/13/21 22:18 Dose: 15 mg Documented by: TERENCE Vital Signs Vital signs: Vital Signs - 8 hr 02/13/21 18:19 02/13/21 18:51 02/13/21 18:52 Temperature 100.4 F H Pulse Rate 106 H 105 H 101 H Respiratory Rate 21 39 H 33 H Blood Pressure 149/66 H 167/72 H Pulse Oximetry 95 95 95 02/13/21 19:00 02/13/21 19:30 02/13/21 20:00 Temperature Pulse Rate 100 H 105 H 105 H Respiratory Rate 29 H 35 H 28 H Blood Pressure 166/72 H 191/72 H Pulse Oximetry 95 94 94 02/13/21 20:13 02/13/21 20:30 02/13/21 20:46 Temperature Pulse Rate 107 H 114 H 106 H Respiratory Rate 25 H 43 H 24 Blood Pressure 186/72 H 169/71 H Pulse Oximetry 95 93 93 02/13/21 21:00 02/13/21 21:30 02/13/21 21:45 Temperature Pulse Rate 107 H 101 H 116 H Respiratory Rate 31 H 37 H 36 H Blood Pressure 180/76 H Pulse Oximetry 93 94 94 02/13/21 22:00 Temperature 102.3 F H Pulse Rate 102 H Respiratory Rate 31 H Blood Pressure 178/76 H Pulse Oximetry 93 Medical Decision Making Lab Data Result diagrams: 02/13/21 18:41 02/13/21 18:41 Labs: Lab Results 02/13/21 02/13/21 02/13/21 Range/Units 18:25 18:41 18:41 WBC 14.9 H (4.5-11.0) X10^3/uL RBC 4.54 (4.0-5.2) X10^6/uL Hgb 13.1 (12.0-16.0) g/dL Hct 39.7 (36-46) % MCV 87.5 (80-100) fL MCH 28.9 (26-34) PG MCHC 33.0 (30-36) % RDW 13.4 (11.6-14.8) % Plt Count 275 (150-400) X10^3/uL Neut % (Auto) 72.7 (50-75) % Lymph % (Auto) 14.8 L (25-40) % [place] % (Auto) 12.1 (3-14) % Eos % (Auto) 0.0 L (2-4) % Baso % (Auto) 0.4 (0-2) % Neut # (Auto) 40829 H (0067-7935) /uL Lymph # (Auto) 2200 (4608-0865) /uL [place] # (Auto) 1800 H (0-900) /uL Eos # (Auto) 0 (0-450) /uL Baso # (Auto) 100 (0-100) /uL Sodium 134 L (137-145) mmol/L Potassium 3.9 (3.4-5.1) mmol/L Chloride 100 (98-107) mmol/L Carbon Dioxide 25 (22-32) mmol/L BUN 13 (7-17) mg/dL Creatinine 0.72 (0.52-1.04) mg/dL Estimated GFR > 60.0 (>60) mL/min BUN/Creatinine Ratio 18.1 (6-22) Glucose 123 H (80-110) mg/dL Lactate (0.7-2.1) mmol/L Calcium 9.2 (8.4-10.2) mg/dL Total Bilirubin 0.7 (0.2-1.3) mg/dL AST 25 (14-36) IU/L ALT 31 (<35) IU/L Alkaline Phosphatase 91 (38-126) U/L Total Protein 7.7 (6.3-8.2) g/dL Albumin 4.1 (3.5-5.0) g/dL Globulin 3.6 (1.7-4.1) g/dL Albumin/Globulin Ratio 1.1 (1.0-2.8) Lipase 11 L (23-300) U/L CA 125 Antigen (0-35) U/mL Procalcitonin 0.17 (<0.5) ng/mL Urine Color Urine Appearance Urine pH (4.5-8.0) Ur Specific [place] (1.000-1.035) Urine Protein (Negative) Urine Glucose (UA) (Negative) g/dL Urine Ketones (NEGATIVE) Urine Occult Blood (Negative) Urine Nitrate (Negative) Urine Bilirubin (NEGATIVE) Urine Urobilinogen (0.2) E.U./dL Ur Leukocyte Esterase (NEGATIVE) Urine RBC (0-5/HPF) Urine WBC (0-5/HPF) Urine Bacteria (None) Ur Culture Indicated? SARS-CoV-2 (PCR) Negative (Negative) 02/13/21 02/13/21 02/13/21 Range/Units 18:41 18:41 20:06 WBC (4.5-11.0) X10^3/uL RBC (4.0-5.2) X10^6/uL Hgb (12.0-16.0) g/dL Hct (36-46) % MCV (80-100) fL MCH (26-34) PG MCHC (30-36) % RDW (11.6-14.8) % Plt Count (150-400) X10^3/uL Neut % (Auto) (50-75) % Lymph % (Auto) (25-40) % [place] % (Auto) (3-14) % Eos % (Auto) (2-4) % Baso % (Auto) (0-2) % Neut # (Auto) (6829-8129) /uL Lymph # (Auto) (1119-9579) /uL [place] # (Auto) (0-900) /uL Eos # (Auto) (0-450) /uL Baso # (Auto) (0-100) /uL Sodium (137-145) mmol/L Potassium (3.4-5.1) mmol/L Chloride (98-107) mmol/L Carbon Dioxide (22-32) mmol/L BUN (7-17) mg/dL Creatinine (0.52-1.04) mg/dL Estimated GFR (>60) mL/min BUN/Creatinine Ratio (6-22) Glucose (80-110) mg/dL Lactate 1.0 (0.7-2.1) mmol/L Calcium (8.4-10.2) mg/dL Total Bilirubin (0.2-1.3) mg/dL AST (14-36) IU/L ALT (<35) IU/L Alkaline Phosphatase (38-126) U/L Total Protein (6.3-8.2) g/dL Albumin (3.5-5.0) g/dL Globulin (1.7-4.1) g/dL Albumin/Globulin Ratio (1.0-2.8) Lipase (23-300) U/L CA 125 Antigen 9.8 (0-35) U/mL Procalcitonin (<0.5) ng/mL Urine Color Yellow Urine Appearance Cloudy Urine pH 5.5 (4.5-8.0) Ur Specific [place] <=1.005 (1.000-1.035) Urine Protein 1+ H (Negative) Urine Glucose (UA) Negative (Negative) g/dL Urine Ketones Negative (NEGATIVE) Urine Occult Blood 2+ H (Negative) Urine Nitrate Positive H (Negative) Urine Bilirubin Negative (NEGATIVE) Urine Urobilinogen 0.2 (0.2) E.U./dL Ur Leukocyte Esterase 2+ H (NEGATIVE) Urine RBC 0-1/hpf (0-5/HPF) Urine WBC >100/hpf H (0-5/HPF) Urine Bacteria Moderate (10-30) H (None) Ur Culture Indicated? Specimen cultured SARS-CoV-2 (PCR) (Negative) Imaging Data CT scan - abdomen/pelvis: Radiologist's Impression: FINDINGS: Image quality: Excellent. Lung bases: Dependent atelectasis in posterior aspect of bilateral lung bases are seen Heart: No significant findings. ABDOMEN: Liver: There is hepatomegaly and hepatic steatosis, no discrete hepatic lesion. Gallbladder: Unremarkable. Biliary ducts: Unremarkable. Pancreas: Unremarkable. Spleen: Unremarkable. Adrenal Glands: Thickened left adrenal gland is seen with suggestion of 9 mm left adrenal hypodense nodule series 2, image 21. Kidneys and Ureters: No renal stones or hydronephrosis. Bilateral renal cysts are seen measures up to 2.6 x 1.9 cm in size in midpole of left kidney and 2.4 x 2.4 cm in size in midpole of right kidney. There is no hydroureter. Stomach and Bowel: There is no bowel obstruction. No abnormal bowel wall thickening or mesenteric fat stranding. No abscess collection. Sigmoid diverticulosis is seen, no CT evidence of acute diverticulitis. Peritoneum: No abnormal intraperitoneal fluid. No free air. Ventral Wall: No hernias. Abdominal Nodes: No retroperitoneal or mesenteric adenopathy by size criteria. Vessels: Aorta and inferior vena cava are normal in size. PELVIS: Pelvic Organs: Uterus and left adnexa show no gross abnormality. Lobulated mixed solid and cystic density structure in right adnexa is seen measures 6.3 x 7.7 x 7.1 cm in size series 2, image 63 and series 4, image 48. 6 thick component measures up to 4.3 x 4.4 x 4.8 cm in size. Bladder: Unremarkable. Pelvic Nodes: No enlarged lymph nodes. Miscellaneous: No hernias are seen. Bones: Unremarkable. IMPRESSION: 1. Lobulated mixed solid and cystic density structure in right adnexa measures up to 6.3 x 7.7 x 7.1 cm in size as described above. Finding is concerning for cystic n eoplasm of right ovarian origin. Further evaluation with ultrasound and/or MRI of pelvis can be done. 2. No gross abnormality is seen in uterus and left adnexa. 3. Hepatomegaly and hepatic steatosis. No discrete hepatic lesion. 4. Multiple bilateral renal cysts. No hydronephrosis or hydroureter. 5. Sigmoid diverticulosis without CT evidence of acute diverticulitis. No bowel obstruction. No free fluid or free air. Dictated by: William Varner M.D. on 02/13/2021 at 21:44 MDM Narrative Medical decision making narrative: 70-year-old woman with 3 days of increasing general symptoms including abdominal pain generally, feeling unwell, low-grade fevers and the multitude of nonspecific malaise type complaints. It is unclear if her slightly altered mental status an inability to clearly explain her complaints is her baseline or related to her underlying urinary tract infection. She clearly has a urinary tract infection elevated white count and significantly distended abdomen. She has an incidentally noted adnexal mass that will need further evaluation but does not appear to be acutely involved in current issues. She is not septic at this time but with the mild confusion, obvious urinary tract infection and pain will be admitted for fluids, IV antibiotics. Care is reviewed with Dr. Pedersen on-call for Dr. Stallings. Bridging orders are written. Patient is safe for transfer to the floor. Discharge Plan Departure Patient Disposition: Admitted As Inpatient Clinical Impression: Acute UTI, Adnexal mass Abdominal pain Qualifiers: Abdominal location: generalized Qualified Code(s): R10.84 - Generalized abdominal pain Admit Date/Time: 02/13/21 22:32 Admit Provider: Genoveva Pedersen
--- NOTE | 2021-02-13 21:25 | DI.CT.S_ITS ---
PROCEDURE: CT ABDOMEN PELVIS W CON INDICATIONS: abdominal pain and distention TECHNIQUE: After the administration of intravenous contrast, axial sections acquired from the lung bases to the pubic symphysis. Coronal and sagittal reformats were performed. For radiation dose reduction, the following was used: automated exposure control, adjustment of mA and/or kV according to patient size. COMPARISON: None. FINDINGS: Image quality: Excellent. Lung bases: Dependent atelectasis in posterior aspect of bilateral lung bases are seen Heart: No significant findings. ABDOMEN: Liver: There is hepatomegaly and hepatic steatosis, no discrete hepatic lesion. Gallbladder: Unremarkable. Biliary ducts: Unremarkable. Pancreas: Unremarkable. Spleen: Unremarkable. Adrenal Glands: Thickened left adrenal gland is seen with suggestion of 9 mm left adrenal hypodense nodule series 2, image 21. Kidneys and Ureters: No renal stones or hydronephrosis. Bilateral renal cysts are seen measures up to 2.6 x 1.9 cm in size in midpole of left kidney and 2.4 x 2.4 cm in size in midpole of right kidney. There is no hydroureter. Stomach and Bowel: There is no bowel obstruction. No abnormal bowel wall thickening or mesenteric fat stranding. No abscess collection. Sigmoid diverticulosis is seen, no CT evidence of acute diverticulitis. Peritoneum: No abnormal intraperitoneal fluid. No free air. Ventral Wall: No hernias. Abdominal Nodes: No retroperitoneal or mesenteric adenopathy by size criteria. Vessels: Aorta and inferior vena cava are normal in size. PELVIS: Pelvic Organs: Uterus and left adnexa show no gross abnormality. Lobulated mixed solid and cystic density structure in right adnexa is seen measures 6.3 x 7.7 x 7.1 cm in size series 2, image 63 and series 4, image 48. 6 thick component measures up to 4.3 x 4.4 x 4.8 cm in size. Bladder: Unremarkable. Pelvic Nodes: No enlarged lymph nodes. Miscellaneous: No hernias are seen. Bones: Unremarkable. IMPRESSION: 1. Lobulated mixed solid and cystic density structure in right adnexa measures up to 6.3 x 7.7 x 7.1 cm in size as described above. Finding is concerning for cystic neoplasm of right ovarian origin. Further evaluation with ultrasound and/or MRI of pelvis can be done. 2. No gross abnormality is seen in uterus and left adnexa. 3. Hepatomegaly and hepatic steatosis. No discrete hepatic lesion. 4. Multiple bilateral renal cysts. No hydronephrosis or hydroureter. 5. Sigmoid diverticulosis without CT evidence of acute diverticulitis. No bowel obstruction. No free fluid or free air. Dictated by: William Varner M.D. on 02/13/2021 at 21:44 Approved by: William Varner M.D. on 02/13/2021 at 21:51
[2021-02-13] MEDS: cefTRIAXone 2,000 MG in SODIUM CHLORIDE 0.9% 100 ML 200 ML IV (21:42)
[2021-02-13] MEDS: KETOROLAC 30 MG/ML VIAL 15 MG IV (22:18)
[2021-02-13 23:23] LABS: Cancer Antigen 125 9.8 U/mL (0-35)
[2021-02-13] MEDS: SODIUM CHLORIDE 0.9% 1,000 ML 125 ML IV (23:43)
[2021-02-14] VITALS (10 sets, daily range): BP systolic 113–147; BP diastolic 59–72; PULSE 61–98; RESP 17–18; TEMP 36.4–37.2; O2SAT 91–97
[2021-02-14] MEDS: HYDROMORPHONE 0.5 MG INJ IV ×5 (02:48→19:25)
[2021-02-14 07:00] LABS: Hematocrit 36.1 % (36-46); Hemoglobin 12.1 g/dL (12.0-16.0); Mean Corpuscular HGB Conc 33.6 % (30-36); Mean Corpuscular Hemoglobin 29.3 PG (26-34); Mean Corpuscular Volume 87.1 fL (80-100); Platelet Count 250 X10^3/uL (150-400); Red Blood Cell Count 4.14 X10^6/uL (4.0-5.2); Red Cell Distribution Width 13.6 % (11.6-14.8); White Blood Cell Count 15.7 X10^3/uL (4.5-11.0)
[2021-02-14 07:07] LABS: Alanine Aminotransferase 24 IU/L (<35); Albumin 3.5 g/dL (3.5-5.0); Alkaline Phosphatase 70 U/L (38-126); Aspartate Aminotransferase 23 IU/L (14-36); BUN Creatinine Ratio 17.4 (6-22); Bilirubin Total 0.5 mg/dL (0.2-1.3); Blood Urea Nitrogen 12 mg/dL (7-17); Calcium 8.3 mg/dL (8.4-10.2); Carbon Dioxide 24 mmol/L (22-32); Chloride 107 mmol/L (98-107); Estimated Glomerular Filt Rate > 60.0 mL/min (>60); Globulin 3.4 g/dL (1.7-4.1); Glucose 110 mg/dL (80-110); HEMOLYSIS < 15 (0-50); Potassium 3.8 mmol/L (3.4-5.1); Sodium 137 mmol/L (137-145); Total Protein 6.9 g/dL (6.3-8.2)
[2021-02-14] MEDS: SODIUM CHLORIDE 0.9% 1,000 ML 125 ML IV (08:01)
[2021-02-14] MEDS: ACETAMINOPHEN 325 MG TABLET 650 MG PO ×3 (08:01→18:53)
--- NOTE | 2021-02-14 09:00 | DI.US.S_ITS ---
PROCEDURE: US PELVIC COMPLETE INDICATIONS: RIGHT ADNEXAL MASS ON CT TECHNIQUE: Real-time scanning was performed of the pelvic organs, with image documentation. Additional endovaginal scanning was necessary due to incomplete visualization of the adnexal and endometrial structures by transabdominal scanning. COMPARISON: [facility], CT, CT ABDOMEN PELVIS W CON, 02/13/2021, 21:28. FINDINGS: Uterus: Uterus is normal in size at 6.0 x 3.0 x 4.3 cm. The endometrium measures 12.0 mm in combined thickness. Ovaries: The right adnexa, there is a 8.9 x 5.0 x 5.7 cm solid and cystic mass lesion with peripheral vascularity. There is a separate 5 x 5.4 cm cystic component as well. Separate ovary is not distinctly identified. Left ovary is not seen. Other: No pathologic free abdominal or pelvic fluid. IMPRESSION: Solid and cystic right adnexal mass lesion concerning for cystic neoplasm. Consider further evaluation with contrast MRI. Dictated by: Odell Quach M.D. on 02/14/2021 at 17:19 Approved by: Odell Quach M.D. on 02/14/2021 at 17:38
--- NOTE | 2021-02-14 11:27 | CM.DANOTE ---
Addendum entered by Sarah Kraft R.N. 02/15/21 13:23: Nursing can start Tuesday02/19/20 Addendum entered by Sarah Kraft R.N. 02/15/21 13:23: Home health referral sent to [facility] for nursing Original Note: DCP: Case received, EMR reviewed and met with patient. Introduced self and role. Was able to obtain information regarding patient's baseline activity level prior to hospitalization, as well as her current living situation. Patient is a 70 year old female who admitted yesterday evening to the care of the hospitalist team. PCP: Dr. Stallings. Payer: confirmed: Medicare/. Patient came to the hospital via private vehicle secondary to having some weakness/dehydration. Patient has history of diabetes type 2. She holds current diagnosis of UTI secondary to dehydration. Patient had also come in with a distended abdomen. Met with patient in her room. She was laying in bed, alert and oriented. Confirmed with her that she resides here in [place] with her spouse, Adolfo. She confirmed that she is diabetic, and also, that she is independent at her baseline. P: DCP to continue to follow, and will be available for any needs. She should be able to go home when she is deemed medically stable. Sara Adams RN/Supervisory Lifeguard
[2021-02-14 13:22] LABS: NT-proBNP (BNP-Adult 18+) 458 pg/mL (<125)
[2021-02-14 13:30] LABS: Procalcitonin 0.17 ng/mL (<0.5)
--- NOTE | 2021-02-14 13:49 | P.HP_ITS ---
History of Present Illness History of Present Illness Date Patient Seen: 02/14/21 Time Patient Seen: 13:49 Date of Onset of Symptoms: 02/11/21 Chief complaint: 3 DAY TYPE 2 DIABETIC DEHYDRATION Narrative: This is a pleasant 70-year-old female who is under the primary care of Dr. Vinh Stallings. She presented to emergency department for evaluation of abdominal pain with fever and was found to have a urinary tract infection with concern for possible sepsis. Patient was febrile with leukocytosis and urine highly suspicious for infection. Due to patient being a poor historian with vague symptoms a CT scan of the abdomen and pelvis was performed. Patient was found to have constipation but not impaction and no acute abdominal process how ever was found to have a 6 x 7 cm right-sided adnexal mass cystic in nature. Patient was given 2 g of IV ceftriaxone admitted to the hospital. Patient has been afebrile since admission. Patient is feeling much better than she was previously. Illness started approximately Tuesday morning when she awakened with bilateral lower abdominal and pelvic pain. It it progressively worsened and then radiated to her right flank and she developed a fever over the next several days with diaphoresis and so she presented to the ER. She denied any nausea or vomiting or diarrhea or constipation. She denies any cough or shortness breath or chest pain. She is a daily smoker and smokes a pack of cigarettes a day. She cannot remember her last bowel movement. Past medical history: 1. Type 2 diabetes for which she is on metformin and A1c is been approximately 7 2. Chronic hepatitis C. she states she has had treatment with interferon previously 3. TIA that occurred in 2011 with no recurrences 4. Hypertension 5. Hyperlipidemia 6. Osteopenia 7. Depression 8. Tobacco abuse 9. Patient has been clean and sober since 1987, previously used alcohol Current medications are aspirin 325 mg daily Atorvastatin 20 mg daily Metformin extended release 500 mg twice a day Paxil 20 mg a day Valsartan 40 mg daily Allergies no known drug allergies Past surgical history Bilateral tubal ligation TAB x2 Family history: Patient has a sitter he lives in town his 11 healthy Mother is alive had a history of breast cancer and glaucoma and is 88 and reportedly healthy Father is alive at age 90 Health related behavior: Patient previously used alcohol but has not since 1987 Patient is a daily smoker about a pack a day Patient does not use illicit drugs Social history: Patient is and lives in a in a [place] with her . She was born and raised in [facility]. She has 3 children, 2 daughters and a son. One daughter lives in [place]. Review of systems: Negative for chest pain, palpitations, lightheadedness, dizziness Negative for any nausea, vomiting, diarrhea Positive for fever and diaphoresis No headache No rash No cough for shortness of breath No recent travel Patient History Medical History Chronic hepatitis C Depression (Unknown) Diabetes (Unknown) Diabetes mellitus type 2, uncomplicated History of CVA (cerebrovascular accident) (~2011) Hx of TIA (transient ischemic attack) and stroke (~2011) Hyperlipemia (Unknown) Hypertension (Unknown) Osteopenia (07/2016) Surgical History History of elective History of elective Status post tubal ligation Family & Social History Family History Mother Breast cancer Social History: household members spouse Prior Living Arrangements Mobile home Safety & Behavioral: Feels Safe in Current Yes Environment Been Physically Hurt or No Threatened By a Person Suicidal Ideation Description None Suicide Plan Description No Plan Tobacco & Substance use: Tobacco type cigarettes Smoking Status Current every day smoker Smoking packs per day 1 alcohol intake never Substance Use Type does not use Meds Home Medications and Allergies Home Medications Medication Instructions Recorded Confirmed Type ASPIRIN (#ASPIR-CHERELLE) 325 mg PO HS #0 09/21/11 02/13/21 History valsartan 80 mg tablet (Diovan) 40 mg PO DAILY #90 tab 11/30/19 02/13/21 Rx atorvastatin 20 mg tablet (Lipitor) 20 mg PO HS #90 tab 06/05/20 02/13/21 Rx metformin 500 mg tablet,extended 500 mg PO BID 02/13/21 02/13/21 History release 24 hr (Glucophage XR) paroxetine HCl 40 mg tablet (Paxil) 20 mg PO QPM 02/13/21 02/13/21 History Allergies Allergy/AdvReac Type Severity Reaction Status Date / Time No Known Drug Allergies Allergy Verified 02/13/21 18:19 Exam Vital Signs (past 8 hours): - 02/14/21 08:00 Temperature 97.8 F Pulse Rate 61 Respiratory Rate 18 Blood Pressure 136/61 Pulse Oximetry 92 Oxygen Delivery Method Nasal Cannula Oxygen Flow Rate 2 Narrative Exam Narrative: Patient is afebrile vital signs are stable. She is slightly short of breath when she talks. She is very pleasant and cooperative but poor historian. She appears older than stated age of 70 HEENT: Unremarkable, mucous membranes moist and pink Neck: Supple without adenopathy or thyromegaly or bruits Chest: Decreased breath sounds bibasilar Cor: Regular rate and rhythm without murmur with distant S1-S2 Abdomen: Protuberant, obese, positive bowel sounds x4, nontender, no hepatosplenomegaly, no guarding, no rebound tenderness Extremities no edema pulses intact Neurologic exam is nonfocal, cranial nerve 2-12 are grossly intact Objective Labs Result Diagrams: 02/14/21 06:25 02/14/21 06:25 Labs: Laboratory Results - last 24 hr 02/13/21 02/13/21 02/13/21 18:25 18:41 18:41 WBC 14.9 H RBC 4.54 Hgb 13.1 Hct 39.7 MCV 87.5 MCH 28.9 MCHC 33.0 RDW 13.4 Plt Count 275 Neut % (Auto) 72.7 Lymph % (Auto) 14.8 L Emery % (Auto) 12.1 Eos % (Auto) 0.0 L Baso % (Auto) 0.4 Neut # (Auto) 63718 H Lymph # (Auto) 2200 Emery # (Auto) 1800 H Eos # (Auto) 0 Baso # (Auto) 100 Sodium 134 L Potassium 3.9 Chloride 100 Carbon Dioxide 25 BUN 13 Creatinine 0.72 Estimated GFR > 60.0 BUN/Creatinine Ratio 18.1 Glucose 123 H Lactate Calcium 9.2 Total Bilirubin 0.7 AST 25 ALT 31 Alkaline Phosphatase 91 NT-Pro-B Natriuret Pep Total Protein 7.7 Albumin 4.1 Globulin 3.6 Albumin/Globulin Ratio 1.1 Lipase 11 L CA 125 Antigen Procalcitonin 0.17 Urine Color Urine Appearance Urine pH Ur Specific [place] Urine Protein Urine Glucose (UA) Urine Ketones Urine Occult Blood Urine Nitrate Urine Bilirubin Urine Urobilinogen Ur Leukocyte Esterase Urine RBC Urine WBC Urine Bacteria Ur Culture Indicated? SARS-CoV-2 (PCR) Negative 02/13/21 02/13/21 02/13/21 18:41 18:41 20:06 WBC RBC Hgb Hct MCV MCH MCHC RDW Plt Count Neut % (Auto) Lymph % (Auto) Emery % (Auto) Eos % (Auto) Baso % (Auto) Neut # (Auto) Lymph # (Auto) Emery # (Auto) Eos # (Auto) Baso # (Auto) Sodium Potassium Chloride Carbon Dioxide BUN Creatinine Estimated GFR BUN/Creatinine Ratio Glucose Lactate 1.0 Calcium Total Bilirubin AST ALT Alkaline Phosphatase NT-Pro-B Natriuret Pep Total Protein Albumin Globulin Albumin/Globulin Ratio Lipase CA 125 Antigen 9.8 Procalcitonin Urine Color Yellow Urine Appearance Cloudy Urine pH 5.5 Ur Specific [place] <=1.005 Urine Protein 1+ H Urine Glucose (UA) Negative Urine Ketones Negative Urine Occult Blood 2+ H Urine Nitrate Positive H Urine Bilirubin Negative Urine Urobilinogen 0.2 Ur Leukocyte Esterase 2+ H Urine RBC 0-1/hpf Urine WBC >100/hpf H Urine Bacteria Moderate (10-30) H Ur Culture Indicated? Specimen cultured SARS-CoV-2 (PCR) 02/14/21 02/14/21 02/14/21 06:25 06:25 06:25 WBC 15.7 H RBC 4.14 Hgb 12.1 Hct 36.1 MCV 87.1 MCH 29.3 MCHC 33.6 RDW 13.6 Plt Count 250 Neut % (Auto) Lymph % (Auto) Emery % (Auto) Eos % (Auto) Baso % (Auto) Neut # (Auto) Lymph # (Auto) Emery # (Auto) Eos # (Auto) Baso # (Auto) Sodium 137 Potassium 3.8 Chloride 107 Carbon Dioxide 24 BUN 12 Creatinine 0.69 Estimated GFR > 60.0 BUN/Creatinine Ratio 17.4 Glucose 110 Lactate Calcium 8.3 L Total Bilirubin 0.5 AST 23 ALT 24 Alkaline Phosphatase 70 NT-Pro-B Natriuret Pep Total Protein 6.9 Albumin 3.5 Globulin 3.4 Albumin/Globulin Ratio 1.0 Lipase CA 125 Antigen Procalcitonin 0.17 Urine Color Urine Appearance Urine pH Ur Specific [place] Urine Protein Urine Glucose (UA) Urine Ketones Urine Occult Blood Urine Nitrate Urine Bilirubin Urine Urobilinogen Ur Leukocyte Esterase Urine RBC Urine WBC Urine Bacteria Ur Culture Indicated? SARS-CoV-2 (PCR) 02/14/21 06:25 WBC RBC Hgb Hct MCV MCH MCHC RDW Plt Count Neut % (Auto) Lymph % (Auto) Emery % (Auto) Eos % (Auto) Baso % (Auto) Neut # (Auto) Lymph # (Auto) Emery # (Auto) Eos # (Auto) Baso # (Auto) Sodium Potassium Chloride Carbon Dioxide BUN Creatinine Estimated GFR BUN/Creatinine Ratio Glucose Lactate Calcium Total Bilirubin AST ALT Alkaline Phosphatase NT-Pro-B Natriuret Pep 458 H Total Protein Albumin Globulin Albumin/Globulin Ratio Lipase CA 125 Antigen Procalcitonin Urine Color Urine Appearance Urine pH Ur Specific [place] Urine Protein Urine Glucose (UA) Urine Ketones Urine Occult Blood Urine Nitrate Urine Bilirubin Urine Urobilinogen Ur Leukocyte Esterase Urine RBC Urine WBC Urine Bacteria Ur Culture Indicated? SARS-CoV-2 (PCR) Assessment & Plan Assessment & Plan narrative: 70-year-old female admitted for abdominal pain and fever thought to be secondary to acute possibly complicated UTI Plan: Continue with IV ceftriaxone until determined results of urine culture. Currently preliminary showing Gram-negative bacilli. Patient is clinically improved. We will stop IV fluids We will reassess labs in a.m. Procalcitonin negative lactate was negative in the ER and patient is currently afebrile. Pending on condition and pelvic ultrasound we may need to do ultrasound of kidney and bladder in a.m.. Assessment 2. Hypertension well appears well controlled Plan continue on outpatient valsartan Assessment 3. Hypoxemia suspect related to mild fluid overload and probable underlying lung disease secondary to chronic smoking Plan: Stop IV fluids Chest x-ray in a.m. Incentive spirometry every q.2 hours Consult RT Assessment 4. Right adnexal mass found on CT of pelvis Plan: Ultrasound is pending HE4 pending CA 125 is normal Pending results of ultrasound will consult with Gynecology Assessment 5. Type 2 diabetes Plan: Will do Chem blood gases q.a.c. and q.h.s. and pending results will start metformin in a.m. Assessment 6. Previous history of TIA without current symptoms Plan continue with risk reduction and continue aspirin Assessment 7. History of chronic hep C status post treatment without acute issues Plan: Will follow Assessment 8. Constipation on CT exam Plan: Will start Metamucil Assessment 9. DVT prophylaxis Plan: Will start Lovenox Code status is full code 60 minutes was spent with patient meeting with her consulting with ER physician and nursing staff and examining patient and formulating plan and documentation.
--- NOTE | 2021-02-14 14:04 | PC.NURSE ---
alert and responsive, calm, pleasant & cooperative with all care. pt is able to make her needs known but does have some intermittent confusion & is a poor historian, Unable to states last BM, abd xray shows moderate stool., Dr. Bridges to order bowel meds to alleviate constipation NS@125 infusing through shift. RA sats dropped to 86% placed on 2LNC to maintain >92%, IS ordered. pt is incontinent but can void in BSC with FWW and SBA Telemetry to be DC'd as well. UTI with culture positive for Gram bacilli, Cyrus to order ceftiaxone 2 gm IV Q24 hours
--- NOTE | 2021-02-14 15:30 | PT.IIE ---
Current Diagnoses Urinary tract infection, site not specified (02/13/21) Other specified conditions associated with female genital organs and menstrual cycle (02/13/21) Unspecified abdominal pain (02/13/21) Surgical History (Last Reviewed 02/14/21 @ 13:56 by Genoveva Pedersen MD) History of elective History of elective Status post tubal ligation Medical History (Last Reviewed 02/14/21 @ 13:56 by Genoveva Pedersen MD) Chronic hepatitis C Depression (Unknown) Diabetes (Unknown) Diabetes mellitus type 2, uncomplicated History of CVA (cerebrovascular accident) (~2011) Hx of TIA (transient ischemic attack) and stroke (~2011) Hyperlipemia (Unknown) Hypertension (Unknown) Osteopenia (07/2016) Physical Therapy Inpatient Evaluation/Re-Eval M1 PT/OT-IP Prior Functional Status Start: 02/14/21 16:20 Freq: NEEDED Status: Active Protocol: Document 02/14/21 15:30 AB (Rec: 02/14/21 16:37 AB [id number]) Medical Review Prior Functional Status Medical History Reviewed Yes Communication able to make needs known Mobility and Gait pt stated that she is independent with all mobilities and ambulation without AD Social History Household Members spouse Living Arrangements Mobile home Number of Floors (Floors) One Floor Number of Stairs To Enter/Railing? 4 steps with L rail + R wall to enter Home Environment Standard Height Toilet,Tub/ Shower Home Equipment Grab Bars Near Toilet,Grab Bars In Shower Additional Social History Comment pt stated that she has a walking stick M2 PT-IP Current Condition Start: 02/14/21 16:20 Freq: NEEDED Status: Active Protocol: Document 02/14/21 15:30 AB (Rec: 02/14/21 16:37 AB [email or web address]) Physical Therapy Current Condition Current Condition Evaluation Date 02/14/21 Treatment Diagnosis UTI; difficulty in walking Onset Date 02/13/21 M3 PT-IP Subjective Start: 02/14/21 16:20 Freq: NEEDED Status: Active Protocol: Document 02/14/21 15:30 AB (Rec: 02/14/21 16:37 AB [id number]) Subjective Physical Therapy Visit Type Type Initial Evaluation Visit Start Time 15:30 Visit Stop Time 16:15 Total Visit Minutes 45 Number of MAINTENANCE FOREMAN Visits 0 Physical Therapy Visit Comments Patient Comments pt is agreeable to do PT; daughter in room with pt Therapy Pain Assessment Pain When Pain Assessed At Rest Pain Present Pain Present Pain Reported Location Lower Back Intensity 5 Scale Used Numeric (0 - 10) Pain Management Techniques Distraction,Modification of Treatment,Re-positioning, Timing of Activity with Medications M4 PT-IP Mobility and Gait Start: 02/14/21 16:20 Freq: NEEDED Status: Active Protocol: Document 02/14/21 15:30 AB (Rec: 02/14/21 16:37 AB [id number]) PT-Bed Mobility Assessment Supine to Sit Supine to Sit Standby Assistance PT-Transfer Assessment Sit to and From Stand Sit to and from Stand Contact Guard Assistance,1 Person Assistance,Use of Upper Extremities Equipment Transfer Assistive Device Gait Belt,Front Wheeled Walker Orthotic/Prosthetic Devices or Brace: No Transfers Transfer Destination Chair Transfer Technique ambulated using FWW Transfer Ability Level of Assist Contact Guard Assistance, Minimal Assistance,1 Person Assistance,Use of Upper Extremities Comments Mobility Comments pt agreed to do PT. O2 sat at room air 94% and pt was able to maintain O2 sat at 94% throughout PT session. completed supine to sit x 2 attempts SBA but demonstrates difficulty in completing and required increase time. pt was able to sit on EOB CGA. and ambulated in the room using FWW ~ 25 ft CGA to min A towards end of ambulation. ( +) SOB but O2 sat at 94%. cued for FWW use. presents with increase L LE external rotation and knee flexion during ambulation. pt refused further ambulation but agreed to sit on chair. positioned pt on chair. call light and table placed within reach. Gait Assessment Gait Gait Assistance Required: Contact Guard Assist,Minimum Assistance Distance (Feet) 25 Able to Maintain Weight Bearing Status Yes During Gait Assistive Devices Assistive Device Gait Belt,Front Wheeled Walker Orthotic/Prosthetic Devices or Brace: No Gait Deviations General Gait Pattern Antalgic,Decreased Stride Length,Decreased Feet Clearance Factors Limiting Gait Function Factors Limiting Gait Function Decreased Activity Tolerance, Decreased Strength,Limited Range of Motion,Pain,Poor Balance,Poor Safety Awareness Comments Gait Comments pls refer to mobility section for details PT-Balance Assessment Sitting Balance and Reactions Static Sitting Balance Ability Good Dynamic Sitting Balance Ability Fair Standing Balance and Reactions Static Standing Balance Ability Fair Dynamic Standing Balance Ability Fair Device Used FWW M5 PT-IP Objective Assessments Start: 02/14/21 16:20 Freq: NEEDED Status: Active Protocol: Document 02/14/21 15:30 AB (Rec: 02/14/21 16:37 AB [id number]) Orientation Orientation/Cognition Level of Alertness Alert Orientation Name,Place,Situation Language Function Ability No Deficits Noted Safety Awareness Understands Safety Issues Memory Description No Deficits Noted Strength Lower Extremity Strength Assessment Within Functional Limits Coordination Assessment Gross Coordination Gross Coordination WNL Sensation Assessment Sensation Gross Sensation WNL Muscle Tone Muscle Tone WNL Yes M6 PT-IP Treatment Start: 02/14/21 16:20 Freq: NEEDED Status: Active Protocol: Document 02/14/21 15:30 AB (Rec: 02/14/21 16:37 AB [id number]) Physical Therapy Treatment Education Education Provided Safety M7 PT-IP Assessment and Plan Start: 02/14/21 16:20 Freq: NEEDED Status: Active Protocol: Document 02/14/21 15:30 AB (Rec: 02/14/21 16:37 AB [id number]) PT Summary Assessment and Plan Potential Rehabilitation Potential Good Status of Condition at Evaluation Evolving Summary Impairments Pain,ROM,Strength,Balance, Coordination,Sensation,Tone, Cognition,Bed Mobility, Transfers,Gait,Activity Tolerance Assessment Summary pt requiring CGA to min A with ambulation using FWW. pt presents with decrease activity tolerance affecting mobility. will continue to assess progress. informed pt regarding FWW use at this time and agreed and informed of possibility of acquiring one if pt needs it for d/c home. daughter is aware. PT to continue to work towards goals to improve mobility independence and improving activity tolerance. Goals Bed Mobility Goal Independent Transfer Goal Independent,Front Wheeled Walker Gait Goal Independent,Front Wheel Walker Gait Distance 100 Other Goals improve ambulation using SPC/ without AD 150 ft SBA up/down 4 steps L rail + R rall SBA Days to Meet Goals 5 Frequency of Treatment Frequency Of Treatment Once a Day Treatment Plan Physical Therapy Treatment Plan Bed Mobility Training,Transfer Training,Gait Training, Therapeutic Exercise,Balance Retraining,Discharge Planning, Hot or Cold Pack,Neuromuscular Re-ed,Coordination Retraining ,Manual Therapy Other Recommendations and Next Treatment ambulation without AD/SPC when Focus appropriate Recommendations To Nursing Amount of Assist Needed 1 Person Assist Discharge Recommendations PT Discharge Recommendations Home with Assistance,Home Health Equipment Needed for Home Before FWW if not safe without AD/SPC Discharge Transportation Needs at Discharge Private Vehicle
[2021-02-14] MEDS: PARoxetine 20 MG TABLET PO (16:32)
[2021-02-14] MEDS: ENOXAPARIN 40 MG/0.4 ML SYRINGE SUBCUT (16:32)
[2021-02-14] MEDS: VALSARTAN 80 MG TABLET 40 MG PO (16:32)
[2021-02-14] MEDS: polyethylene glycoL 3350 17 GM POWD.PACK PO (16:33)
[2021-02-14] MEDS: SODIUM CHLORIDE 0.9% FLUSH 10 ML IV ×3 (16:46→23:45)
--- NOTE | 2021-02-14 16:50 | PC.NURSE ---
Addendum entered by Yi Luna R.N. 02/14/21 22:26: Episode of diaphoresis. Oral temp 99.0. Resolved by placing cool washcloth on pt's forehead and fan in room. Reports good pain relief and moaning has ceased. No stool this evening shift despite meds as per emar. Addendum entered by Yi Luna R.N. 02/14/21 19:26: Assisted to commode for continent and incontinent void. Brief changed and then returned to bed. Room air 91% so oxygen per nc placed @ 2L/min. Pt c/o left leg and back pain. Was given tylenol and warm blanket. Continues to complain of unrelieved pain and is moaning and calling out. Medicated with iv dilaudid as per emar. Pt reports this med was helpful previously. Original Note: P.T. sees pt @ beginning of shift. Up to chair without difficulty. Pt is mentating appropriately and able to make needs and wants known to staff. Chair alarm in place. Pt c/o back pain 7/10 and chronic left leg pain which pt states does not require any pain medication to manage. IV dilaudid administered as per emar slow push. Abdomen is distended with hypoactive bowel tones. No peripheral edema. Breath sounds are tight and diminished, but clear. Pt's daughter has visited pt this evening shift.
--- NOTE | 2021-02-14 17:10 | PC.NURSE ---
Addendum entered by Mark Chakraborty 02/14/21 20:54: Pt reports feeling hot. Pt has oral temp of 99.0. Damp, cool, wash clothes provided as well as fan. Pt admits to hot flashes on very rare occassions. Pt is resting in bed. Original Note: Pt is sitting in recliner and was visiting with daughter. Pt reports 6/10 sharp back pain, but denies any pain in left leg. Lung sounds are tight BL and IS was 500. Pt denies any burning with urination. Pt abdomen is distended and tight. She is uncertain as to date of last BM, but states it is at least several days ago. HR was 88 and oxygen saturation was 92% on RA. Pt remains in the recliner and is currently eating dinner.
[2021-02-14] MEDS: BISACODYL 10 MG SUPP PR (18:28)
[2021-02-14] MEDS: ATORVASTATIN 20 MG TABLET PO (20:32)
[2021-02-14] MEDS: cefTRIAXone 2,000 MG in SODIUM CHLORIDE 0.9% 100 ML 200 ML IV (20:33)
[2021-02-14] MEDS: SODIUM CHLORIDE 0.9% 250 ML 21 ML IV (20:52)
[2021-02-15] VITALS (7 sets, daily range): BP systolic 114–153; BP diastolic 55–91; PULSE 82–93; RESP 16–22; TEMP 36.2–37.1; O2SAT 91–99
[2021-02-15] MEDS: HYDROMORPHONE 0.5 MG INJ IV ×2 (02:47→07:42)
[2021-02-15] MEDS: SODIUM CHLORIDE 0.9% FLUSH 10 ML IV ×4 (02:50→20:51)
--- NOTE | 2021-02-15 03:37 | PC.NURSE ---
Patient requesting pain medication, preferably dilaudid. When asking patient where pain was, she replied that it was her chronic lower back pain. This RN informed her that IV dilaudid would not be available to her outside of the hospital when she discharged, and pt replied I figure I should take advantage of the harder pain meds while I'm here. This RN educated the patient on chronic pain management. This RN administered IV dilaudid for reported 8/10 pain.
[2021-02-15 06:27] LABS: Add Manual Diff / Slide Review NO; Basophils Absolute Auto 100 /uL (0-100); Basophils Percent Auto 0.6 % (0-2); Eosinophils Absolute Auto 100 /uL (0-450); Eosinophils Percent Auto 1.1 % (2-4); Hematocrit 33.2 % (36-46); Hemoglobin 10.8 g/dL (12.0-16.0); Lymphocytes Absolute Auto 2600 /uL (1100-4500); Lymphocytes Percent Auto 22.9 % (25-40); Mean Corpuscular HGB Conc 32.6 % (30-36); Mean Corpuscular Hemoglobin 28.8 PG (26-34); Mean Corpuscular Volume 88.5 fL (80-100); Monocytes Absolute Auto 1400 /uL (0-900); Monocytes Percent Auto 12.7 % (3-14); Neutrophils Absolute Auto 7000 /uL (1500-7000); Neutrophils Percent Auto 62.7 % (50-75); Platelet Count 253 X10^3/uL (150-400); Red Blood Cell Count 3.75 X10^6/uL (4.0-5.2); Red Cell Distribution Width 13.4 % (11.6-14.8); White Blood Cell Count 11.2 X10^3/uL (4.5-11.0)
[2021-02-15 06:36] LABS: Alanine Aminotransferase 25 IU/L (<35); Albumin 3.2 g/dL (3.5-5.0); Alkaline Phosphatase 65 U/L (38-126); Aspartate Aminotransferase 30 IU/L (14-36); BUN Creatinine Ratio 15.2 (6-22); Bilirubin Total 0.4 mg/dL (0.2-1.3); Blood Urea Nitrogen 10 mg/dL (7-17); Calcium 8.4 mg/dL (8.4-10.2); Carbon Dioxide 29 mmol/L (22-32); Chloride 105 mmol/L (98-107); Estimated Glomerular Filt Rate > 60.0 mL/min (>60); Globulin 3.1 g/dL (1.7-4.1); Glucose 100 mg/dL (80-110); HEMOLYSIS < 15 (0-50); Potassium 3.9 mmol/L (3.4-5.1); Sodium 139 mmol/L (137-145); Total Protein 6.3 g/dL (6.3-8.2)
--- NOTE | 2021-02-15 07:35 | DI.RAD.S_ITS ---
PROCEDURE: XR CHEST 2V INDICATIONS: hypoxemia TECHNIQUE: 2 views of the chest were acquired. COMPARISON: [facility], CR, XR CHEST 1V, 02/13/2021, 18:29. FINDINGS: Surgical changes and devices: None. Lungs and pleura: Lungs are clear. No pleural effusions or pneumothorax. Chronic interstitial changes noted. Mediastinum: Mediastinal contours are normal. Heart size is normal. Bones and chest wall: No suspicious bony abnormalities. Soft tissues appear unremarkable. IMPRESSION: No acute cardiopulmonary findings Dictated by: Odell Quach M.D. on 02/15/2021 at 7:50 Approved by: Odell Quach M.D. on 02/15/2021 at 7:50
[2021-02-15] MEDS: ENOXAPARIN 40 MG/0.4 ML SYRINGE SUBCUT (08:46)
[2021-02-15] MEDS: VALSARTAN 80 MG TABLET 40 MG PO (08:46)
[2021-02-15] MEDS: PARoxetine 20 MG TABLET PO (08:47)
[2021-02-15] MEDS: ASPIRIN 325 MG TABLET PO (08:47)
[2021-02-15] MEDS: PSYLLIUM HUSK 1 PACKET PO (08:49)
[2021-02-15] MEDS: ACETAMINOPHEN 325 MG TABLET 650 MG PO (08:52)
--- NOTE | 2021-02-15 12:04 | DI.MRI.S_ITS ---
PROCEDURE: MR PELVIS WO/W CON INDICATIONS: right adnexal mass TECHNIQUE: Coronal HASTE, sagittal breath-hold T2 FSE; axial T1 FSE with and without fat saturation through the pelvis. Optional long- and short-axis uterine nonbreath-hold T2 FSE through the uterus. Sagittal or axial dynamic VIBE during administration of contrast. Post-contrast axial or coronal VIBE/2-D FLASH with fat saturation from the iliac crests to the symphysis. Optional diffusion weighted imaging and ADC may be performed. COMPARISON: None. FINDINGS: Image quality: Excellent. Uterus: Uterus is normal in size. Endometrium is normal in thickness. Junctional zone is normal in thickness at 12 mm or less. Adnexa: In the right adnexa, there is an irregular solid and cystic mass lesion measuring in total 6.9 by 7.7 by 5.3 cm. The cystic component measures 5.2 by 5.4 by 4.1 cm. Solid component enhances after contrast administration. There is is a small amount of free fluid present. Separate normal appearing ovaries not seen. Urinary system: Bladder wall is normal in thickness. Distal ureters are non distended. Urethra appears normal in morphology. Simple bilateral renal cysts measure up to 2.2 cm on the right and 2.5 cm on the left. Nodes and vessels: No pelvic or inguinal adenopathy by size criteria. Iliac vessels are normal in size. Bowel and peritoneum: No pathologic free pelvic fluid. Inferior colon and small bowel loops are normal in caliber. Soft tissues: No inguinal hernias. No findings of pelvic floor incompetence in the absence of provocation. Bones: Marrow demonstrates normal overall signal. IMPRESSION: 1. 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 Consider surgical consult. 2. No evidence of regional adenopathy or pelvic sidewall invasion. 3. Simple bilateral renal cysts. Dictated by: Odell Quach M.D. on 02/15/2021 at 16:48 Approved by: Odell Quach M.D. on 02/15/2021 at 16:58
--- NOTE | 2021-02-15 12:16 | PM.PN.1 ---
Subjective Subjective Date Patient Seen: 02/15/21 Time Patient Seen: 12:16 Interval history: Patient had an unremarkable night though she still is having right pelvic and flank pain. She was able to get some comfort with the pain medications. Her fever is down but still having a low-grade fever and still with a leukocytosis. She is feeling better. Yesterday she was on oxygen today she is on room air since this morning. She denies any shortness of breath but states that ever since she had a TIA she has periods where she feels short of breath. She is not currently experiencing that not having any chest pain. She did have a bowel movement today. She is still having decreased p.o. intake but overall it is better. She is a daily smoker but is coping well without having access to cigarettes. Blood sugar this morning was 110 Blood sugar prior to lunch was 128 Review of systems is otherwise negative Exam Vital Signs (past 8 hours): - 02/15/21 05:02 02/15/21 06:42 02/15/21 08:38 Temperature 98.7 F 98.3 F Pulse Rate 89 89 85 Respiratory Rate 22 18 22 Blood Pressure 153/91 H 129/55 L Pulse Oximetry 96 99 91 Oxygen Delivery Method Room Air Oxygen Flow Rate 0 Narrative Exam Narrative: Alert and oriented x3, vital signs stable. T-max 99.8? HEENT unremarkable Neck: Supple without adenopathy Chest: Clear to auscultation without wheezes rhonchi or crackles but prolonged expiratory phase. Cor: Regular rate and rhythm without murmur Abdomen: Positive bowel sounds, soft, mild tenderness right lower quadrant but no guarding or rebound tenderness. Still with right flank tenderness Extremities no edema pulses intact Neurologic exam nonfocal Objective Labs Result Diagrams: 02/15/21 06:05 02/15/21 06:05 Labs: Laboratory Results - last 24 hr 02/14/21 02/14/21 02/15/21 06:25 06:25 06:05 WBC 11.2 H RBC 3.75 L Hgb 10.8 L Hct 33.2 L MCV 88.5 MCH 28.8 MCHC 32.6 RDW 13.4 Plt Count 253 Neut % (Auto) 62.7 Lymph % (Auto) 22.9 L [place] % (Auto) 12.7 Eos % (Auto) 1.1 L Baso % (Auto) 0.6 Neut # (Auto) 7000 Lymph # (Auto) 2600 [place] # (Auto) 1400 H Eos # (Auto) 100 Baso # (Auto) 100 Sodium Potassium Chloride Carbon Dioxide BUN Creatinine Estimated GFR BUN/Creatinine Ratio Glucose Calcium Total Bilirubin AST ALT Alkaline Phosphatase NT-Pro-B Natriuret Pep 458 H Total Protein Albumin Globulin Albumin/Globulin Ratio Procalcitonin 0.17 02/15/21 06:05 WBC RBC Hgb Hct MCV MCH MCHC RDW Plt Count Neut % (Auto) Lymph % (Auto) [place] % (Auto) Eos % (Auto) Baso % (Auto) Neut # (Auto) Lymph # (Auto) [place] # (Auto) Eos # (Auto) Baso # (Auto) Sodium 139 Potassium 3.9 Chloride 105 Carbon Dioxide 29 BUN 10 Creatinine 0.66 Estimated GFR > 60.0 BUN/Creatinine Ratio 15.2 Glucose 100 Calcium 8.4 Total Bilirubin 0.4 AST 30 ALT 25 Alkaline Phosphatase 65 NT-Pro-B Natriuret Pep Total Protein 6.3 Albumin 3.2 L Globulin 3.1 Albumin/Globulin Ratio 1.0 Procalcitonin [facility] Medical History Chronic hepatitis C Depression (Unknown) Diabetes (Unknown) Diabetes mellitus type 2, uncomplicated History of CVA (cerebrovascular accident) (~2011) Hx of TIA (transient ischemic attack) and stroke (~2011) Hyperlipemia (Unknown) Hypertension (Unknown) Osteopenia (07/2016) Surgical History History of elective History of elective Status post tubal ligation Family History Mother Breast cancer Social History household members: spouse Smoking Status: Current every day smoker Tobacco: How many years used: 44 quit status: considering quitting alcohol intake: never Assessment & Plan Assessment & Plan narrative: 70-year-old female admitted with leukocytosis, febrile illness with abdominal pain and a positive urine culture for infection. Blood cultures are still pending. Patient is improved but still with significant leukocytosis and low-grade fever. Patient also incidentally was found a right adnexal mass. It is unclear if this is contributing to her right pelvis pain and flank pain as well as UTI. Assessment 1. Urinary tract infection with associated leukocytosis and fever improved with IV antibiotic. Due to the complexity of this presentation and the adnexal mass I feel that patient is at high risk for readmission and therefore feel another 24 hours hospitalization is warranted for this reason. There are so multiple hurdles for follow-up and I feel that we need to complete her workup for her right adnexal mass and ensure that it is not contributing to her current infectious process. Plan: Continued hospitalization Continue IV ceftriaxone Reassess labs in a.m.. Workup right adnexal mass Assessment 2. Leukocytosis presumably related to urinary tract infection and unclear if this is affecting her kidney as well. Plan: Continue with same IV ceftriaxone. Reassess in a.m.. MRI of right adnexal mass. Urine culture is negative preliminary Assessment 3. Right adnexal mass with concern for possible malignancy. Unclear if this is contributing to her overall picture Plan: MRI of pelvis, pending this result may need to do imaging of her right kidney as well. Certainly if she were not significantly improved tomorrow then this would be the next step to rule out abscess etc.. CA 125 is negative. Will consult with Dr. Ardon who was on-call for gynecology Assessment number for hypertension Plan: Continue outpatient medications Assessment 5. Type 2 diabetes Plan: Will go ahead and restart metformin tomorrow. Blood sugars have been okay. Assessment 6. Hyperlipidemia Plan: Continue on atorvastatin Assessment 7. History of TIA Plan: Continue on aspirin, valsartan, atorvastatin, no acute issues Assessment 8. Deconditioning with difficulty with mobility Plan: Appreciate physical therapy and will continue to work with them. Assessment 9. DVT prophylaxis Plan: Continue on Lovenox Assessment 10. GI prophylaxis Plan: Continue on PPI Assessment 11. Hypoxemia seems to have improved currently not on oxygen this morning Plan: Chest x-ray was normal. Will continue with incentive spirometry. 60 minutes was spent with patient
--- NOTE | 2021-02-15 12:21 | PT.IPTN ---
Current Diagnoses Urinary tract infection, site not specified (02/13/21) Other specified conditions associated with female genital organs and menstrual cycle (02/13/21) Unspecified abdominal pain (02/13/21) Physical Therapy Treatment Note M2 PT-IP Current Condition Start: 02/14/21 16:20 Freq: NEEDED Status: Active Protocol: Document 02/14/21 15:30 AB (Rec: 02/14/21 16:37 AB [id number]) Physical Therapy Current Condition Current Condition Evaluation Date 02/14/21 Treatment Diagnosis UTI; difficulty in walking Onset Date 02/13/21 M3 PT-IP Subjective Start: 02/14/21 16:20 Freq: NEEDED Status: Active Protocol: Document 02/15/21 12:05 LJ (Rec: 02/15/21 12:21 LJ [id number]) Subjective Physical Therapy Visit Type Type Treatment Note Visit Start Time 11:16 Visit Stop Time 11:38 Total Visit Minutes 22 Number of FURNACE KEEPER Visits 1 Physical Therapy Visit Comments Patient Comments agreeable to do PT Therapy Pain Assessment Pain When Pain Assessed At Rest Pain Present Pain Present Pain Reported M4 PT-IP Mobility and Gait Start: 02/14/21 16:20 Freq: NEEDED Status: Active Protocol: Document 02/15/21 12:05 LJ (Rec: 02/15/21 12:21 LJ [id number]) PT-Bed Mobility Assessment Supine to Sit Supine to Sit Standby Assistance PT-Transfer Assessment Sit to and From Stand Sit to and from Stand Standby Assistance,1 Person Assistance,Use of Upper Extremities Equipment Transfer Assistive Device Gait Belt,Front Wheeled Walker Orthotic/Prosthetic Devices or Brace: No Transfers Transfer Destination Chair Transfer Technique ambulated using FWW Transfer Ability Level of Assist Standby Assistance,Contact Guard Assistance,1 Person Assistance,Use of Upper Extremities Comments Mobility Comments Pt in bed upon arrival. Willing to ambulate in hallway and trial stairs. Pt SBA for bed mobility and transfers. Ambulatted with FWW in hallway to stairs then to [facility] nurse 's station and back to room ~ 400'. Pt able to use FWW properly and has steady pace and gait. Pt returned to room and ambulated CGA around room 20 feet. She stated that she felt wobbly and unsteady but had no LOB. Pt returned to chair and was given all needs. Gait Assessment Gait Gait Assistance Required: Standby Assistance,Contact Guard Assist Distance (Feet) 400 Able to Maintain Weight Bearing Status Yes During Gait Assistive Devices Assistive Device None,Gait Belt,Front Wheeled Walker Orthotic/Prosthetic Devices or Brace: No Gait Deviations General Gait Pattern Decreased Stride Length, Decreased Feet Clearance Factors Limiting Gait Function Factors Limiting Gait Function Decreased Activity Tolerance, Decreased Strength,Limited Range of Motion,Pain,Poor Balance,Poor Safety Awareness Comments Gait Comments pls refer to mobility section for details Stair Climbing Assessment Evaluation Level of Assist On Stairs Standby Assistance Devices Stair Climbing Assistive Devices Left Railing Technique/Endurance Stair Climbing Direction Ascend and Descend Stair Climbing Technique Step Over Step,Step to Step Number of Steps Climbed 3 Stair Climbing Set # Repetitions (reps) 3 Comments Stair Climbing Comments Pt able to do stairs safely. First two attempts she did step over step then instructed to use step to pattern with which she did better. Has a sideways step pattern leading with her left LE. M5 PT-IP Objective Assessments Start: 02/14/21 16:20 Freq: NEEDED Status: Active Protocol: Document 02/14/21 15:30 AB (Rec: 02/14/21 16:37 AB [id number]) Orientation Orientation/Cognition Level of Alertness Alert Orientation Name,Place,Situation Language Function Ability No Deficits Noted Safety Awareness Understands Safety Issues Memory Description No Deficits Noted Strength Lower Extremity Strength Assessment Within Functional Limits Coordination Assessment Gross Coordination Gross Coordination WNL Sensation Assessment Sensation Gross Sensation WNL Muscle Tone Muscle Tone WNL Yes M6 PT-IP Treatment Start: 02/14/21 16:20 Freq: NEEDED Status: Active Protocol: Document 02/15/21 12:05 CHELSIE (Rec: 02/15/21 12:21 LJ [id number]) Physical Therapy Treatment Education Education Provided Safety M7 PT-IP Assessment and Plan Start: 02/14/21 16:20 Freq: NEEDED Status: Active Protocol: Document 02/15/21 12:05 CHELSIE (Rec: 02/15/21 12:21 LJ [id number]) PT Summary Assessment and Plan Potential Rehabilitation Potential Good Status of Condition at Evaluation Evolving Summary Impairments Pain,ROM,Strength,Balance, Coordination,Sensation,Tone, Cognition,Bed Mobility, Transfers,Gait,Activity Tolerance Assessment Summary Pt improved with mobility and gait distance. Ambulation in room without AD required CGA. She did not lose balance but stated she felt wobbly. Stair climbing is safe for DC home. Continue to progress with least restrictive AD for ambulation. Goals Bed Mobility Goal Independent Transfer Goal Independent,Front Wheeled Walker Gait Goal Independent,Front Wheel Walker Gait Distance 100 Other Goals improve ambulation using SPC/ without AD 150 ft SBA up/down 4 steps L rail + R rall SBA Days to Meet Goals 5 Frequency of Treatment Frequency Of Treatment Once a Day Treatment Plan Physical Therapy Treatment Plan Bed Mobility Training,Transfer Training,Gait Training, Therapeutic Exercise,Balance Retraining,Discharge Planning, Hot or Cold Pack,Neuromuscular Re-ed,Coordination Retraining ,Manual Therapy Other Recommendations and Next Treatment ambulation without AD/SPC when Focus appropriate Recommendations To Nursing Amount of Assist Needed Standby Assistance,1 Person Assist Discharge Recommendations PT Discharge Recommendations Home with Assistance,Home Health Equipment Needed for Home Before FWW if not safe without AD/SPC Discharge Transportation Needs at Discharge Private Vehicle
--- NOTE | 2021-02-15 15:27 | CM.DPC ---
DCP HH Planning: Per MD, pt not quite stable for d/c home yet today but likely medically stable tomorrow and MD agreeable with HH and signed completed F2F and MD orders placed for HH. Per PT, recommending safe d/c home with HH when stable. No HH preference. Due to availability of start dates for HH agencies ([facility] cannot open for a week and no call back from [facility]) and [facility] can open soonest. G[facility] Sarah oliveira faxed completed F2F, orders, and new referral to [facility] to review. Plan: SW to follow for likely plan of d/c home with new [facility] referral tomorrow if stable and faxing d/c summary to [facility] at discharge. Priscilla Hatfield MSW
--- NOTE | 2021-02-15 16:26 | PC.NURSE ---
Addendum entered by Mark Chakraborty 02/15/21 19:27: Pt up and ambulating in the hallways with use of FWW and WOUND CARE COORDINATOR standing by. Pt returned back to bed after walk. Original Note: Pt is sitting up in recliner. Pt denies any pain; including any pain in back or abdomen. A&O to person, situation and date. Last BM was 02/14 in the evening. Pt abdomen is still firm and distended. She reports 2 voids with no burning or pain. Lungs sound are tight but clear throughout all wheeler. IS performed and reached a max of 750. Pedal pulses present and regular, auscultated with Doppler. Pt is calm, cooperative, and calls appropriately. This student nurse reminded pt to call for any needs or before ambulating. Bed chair alarm is on and pt remains in recliner.
--- NOTE | 2021-02-15 17:11 | PC.NURSE ---
Addendum entered by Yi Luna R.N. 02/15/21 22:35: Quietly resting in bed on right side watching movie. No concerns or complaints verbalized. Addendum entered by Yi Luna R.N. 02/15/21 21:13: Medicated for low back pain as per student nurse Mark. Ice to back. Miralax to promote bowel function. Addendum entered by Yi Luna R.N. 02/15/21 19:14: Pt ambulated in hallway with walker and LOG YARD DERRICK OPERATOR standby. Now returned to bed and resting quietly with eyes closed. No signs of distress or discomfort. Original Note: Pt up in chair awake and alert @ beginning of shift. Cooperative with assessment denying nausea and pain. States does not require pain meds @ this time. Chair alarm in place and call light available. Denies any urinary symptoms.
--- NOTE | 2021-02-15 17:19 | PM.CN ---
History of Present Illness Consult details Date Patient Seen: 02/15/21 Time Patient Seen: 17:19 Chief complaint: 3 DAY TYPE 2 DIABETIC DEHYDRATION Reason for consult: Ovarian mass Requesting provider: Genoveva Pedersen Narrative: Patient is a 70-year-old 5 para 3 who was admitted on February 13, 2021 for lower abdominal pain Patient reports over the last week she has had increasing lower abdominal pain that is bilateral. She also felt some chills and sweats. [place] like she had a fever. Her highest temperature here was 99. She had an elevated white blood count on admission and was placed on ceftriaxone. She was found to have an 8.9 x 5.0 x 5.7 cm right ovarian mass on ultrasound. She also had a 12 mm endometrial lining. Patient's history is complicated by a history of a stroke. She is on aspirin daily. She also has a type 2 diabetic with the most recent hemoglobin A1c at 7.2. She reports that today she is feeling much better. She is ambulating in the halls. Meds Home Medications and Allergies Home Medications Medication Instructions Recorded Confirmed Type ASPIRIN (#ASPIR-CHERELLE) 325 mg PO HS #0 09/21/11 02/13/21 History valsartan 80 mg tablet (Diovan) 40 mg PO DAILY #90 tab 11/30/19 02/13/21 Rx atorvastatin 20 mg tablet (Lipitor) 20 mg PO HS #90 tab 06/05/20 02/13/21 Rx metformin 500 mg tablet,extended 500 mg PO BID 02/13/21 02/13/21 History release 24 hr (Glucophage XR) paroxetine HCl 40 mg tablet (Paxil) 20 mg PO QPM 02/13/21 02/13/21 History Allergies Allergy/AdvReac Type Severity Reaction Status Date / Time No Known Drug Allergies Allergy Verified 02/13/21 18:19 Exam Vital Signs (past 8 hours): - 02/15/21 12:00 02/15/21 16:26 Temperature 98.0 F 97.6 F Pulse Rate 88 82 Respiratory Rate 18 16 Blood Pressure 134/63 125/61 Pulse Oximetry 93 98 Oxygen Delivery Method Room Air Oxygen Flow Rate 0 Narrative Exam Narrative: Generally: Patient is sitting up in bed side chair, eating dinner, no acute distress Lungs: Clear to auscultation bilaterally Cardiovascular: Regular rate and rhythm Abdomen: Soft. No guarding or rebound tenderness. There is a well-healed infraumbilical incision. no masses palpable. Extremities: No edema Objective Labs Result Diagrams: 02/15/21 06:05 02/15/21 06:05 Labs: Laboratory Results - last 24 hr 02/15/21 02/15/21 06:05 06:05 WBC 11.2 H RBC 3.75 L Hgb 10.8 L Hct 33.2 L MCV 88.5 MCH 28.8 MCHC 32.6 RDW 13.4 Plt Count 253 Neut % (Auto) 62.7 Lymph % (Auto) 22.9 L [place] % (Auto) 12.7 Eos % (Auto) 1.1 L Baso % (Auto) 0.6 Neut # (Auto) 7000 Lymph # (Auto) 2600 [place] # (Auto) 1400 H Eos # (Auto) 100 Baso # (Auto) 100 Sodium 139 Potassium 3.9 Chloride 105 Carbon Dioxide 29 BUN 10 Creatinine 0.66 Estimated GFR > 60.0 BUN/Creatinine Ratio 15.2 Glucose 100 Calcium 8.4 Total Bilirubin 0.4 AST 30 ALT 25 Alkaline Phosphatase 65 Total Protein 6.3 Albumin 3.2 L Globulin 3.1 Albumin/Globulin Ratio 1.0 Assessment & Plan Assessment and plan (1) Mass of right ovary: Status: Acute Assessment & Plan narrative: Assessment: 70-year-old 5 para 3 with an 8.9 x 5.0 x 5.7 cm complex mass of the right adnexa. Normal CA-125 Patient on blood thinners Plan: Will discuss plan for surgery with Dr. Stallings, PCP, on February 16, 2021 and decide if patient can be discharged home to follow up as an outpatient for surgery or with we will proceed with surgery while patient in the hospital.
[2021-02-15] MEDS: ATORVASTATIN 20 MG TABLET PO (20:27)
[2021-02-15] MEDS: HYDROCODONE/ACET 5/325 TABLET 1 TAB PO (20:27)
[2021-02-15] MEDS: cefTRIAXone 2,000 MG in SODIUM CHLORIDE 0.9% 100 ML 200 ML IV (20:28)
[2021-02-15] MEDS: SODIUM CHLORIDE 0.9% 250 ML 21 ML IV (20:30)
[2021-02-15] MEDS: polyethylene glycoL 3350 17 GM POWD.PACK PO (20:39)
[2021-02-16 00:25] VITALS: BP 142/60; PULSE 86; RESP 16; TEMP 36.5; O2SAT 93
[2021-02-16 04:35] VITALS: BP 129/68; PULSE 98; RESP 22; TEMP 36.6; O2SAT 93
[2021-02-16] MEDS: HYDROCODONE/ACET 5/325 TABLET 1 TAB PO ×2 (05:05→09:19)
[2021-02-16 05:48] LABS: Add Manual Diff / Slide Review NO; Basophils Absolute Auto 100 /uL (0-100); Basophils Percent Auto 0.8 % (0-2); Eosinophils Absolute Auto 200 /uL (0-450); Eosinophils Percent Auto 2.3 % (2-4); Hematocrit 34.2 % (36-46); Hemoglobin 11.5 g/dL (12.0-16.0); Lymphocytes Absolute Auto 2800 /uL (1100-4500); Lymphocytes Percent Auto 29.5 % (25-40); Mean Corpuscular HGB Conc 33.6 % (30-36); Mean Corpuscular Hemoglobin 29.2 PG (26-34); Monocytes Absolute Auto 1200 /uL (0-900); Monocytes Percent Auto 12.7 % (3-14); Neutrophils Absolute Auto 5200 /uL (1500-7000); Neutrophils Percent Auto 54.7 % (50-75); Platelet Count 279 X10^3/uL (150-400); Red Blood Cell Count 3.93 X10^6/uL (4.0-5.2); Red Cell Distribution Width 13.5 % (11.6-14.8); White Blood Cell Count 9.4 X10^3/uL (4.5-11.0)
[2021-02-16 05:57] LABS: Alanine Aminotransferase 48 IU/L (<35); Albumin 3.4 g/dL (3.5-5.0); Albumin Globulin Ratio 1.1 (1.0-2.8); Alkaline Phosphatase 84 U/L (38-126); Aspartate Aminotransferase 49 IU/L (14-36); BUN Creatinine Ratio 14.9 (6-22); Bilirubin Total 0.4 mg/dL (0.2-1.3); Blood Urea Nitrogen 10 mg/dL (7-17); Calcium 8.8 mg/dL (8.4-10.2); Carbon Dioxide 30 mmol/L (22-32); Chloride 106 mmol/L (98-107); Estimated Glomerular Filt Rate > 60.0 mL/min (>60); Globulin 3.2 g/dL (1.7-4.1); Glucose 110 mg/dL (80-110); HEMOLYSIS < 15 (0-50); Potassium 4.4 mmol/L (3.4-5.1); Sodium 139 mmol/L (137-145); Total Protein 6.6 g/dL (6.3-8.2)
[2021-02-16 08:00] VITALS: BP 132/58; PULSE 77; RESP 18; TEMP 35.8; O2SAT 94
--- NOTE | 2021-02-16 08:12 | P.PN_ITS ---
Subjective Subjective Date Patient Seen: 02/16/21 Time Patient Seen: 08:12 Interval history: Patient's care over the weekend discussed with Dr. Pedersen who admitted her I reviewed Dr. Ardon consultation note as well. Patient will clearly need a surgical intervention to determine the nature of this cystic mass in her right adnexa. Patient herself says she is feeling much much better. She has been afebrile. She is up out of bed sitting in her bedside chair. Maybe still feeling a bit weak but as she says tremendously better Exam Vital Signs (past 8 hours): - 02/16/21 00:25 02/16/21 04:35 Temperature 97.7 F 97.9 F Pulse Rate 86 98 H Respiratory Rate 16 22 Blood Pressure 142/60 H 129/68 Pulse Oximetry 93 93 Oxygen Delivery Method Room Air Oxygen Flow Rate 0 Objective Labs Result Diagrams: 02/16/21 05:35 02/16/21 05:35 Labs: Laboratory Results - last 24 hr 02/16/21 02/16/21 05:35 05:35 WBC 9.4 RBC 3.93 L Hgb 11.5 L Hct 34.2 L MCV 87.0 MCH 29.2 MCHC 33.6 RDW 13.5 Plt Count 279 Neut % (Auto) 54.7 Lymph % (Auto) 29.5 [place] % (Auto) 12.7 Eos % (Auto) 2.3 Baso % (Auto) 0.8 Neut # (Auto) 5200 Lymph # (Auto) 2800 [place] # (Auto) 1200 H Eos # (Auto) 200 Baso # (Auto) 100 Sodium 139 Potassium 4.4 Chloride 106 Carbon Dioxide 30 BUN 10 Creatinine 0.67 Estimated GFR > 60.0 BUN/Creatinine Ratio 14.9 Glucose 110 Calcium 8.8 Total Bilirubin 0.4 AST 49 H ALT 48 H Alkaline Phosphatase 84 Total Protein 6.6 Albumin 3.4 L Globulin 3.2 Albumin/Globulin Ratio 1.1 [facility] Medical History Chronic hepatitis C Depression (Unknown) Diabetes (Unknown) Diabetes mellitus type 2, uncomplicated History of CVA (cerebrovascular accident) (~2011) Hx of TIA (transient ischemic attack) and stroke (~2011) Hyperlipemia (Unknown) Hypertension (Unknown) Osteopenia (07/2016) Surgical History History of elective History of elective Status post tubal ligation Family History Mother Breast cancer Social History household members: spouse Smoking Status: Current every day smoker Tobacco: How many years used: 44 quit status: considering quitting alcohol intake: never Assessment & Plan Assessment & Plan narrative: 1. UTI with E coli-continues on IV antibiotics. Sensitivities show it is sensitive to all antibiotics tested. Could be switched to oral antibiotics today if not discharged. I do not believe the mass in the right adnexa is a so urce of infection given lack of other findings on MR imaging 2. Diabetes-adequate control. Further evidence of adequate control of her infection 3. Right adnexal mass-patient will clearly need surgical intervention to remove and or evaluate this. Discussed with her frankly that worse case scenarios that this represents an ovarian malignancy, this could be a benign ovarian type cyst as well. Do not believe this is an infectious phlegmon or abscess as above given lack of other findings. Patient's other medical problems are stable. Will discussed with gynecology thoughts about timing of surgery and potentially discharge today or prep for surgery. Note: Greater than 30 minutes was spent evaluating the patient on the floor, including examining the patient, discussing clinical course with clinical and nursing staff, reviewing clinical course in the computer, preparing documentati on and writing orders for continued management of care, discussing status with family as appropriate, reviewing plans for the next 24 hours with both patient/family and nursing staff as appropriate.
[2021-02-16] MEDS: VALSARTAN 80 MG TABLET 40 MG PO (09:18)
[2021-02-16] MEDS: ASPIRIN 325 MG TABLET PO (09:19)
[2021-02-16] MEDS: CIPROFLOXACIN 250 MG TABLET 500 MG PO (09:19)
[2021-02-16] MEDS: PSYLLIUM HUSK 1 PACKET PO (09:20)
[2021-02-16] MEDS: ENOXAPARIN 40 MG/0.4 ML SYRINGE SUBCUT (09:20)
[2021-02-16] MEDS: PARoxetine 20 MG TABLET PO (09:21)
--- NOTE | 2021-02-16 09:38 | PT.IPTN ---
Current Diagnoses Urinary tract infection, site not specified (02/15/21) Other noninflammatory disorders of ovary, fallopian tube and broad ligament (02/15/21) Other specified conditions associated with female genital organs and menstrual cycle (02/15/21) Unspecified abdominal pain (02/15/21) Physical Therapy Treatment Note M2 PT-IP Current Condition Start: 02/14/21 16:20 Freq: NEEDED Status: Active Protocol: Document 02/14/21 15:30 AB (Rec: 02/14/21 16:37 AB [id number]) Physical Therapy Current Condition Current Condition Evaluation Date 02/14/21 Treatment Diagnosis UTI; difficulty in walking Onset Date 02/13/21 M3 PT-IP Subjective Start: 02/14/21 16:20 Freq: NEEDED Status: Active Protocol: Document 02/16/21 09:38 DLM (Rec: 02/16/21 12:54 DLM [id number]) Subjective Physical Therapy Visit Type Type Treatment Note Visit Start Time 09:00 Visit Stop Time 09:38 Total Visit Minutes 38 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 She was able to get out of bed herself today. Therapy Pain Assessment Pain When Pain Assessed At Rest Pain Present Pain Present Pain Reported Location Lower Back Intensity 3 Scale Used Numeric (0 - 10) Description Aching Pain Management Techniques Re-positioning M4 PT-IP Mobility and Gait Start: 02/14/21 16:20 Freq: NEEDED Status: Active Protocol: Document 02/16/21 09:38 DLM (Rec: 02/16/21 12:54 DLM [id number]) PT-Transfer Assessment Sit to and From Stand Sit to and from Stand Standby Assistance,Use of Upper Extremities Equipment Transfer Assistive Device Gait Belt Transfers Transfer Destination Chair Transfer Technique Stand Step Pivot Transfer Ability Level of Assist Standby Assistance,Use of Upper Extremities Comments Mobility Comments Pt sitting up in recliner, she wants to stay up Gait Assessment Gait Gait Assistance Required: Standby Assistance Distance (Feet) 215 Assistive Devices Assistive Device Gait Belt Gait Deviations General Gait Pattern Wide Based Gait Factors Limiting Gait Function Factors Limiting Gait Function Decreased Activity Tolerance Comments Gait Comments she got short of breath during gait/stairs and needed extended standing rest to recover, she feels the mask makes it harder for her to recover Stair Climbing Assessment Evaluation Level of Assist On Stairs Standby Assistance Devices Stair Climbing Assistive Devices Left Railing Technique/Endurance Stair Climbing Direction Ascend and Descend Stair Climbing Technique Step Over Step,Step to Step Number of Steps Climbed 3 Stair Climbing Set # Repetitions (reps) 1 Comments Stair Climbing Comments She goes up the stairs with step-over step and one hand on rail, going down the stairs she has both hands on the rail and uses a sideways step-to pattern PT-Balance Assessment Sitting Balance and Reactions Static Sitting Balance Ability Good Dynamic Sitting Balance Ability Good Standing Balance and Reactions Static Standing Balance Ability Good Dynamic Standing Balance Ability Fair Device Used none M5 PT-IP Objective Assessments Start: 02/14/21 16:20 Freq: NEEDED Status: Active Protocol: Document 02/14/21 15:30 AB (Rec: 02/14/21 16:37 AB [id number]) Orientation Orientation/Cognition Level of Alertness Alert Orientation Name,Place,Situation Language Function Ability No Deficits Noted Safety Awareness Understands Safety Issues Memory Description No Deficits Noted Strength Lower Extremity Strength Assessment Within Functional Limits Coordination Assessment Gross Coordination Gross Coordination WNL Sensation Assessment Sensation Gross Sensation WNL Muscle Tone Muscle Tone WNL Yes M6 PT-IP Treatment Start: 02/14/21 16:20 Freq: NEEDED Status: Active Protocol: Document 02/16/21 09:38 DLM (Rec: 02/16/21 12:54 DL [id number]) Physical Therapy Treatment Exercises Exercises Ankle Pumps,Seated Knee Flexion/Extension Education Education Provided Safety Equipment Issued Equipment Type and Company pt reports she can get a FWW from [employer] if needed at home Other Treatments Other Treatment Performed seated hip flexion exercise M7 PT-IP Assessment and Plan Start: 02/14/21 16:20 Freq: NEEDED Status: Active Protocol: Document 02/16/21 09:38 DLM (Rec: 02/16/21 12:54 DL [id number]) PT Summary Assessment and Plan Summary Impairments Pain,Strength,Balance,Bed Mobility,Transfers,Gait, Activity Tolerance Progress Towards Goals Progressing Toward Goals Assessment Summary Sandi is progressing well this visit. She is able to ambulate without a device today but fatigues quicker than when she uses the FWW. Discussed with pt she will tolerate short household distances without the fWW but she will tolerate community distances better with FWW. She appears safe to discharge home with family assist when medically stable. Will update her goals to reflect her progress Goals Bed Mobility Goal Independent Transfer Goal Independent,Front Wheeled Walker Gait Goal Independent,Cane Gait Distance 300 Other Goals up/down 4 steps L rail independently Days to Meet Goals 3 Frequency of Treatment Frequency Of Treatment Once a Day Treatment Plan Physical Therapy Treatment Plan Bed Mobility Training,Transfer Training,Gait Training, Therapeutic Exercise,Balance Retraining,Discharge Planning, Neuromuscular Re-ed Other Recommendations and Next Treatment continue to assess need for [employer] at home Recommendations To Nursing Amount of Assist Needed Standby Assistance Discharge Recommendations PT Discharge Recommendations Home with Assistance,Home Health Transportation Needs at Discharge Private Vehicle
--- NOTE | 2021-02-16 10:37 | PC.NURSE ---
Patient complained of pain to back 01/08, one vicodin given. She worked with physical therapy and ambulated in the halls. Patients lower abdomen is distended, she denies pain here. Dr. Stallings into see patient and is awaiting to talk to regarding ovarian mass, he states. She is resting comfortably and sitting up in the chair.
[2021-02-16 12:00] VITALS: BP 135/69; PULSE 71; RESP 18; TEMP 35.8; O2SAT 95
--- NOTE | 2021-02-16 16:30 | CM.DPC ---
DCP/continued: Received notification that patient discharged today. Current d/c plan is home with [facility]. Placed call to Karla at [facility] and notified her of d/c. Karla reports that she has all needed information. No d/c summary available today. P: Home with HH today. FLORES Mata
== END 2021-02-16 13:15 | disposition home or self-care (01) | DRG 690 ==
LOC: ED 22:20 → AC 22:33
PROVIDERS: Admitting Provider Family Medicine; Emergency Provider Emergency Medicine; PCP Internal Medicine; Referring Provider Emergency Medicine; Visit Provider Internal Medicine
DX: N39.0 Urinary tract infection, site not specified (principal); R09.02 Hypoxemia; I10 Essential (primary) hypertension; R19.09 Other intra-abdominal and pelvic swelling, mass and lump; B96.20 Unspecified Escherichia coli [E. coli] as the cause of diseases classified elsewhere; E78.5 Hyperlipidemia, unspecified; F32.9 Major depressive disorder, single episode, unspecified; E11.9 Type 2 diabetes mellitus without complications; K59.00 Constipation, unspecified; F17.210 Nicotine dependence, cigarettes, uncomplicated; Z79.84 Long term (current) use of oral hypoglycemic drugs; Z20.822 Contact with and (suspected) exposure to COVID-19
CPT/HCPCS: 36415; 71045; 71046; 72197; 74018; 74177; 76830; 76856; 80053; 81001; 82962; 83605; 83690; 83880; 84145; 85025; 85027; 86304; 87040; 87077; 87086; 87186; 87635; 93005; 93010; 96361; 96365; 96375; 97116; 97162; 97530; 99238; 99284; C9803; G0378; A9579; J0696; J1170; J1650; J1885; Q9967

== ENCOUNTER → 2021-03-05 10:27 | Outpatient (CLI) | payer MEDICARE, OTHER, SELFPAY ==
[2021-02-13 23:11] VITALS: BMI 31.0
[2021-03-05 12:18] LABS: Hemoglobin A1C% w Est Avg Glu 6.3 % (4.0-6.0)
[2021-03-05 12:20] LABS: Alanine Aminotransferase 75 IU/L (<35); Albumin 4.1 g/dL (3.5-5.0); Albumin Globulin Ratio 1.2 (1.0-2.8); Alkaline Phosphatase 103 U/L (38-126); Aspartate Aminotransferase 64 IU/L (14-36); BUN Creatinine Ratio 17.6 (6-22); Bilirubin Total 0.5 mg/dL (0.2-1.3); Blood Urea Nitrogen 12 mg/dL (7-17); Calcium 9.6 mg/dL (8.4-10.2); Carbon Dioxide 31 mmol/L (22-32); Chloride 103 mmol/L (98-107); Cholesterol 154 mg/dL (140-199); Estimated Glomerular Filt Rate > 60.0 mL/min (>60); Globulin 3.5 g/dL (1.7-4.1); Glucose 105 mg/dL (80-110); HDL Cholesterol 46 mg/dL (40-60); HEMOLYSIS < 15 (0-50); LDL Cholesterol Calculated 82 mg/dL (<100); Potassium 4.8 mmol/L (3.4-5.1); Sodium 140 mmol/L (137-145); Total Protein 7.6 g/dL (6.3-8.2); Triglycerides 128 mg/dL (35-150)
== END ==
PROVIDERS: PCP Internal Medicine; Referring Provider Internal Medicine; Visit Provider Internal Medicine
DX: E11.65 Type 2 diabetes mellitus with hyperglycemia (principal); I10 Essential (primary) hypertension; E78.2 Mixed hyperlipidemia
CPT/HCPCS: 36415; 80053; 80061; 83036

== ENCOUNTER → 2021-03-16 08:10 | Outpatient (CLI) | payer MEDICARE, OTHER, SELFPAY ==
[2021-02-13 23:11] VITALS: BMI 31.0
[2021-03-16 12:55] LABS: COVID19 -Nasal RAPID Negative (Negative)
== END ==
PROVIDERS: PCP Internal Medicine; Visit Provider Obstetrics & Gynecology
DX: Z01.812 Encounter for preprocedural laboratory examination (principal); Z20.822 Contact with and (suspected) exposure to COVID-19
CPT/HCPCS: 87635

== ENCOUNTER 2021-03-17 06:26 | Day surgery (SDC) | payer MEDICARE, OTHER, SELFPAY ==
[2021-02-13 23:11] VITALS: BMI 31.0
[2021-03-11 07:52] VITALS: BMI 29.3
[2021-03-17] VITALS (9 sets, daily range): BP systolic 146–172; BP diastolic 62–83; PULSE 70–92; RESP 14–18; TEMP 36.2–36.8; O2SAT 90–98; BMI 29.3
--- NOTE | 2021-03-17 | PATH_ITS ---
[facility] Accession Number: [id number] . 01 Material submitted: . FALLOPIAN/OVARY - BILATERAL FALLOPIAN TUBES AND OVARIES . 02 Diagnosis: Bilateral Fallopian Tubes and Ovaries, Bilateral Salpingo-oophorectomy: 1. Benign fibrothecoma. 2. Bilateral fallopian tubes with paratubal cysts. 3. Second ovary with no diagnostic abnormality. 4. Negative for atypia, epithelial dysplasia and malignancy. [facility] 03/19/2021 1446 Local . 02 Comment: As part of routine software quality manager slides A1-A6 were reviewed by Dr. Padilla who agrees with the diagnosis of fibrothecoma. . 02 Electronically signed: . Griselda Roberto MD, Pathologist NPI- [id number] . 01 Gross description: . The specimen is received in formalin, labeled bilateral tubes and ovaries and consists of a 128-gram, 9.0 x 9.0 x 5.5 cm fragmented cystic ovary with a ortez smooth external surface. The external surface is inked blue and the specimen is sectioned to reveal ortez-white to ortez-yellow, firm cut surfaces. No papillary excrescences are identified. There is a 3.5 cm in length by 0.7 cm in diameter portion of attached fallopian tube with a ortez-pink smooth serosa and multiple paratubal cysts measuring 0.1 cm. Sectioning reveals a ortez-pink mucosa and a stellate lumen measuring 0.2 cm in diameter. Also received is a 2.5 x 1.1 x 0.6 cm ovary with a ortez, smooth to cerebriform external surface. Sectioning reveals multiple ortez smooth-walled cysts ranging from 0.1-0.2 cm, with no papillary excrescences identified. The attached fallopian tube measures 3.0 cm in length by 0.6 cm in diameter and displays a ortez-pink smooth serosa. Sectioning reveals a ortez mucosa and a stellate lumen measuring 0.3 cm in diameter. Shipping And Receiving Assistant sections are submitted. . A1-A6: Shipping And Receiving Assistant fragmented, cystic ovary. A7: Fallopian tube attached to a portion of cystic ovary, margin (blue/en face), central cross-sections and bisected fimbria. A8: Shipping And Receiving Assistant sections of other ovary. A9: Shipping And Receiving Assistant of fallopian tube attached to other ovary, margin (blue/en face), central cross-sections and bisected fimbria. (EA:[id number]) /MRV 03/18/2021 1214 Local . 02 Pathologist provided ICD-10: N83.8 . 02 CPT . 355997 Performed at: 01 [facility] Cytology [address] [id number] MD Josue Martinez MD Phone: [phone] Performed at: 02 [facility] [address] [place], [place] [id number] MD Griselda Roberto MD Phone: [phone]
--- NOTE | 2021-03-17 06:56 | PM.HP.1 ---
History of Present Illness History of Present Illness Date Patient Seen: 03/17/21 Time Patient Seen: 06:56 Chief complaint: LAPAROSCOPIC BSO W/WASHINGS Narrative: Patient is a 70-year-old 5 para 3 with a 9 cm right ovarian mass. She presents for a scheduled laparoscopic bilateral salpingo-oophorectomy with pelvic washings. CA-125 was normal. Patient History Medical History (Updated 03/11/21 @ 08:04 by Roselyn Goldman RN) Chronic hepatitis C Depression (Unknown) Diabetes (Unknown) Diabetes mellitus type 2, uncomplicated History of CVA (cerebrovascular accident) (~2011) History of recent hospitalization (02/13/21) Hx of TIA (transient ischemic attack) and stroke (~2011) Hyperlipemia (Unknown) Hypertension (Unknown) Osteopenia (07/2016) Surgical History History of elective History of elective Status post tubal ligation Family & Social History Family History Mother Breast cancer Social History: household members spouse Tobacco & Substance use: Tobacco type cigarettes Smoking Status Current every day smoker alcohol intake former Substance Use Type does not use Meds Home Medications and Allergies Home Medications Medication Instructions Recorded Confirmed Type atorvastatin 20 mg tablet (Lipitor) 20 mg PO HS #90 tab 06/05/20 03/11/21 Rx metformin 500 mg tablet,extended 500 mg PO BID 02/13/21 03/11/21 History release 24 hr (Glucophage XR) paroxetine HCl 40 mg tablet (Paxil) 20 mg PO QPM 02/13/21 03/11/21 History valsartan 80 mg tablet (Diovan) 40 mg PO DAILY #90 tab 03/06/21 03/11/21 Rx Allergies Allergy/AdvReac Type Severity Reaction Status Date / Time No Known Drug Allergies Allergy Verified 03/06/21 10:58 Exam Narrative Exam Narrative: HEENT: No thyromegaly, no anterior cervical or supraclavicular lymphadenopathy. Lungs:Clear to auscultation bilaterally, no wheezes. Cardiovascular: Regular rate and rhythm, no murmurs, rubs, or gallops. Abdomen: Well-healed scars. No hepatosplenomegaly. No masses palpable. External genitalia: Normal Vagina: Normal Cervix: Normal Bimanual exam: 5 Week size uterus. Mobile. Right adnexal fullness. Assessment & Plan Assessment & Plan narrative: Assessment: 70-year-old 5 para 3 with a 9 cm right ovarian mass Normal CA 125 Plan: Laparoscopic bilateral salpingo-oophorectomy with pelvic washing The risks, benefits, and alternatives to the procedure were explained to the patient. The risks including bleeding, infection, injury to the bowel, bladder, or ureters. She understands these risks and agrees to proceed. A full par Q was held and consent form was signed. COVID-19 COVID-19 status: Negative Result date/Date tested (Pos, Neg/Pending): 03/16/21 Time Spent With Patient Time with patient: 15-24 minutes
--- NOTE | 2021-03-17 06:58 | PM.PREOP ---
Pre-operative Note COVID-19 COVID-19 status: Negative Result date/Date tested (Pos, Neg/Pending): 03/16/21 Interval Note History & Physical reviewed/Exam performed by Physician: Yes Changes to H&P: No
[2021-03-17] MEDS: LACTATED RINGERS 1,000 ML 42 ML IV (07:13)
[2021-03-17] MEDS: ACETAMINOPHEN 325 MG TABLET 975 MG PO (07:16)
--- NOTE | 2021-03-17 08:09 | SUR.OPER ---
Lithotomy on padded OR bed, head on pillow, arms padded and tucked. Legs secured in padded yellow fins stirrups.
[2021-03-17] MEDS: BUPIVACAINE 0.25% W/ EPI 30 ML VIAL INJ (09:39)
--- NOTE | 2021-03-17 10:12 | PATH_ITS ---
Note [facility] Accession Number: [id number] TESTS RESULT FLAG UNITS REF RANGE LAB Clinician Provided Cytology Information No. of containers..01 Other (Miscellaneous) RIGHT OVARIAN FLUID DIAGNOSIS: 01 RIGHT OVARIAN FLUID NEGATIVE FOR MALIGNANT CELLS. THIS INTERPRETATION INCLUDES EVALUATION OF A CELL BLOCK. Pathologist ICD10: 01 N83.9 Ml Rosen MD, Pathologist NPI- [id number] Pedro Nicolas, Critical Care Physician Assistant ([facility] [place]) 01 10 CC, ORANGE, HAZY RECEIVED: FRESH IN ORANGE CAP CONTAINER. /VDU 03/18/2021 0615 Local FLAG LEGEND: L-Low Normal,H-High Normal,LL-Alert Low,HH-Alert High <-Panic Low,>-Panic High,A-Abnormal,AA-Critical Abnormal Performed at: 01 =Z [facility] [address] [place] [address] [address], [place] [address] Josue Martinez MD, Performed at: 01 [facility] [address], [place], [place] [id number] MD Josue Martinez MD Phone: [phone]
--- NOTE | 2021-03-17 10:29 | PM.GYNOP.1 ---
Operative Date/Time/Diagnoses Date of procedure: 03/17/21 Time of procedure: 10:29 Pre-op diagnosis: 9 cm Right ovarian mass Post-op diagnosis: same Procedure & Clinicians Procedure: Procedures Operation Date: 03/17/21 07:45 Actual Procedure Side Surgeon p Laparoscopic Salpingectomies-oophorectomies with washings Bilateral Tsering Ardon MD Indications: 9 cm right ovarian mass Surgeon: Tsering Ardon Guide Domestic Tour: Johan Field Anesthesia Type: General and Local Operative Notes Findings: 6 week size anteverted uterus Normal left ovary in 2 9 cm right ovarian mass Normal appendix, liver, and gallbladder Normal appearing bladder and bowel Normal pelvic sidewalls Closure Type: primary Specimen(s): left tube & ovary, right tube & ovary and other (Pelvic washings, R ovarian cyst fluid) Applied: catheter (In an out) Estimated blood loss (mL): 10 Blood products transfused: none Procedure in detail: After informed consent was obtained, the patient was taken to the operating room where she was placed in the dorsal supine position. After adequate general endotracheal anesthesia was achieved, she was placed in the dorsal lithotomy position, and prepped and draped in the usual sterile fashion. A time-out was performed. A bivalve speculum was placed into the vagina and the anterior lip of the cervix was grasped with a single-tooth tenaculum. The cervical os was sequentially dilated until the Zumi uterine manipulator could pass easily into the endometrial cavity. The single-tooth tenaculum was removed from the anterior lip of the cervix. The bivalve speculum was removed from the vagina. Attention was then turned to the abdomen where 6 cc of 0.25% Marcaine with epinephrine were injected in the umbilical fold. A 5 mm incision was made. The Veress needle was placed into the peritoneal cavity, and its placement confirmed by aspiration and drop test. The abdominal cavity was insufflated with 3.8 L of CO2. The Veress needle was removed, and a 5 mm trocar was placed without difficulty. Two other incisions were made after 6 cc of 0.25% Marcaine with epinephrine were injected. These 5 mm incisions were 4 cm lateral to the midline at the level of the umbilicus. Care was taken to avoid any blood vessels. Two 5 mm trocars were placed under direct visualization. The pelvis and abdomen were visualized with the findings noted above. 60 cc of sterile water was injected into the pelvis and then aspirated for pelvic washings. The right tube was grasped with an atraumatic grasper. Using the PlasmaKinetic was settings at 40 w, the infundibulopelvic ligament on the right side was cauterized and cut. The broad ligament was cauterized and cut all the way down to the cornua of the uterus. The utero-ovarian and tube were amputated at the level of the cornua. The ovary in 2 were placed into the posterior cul-de-sac. This was repeated on the patient's left side. Hemostasis was achieved. 6 cc of 0.25% Marcaine with epinephrine were injected above the pubic symphysis. A 12 mm incision was made. The large Sunday bag was placed through the suprapubic incision and both tubes and ovaries were placed into the bag. The string attached to the bag was pulled through the suprapubic incision closing the bag. The Sunday ring was then rolled to increase the size of the incision. Using an 18 gauge spinal needle, approximately 100 cc of clear yellow fluid were aspirated from right ovarian cyst. The right ovary was then morcellated in approximately 20 pieces. The left ovary and tube were removed intact. The Sunday bag was removed from the incision. The fascia was closed on the suprapubic incision using 0 Vicryl in a running fashion. Three simple interrupted sutures with 3-0 Vicryl were placed in the subcutaneous layer. The abdomen was re-insufflated. The pelvis was irrigated with warm normal saline. There was no bleeding noted. The instruments were removed from the abdomen. The CO2 was allowed to escape. All of the incisions were closed with 4 0 Biosyn in a subcuticular fashion. Steri-Strips and Allevyn dressings were placed. The Zumi uterine manipulator was removed from the uterus. Sponge, lap, and instrument counts were correct x2. The patient tolerated the procedure well, and was taken to PACU in stable condition. Complications: none Post-operative Condition: stable Disposition: PACU Plan for aftercare: Home after recovery
[2021-03-17] MEDS: fentaNYL 100 MCG/2 ML INJ IV ×2 (10:31→10:43)
[2021-03-17] MEDS: LORazepam 2 MG/ML INJ 0.25 MG IV ×2 (10:43→11:04)
[2021-03-17] MEDS: OXYCODONE IR 5 MG TABLET PO (11:25)
== END 2021-03-17 12:19 | disposition home or self-care (01) ==
PROVIDERS: PCP Internal Medicine; Referring Provider Obstetrics & Gynecology; Visit Provider Obstetrics & Gynecology
PROC: 0UT24ZZ Resection of Bilateral Ovaries, Percutaneous Endoscopic Approach (ICD-10-PCS; CPT 58661; principal; 2021-03-17 07:45)
DX: N83.8 Other noninflammatory disorders of ovary, fallopian tube and broad ligament (principal); E11.9 Type 2 diabetes mellitus without complications; Z79.84 Long term (current) use of oral hypoglycemic drugs; F32.9 Major depressive disorder, single episode, unspecified; I10 Essential (primary) hypertension; I69.354 Hemiplegia and hemiparesis following cerebral infarction affecting left non-dominant side; E78.5 Hyperlipidemia, unspecified; M85.80 Other specified disorders of bone density and structure, unspecified site
CPT/HCPCS: 58661; J0330; J1885; J2060; J2250; J2405; J2704; J3010

== ENCOUNTER → 2021-10-13 15:36 | Outpatient (CLI) | payer MEDICARE, OTHER, SELFPAY ==
[2021-02-13 23:11] VITALS: BMI 31.0
--- NOTE | 2021-10-13 | DI.MG.S_ITS ---
BILATERAL DIGITAL SCREENING MAMMOGRAM 3D/2D WITH CAD: 10/13/2021 CLINICAL: Routine screening. Family history of breast cancer. Comparison is made to exams dated: 10/06/2020 mammogram, 10/02/2019 mammogram, and 10/07/2017 mammogram - [facility]. There are scattered fibroglandular elements in both breasts. Current study was also evaluated with a Computer Aided Detection (CAD) system. No significant masses, calcifications, or other findings are seen in either breast. There has been no significant interval change. IMPRESSION: NEGATIVE There is no mammographic evidence of malignancy. A 1 year screening mammogram is recommended. This exam was interpreted at Station ID: [id number]. NOTE: For mammograms, a report in lay terms will be sent to the patient. Approximately 15% of breast malignancies will not be visualized mammographically. In the management of a palpable breast mass, a negative mammogram must not discourage biopsy of a clinically suspicious lesion. Electronically Signed By: Lev rodriguez/jean:10/14/2021 08:34:12 letter sent: Normal Exam ACR BI-RADS Category 1: Negative 3341F
== END ==
PROVIDERS: PCP Internal Medicine; Referring Provider Internal Medicine; Visit Provider Internal Medicine
DX: Z12.31 Encounter for screening mammogram for malignant neoplasm of breast (principal)
CPT/HCPCS: 77063; 77067

== ENCOUNTER → 2022-03-16 11:10 | Outpatient (CLI) | payer MEDICARE, OTHER, SELFPAY ==
[2021-02-13 23:11] VITALS: BMI 31.0
[2022-03-16 12:31] LABS: Add Manual Diff / Slide Review NO; Basophils Absolute Auto 100 /uL (0-100); Basophils Percent Auto 1.1 % (0-2); Eosinophils Absolute Auto 100 /uL (0-450); Eosinophils Percent Auto 0.9 % (2-4); Hematocrit 41.2 % (36-46); Hemoglobin 14.1 g/dL (12.0-16.0); Lymphocytes Absolute Auto 3500 /uL (1100-4500); Lymphocytes Percent Auto 38.4 % (25-40); Mean Corpuscular HGB Conc 34.2 % (30-36); Mean Corpuscular Hemoglobin 29.8 PG (26-34); Monocytes Absolute Auto 800 /uL (0-900); Monocytes Percent Auto 8.8 % (3-14); Neutrophils Absolute Auto 4600 /uL (1500-7000); Neutrophils Percent Auto 50.8 % (50-75); Platelet Count 285 X10^3/uL (150-400); Red Blood Cell Count 4.74 X10^6/uL (4.0-5.2); Red Cell Distribution Width 13.6 % (11.6-14.8)
[2022-03-16 12:36] LABS: Hemoglobin A1C% w Est Avg Glu 6.5 % (4.0-6.0)
[2022-03-16 12:52] LABS: Alanine Aminotransferase 59 IU/L (<35); Albumin 4.4 g/dL (3.5-5.0); Albumin Globulin Ratio 1.4 (1.0-2.8); Alkaline Phosphatase 103 U/L (38-126); Aspartate Aminotransferase 41 IU/L (14-36); BUN Creatinine Ratio 18.8 (6-22); Bilirubin Total 0.5 mg/dL (0.2-1.3); Blood Urea Nitrogen 12 mg/dL (7-17); C-Reactive Protein Quant < 0.5 mg/dL (<1.0); Calcium 9.7 mg/dL (8.4-10.2); Carbon Dioxide 26 mmol/L (22-32); Chloride 105 mmol/L (98-107); Estimated Glomerular Filt Rate > 60 mL/min (>60); Globulin 3.1 g/dL (1.7-4.1); Glucose 107 mg/dL (80-110); HEMOLYSIS < 15 (0-50); Potassium 4.3 mmol/L (3.4-5.1); Sodium 139 mmol/L (137-145); Total Protein 7.5 g/dL (6.3-8.2)
[2022-03-16 12:55] LABS: Erythrocyte Sedimentation Rate 18 MM/HR (0-20)
[2022-03-16 13:23] LABS: TSH w/ Reflex to FT4 2.13 uIU/mL (0.47-4.68)
[2022-03-16 15:52] LABS: Appearance Urine UA CLEAR; Bilirubin Urine UA NEGATIVE (NEGATIVE); Color Urine UA YELLOW; Glucose Urine UA NEGATIVE (Negative); Ketones Urine UA NEGATIVE (NEGATIVE); Leukocyte Esterase Urine UA NEGATIVE (NEGATIVE); Nitrite Urine UA NEGATIVE (Negative); Occult Blood Urine UA NEGATIVE (Negative); Protein Urine UA NEGATIVE (Negative); Specific Gravity Urine UA 1.015 (1.000-1.035); Urobilinogen Urine UA 0.2 E.U./dL (0.2)
[2022-03-16 16:14] LABS: Bacteria Urine Occasional (0-1); Culture Indicated Urine Cult Not Indicated; RBC Urine 0-1/HPF (0-5/HPF); Squamous Epithelial Cell Urine 1-5 /HPF (0-5/HPF); WBC Urine 0-1/HPF (0-5/HPF)
[2022-03-16 16:29] LABS: Creatinine Urine Random 64.1 mg/dL
[2022-03-16 16:31] LABS: Microalbumin Urine Random 3.4 mg/dL (0-1.6)
[2022-03-18 07:47] LABS: Complement C3 186 mg/dL (82-167)
[2022-03-19 18:46] LABS: ANA Screen, IFA Positive (.)
== END ==
PROVIDERS: PCP Internal Medicine; Referring Provider Pediatrics; Visit Provider Pediatrics
DX: E11.9 Type 2 diabetes mellitus without complications (principal); I10 Essential (primary) hypertension; M54.81 Occipital neuralgia; R76.8 Other specified abnormal immunological findings in serum; Z86.73 Personal history of transient ischemic attack (TIA), and cerebral infarction without residual deficits; Z86.19 Personal history of other infectious and parasitic diseases
CPT/HCPCS: 36415; 80053; 81001; 82043; 82570; 83036; 84443; 85025; 85651; 86038; 86140; 86160; 87522

== ENCOUNTER → 2022-09-16 08:41 | Outpatient (CLI) | payer MEDICARE, OTHER, SELFPAY ==
[2021-02-13 23:11] VITALS: BMI 31.0
[2022-09-16 09:25] LABS: Hemoglobin A1C% w Est Avg Glu 6.3 % (4.0-6.0)
[2022-09-16 09:47] LABS: Alanine Aminotransferase 84 IU/L (<35); Albumin 4.2 g/dL (3.5-5.0); Albumin Globulin Ratio 1.4 (1.0-2.8); Alkaline Phosphatase 89 U/L (38-126); Aspartate Aminotransferase 55 IU/L (14-36); BUN Creatinine Ratio 24.7 (6-22); Bilirubin Total 0.6 mg/dL (0.2-1.3); Blood Urea Nitrogen 19 mg/dL (7-17); Calcium 9.4 mg/dL (8.4-10.2); Carbon Dioxide 29 mmol/L (22-32); Chloride 102 mmol/L (98-107); Cholesterol 152 mg/dL (140-199); Estimated Glomerular Filt Rate > 60 mL/min (>60); Globulin 3.1 g/dL (1.7-4.1); Glucose 101 mg/dL (80-110); HDL Cholesterol 46 mg/dL (40-60); HEMOLYSIS < 15 (0-50); LDL Cholesterol Calculated 73 mg/dL (<100); Potassium 4.6 mmol/L (3.4-5.1); Sodium 139 mmol/L (137-145); Total Protein 7.3 g/dL (6.3-8.2); Triglycerides 165 mg/dL (35-150)
== END ==
PROVIDERS: PCP Internal Medicine; Referring Provider Internal Medicine; Visit Provider Internal Medicine
DX: E11.9 Type 2 diabetes mellitus without complications (principal); E78.2 Mixed hyperlipidemia; B18.2 Chronic viral hepatitis C; I10 Essential (primary) hypertension
CPT/HCPCS: 36415; 80053; 80061; 83036

== ENCOUNTER → 2022-10-19 14:33 | Outpatient (CLI) | payer MEDICARE, OTHER, SELFPAY ==
[2021-02-13 23:11] VITALS: BMI 31.0
--- NOTE | 2022-10-19 | DI.MG.S_ITS ---
BILATERAL DIGITAL SCREENING MAMMOGRAM 3D/2D WITH CAD: 10/19/2022 CLINICAL: Routine screening. Family history of breast cancer. Comparison is made to exams dated: 10/13/2021 mammogram, 10/06/2020 mammogram, and 10/02/2019 mammogram - [facility]. There are scattered areas of fibroglandular density in both breasts (category b / 25%-50% glandular tissue). Current study was also evaluated with a Computer Aided Detection (CAD) system. No significant masses, calcifications, or other findings are seen in either breast. There has been no significant interval change. IMPRESSION: NEGATIVE There is no mammographic evidence of malignancy. A 1 year screening mammogram is recommended. Based on the Tyrer Cuzick model (a risk assessment model) the patient's lifetime risk is 6.1% and her 10 year risk is 3.6%. According to the ACR, ACS, and NCCN guidelines, an annual breast MRI exam along with mammogram is recommended if the patient's lifetime risk is 20% or greater. This exam was interpreted at Station ID: [id number]. NOTE: For mammograms, a report in lay terms will be sent to the patient. Approximately 15% of breast malignancies will not be visualized mammographically. In the management of a palpable breast mass, a negative mammogram must not discourage biopsy of a clinically suspicious lesion. Electronically Signed By: Kelvin nieves/jean:10/20/2022 07:21:55 letter sent: Normal Exam ACR BI-RADS Category 1: Negative 3341F
== END ==
PROVIDERS: PCP Internal Medicine; Referring Provider Internal Medicine; Visit Provider Internal Medicine
DX: Z12.31 Encounter for screening mammogram for malignant neoplasm of breast (principal); Z80.3 Family history of malignant neoplasm of breast
CPT/HCPCS: 77063; 77067

== ENCOUNTER → 2023-03-31 09:04 | Outpatient (CLI) | payer MEDICARE, OTHER, SELFPAY ==
[2021-02-13 23:11] VITALS: BMI 31.0
[2023-03-31 10:23] LABS: Hemoglobin A1C% w Est Avg Glu 6.1 % (4.0-6.0)
[2023-03-31 10:45] LABS: Alanine Aminotransferase 101 IU/L (<35); Albumin 4.5 g/dL (3.5-5.0); Albumin Globulin Ratio 1.5 (1.0-2.8); Alkaline Phosphatase 91 U/L (38-126); Aspartate Aminotransferase 90 IU/L (14-36); BUN Creatinine Ratio 23.1 (6-22); Bilirubin Total 0.6 mg/dL (0.2-1.3); Blood Urea Nitrogen 15 mg/dL (7-17); Calcium 9.8 mg/dL (8.4-10.2); Carbon Dioxide 33 mmol/L (22-32); Chloride 101 mmol/L (98-107); Cholesterol 187 mg/dL (140-199); Estimated Glomerular Filt Rate > 60 mL/min (>60); Globulin 3.1 g/dL (1.7-4.1); Glucose 122 mg/dL (80-110); HDL Cholesterol 56 mg/dL (40-60); HEMOLYSIS < 15 (0-50); LDL Cholesterol Calculated 99 mg/dL (<100); Potassium 4.7 mmol/L (3.4-5.1); Sodium 138 mmol/L (137-145); Total Protein 7.6 g/dL (6.3-8.2); Triglycerides 158 mg/dL (35-150)
== END ==
PROVIDERS: PCP Internal Medicine; Referring Provider Internal Medicine; Visit Provider Internal Medicine
DX: E11.9 Type 2 diabetes mellitus without complications (principal); B18.2 Chronic viral hepatitis C; E78.5 Hyperlipidemia, unspecified; I10 Essential (primary) hypertension
CPT/HCPCS: 36415; 80053; 80061; 83036

== ENCOUNTER → 2023-09-29 10:48 | Outpatient (CLI) | payer MEDICARE, SELFPAY ==
[2021-02-13 23:11] VITALS: BMI 31.0
[2023-09-29 11:40] LABS: Hemoglobin A1C% w Est Avg Glu 6.6 % (4.0-6.0)
[2023-09-29 12:21] LABS: Alanine Aminotransferase 75 IU/L (<35); Albumin 4.2 g/dL (3.5-5.0); Albumin Globulin Ratio 1.3 (1.0-2.8); Alkaline Phosphatase 83 U/L (38-126); Aspartate Aminotransferase 67 IU/L (14-36); Bilirubin Total 0.7 mg/dL (0.2-1.3); Blood Urea Nitrogen 13 mg/dL (7-17); Calcium 9.9 mg/dL (8.4-10.2); Carbon Dioxide 20 mmol/L (22-32); Chloride 104 mmol/L (98-107); Cholesterol 164 mg/dL (140-199); Estimated Glomerular Filt Rate > 60 mL/min (>60); Globulin 3.2 g/dL (1.7-4.1); Glucose 116 mg/dL (80-110); HDL Cholesterol 45 mg/dL (40-60); HEMOLYSIS < 15 (0-50); LDL Cholesterol Calculated 86 mg/dL (<100); Potassium 4.6 mmol/L (3.4-5.1); Sodium 140 mmol/L (137-145); Total Protein 7.4 g/dL (6.3-8.2); Triglycerides 166 mg/dL (35-150)
== END ==
PROVIDERS: PCP Internal Medicine; Referring Provider Internal Medicine; Visit Provider Internal Medicine
DX: E11.9 Type 2 diabetes mellitus without complications (principal); E78.5 Hyperlipidemia, unspecified; I10 Essential (primary) hypertension
CPT/HCPCS: 36415; 80053; 80061; 83036

== ENCOUNTER → 2023-11-04 12:29 | Outpatient (CLI) | payer MEDICARE, SELFPAY ==
[2021-02-13 23:11] VITALS: BMI 31.0
--- NOTE | 2023-11-04 12:33 | DI.MG.S_ITS ---
BILATERAL DIGITAL SCREENING MAMMOGRAM 3D/2D WITH CAD: 11/04/2023 CLINICAL: Routine screening. Family history of breast cancer. Comparison is made to exams dated: 10/19/2022 mammogram, 10/13/2021 mammogram, and 10/06/2020 mammogram - [facility]. There are scattered areas of fibroglandular density in both breasts (category b / 25%-50% glandular tissue). Current study was also evaluated with a Computer Aided Detection (CAD) system. No significant masses, calcifications, or other findings are seen in either breast. There has been no significant interval change. IMPRESSION: NEGATIVE There is no mammographic evidence of malignancy. A 1 year screening mammogram is recommended. Based on the Tyrer Cuzick model (a risk assessment model) the patient's lifetime risk is 5.7% and her 10 year risk is 3.6%. According to the ACR, ACS, and NCCN guidelines, an annual breast MRI exam along with mammogram is recommended if the patient's lifetime risk is 20% or greater. This exam was interpreted at Station ID: [id number]. NOTE: For mammograms, a report in lay terms will be sent to the patient. Approximately 15% of breast malignancies will not be visualized mammographically. In the management of a palpable breast mass, a negative mammogram must not discourage biopsy of a clinically suspicious lesion. Electronically Signed By: Omayra hoyt/jean:11/04/2023 16:35:39 letter sent: Normal Exam ACR BI-RADS Category 1: Negative 3341F
== END ==
PROVIDERS: PCP Internal Medicine; Referring Provider Internal Medicine; Visit Provider Internal Medicine
DX: Z12.31 Encounter for screening mammogram for malignant neoplasm of breast (principal); Z80.3 Family history of malignant neoplasm of breast; R92.323 Mammographic fibroglandular density, bilateral breasts
CPT/HCPCS: 77063; 77067

== ENCOUNTER → 2024-03-27 09:44 | Outpatient (CLI) | payer MEDICARE, SELFPAY ==
[2021-02-13 23:11] VITALS: BMI 31.0
[2024-03-27 11:10] LABS: Add Manual Diff / Slide Review NO; Basophils Absolute Auto 100 /uL (0-100); Basophils Percent Auto 1.1 % (0-2); Eosinophils Absolute Auto 200 /uL (0-450); Eosinophils Percent Auto 1.8 % (2-4); Hematocrit 41.9 % (36-46); Hemoglobin 14.1 g/dL (12.0-16.0); Lymphocytes Absolute Auto 3600 /uL (1100-4500); Mean Corpuscular HGB Conc 33.8 % (30-36); Mean Corpuscular Hemoglobin 29.5 PG (26-34); Mean Corpuscular Volume 87.3 fL (80-100); Monocytes Absolute Auto 700 /uL (0-900); Monocytes Percent Auto 7.4 % (3-14); Neutrophils Absolute Auto 4400 /uL (1500-7000); Neutrophils Percent Auto 49.7 % (50-75); Platelet Count 321 X10^3/uL (150-400); Red Cell Distribution Width 14.2 % (11.6-14.8); White Blood Cell Count 8.9 X10^3/uL (4.5-11.0)
[2024-03-27 12:17] LABS: Alanine Aminotransferase 110 IU/L (<35); Albumin 4.5 g/dL (3.5-5.0); Albumin Globulin Ratio 1.3 (1.0-2.8); Alkaline Phosphatase 92 U/L (38-126); Aspartate Aminotransferase 95 IU/L (14-36); BUN Creatinine Ratio 15.8 (6-22); Bilirubin Total 0.7 mg/dL (0.2-1.3); Blood Urea Nitrogen 12 mg/dL (7-17); Calcium 9.7 mg/dL (8.4-10.2); Carbon Dioxide 27 mmol/L (22-32); Chloride 104 mmol/L (98-107); Cholesterol 171 mg/dL (140-199); Estimated Glomerular Filt Rate > 60 mL/min (>60); Globulin 3.4 g/dL (1.7-4.1); Glucose 130 mg/dL (80-110); HDL Cholesterol 42 mg/dL (40-60); HEMOLYSIS < 15 (0-50); LDL Cholesterol Calculated 93 mg/dL (<100); Potassium 5.2 mmol/L (3.4-5.1); Sodium 140 mmol/L (137-145); Total Protein 7.9 g/dL (6.3-8.2); Triglycerides 180 mg/dL (35-150)
[2024-03-27 12:45] LABS: Hemoglobin A1C% w Est Avg Glu 6.2 % (4.0-6.0)
[2024-03-27 14:46] LABS: Creatinine Urine Random 74.57 mg/dL
[2024-03-27 14:53] LABS: Microalbumin Urine Random 1.5 mg/dL (0-1.6)
== END ==
PROVIDERS: PCP Internal Medicine; Referring Provider Internal Medicine; Visit Provider Internal Medicine
DX: E11.9 Type 2 diabetes mellitus without complications (principal); I10 Essential (primary) hypertension; E78.5 Hyperlipidemia, unspecified; D64.9 Anemia, unspecified
CPT/HCPCS: 36415; 80053; 80061; 82043; 82570; 83036; 85025

== ENCOUNTER → 2024-08-28 09:11 | Outpatient (CLI) | payer MEDICARE, OTHER, SELFPAY ==
[2021-02-13 23:11] VITALS: BMI 31.0
[2024-08-28 10:47] LABS: Alanine Aminotransferase 92 IU/L (<35); Albumin 4.6 g/dL (3.5-5.0); Albumin Globulin Ratio 1.4 (1.0-2.8); Alkaline Phosphatase 82 U/L (38-126); Aspartate Aminotransferase 76 IU/L (14-36); Bilirubin Total 0.5 mg/dL (0.2-1.3); Blood Urea Nitrogen 18 mg/dL (7-17); Calcium 10.1 mg/dL (8.4-10.2); Carbon Dioxide 28 mmol/L (22-32); Chloride 105 mmol/L (98-107); Cholesterol 187 mg/dL (140-199); Estimated Glomerular Filt Rate > 60 mL/min (>60); Globulin 3.3 g/dL (1.7-4.1); Glucose 112 mg/dL (80-110); HDL Cholesterol 48 mg/dL (40-60); HEMOLYSIS < 15 (0-50); LDL Cholesterol Calculated 106 mg/dL (<100); Potassium 4.9 mmol/L (3.4-5.1); Sodium 142 mmol/L (137-145); Total Protein 7.9 g/dL (6.3-8.2); Triglycerides 163 mg/dL (35-150)
== END ==
PROVIDERS: PCP Internal Medicine; Referring Provider Internal Medicine; Visit Provider Internal Medicine
DX: E11.9 Type 2 diabetes mellitus without complications (principal); I10 Essential (primary) hypertension; E78.5 Hyperlipidemia, unspecified; B18.2 Chronic viral hepatitis C
CPT/HCPCS: 36415; 80053; 80061; 83036

== ENCOUNTER → 2024-12-14 14:19 | Outpatient (CLI) | payer MEDICARE, OTHER, SELFPAY ==
[2021-02-13 23:11] VITALS: BMI 31.0
--- NOTE | 2024-12-14 14:24 | DI.MG.S_ITS ---
MM screening mammo BI: 12/14/2024. BI-RADS: 1 CLINICAL: 74-year old female for bilateral screening mammogram. Tyrer-Cuzick lifetime risk of 2.5%. No personal or first-degree family history of breast cancer. PRIOR EXAMS 11/04/2023, 10/19/2022, 10/13/2021, 10/06/2020, 10/02/2019, 10/07/2017, 12/19/2014. MAMMOGRAPHY TECHNIQUE: 2D and 3D (tomosynthesis) digital mammographic views obtained, with additional images as needed for full coverage. Current study was also evaluated with a Computer Aided Detection (CAD) system. DENSITY B. There are scattered areas of fibroglandular density. MAMMOGRAPHY FINDINGS Bilateral: No suspicious mass, asymmetry, microcalcification, or other abnormality seen. IMPRESSION: * No evidence of malignancy. RECOMMENDATIONS Bilateral * Annual screening mammography. OVERALL ASSESSMENT CATEGORY BI-RADS-1: Negative. The [employer] recommends annual screening mammography beginning at age 40 for women with average risk of breast cancer. ELECTRONICALLY SIGNED: Eleanor Patel M.D. on 12/17/2024 at 12:51:21 AM PT Interpreting Station ID: [id number]
== END ==
LOC: MAMMO 14:20
PROVIDERS: PCP Internal Medicine; Referring Provider Internal Medicine; Visit Provider Internal Medicine
DX: Z12.31 Encounter for screening mammogram for malignant neoplasm of breast (principal)
CPT/HCPCS: 77063; 77067

== ENCOUNTER → 2025-02-25 07:50 | Outpatient (CLI) | payer MEDICARE, OTHER, SELFPAY ==
[2021-02-13 23:11] VITALS: BMI 31.0
[2025-02-25 08:36] LABS: Hemoglobin A1C% w Est Avg Glu 6.3 % (4.0-6.0)
[2025-02-25 09:15] LABS: Alanine Aminotransferase 68 IU/L (<35); Albumin 4.5 g/dL (3.5-5.0); Albumin Globulin Ratio 1.5 (1.0-2.8); Alkaline Phosphatase 79 U/L (38-126); Blood Urea Nitrogen 17 mg/dL (7-17); Calcium 9.9 mg/dL (8.4-10.2); Carbon Dioxide 30 mmol/L (22-32); Chloride 104 mmol/L (98-107); Cholesterol 171 mg/dL (140-199); Estimated Glomerular Filt Rate > 60 mL/min (>60); Globulin 3.0 g/dL (1.7-4.1); Glucose 106 mg/dL (70-99); HDL Cholesterol 49 mg/dL (40-60); HEMOLYSIS < 15 (0-50); Sodium 142 mmol/L (137-145); Total Protein 7.5 g/dL (6.3-8.2); Triglycerides 173 mg/dL (35-150)
[2025-02-25 09:18] LABS: Potassium 5.4 mmol/L (3.4-5.1)
== END ==
PROVIDERS: PCP Internal Medicine; Referring Provider Internal Medicine; Visit Provider Internal Medicine
DX: E11.9 Type 2 diabetes mellitus without complications (principal); I10 Essential (primary) hypertension; B18.2 Chronic viral hepatitis C; E78.5 Hyperlipidemia, unspecified
CPT/HCPCS: 36415; 80053; 80061; 83036